=== PATIENT | female | born 1925 | race Hispanic/Latino ===

== ENCOUNTER 2016-12-03 09:16 | Day surgery (SDC) | payer MEDICARE, OTHER ==
[2016-07-08 06:47] VITALS: PULSE 136
[2016-09-24 07:41] VITALS: BMI 24.7
--- NOTE | 2016-12-03 10:17 | CP.PCM.HP ---
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 Chr A Fib ESRD (On CHr HD) TRUDY HTN Here for abd paracentasis Present on Admission - Present on Admission Any Indicators Present on Admission: No Past Patient History - Infectious Disease Hx of Infectious Diseases: None - Tetanus Immunizations Tetanus Immunization: Unknown - Past Medical History & Family History Past Medical History?: Yes - Past Social History Smoking Status: Unknown If Ever Smoked - CARDIAC Hx Atrial Fibrillation: Yes (on coumadin) Hx Cardia Arrhythmia: Yes Hx Congestive Heart Failure: Yes Hx Hypertension: Yes - PULMONARY Hx Pneumonia: Yes Hx Sleep Apnea: Yes - NEUROLOGICAL Hx Neurological Disorder: No - HEENT Hx HEENT Problems: No - RENAL Hx Chronic Kidney Disease: Yes (Dialysis M, W, F) Hx Kidney Stones: No - ENDOCRINE/METABOLIC Hx Hypothyroidism: Yes - HEMATOLOGICAL/ONCOLOGICAL Hx Anemia: Yes Hx Human Immunodeficiency Virus (HIV): No - INTEGUMENTARY Other/Comment: generalized pruritic eruption for the last one month - MUSCULOSKELETAL/RHEUMATOLOGICAL Hx Falls: Yes - GASTROINTESTINAL Hx Gastrointestinal Disorders: No Other/Comment: ASCITES - GENITOURINARY/GYNECOLOGICAL Hx Genitourinary Disorders: No - PSYCHIATRIC Hx Psychophysiologic Disorder: No Hx Substance Use: No - SURGICAL HISTORY Hx Coronary Artery Bypass Graft: No - ANESTHESIA Hx Anesthesia: Yes Hx Anesthesia Reactions: No Hx Malignant Hyperthermia: No Meds Allergies/Adverse Reactions: Allergies Allergy/AdvReac Type Severity Reaction Status Date / Time iodine Allergy RASH Verified 09/24/16 07:43 iron Allergy ITCHING Verified 09/24/16 07:50 Results - Vital Signs Recent Vital Signs: Last Vital Signs Temp 98.3 F 12/03/16 10:04 Pulse 77 12/03/16 10:04 Resp 20 12/03/16 10:04 BP 110/60 12/03/16 10:04 Pulse Ox 94 L 12/03/16 10:04 - Labs Labs: Laboratory Results - last 24 hr 12/03/16 09:57 POC Glucose (mg/dL) 148 H
--- NOTE | 2016-12-03 10:40 | HP ---
She is hospitalized in the same day surgery unit of the hospital for an abdominal paracentesis. HISTORY OF PRESENT ILLNESS: She is an 89-year-old female, a hypertensive, with chronic renal failure requiring hemodialysis for more than 4 years. She has chronic atrial fibrillation and has been on w arfarin. 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 The patient has had this procedure repeated over last year and a norman lf approximately 4-5 times. She has never been a smoker, has never suffered a myocardial infarction and has been on oral anticoagulation chronically for prevention of systemic embolism in presence of a trial fibrillation. PHYSICAL EXAMINATION: GENERAL: Shows an elderly, exhausted female, alert, awake, coherent, afebrile, complains of severe c hronic pruritus that has resisted any attempts to treat it medically. VITAL SIGNS: Afebrile, breathes at 20 breaths per minute, has a heart rate of 78 beats per minute, i rregularly irregular and a blood pressure of 114/70 mmHg. Her jugular venous pressure was elevated. EXTREMITIES: There was pitting edema over both lower extremities. Extremities were cool to touch. She had a mild peripheral cyanosis indicative of profound reduced cardiac output. A dialysis shunt w as in place in the left upper extremity. Her blood pressure was recorded in the right upper extremit y. There was a long apical systolic murmur of mitral and tricuspid regurgitation. NECK: CV complexes were evident in her jugular veins. IMPRESSION: At this time is recurrent ascites due to right ventricular failure as a consequence of m arkedly elevated pulmonary hypertension as a result of chronic hypoxia and hypoventilation syndrome w ith chronic atrial fibrillation, end-stage renal disease due to hypertension. The patient has had he r Coumadin withheld for more than 4 days and an INR was drawn this morning. She appears medically st able to proceed with the planned paracentesis procedure. Ariel Aldridge MD cc: 23 TT: 12/03/2016 10:39:34 tn
--- NOTE | 2016-12-03 11:29 | PCM.SURG1 ---
Surgeon's Initial Post Op Note - Surgeon's Notes Surgeon: Sohail Cruz MD Marketing Information Manager: NONE Type of Anesthesia: Local Pre-Operative Diagnosis: Ascites Operative Findings: US showed a large amount of ascites Post-Operative Diagnosis: Ascites Operation Performed: US guided paracentesis. Specimen/Specimens Removed: 5.7 liters of yellow fluid Estimated Blood Loss: EBL {In ML}: 0 Blood Products Given: N/A Drains Used: No Drains Post-Op Condition: Fair Date of Surgery/Procedure: 12/03/16 Time of Surgery/Procedure: 11:20
--- NOTE | 2016-12-03 11:30 | CP.SDSHP ---
Same Day Surgery H & P - History Proposed Procedure: US guided paracentesis. Pre-Op Diagnosis: Ascites - Allergies Allergies: Allergies iodine Allergy (Verified 09/24/16 07:43) RASH swelling iron Allergy (Verified 09/24/16 07:50) ITCHING SWELLING HIVES - Physical Exam Vital Signs: Vital Signs 12/03/16 12/03/16 12/03/16 10:04 10:09 10:45 Temperature 98.3 F 97.2 F L Pulse Rate 77 77 76 Respiratory 20 18 Rate Blood Pressure 110/60 91/47 L O2 Sat by Pulse 94 L 97 Oximetry Mental Status: Alert & Oriented x3 Neuro: WNL Heart: WNL - {Optional Preform as Required} Abdomen: Other (distended. Non tender) - Impression Impression: Pt with refractory ascites referred for paracentesis. Informed consent obtained. Pt. Evaluated Today:Candidate for Anesthesia & Procedure: No - Date & Time Date: 12/03/16 Time: 11:00 Short Stay Discharge - Short Stay Discharge Admitting Diagnosis/Reason for Visit: ASCITES Disposition: HOME/ ROUTINE Referrals: Tripp Aldridge MD [Primary Care Provider] -
--- NOTE | 2016-12-03 11:31 | CP.SDSHP ---
Same Day Surgery H & P - Allergies Allergies: Allergies iodine Allergy (Verified 09/24/16 07:43) RASH swelling iron Allergy (Verified 09/24/16 07:50) ITCHING SWELLING HIVES - Physical Exam Vital Signs: Vital Signs 12/03/16 12/03/16 12/03/16 10:04 10:09 10:45 Temperature 98.3 F 97.2 F L Pulse Rate 77 77 76 Respiratory 20 18 Rate Blood Pressure 110/60 91/47 L O2 Sat by Pulse 94 L 97 Oximetry Short Stay Discharge - Short Stay Discharge Admitting Diagnosis/Reason for Visit: ASCITES Referrals: Tripp Aldridge MD [Primary Care Provider] - Progress Note/Discharge Note with Instructions: s/p paracentesis. There were no complications.
[2016-12-03 11:41] VITALS: TEMP 97.4
[2016-12-03 11:58] VITALS: RESP 20
[2016-12-03 12:35] VITALS: O2SAT 95
[2016-12-03 13:02] VITALS: BP 97/41; PULSE 70
--- NOTE | 2016-12-04 13:31 | US ---
Date of Procedure: 12/03/2016 PROCEDURE: Ultrasound-guided paracentesis, CPT 79248 Medications: 8cc 1% Lidocaine HISTORY: Ascites, abdominal pain, TECHNIQUE: Following informed consent , the patient was placed supine on the stretcher and the site was marked. A limited abdominal ultrasound was performed that showed a large amount of intra-abdominal fluid. Procedural time out was called and the Pt's abdomen was marked and prepped and draped in the usual sterile fashion. Ultrasound-guided large volume paracentesis performed. A total of 5 liters of straw colored fluid was removed without complication. IMPRESSION: Ultrasound-guided large volume paracentesis.
== END 2016-12-03 13:15 | disposition home or self-care (01) ==
LOC: H.OPSURG 09:16
PROVIDERS: ATTEND Internal Medicine Cardiovascular Disease
DX: R18.8 Other ascites (principal)
CPT/HCPCS: 36415; 49083; 82948; 85610; C1729

== ENCOUNTER 2017-01-23 11:15 | Day surgery (SDC) | payer MEDICARE, OTHER ==
[2016-07-08 06:47] VITALS: PULSE 136
[2017-01-23 11:31] VITALS: BMI 25.7
[2017-01-23 12:13] LABS: HEMOGLOBIN 11.4 g/dL (12.0-16.0); MEAN CELL VOLUME 105.9 fl (81.0-99.0); MEAN CORPUSCULAR HEMOGLOBIN 34.9 pg (27.0-31.0); MEAN CORPUSCULAR HGB CONC 32.9 g/dL (33.0-37.0); RBC 3.27 Mil/uL (3.80-5.20); RED CELL DISTRIBUTION WIDTH 16.5 % (11.5-14.5); WHITE BLOOD COUNT 4.5 K/uL (4.8-10.8)
[2017-01-23 12:26] LABS: INR 1.4 (0.9-1.2)
[2017-01-23] MEDS ORDERED: Lidocaine 1% Inj (20ml) ONE (13:02)
--- NOTE | 2017-01-23 13:52 | PCM.SURG1 ---
Surgeon's Initial Post Op Note - Surgeon's Notes Surgeon: Sohail Cruz MD Improvement Analyst: NONE Type of Anesthesia: Local Pre-Operative Diagnosis: Ascites Operative Findings: US showed large amount of ascites Post-Operative Diagnosis: Ascites Operation Performed: US guided paracentesis. Specimen/Specimens Removed: 6.5 liters of straw colored fluid Estimated Blood Loss: EBL {In ML}: 0 Blood Products Given: N/A Drains Used: No Drains Post-Op Condition: Fair Date of Surgery/Procedure: 01/23/17 Time of Surgery/Procedure: 13:45
--- NOTE | 2017-01-23 13:58 | US ---
Date of Procedure: 01/23/2017 PROCEDURE: Ultrasound-guided paracentesis, CPT 56896 Medications: 8cc 1% Lidocaine HISTORY: Ascites TECHNIQUE: Following informed consent , the patient was placed supine on the stretcher and the site was marked. A limited abdominal ultrasound was performed that showed a large amount of intra-abdominal fluid. Procedural time out was called and the Pt's abdomen was marked and prepped and draped in the usual sterile fashion. Ultrasound-guided large volume paracentesis performed. A total of 6.2 liters of straw colored fluid was removed without complication. IMPRESSION: Ultrasound-guided large volume paracentesis.
[2017-01-23 14:09] VITALS: RESP 18
[2017-01-23 14:15] VITALS: TEMP 97.4
[2017-01-23 15:05] VITALS: BP 97/62; PULSE 104; O2SAT 95
== END 2017-01-23 15:19 | disposition home or self-care (01) ==
LOC: H.OPSURG 11:15
PROVIDERS: ATTEND Internal Medicine Cardiovascular Disease
DX: R18.8 Other ascites (principal)

== ENCOUNTER 2017-01-29 13:22 | Inpatient (IN) | payer MEDICARE, OTHER ==
[2017-01-29 13:22] VITALS: PULSE 136; BMI 25.7
--- NOTE | 2017-01-29 14:42 | ED PDOC ---
Lower Extremity Pain/Injury Chief Complaint (Provider): Ulcerations History Per: Patient Additional Complaint(s): 89 yo female with history of ESRD on HD, HTN, DM2 and Chronic AFib, who presents to ED in order to undergo evaluation of worsening cellulitis to right lower extremity. Pt was seen and evaluated by business assistant, Dr. Gates, today and was sent to ED for further evaluation and management. Pt's daughter at the bedside and reports that the LE cellulitis has been present for 6+ months. Additionally, Pt's daughter reports that her mother seems very ill to her. More lethargic than normal, not eating well an her BP has been very low. Of note, patient is due for dialysis today. <Karoline Medina - Last Filed: 01/29/17 16:22> <Karoline Camargo - Last Filed: 02/05/17 14:07> Time Seen by Provider: 01/29/17 13:41 Chief Complaint (Nursing): Lower Extremity Problem/Injury Past Medical History Reviewed: Historical Data, Nursing Documentation, Vital Signs Vital Signs: Last Vital Signs Temp 97 F L 01/29/17 13:29 Pulse 86 01/29/17 14:26 Resp 15 01/29/17 14:26 BP 77/34 L 01/29/17 14:26 Pulse Ox 96 01/29/17 13:54 - Medical History PMH: Anemia, Atrial Fibrillation (on coumadin), Cardia Arrhythmia, CHF, Depression, Diabetes (Type II), HTN, Hypothyroidism, Pneumonia, End Stage Renal Disease, Chronic Kidney Disease (Dialysis MWF), Sleep Apnea (on CPAP) Denies: HIV, Kidney Stones - Surgical History Surgical History: Cholecystectomy, Hernia Repair (2005, ventral) Denies: CABG - Family History Family History: States: Unknown Family Hx - Living Arrangements Living Arrangements: [facility]/Assist Lvng - Social History Current smoker - smoking cessation education provided: No Alcohol: None Drugs: Denies <Karoline Medina - Last Filed: 01/29/17 16:22> Vital Signs: Last Vital Signs Temp 97.7 F 02/03/17 13:00 Pulse 80 02/03/17 13:00 Resp 18 02/03/17 13:00 BP 98/32 L 02/03/17 13:00 Pulse Ox 96 02/03/17 13:00 <CamargoKaroline angel J - Last Filed: 02/05/17 14:07> - Home Medications Home Medications: Ambulatory Orders Medication Instructions Recorded Folic Acid/Vit B Complex and C 1 tab PO DAILY 04/15/15 [Folbee Plus Tablet] Pantoprazole [Protonix EC Tab] 40 mg PO DAILY 04/15/15 Sevelamer Carbonate [Renvela] 800 mg PO BID 04/15/15 Sitagliptin Phosphate [Januvia] 25 mg PO DAILY 04/15/15 Alprazolam [Xanax] 0.25 mg PO BID PRN 06/19/15 Warfarin [Coumadin] 2 mg PO HS 06/19/15 Levothyroxine [Synthroid] 50 mcg PO DAILY 09/21/15 Telmisartan [Micardis] 40 mg PO SUTUTHSA 09/21/15 Cinacalcet [Sensipar] 30 mg PO QOTHERDAY 12/03/16 Metoprolol Tartrate [Lopressor] 25 mg PO DAILY 12/03/16 Benzonatate 200 mg PO TID PRN 01/29/17 Cyproheptadine [Periactin] 4 mg PO BID PRN 01/29/17 ALPRAZolam [Xanax] 0.25 mg PO Q12 PRN tab 02/03/17 Acetaminophen [Tylenol 325mg tab] 650 mg PO Q6 PRN tab 02/03/17 Levothyroxine [Synthroid] 50 mcg PO DAILY@0630 tab 02/03/17 Metoprolol Tartrate [Lopressor] 25 mg PO Q12 tab 02/03/17 Pantoprazole [Protonix EC Tab] 40 mg PO DAILY ect 02/03/17 SITagliptin [Januvia] 25 mg PO DAILY tab 02/03/17 Sevelamer [Renagel] 800 mg PO TIDWM tab 02/03/17 Vitamin B Complex/Vit C/Folic 1 tab PO DAILY tab 02/03/17 [Nephro-Goran] - Allergies Allergies/Adverse Reactions: Allergies Allergy/AdvReac Type Severity Reaction Status Date / Time iodine Allergy RASH Verified 01/29/17 13:29 iron Allergy ITCHING Verified 01/29/17 13:29 Wells Criteria for PE - Wells Criteria for Pulmonary Embolism Clinical Signs and Symptoms of DVT: No P.E is #1 Diagnosis, or Equally Likely: No Heart Rate >100: No Immobilization at least 3 days;Surgery previous 4 weeks: Yes Previous, objectively diagnosed PE or DVT: No Hemoptysis: No Malignancy w/treatment within 6 months, or palliative: No Total Score: 1.5 <Karoline Medina Filed: 01/29/17 16:22> Review of Systems ROS Statement: Except As Marked, All Systems Reviewed And Found Negative Constitutional: Positive for: Weakness, Malaise Musculoskeletal: Positive for: Leg Pain Skin: Positive for: Other (cellulitis) <Karoline Medina Last Filed: 01/29/17 16:22> Physical Exam - Reviewed Nursing Documentation Reviewed: Yes Vital Signs Reviewed: Yes - Physical Exam Appears: Positive for: Well, Non-toxic, No Acute Distress Head Exam: Positive for: ATRAUMATIC, NORMAL INSPECTION, NORMOCEPHALIC Skin: Positive for: Normal Color, Warm, DRY Eye Exam: Positive for: EOMI, Normal appearance, PERRL ENT: Positive for: Normal ENT Inspection Neck: Positive for: Normal, Painless ROM Cardiovascular/Chest: Positive for: Regular Rate, Rhythm Respiratory: Positive for: CNT, Normal Breath Sounds Gastrointestinal/Abdominal: Positive for: Normal Exam, Bowel Sounds, Soft Back: Positive for: Normal Inspection Extremity: Positive for: Other (right LE erythematous and warm). Negative for: Tenderness, Deformity, Swelling Neurologic/Psych: Positive for: Alert <Karoline Medina Last Filed: 01/29/17 16:22> - Laboratory Results Result Diagrams: 01/29/17 15:00 01/29/17 15:00 - ECG O2 Sat by Pulse Oximetry: 96 <Karoline Medina Last Filed: 01/29/17 16:22> - Laboratory Results Result Diagrams: 01/31/17 04:20 01/31/17 04:20 <Ketty Camargoissa Jose Last Filed: 02/05/17 14:07> Medical Decision Making Medical Decision Making: Pt with BP 75/30 upon arrival. Pt asleep in bed, responsive to verbal stimuli. IV access established and diagnostics ordered. ED MD, Dr. Camargo, made aware and presented to see and evaluate Pt at bedside. Case endorsed to Dr. Camargo for further care and management at this time <Karoline Medina - Last Filed: 01/29/17 16:22> Disposition - Patient ED Disposition Is Patient to be Admitted: Yes - Disposition Disposition: Transfer of Care (Dr. Camargo) Disposition Time: 16:30 - POA Present On Arrival: None <Karoline Medina - Last Filed: 01/29/17 16:22> <Karoline Camargo - Last Filed: 02/05/17 14:07> - Clinical Impression Clinical Impression: Hypotension, ESRD (end stage renal disease), Cellulitis - Disposition Condition: CRITICAL
[2017-01-29] MEDS ORDERED: Sodium Chloride 0.9% 250 ML IV STA (14:45)
[2017-01-29] MEDS ORDERED: Albumin Human 25% (12.5 gm/50 ml) IV ONE (14:54)
[2017-01-29] MEDS ORDERED: Cefepime 1 GM in Sodium Chloride 0.9% 100 ML IVPB STA (15:10)
[2017-01-29 15:24] LABS: BASO % 0.5 % (0.0-2.0); EOS # 0.1 K/uL (0.0-0.7); EOS % 1.4 % (0.0-4.0); HEMOGLOBIN 12.3 g/dL (12.0-16.0); LYMPH # 0.5 K/uL (1.0-4.3); LYMPH % 14.1 % (20.0-40.0); MEAN CELL VOLUME 104.9 fl (81.0-99.0); MEAN CORPUSCULAR HEMOGLOBIN 33.9 pg (27.0-31.0); MEAN CORPUSCULAR HGB CONC 32.3 g/dL (33.0-37.0); MEAN PLATELET VOLUME 8.2 fl (7.2-11.7); MONO # 0.6 K/uL (0.0-0.8); MONO % 15.9 % (0.0-10.0); NEUT # 2.5 K/uL (1.8-7.0); NEUT % 68.1 % (50.0-75.0); NRBC % 0.1 % (0.0-0.0); RBC 3.62 Mil/uL (3.80-5.20); RED CELL DISTRIBUTION WIDTH 16.5 % (11.5-14.5); WHITE BLOOD COUNT 3.7 K/uL (4.8-10.8)
[2017-01-29 15:25] LABS: VENOUS BLOOD GAS BASE EXCESS 5.5 mmol/L (0.0-2.0); VENOUS BLOOD GAS PCO2 56 mmHg (40-60); VENOUS BLOOD GAS PO2 24 mm/Hg (30-55); VENOUS BLOOD PH 7.37 (7.32-7.43)
[2017-01-29 15:32] LABS: ALB/GLOB RATIO 1.1 (1.0-2.1); ALBUMIN 3.3 g/dL (3.5-5.0); ALT/SGPT 30 U/L (9-52); AST/SGOT 29 U/L (14-36); BLOOD UREA NITROGEN 37 mg/dl (7-17); GFR AFRICAN-AMERICAN 10; GFR NON-AFRICAN AMERICAN 8; MAGNESIUM 1.9 MG/DL (1.6-2.3)
[2017-01-29 15:38] LABS: PROTHROMBIN TIME 18.9 Seconds (9.8-13.1)
[2017-01-29 15:39] LABS: INR 1.7 (0.9-1.2); PARTIAL THROMBOPLASTIN TIME 34.8 Seconds (25.6-37.1)
--- NOTE | 2017-01-29 15:52 | RAD ---
PROCEDURE: CHEST RADIOGRAPH, 1 VIEW HISTORY: med screening COMPARISON: 05/18/2016 FINDINGS: LUNGS: Clear. PLEURA: Hazy opacity at right costophrenic angle may reflect small pleural effusion. No left pleural effusion. No pneumothorax. CARDIOVASCULAR: Mild cardiomegaly. Mild enlargement of main pulmonary artery which may correlate with pulmonary arterial hypertension. OSSEOUS STRUCTURES: No significant abnormalities. VISUALIZED UPPER ABDOMEN: Normal. OTHER FINDINGS: None. IMPRESSION: No infiltrate. Mild cardiomegaly. Possible small right pleural effusion. Mild enlargement of main pulmonary artery.
--- NOTE | 2017-01-29 16:14 | US ---
PROCEDURE: Right lower extremity venous duplex Doppler. HISTORY: RIGHT leg swelling redness COMPARISON: None available. TECHNIQUE: Common femoral, superficial femoral, popliteal and posterior tibial veins were evaluated. Flow was assessed with color Doppler, compressibility, assessment of phasic flow and augmentation response. FINDINGS: COMMON FEMORAL VEIN: Unremarkable. SUPERFICIAL FEMORAL VEIN: Unremarkable. POPLITEAL VEIN: Unremarkable. POSTERIOR TIBIAL VEIN: Unremarkable. OTHER FINDINGS: None. IMPRESSION: No evidence of deep venous thrombosis in the right lower extremity.
[2017-01-29 16:49] LABS: B-TYPE NATRIURETIC PEPTIDE 218000 pg/ml (0-900)
--- NOTE | 2017-01-29 16:51 | CP.CCUPN ---
CCU Subjective - Physician Review Subjective (Free Text): Consultation requested by ER / PMD for ICU admission 89 F with PMH: HTN, DM II, ESRD on HD (MWF), CHF -Pulm HTN , chronic A Fib, TRUDY on home NIPPV, recurrent ascites requiring intermittent paracentesis ( last one 1 week ago, 6.5 liters removed), multiple episodes of PNA, chronic R pleural effusion: admitted today with Right LLE cellulitis and hypotension with SBP 80s. Responded to colloid challenge with Albumin, resulting in BP 90s, HR 88. Appears lethargic and only awakens to loud verbal stimuli, daughter at bedside stating she notes successive sleepiness over the past several days, but she does not appear distressed nor with any labored breathing, daughter denies any recent CP or dyspnea at rest. Denies any recent cough, fevers or chills, no diaphoresis, dizziness, palpitations, abdominal discomfort. She admits to recent R sided headaches, but not assoc with any nausea, focal weakness, dizziness, visual or hearing changes. Started on Cefepime and Vanco in the ER. Had her usual HD on Friday with removal of 3 kg. ALLERGIES: Iron and Iodine Home Meds: Xanax, Benzonatate, Sensipar, Periactin, Folate/Bcomplex/vit C complex, Synthroid, Lopressor, Protonix, Sevelemer, Januvia, Micardis, warfarin. ROS: as above, other 10+ system review did not reveal any new pertinent negs or positives. Other PMSFH: All recent nursing and physician documentation reviewed as far back as 2014 and no new information noted relevant to current problems. CCU Objective - Vital Signs / Intake & Output Vital Signs (Last 4 hours): Vital Signs Pulse Ox 01/29/17 16:30 96 in ICU: 101/51, HR 88 in A Fib, RR 19, SPO2 92% on RA, Afebrile. - Physical Exam Head: Positive for: Normocephalic Pupils: Positive for: PERRL Extroacular Muscles: Positive for: EOMI Conjunctiva: Positive for: Normal Ears: Positive for: Normal Mouth: Positive for: Dry Pharnyx: Positive for: Normal. Negative for: ERYTHEMA, EXUDATE Neck: Negative for: JVD (prominent neck vein distention on Left, no JVD on the Right.) Respiratory/Chest: Positive for: Decreased Breath Sounds, Rales. Negative for: Wheezes, Rhonchi Cardiovascular: Positive for: Normal S1, S2, Irregular Rhythm Abdomen: Positive for: Distention, Other (protuberant, + fluid wave, ). Negative for: Tenderness, Rebound, Guarding Upper Extremity: Positive for: Other (LUE AVF shunt with good bruit and thrill) Lower Extremity: Positive for: Edema (RLE only with redness and increased warmth over distal leg, dressing intact over 2 areas of broken skin over mid- lateral distal R leg.), NORMAL PULSES, Erythema. Negative for: CALF TENDERNESS , Cyanosis Neurological: Positive for: GCS=15, CN II-XII Intact, Speech Normal, Motor Func Grossly Intact Skin: Positive for: Warm. Negative for: Rashes - Medications Active Medications: Active Medications Generic Name Dose Route Start Last Admin Trade Name Freq PRN Reason Stop Dose Admin Cefepime HCl 1 gm/ Sodium 100 mls @ 100 mls/hr 01/30/17 09:00 Chloride IVPB DAILY MEGHAN - Patient Studies Radiology Interpretations (Free Text): CXR: ( my interp)- blunting bilat production team member, no gross consolidation, probable bibasilar atelectasis as well. EKG/Cardiology Interpretations (Free Text): EKG: (my interp) A fib 76/min, no new ischemic changes. Review of Systems - Review of Systems Review of Systems: as above, other 10+ system review did not reveal any new pertinent negs or positives. Critical Care Progress Note - Extremities/Vascular Does the Patient have a Central Venous Catheter?: No Does the Patient need a Central Venous Catheter?: No Does the Patient have a Hassan Catheter?: No Does the Patient need a Hassan Catheter?: No - Prophylaxis GI Prophylaxis GI: Not Indicated - Prophylaxis DVT Prophylaxis DVT: Heparin SQ Assessment/Plan - Assessment and Plan (Free Text) Assessment: MAJOR PROBLEMS: 1. Hypotension 2 Hypovolemia/ Dehydration 2. AMS with intermittent Lethargy and drowsiness 3. Right LLE Cellulitis, r/o DVT 4. ESRD on HD with missed session today. 5. R- CHF and Pulm HTN 6. DM II 7. Chronic A fib on AC Plan: PLAN: 1. Colloid infusion with 5% Albumin as tolerated for BP support, may need vasopressors if still hypotensive after 1 liter volume infused. She does not appear to be fluid overloaded. 2. CT Brain 3. Check ABG 4. Hold on HD today, anticipate HD in AM for urea clearance. 5. Empiric abx coverage for cellulitis 6. LLE US/Doppler eval. Do not suspect any evident acute PTE. 7. Clarify any Advance Directives.
--- NOTE | 2017-01-29 17:01 | ED PDOC ---
- Laboratory Results Result Diagrams: 01/29/17 15:00 01/29/17 15:00 - ECG ECG: Positive for: Interpreted By Me ECG Rhythm: Positive for: Atrial Fibrillation. Negative for: ST/T Changes O2 Sat by Pulse Oximetry: 96 Pulse Ox Interpretation: Normal - Radiology X-Ray: Read By Radiologist - Critical Care Total Time (In Min): 30 Documented Critical Care: Time excludes all time spent performint seperately billable procedures Medical Decision Making Medical Decision Making: Rec'd endorsement from URSULA Medina On eval, pt is fluid overload/signs of heart failure but hypotensive, with active RIGHT leg lower leg cellulitis. Unable to aggressively give IVF for sepsis due to heart failure and renal failure. DW Dr Jose Aldridge PMD and CArdiology, who recommends albumin at this time [facility]. Due to hypotension unable to have hemodialysis at this time. (Mididrine considered, but per Dr Aldridge, may exacerbate her atrial fibrillation.) RC GILMAN who recommends Vanco and Cefepime. [facility] Che[facility] for ICU. Recommends CT Head. RC family plan of care. Pt's bp slowly stabilizing and SBP has increased to 80s. She has normal mental status. Accession No. : [id number] Patient Name / ID : KATERINA MISHRA / [id number] Exam Date : 01/29/2017 15:38:35 ( Approved ) Study Comment : Sex / Age : F / 89Y Creator : Vincent Glover MD Dictator : Vincent Glover MD Solar Panel Installation Supervisor : Tank Hoop Bender : Vincent Glover MD Approver2 : Report Date : 01/29/2017 16:12:52 My Comment : PROCEDURE: Right lower extremity venous duplex Doppler. HISTORY: RIGHT leg swelling redness COMPARISON: None available. TECHNIQUE: Common femoral, superficial femoral, popliteal and posterior tibial veins were evaluated. Flow was assessed with color Doppler, compressibility, assessment of phasic flow and augmentation response. FINDINGS: COMMON FEMORAL VEIN: Unremarkable. SUPERFICIAL FEMORAL VEIN: Unremarkable. POPLITEAL VEIN: Unremarkable. POSTERIOR TIBIAL VEIN: Unremarkable. OTHER FINDINGS: None. IMPRESSION: No evidence of deep venous thrombosis in the right lower extremity. Accession No. : [id number] Patient Name / ID : KATERINA MSIHRA / [id number] Exam Date : 01/29/2017 15:25:07 ( Approved ) Study Comment : Sex / Age : F / 89Y Creator : Vincent Glover MD Dictator : Vincent Glover MD Solar Panel Installation Supervisor : Tank Hoop Bender : Vincent Glover MD Approver2 : Report Date : 01/29/2017 15:50:16 My Comment : PROCEDURE: CHEST RADIOGRAPH, 1 VIEW HISTORY: med screening COMPARISON: 05/18/2016 FINDINGS: LUNGS: Clear. PLEURA: Hazy opacity at right costophrenic angle may reflect small pleural effusion. No left pleural effusion. No pneumothorax. CARDIOVASCULAR: Mild cardiomegaly. Mild enlargement of main pulmonary artery which may correlate with pulmonary arterial hypertension. OSSEOUS STRUCTURES: No significant abnormalities. VISUALIZED UPPER ABDOMEN: Normal. OTHER FINDINGS: None. IMPRESSION: No infiltrate. Mild cardiomegaly. Possible small right pleural effusion. Mild enlargement of main pulmonary artery. Disposition - Clinical Impression Clinical Impression: Hypotension, ESRD (end stage renal disease), Cellulitis - POA Present On Arrival: None - Disposition Disposition: Admitted as In-Patient Disposition Time: 15:30 Condition: CRITICAL
[2017-01-29] MEDS ORDERED: Albumin Human 5% (12.5 gm/250 ml) IV PRN (17:23)
--- NOTE | 2017-01-29 17:27 | CP.PCM.CON ---
History of Present Illness - History of Present Illness History of Present Illness: I D NOTE PATIENT SEEN IN ER BEING ADMITTED FOR HYPOTENSION,HAS FLUID OVERLOAD,ON HD' BEING SEEN BY ID FOR BILATERAL CELLULITIS OF LOWER EXTREMITIES ALONG C ULCERATINS OF SKIN ,AND CHRONIC ULCERATIONS OF HEELS UNABLE TO DO HD SO FAR BECAUSE OF SEVERE HYPOTENSION HEENT: SKIN IS ERYTHEMATOUS AROUND EYES AND CHEEKS AND GREYISH (ALMOST CYANOTIC AROUND REST OF FACIAL AREA NECK:SUPPLE LUNGS:DECREASED BREATH SOUNDS C RALES AT BASES HEART:AF ABDOMEN:POS BOWELSOUNDS EXT:ERYTHEMATOUS C SMALL ULCERATIONS HEELS:CHRONIC ULCERS IMPRESSION CELLULITIS OF BOTH LOWER EXTEMITIES /R ELBOW AF CRF CHF PLAN:MAXIPEME 1 GM IV Q24H ZYVOX 600 MG IVPB Q12 AWAIT CULTURES Past Patient History - Infectious Disease Hx of Infectious Diseases: None - Tetanus Immunizations Tetanus Immunization: Unknown - Past Medical History & Family History Past Medical History?: Yes - Past Social History Alcohol: None Drugs: Denies - CARDIAC Hx Atrial Fibrillation: Yes (on coumadin) Hx Cardia Arrhythmia: Yes Hx Congestive Heart Failure: Yes Hx Hypertension: Yes - PULMONARY Hx Pneumonia: Yes Hx Sleep Apnea: Yes (on CPAP) - NEUROLOGICAL Hx Neurological Disorder: No - HEENT Hx HEENT Problems: No - RENAL Hx Chronic Kidney Disease: Yes (Dialysis MWF) Hx Kidney Stones: No - ENDOCRINE/METABOLIC Hx Hypothyroidism: Yes - HEMATOLOGICAL/ONCOLOGICAL Hx Anemia: Yes Hx Human Immunodeficiency Virus (HIV): No - INTEGUMENTARY Hx Dermatological Problems: Yes (Pruritic eruptions) - MUSCULOSKELETAL/RHEUMATOLOGICAL Hx Musculoskeletal Disorders: No - GASTROINTESTINAL Hx Gastrointestinal Disorders: No Other/Comment: ASCITES - GENITOURINARY/GYNECOLOGICAL Hx Genitourinary Disorders: No - PSYCHIATRIC Hx Depression: Yes - SURGICAL HISTORY Hx Cholecystectomy: Yes Hx Coronary Artery Bypass Graft: No - ANESTHESIA Hx Anesthesia: Yes Hx Anesthesia Reactions: No Hx Malignant Hyperthermia: No Meds Allergies/Adverse Reactions: Allergies Allergy/AdvReac Type Severity Reaction Status Date / Time iodine Allergy RASH Verified 01/29/17 13:29 iron Allergy ITCHING Verified 01/29/17 13:29 - Medications Medications: Current Medications Cefepime HCl 1 gm/ Sodium (Chloride) 100 mls @ 100 mls/hr IVPB DAILY [facility] Results - Vital Signs Recent Vital Signs: Last Vital Signs Temp 97 F L 01/29/17 13:29 Pulse 86 01/29/17 14:26 Resp 15 01/29/17 14:26 BP 77/34 L 01/29/17 14:26 Pulse Ox 96 01/29/17 17:06 - Labs Result Diagrams: 01/29/17 15:00 01/29/17 15:00
--- NOTE | 2017-01-29 17:40 | CT ---
PROCEDURE: CT scan of the brain dated 01/29/2017 HISTORY: Dizziness. Weakness. COMPARISON: Comparison made with prior CT scan brain 07/08/2016 TECHNIQUE: Axial computed tomography images were obtained through the head/brain without intravenous contrast. Radiation dose: Total exam DLP = mGy-cm. This CT exam was performed using one or more of the following dose reduction techniques: Automated exposure control, adjustment of the mA and/or kV according to patient size, and/or use of iterative reconstruction technique. FINDINGS: HEMORRHAGE: No acute parenchymal, subarachnoid or extra-axial hemorrhage. BRAIN: Moderate to significant diffuse/ confluent chronic periventricular white matter ischemic changes extend peripherally into the deep and subcortical white matter both cerebral hemispheres. In addition, discrete bifrontal subcortical infarcts also present. Few scattered chronic bilateral basal nuclei lacunar type infarcts also noted. Dense vascular calcifications of both cavernous carotid arteries Moderate generalized volume loss. VENTRICLES: No evidence of obstructive hydrocephalus CALVARIUM: Calvarium appears grossly intact. PARANASAL SINUSES: Unremarkable as visualized. No significant inflammatory changes. MASTOID AIR CELLS: Unremarkable as visualized. No inflammatory changes. OTHER FINDINGS: Changes of bilateral cataract surgery IMPRESSION: No acute intracranial hemorrhage. Moderate to significant chronic white matter ischemic changes and bilateral frontal subcortical and deep white matter the infarcts again noted. There also appear to be a few scattered chronic bilateral basal nuclei lacunar type infarcts. Moderate generalized volume loss.
[2017-01-29] MEDS: Linezolid 600 mg in D5W 300 ml 600 MG/300 ML BAG IVPB SCH (21:47)
[2017-01-30 04:51] LABS: BASO % 0.8 % (0.0-2.0); EOS # 0.1 K/uL (0.0-0.7); EOS % 1.4 % (0.0-4.0); HEMOGLOBIN 11.3 g/dL (12.0-16.0); LYMPH # 0.5 K/uL (1.0-4.3); LYMPH % 14.4 % (20.0-40.0); MEAN CELL VOLUME 104.2 fl (81.0-99.0); MEAN CORPUSCULAR HEMOGLOBIN 33.8 pg (27.0-31.0); MEAN CORPUSCULAR HGB CONC 32.4 g/dL (33.0-37.0); MEAN PLATELET VOLUME 7.8 fl (7.2-11.7); MONO # 0.7 K/uL (0.0-0.8); MONO % 17.9 % (0.0-10.0); NEUT # 2.5 K/uL (1.8-7.0); NEUT % 65.5 % (50.0-75.0); RBC 3.35 Mil/uL (3.80-5.20); RED CELL DISTRIBUTION WIDTH 16.1 % (11.5-14.5); WHITE BLOOD COUNT 3.8 K/uL (4.8-10.8)
[2017-01-30 05:15] LABS: ALB/GLOB RATIO 1.2 (1.0-2.1); ALBUMIN 3.2 g/dL (3.5-5.0); CALCIUM 8.9 mg/dL (8.4-10.2)
--- NOTE | 2017-01-30 08:11 | CARD ---
APPROVED REPORT EKG Measurement Heart [id number] <Conclusion> Atrial fibrillation Right axis deviation Right ventricular hypertrophy with repolarization abnormality Nonspecific T wave abnormality Abnormal ECG
[2017-01-30] MEDS: Cefepime 1 GM in Sodium Chloride 0.9% 100 ML IVPB SCH (09:25)
--- NOTE | 2017-01-30 09:32 | CP.PCM.HP ---
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 There were also superficial ulcers over her heel. The patient has had severe right ventricular failure and repeatedly develops ascites and pleural effusions which over last year and a half have been tapped repeatedly. Approximately a week back she had 6.5 L of ascites fluid tapped. The patient has been using her BiPAP machine faithfully. At this point she is mostly bed and chair bound. She often develops hypotension during hemodialysis which is then prematurely terminated. Physical examination shows an elderly lady who is alert awake and coherent. She is afebrile and displays atrial fibrillation with a heart rate off 104 bpm irregularly irregular. Her blood pressure was 108/70 mmHg in the right upper extremity. Her left upper arm has a dialysis AV fistula. Her left-sided jugular veins were quite distended while her right jugular veins were flat. There was no pedal edema. A mild degree of sacral edema was evident. Her extremities were cold and there was a tinge of cyanotic hue over her toes and fingers. The precordium was heaving with at first heart sound quite muffled second heart sound was normal. There is an apical systolic murmur of mitral regurgitation as well as tricuspid regurgitation. The air entry was slightly reduced at both bases. Her inspiratory effort was poor. There were no rales. Her abdomen was slightly distended and physical findings of free fluid were evident. Her liver and spleen are not enlarged there were no abdominal masses. There was no guarding or rigidity or tenderness. There was redness over both ankles and superficial ulcers were evident over the left ankle. There was no discharge. Her electrocardiogram showed atrial fibrillation with evidence of rightward axis. There were no Q waves suggestive of myocardial infarction. There were nonspecific ST-T changes. Ultrasound of lower extremities ruled out any evidence of DVT. IMPRESSION: Cellulitis over both lower extremities. Severe right ventricular failure due to pulmonary hypertension secondary to chronic obstructive sleep apnea. Diabetes mellitus, hypertension and chronic kidney disease stage V requiring chronic hemodialysis. Chronic atrial fibrillation. The patient has been seen by an infectious disease specialist and she has been started on appropriate anti-biotics. Cultures have been drawn and the results are still elevated. The patient has received IV albumen and a small amount of IV fluid improving her systolic blood pressure and the patient will undergo hemodialysis today warfarin has been ordered. The patient will most likely require a protracted course of IV anti-biotics. Present on Admission - Present on Admission Any Indicators Present on Admission: No Past Patient History - Infectious Disease Hx of Infectious Diseases: None - Tetanus Immunizations Tetanus Immunization: Unknown - Past Medical History & Family History Past Medical History?: Yes - Past Social History Smoking Status: Former Smoker - CARDIAC Hx Atrial Fibrillation: Yes (on coumadin) Hx Cardia Arrhythmia: Yes Hx Congestive Heart Failure: Yes Hx Hypertension: Yes - PULMONARY Hx Pneumonia: Yes Hx Sleep Apnea: Yes (on CPAP) - NEUROLOGICAL Hx Neurological Disorder: No - HEENT Hx HEENT Problems: No - RENAL Hx Chronic Kidney Disease: Yes (Dialysis MWF) Hx Kidney Stones: No - ENDOCRINE/METABOLIC Hx Hypothyroidism: Yes - HEMATOLOGICAL/ONCOLOGICAL Hx AIDS: No Hx Anemia: Yes Hx Human Immunodeficiency Virus (HIV): No - INTEGUMENTARY Hx Dermatological Problems: Yes (Pruritic eruptions) - MUSCULOSKELETAL/RHEUMATOLOGICAL Hx Musculoskeletal Disorders: No Hx Falls: No - GASTROINTESTINAL Hx Gastrointestinal Disorders: No Other/Comment: ASCITES - GENITOURINARY/GYNECOLOGICAL Hx Genitourinary Disorders: No - PSYCHIATRIC Hx Depression: Yes Hx Substance Use: No - SURGICAL HISTORY Hx Cholecystectomy: Yes Hx Coronary Artery Bypass Graft: No - ANESTHESIA Hx Anesthesia: Yes Hx Anesthesia Reactions: No Hx Malignant Hyperthermia: No Meds Allergies/Adverse Reactions: Allergies Allergy/AdvReac Type Severity Reaction Status Date / Time iodine Allergy RASH Verified 01/29/17 13:29 iron Allergy ITCHING Verified 01/29/17 13:29 Results - Vital Signs Recent Vital Signs: Last Vital Signs Temp 97.5 F L 01/30/17 08:00 Pulse 90 01/30/17 08:00 Resp 20 01/30/17 08:00 BP 106/60 01/30/17 08:00 Pulse Ox 95 01/30/17 08:00 - Labs Result Diagrams: 01/30/17 04:46 01/30/17 04:46 Labs: Laboratory Results - last 24 hr 01/30/17 01/30/17 04:46 04:46 WBC 3.8 L RBC 3.35 L Hgb 11.3 L Hct 34.9 MCV 104.2 H MCH 33.8 H MCHC 32.4 L RDW 16.1 H Plt Count 79 L MPV 7.8 Neut % (Auto) 65.5 Lymph % (Auto) 14.4 L [place] % (Auto) 17.9 H Eos % (Auto) 1.4 Baso % (Auto) 0.8 Neut # 2.5 Lymph # 0.5 L [place] # 0.7 Eos # 0.1 Baso # 0.0 ESR 13 Sodium 135 Potassium 4.8 Chloride 97 L Carbon Dioxide 25 Anion Gap 18 BUN 39 H Creatinine 5.5 H Est GFR ( Amer) 9 Est GFR (Non-Af Amer) 7 Random Glucose 106 H Calcium 8.9 Total Bilirubin 1.2 AST 16 ALT 27 Alkaline Phosphatase 71 Total Protein 5.9 L Albumin 3.2 L Globulin 2.7 Albumin/Globulin Ratio 1.2
--- NOTE | 2017-01-30 11:46 | CP.CCUPN ---
CCU Subjective - Physician Review Subjective (Free Text): Discussed with Cardio this AM: Awake and alert, no SOB or CP at bedrest, required one incidence of Albumin infusion overnight for hypotension, otherwise SBP levels have been near or at/ above 100. HR 80s with essentially controlled rate in chronic A fib. State she still feels thirsty, although has been drinking water and other fluids. Scheduled for HD today AM due to missed regular session yesterday. ROS: as above, other 10+ system review did not reveal any new pertinent negs or positives. Other PMSFH: All recent nursing and physician documentation reviewed as far back as 2014 and no new information noted relevant to current problems. CCU Objective - Vital Signs / Intake & Output Vital Signs (Last 4 hours): Vital Signs Temp Pulse Resp BP Pulse Ox 01/30/17 08:00 97.5 F L 90 20 106/60 95 Intake and Output (Last 8hrs): Intake & Output 01/29/17 01/30/17 01/30/17 22:59 06:59 14:59 Intake Total 150 610 100 Balance 150 610 100 Intake: Intake, Piggyback 100 300 100 Oral 60 Albumin 50 250 Other: # Bowel Movements 1 - Physical Exam Head: Positive for: Normocephalic Pupils: Positive for: PERRL Extroacular Muscles: Positive for: EOMI Conjunctiva: Positive for: Normal Ears: Positive for: Normal Mouth: Positive for: Dry Pharnyx: Positive for: Normal. Negative for: ERYTHEMA, EXUDATE Neck: Negative for: JVD (prominent neck vein distention on Left, no JVD on the Right.) Respiratory/Chest: Positive for: Decreased Breath Sounds, Rales. Negative for: Wheezes, Rhonchi Cardiovascular: Positive for: Normal S1, S2, Irregular Rhythm Abdomen: Positive for: Distention, Other (protuberant, + fluid wave, ). Negative for: Tenderness, Rebound, Guarding Upper Extremity: Positive for: Other (LUE AVF shunt with good bruit and thrill) Lower Extremity: Positive for: Edema (RLE only with redness and increased warmth over distal leg, dressing intact over 2 areas of broken skin over mid- lateral distal R leg.), NORMAL PULSES, Erythema. Negative for: CALF TENDERNESS , Cyanosis Neurological: Positive for: GCS=15, CN II-XII Intact, Speech Normal, Motor Func Grossly Intact Skin: Positive for: Warm. Negative for: Rashes - Medications Active Medications: Active Medications Generic Name Dose Route Start Last Admin Trade Name Freq PRN Reason Stop Dose Admin Albumin Human 12.5 gm 01/29/17 17:23 01/30/17 03:05 Albumin Human 5% (12.5 Gm/250 Ml) IV 01/30/17 13:31 12.5 gm Q4H PRN Administration Systolic Blood Pressure Cefepime HCl 1 gm/ Sodium 100 mls @ 100 mls/hr 01/30/17 09:00 01/30/17 09:25 Chloride IVPB 100 mls/hr DAILY [facility] Administration Linezolid 600 mg in 300 mls @ 300 mls/hr 01/29/17 21:00 01/29/17 21:47 Zyvox 600mg/300ml D5w IVPB 300 mls/hr Q12 [facility] Administration Metoprolol Tartrate 25 mg 01/30/17 09:30 Lopressor PO Q12 [facility] Warfarin Sodium 5 mg 01/30/17 17:00 Coumadin PO 01/30/17 17:01 QD5 [facility] Protocol - Patient Studies Lab Studies: Lab Studies 01/30/17 01/30/17 Range/Units 04:46 04:46 WBC 3.8 L (4.8-10.8) K/uL RBC 3.35 L (3.80-5.20) Mil/uL Hgb 11.3 L (12.0-16.0) g/dL Hct 34.9 (34.0-47.0) % MCV 104.2 H (81.0-99.0) fl MCH 33.8 H (27.0-31.0) pg MCHC 32.4 L (33.0-37.0) g/dL RDW 16.1 H (11.5-14.5) % Plt Count 79 L (130-400) K/uL MPV 7.8 (7.2-11.7) fl Neut % (Auto) 65.5 (50.0-75.0) % Lymph % (Auto) 14.4 L (20.0-40.0) % [place] % (Auto) 17.9 H (0.0-10.0) % Eos % (Auto) 1.4 (0.0-4.0) % Baso % (Auto) 0.8 (0.0-2.0) % Neut # 2.5 (1.8-7.0) K/uL Lymph # 0.5 L (1.0-4.3) K/uL [place] # 0.7 (0.0-0.8) K/uL Eos # 0.1 (0.0-0.7) K/uL Baso # 0.0 (0.0-0.2) K/uL ESR 13 (0-30) mm/hr Sodium 135 (132-148) mmol/l Potassium 4.8 (3.6-5.0) MMOL/L Chloride 97 L (98-107) mmol/L Carbon Dioxide 25 (22-30) mmol/L Anion Gap 18 (10-20) BUN 39 H (7-17) mg/dl Creatinine 5.5 H (0.7-1.2) mg/dL Est GFR ( Amer) 9 Est GFR (Non-Af Amer) 7 Random Glucose 106 H (65-105) mg/dL Calcium 8.9 (8.4-10.2) mg/dL Total Bilirubin 1.2 (0.2-1.3) mg/dl AST 16 (14-36) U/L ALT 27 (9-52) U/L Alkaline Phosphatase 71 (38-126) U/L Total Protein 5.9 L (6.3-8.2) G/DL Albumin 3.2 L (3.5-5.0) g/dL Globulin 2.7 (2.2-3.9) gm/dL Albumin/Globulin Ratio 1.2 (1.0-2.1) Laboratory Results - last 24 hr 01/30/17 01/30/17 04:46 04:46 WBC 3.8 L RBC 3.35 L Hgb 11.3 L Hct 34.9 MCV 104.2 H MCH 33.8 H MCHC 32.4 L RDW 16.1 H Plt Count 79 L MPV 7.8 Neut % (Auto) 65.5 Lymph % (Auto) 14.4 L [place] % (Auto) 17.9 H Eos % (Auto) 1.4 Baso % (Auto) 0.8 Neut # 2.5 Lymph # 0.5 L [place] # 0.7 Eos # 0.1 Baso # 0.0 ESR 13 Sodium 135 Potassium 4.8 Chloride 97 L Carbon Dioxide 25 Anion Gap 18 BUN 39 H Creatinine 5.5 H Est GFR ( Amer) 9 Est GFR (Non-Af Amer) 7 Random Glucose 106 H Calcium 8.9 Total Bilirubin 1.2 AST 16 ALT 27 Alkaline Phosphatase 71 Total Protein 5.9 L Albumin 3.2 L Globulin 2.7 Albumin/Globulin Ratio 1.2 Critical Care Progress Note - Extremities/Vascular Does the Patient have a Central Venous Catheter?: No Does the Patient need a Central Venous Catheter?: No Does the Patient have a Hassan Catheter?: No Does the Patient need a Hassan Catheter?: No - Prophylaxis GI Prophylaxis GI: Not Indicated - Prophylaxis DVT Prophylaxis DVT: Warfarin - Nutrition Nutrition: Nutrition Category Date Time Status Renal Diet [DIET] Diets 01/29/17 Dinner Active Assessment/Plan - Assessment and Plan (Free Text) Assessment: MAJOR PROBLEMS: 1. Hypotension 2 Hypovolemia/ Dehydration 2. AMS with intermittent Lethargy and drowsiness 3. Right LLE Cellulitis, r/o DVT 4. ESRD on HD with missed session today. 5. R- CHF and Pulm HTN 6. DM II 7. Chronic A fib on AC Plan: PLAN: 1. Colloid infusion with 5% Albumin as tolerated for BP support, may need vasopressors if still hypotensive after 1 liter volume infused. She still does not appear to be fluid overloaded. 2. CT Brain negative for acute pathology. 3. HD today, in AM for urea clearance. 4. Empiric abx coverage for cellulitis as per ID on Cefepime and Zyvox. 5. LLE US/Doppler eval negative for DVT. 6. Stable for trf to regular dialysis bed later this afternoon if todays HD in uneventful.
[2017-01-30] MEDS: Linezolid 600 mg in D5W 300 ml 600 MG/300 ML BAG IVPB SCH ×2 (12:30→21:31)
[2017-01-30] MEDS ORDERED: DiphenhydrAMINE 50 mg/ml Inj IVP STA (12:52)
[2017-01-30] MEDS: Pantoprazole 40 mg EC Tab PO SCH (16:50)
--- NOTE | 2017-01-30 20:07 | CP.PCM.CON ---
History of Present Illness - History of Present Illness History of Present Illness: REASON FOR CONSULT : ESRDON HD M W F .. MISSED HD HYPOVOLEMIA .. DEHYDRATION .. HYPOTENSION PT IS WELL KNOWN TO OUR RENAL SERVICE Past Patient History - Infectious Disease Hx of Infectious Diseases: None - Tetanus Immunizations Tetanus Immunization: Unknown - Past Medical History & Family History Past Medical History?: Yes - Past Social History Smoking Status: Former Smoker - CARDIAC Hx Atrial Fibrillation: Yes (on coumadin) Hx Cardia Arrhythmia: Yes Hx Congestive Heart Failure: Yes Hx Hypertension: Yes - PULMONARY Hx Pneumonia: Yes Hx Sleep Apnea: Yes (on CPAP) - NEUROLOGICAL Hx Neurological Disorder: No - HEENT Hx HEENT Problems: No - RENAL Hx Chronic Kidney Disease: Yes (Dialysis MWF) Hx Kidney Stones: No - ENDOCRINE/METABOLIC Hx Hypothyroidism: Yes - HEMATOLOGICAL/ONCOLOGICAL Hx AIDS: No Hx Anemia: Yes Hx Human Immunodeficiency Virus (HIV): No - INTEGUMENTARY Hx Dermatological Problems: Yes (Pruritic eruptions) - MUSCULOSKELETAL/RHEUMATOLOGICAL Hx Musculoskeletal Disorders: No Hx Falls: No - GASTROINTESTINAL Hx Gastrointestinal Disorders: No Other/Comment: ASCITES - GENITOURINARY/GYNECOLOGICAL Hx Genitourinary Disorders: No - PSYCHIATRIC Hx Depression: Yes Hx Substance Use: No - SURGICAL HISTORY Hx Cholecystectomy: Yes Hx Coronary Artery Bypass Graft: No - ANESTHESIA Hx Anesthesia: Yes Hx Anesthesia Reactions: No Hx Malignant Hyperthermia: No Meds Allergies/Adverse Reactions: Allergies Allergy/AdvReac Type Severity Reaction Status Date / Time iodine Allergy RASH Verified 01/29/17 13:29 iron Allergy ITCHING Verified 01/29/17 13:29 - Medications Medications: Current Medications Cefepime HCl 1 gm/ Sodium (Chloride) 100 mls @ 100 mls/hr IVPB DAILY [facility] Last Admin: 01/30/17 09:25 Dose: 100 mls/hr Linezolid (Zyvox 600mg/300ml D5w) 600 mg in 300 mls @ 300 mls/hr IVPB Q12 [facility] Last Admin: 01/30/17 12:30 Dose: 300 mls/hr Metoprolol Tartrate (Lopressor) 25 mg PO Q12 [facility] Last Admin: 01/30/17 14:18 Dose: Not Given Pantoprazole Sodium (Protonix Ec Tab) 40 mg PO DAILY [facility] Last Admin: 01/30/17 16:50 Dose: 40 mg Results - Vital Signs Recent Vital Signs: Last Vital Signs Temp 98.1 F 01/30/17 16:00 Pulse 114 H 01/30/17 18:00 Resp 24 01/30/17 18:00 BP 101/53 L 01/30/17 18:00 Pulse Ox 93 L 01/30/17 18:00 - Labs Result Diagrams: 01/30/17 04:46 01/30/17 04:46 Labs: Laboratory Results - last 24 hr 01/30/17 01/30/17 04:46 04:46 WBC 3.8 L RBC 3.35 L Hgb 11.3 L Hct 34.9 MCV 104.2 H MCH 33.8 H MCHC 32.4 L RDW 16.1 H Plt Count 79 L MPV 7.8 Neut % (Auto) 65.5 Lymph % (Auto) 14.4 L [place] % (Auto) 17.9 H Eos % (Auto) 1.4 Baso % (Auto) 0.8 Neut # 2.5 Lymph # 0.5 L [place] # 0.7 Eos # 0.1 Baso # 0.0 ESR 13 Sodium 135 Potassium 4.8 Chloride 97 L Carbon Dioxide 25 Anion Gap 18 BUN 39 H Creatinine 5.5 H Est GFR ( Amer) 9 Est GFR (Non-Af Amer) 7 Random Glucose 106 H Calcium 8.9 Total Bilirubin 1.2 AST 16 ALT 27 Alkaline Phosphatase 71 Total Protein 5.9 L Albumin 3.2 L Globulin 2.7 Albumin/Globulin Ratio 1.2
--- NOTE | 2017-01-30 20:11 | CP.PCM.CON ---
History of Present Illness - History of Present Illness History of Present Illness: REASONS FOR CONSULT : ESRD ON HD [facility] .. MISSED HER HD DEHYDRATION .. HYPOVOLEMIA .. HYPOTENSION PT IS WELL KNOWN TO OUR [facility] 89 F with PMH: HTN, DM II, ESRD on HD (MWF), CHF -Pulm HTN , chronic A Fib, TRUDY on home NIPPV, recurrent ascites requiring intermittent paracentesis ( last one 1 week ago, 6.5 liters removed), multiple episodes of PNA, chronic R pleural effusion: admitted today with Right LLE cellulitis and hypotension with SBP 80s. Responded to colloid challenge with Albumin, resulting in BP 90s, HR 88. Appears lethargic and only awakens to loud verbal stimuli, daughter at bedside stating she notes successive sleepiness over the past several days, but she does not appear distressed nor with any labored breathing, daughter denies any recent CP or dyspnea at rest. Denies any recent cough, fevers or chills, no diaphoresis, dizziness, palpitations, abdominal discomfort. She admits to recent R sided headaches, but not assoc with any nausea, focal weakness, dizziness, visual or hearing changes. Started on Cefepime and Vanco in the ER. Had her usual HD on Friday with removal of 3 kg. ALLERGIES: Iron and Iodine Home Meds: Xanax, Benzonatate, Sensipar, Periactin, Folate/Bcomplex/vit C complex, Synthroid, Lopressor, Protonix, Sevelemer, Januvia, Micardis, warfarin. ROS: as above, other 10+ system review did not reveal any new pertinent negs or positives. Other PMSFH: All recent nursing and physician documentation reviewed as far back as 2014 and no new information noted relevant to current problems. CCU Objective - Vital Signs / Intake & Output Vital Signs (Last 4 hours): Vital Signs Pulse Ox 01/29/17 16:30 96 in ICU: 101/51, HR 88 in A Fib, RR 19, SPO2 92% on RA, Afebrile. - Physical Exam Head: Positive for: Normocephalic Pupils: Positive for: PERRL Extroacular Muscles: Positive for: EOMI Conjunctiva: Positive for: Normal Ears: Positive for: Normal Mouth: Positive for: Dry Pharnyx: Positive for: Normal. Negative for: ERYTHEMA, EXUDATE Neck: Negative for: JVD (prominent neck vein distention on Left, no JVD on the Right.) Respiratory/Chest: Positive for: Decreased Breath Sounds, Rales. Negative for: Wheezes, Rhonchi Cardiovascular: Positive for: Normal S1, S2, Irregular Rhythm Abdomen: Positive for: Distention, Other (protuberant, + fluid wave, ). Negative for: Tenderness, Rebound, Guarding Upper Extremity: Positive for: Other (LUE AVF shunt with good bruit and thrill) Lower Extremity: Positive for: Edema (RLE only with redness and increased warmth over distal leg, dressing intact over 2 areas of broken skin over mid- lateral distal R leg.), NORMAL PULSES, Erythema. Negative for: CALF TENDERNESS , Cyanosis Neurological: Positive for: GCS=15, CN II-XII Intact, Speech Normal, Motor Func Grossly Intact Skin: Positive for: Warm. Negative for: Rashes - Medications Active Medications: Active Medications Past Patient History - Infectious Disease Hx of Infectious Diseases: None - Tetanus Immunizations Tetanus Immunization: Unknown - Past Medical History & Family History Past Medical History?: Yes - Past Social History Smoking Status: Former Smoker - CARDIAC Hx Atrial Fibrillation: Yes (on coumadin) Hx Cardia Arrhythmia: Yes Hx Congestive Heart Failure: Yes Hx Hypertension: Yes - PULMONARY Hx Pneumonia: Yes Hx Sleep Apnea: Yes (on CPAP) - NEUROLOGICAL Hx Neurological Disorder: No - HEENT Hx HEENT Problems: No - RENAL Hx Chronic Kidney Disease: Yes (Dialysis MWF) Hx Kidney Stones: No - ENDOCRINE/METABOLIC Hx Hypothyroidism: Yes - HEMATOLOGICAL/ONCOLOGICAL Hx AIDS: No Hx Anemia: Yes Hx Human Immunodeficiency Virus (HIV): No - INTEGUMENTARY Hx Dermatological Problems: Yes (Pruritic eruptions) - MUSCULOSKELETAL/RHEUMATOLOGICAL Hx Musculoskeletal Disorders: No Hx Falls: No - GASTROINTESTINAL Hx Gastrointestinal Disorders: No Other/Comment: ASCITES - GENITOURINARY/GYNECOLOGICAL Hx Genitourinary Disorders: No - PSYCHIATRIC Hx Depression: Yes Hx Substance Use: No - SURGICAL HISTORY Hx Cholecystectomy: Yes Hx Coronary Artery Bypass Graft: No - ANESTHESIA Hx Anesthesia: Yes Hx Anesthesia Reactions: No Hx Malignant Hyperthermia: No Meds Allergies/Adverse Reactions: Allergies Allergy/AdvReac Type Severity Reaction Status Date / Time iodine Allergy RASH Verified 01/29/17 13:29 iron Allergy ITCHING Verified 01/29/17 13:29 - Medications Medications: Current Medications Cefepime HCl 1 gm/ Sodium (Chloride) 100 mls @ 100 mls/hr IVPB DAILY [facility] Last Admin: 01/30/17 09:25 Dose: 100 mls/hr Linezolid (Zyvox 600mg/300ml D5w) 600 mg in 300 mls @ 300 mls/hr IVPB Q12 [facility] Last Admin: 01/30/17 12:30 Dose: 300 mls/hr Metoprolol Tartrate (Lopressor) 25 mg PO Q12 [facility] Last Admin: 01/30/17 14:18 Dose: Not Given Pantoprazole Sodium (Protonix Ec Tab) 40 mg PO DAILY [facility] Last Admin: 01/30/17 16:50 Dose: 40 mg Results - Vital Signs Recent Vital Signs: Last Vital Signs Temp 98.1 F 01/30/17 16:00 Pulse 114 H 01/30/17 18:00 Resp 24 01/30/17 18:00 BP 101/53 L 01/30/17 18:00 Pulse Ox 93 L 01/30/17 18:00 - Labs Result Diagrams: 01/30/17 04:46 01/30/17 04:46 Labs: Laboratory Results - last 24 hr 01/30/17 01/30/17 04:46 04:46 WBC 3.8 L RBC 3.35 L Hgb 11.3 L Hct 34.9 MCV 104.2 H MCH 33.8 H MCHC 32.4 L RDW 16.1 H Plt Count 79 L MPV 7.8 Neut % (Auto) 65.5 Lymph % (Auto) 14.4 L [place] % (Auto) 17.9 H Eos % (Auto) 1.4 Baso % (Auto) 0.8 Neut # 2.5 Lymph # 0.5 L [place] # 0.7 Eos # 0.1 Baso # 0.0 ESR 13 Sodium 135 Potassium 4.8 Chloride 97 L Carbon Dioxide 25 Anion Gap 18 BUN 39 H Creatinine 5.5 H Est GFR ( Amer) 9 Est GFR (Non-Af Amer) 7 Random Glucose 106 H Calcium 8.9 Total Bilirubin 1.2 AST 16 ALT 27 Alkaline Phosphatase 71 Total Protein 5.9 L Albumin 3.2 L Globulin 2.7 Albumin/Globulin Ratio 1.2 Assessment & Plan - Assessment and Plan (Free Text) Assessment: ESRD ON HD M W F .. HD TO START SHORTLY CONSENT FOR HD OBTAINED HD ORDERS GIVEN TO HD _ RN ANEMIA OF CKD ... H/H STABLE C/O CURRENT CARE C/O CURRENT MEDS - Date & Time Date: 01/30/17 Time: 14:00
[2017-01-30 21:19] LABS: HEPATITIS B SURFACE AG NEGATIVE (NEGATIVE)
[2017-01-30 21:36] LABS: HEPATITIS C ANTIBODY NEGATIVE (NEGATIVE)
[2017-01-31 05:25] LABS: ALB/GLOB RATIO 1.2 (1.0-2.1); ALBUMIN 3.4 g/dL (3.5-5.0); CALCIUM 9.2 mg/dL (8.4-10.2)
[2017-01-31 05:28] LABS: BASO % 0.7 % (0.0-2.0); HEMOGLOBIN 12.3 g/dL (12.0-16.0); LYMPH # 0.7 K/uL (1.0-4.3); LYMPH % 16.6 % (20.0-40.0); MEAN CELL VOLUME 104.4 fl (81.0-99.0); MEAN CORPUSCULAR HEMOGLOBIN 33.6 pg (27.0-31.0); MEAN CORPUSCULAR HGB CONC 32.2 g/dL (33.0-37.0); MEAN PLATELET VOLUME 8.8 fl (7.2-11.7); MONO # 0.7 K/uL (0.0-0.8); NEUT # 2.8 K/uL (1.8-7.0); NEUT % 64.7 % (50.0-75.0); NRBC % 0.2 % (0.0-0.0); RBC 3.67 Mil/uL (3.80-5.20); WHITE BLOOD COUNT 4.3 K/uL (4.8-10.8)
[2017-01-31 05:45] LABS: INR 1.5 (0.9-1.2); PROTHROMBIN TIME 16.7 Seconds (9.8-13.1)
[2017-01-31] MEDS: Sevelamer Carb 0.8 gm/Packet PO SCH ×3 (09:10→17:42)
[2017-01-31] MEDS: Cefepime 1 GM in Sodium Chloride 0.9% 100 ML IVPB SCH (09:10)
[2017-01-31] MEDS: Pantoprazole 40 mg EC Tab PO SCH (09:10)
[2017-01-31] MEDS: Multivitamin Vitamin B Complex (Nephro-Vite) Tab PO SCH (09:10)
[2017-01-31] MEDS: Linezolid 600 mg in D5W 300 ml 600 MG/300 ML BAG IVPB SCH ×2 (09:11→21:05)
--- NOTE | 2017-01-31 09:57 | PQF GENQUE ---
Dr. Jose Aldridge, 2 (two) queries as follows: (1) Sepsis ruled in or Sepsis ruled out? (2) If Sepsis ruled in etiology if known? OR:Unable to determine OR: Other explanation of clinical findings ER MD note:Unable to aggressively give IVF for Sepsis due to heart failure and renal failure; due to hypotension unable to have hemodialysis at this time. ( Mididrine considered, but per Dr Aldridge, may exacerbate her atrial fibrillation. ) Clinical Impression: Hypotension, ESRD (end stage renal disease), Cellulitis H and P: Cellulitis over both lower extremities. Severe right ventricular failure due to pulmonary hypertension secondary to chronic obstructive sleep apnea. Diabetes mellitus, hypertension and chronic kidney disease stage V requiring chronic hemodialysis. Critical Care note:1. Hypotension 2 Hypovolemia/ Dehydration 2. AMS with intermittent Lethargy and drowsiness 3. Right LLE Cellulitis, r/o DVT 4. ESRD on HD with missed session today. 5. R- CHF and Pulm HTN 6. DM II 7. Chronic A fib on AC 01/29:b/p: 75/30->77/34->77/34 01/30: pulse:94->114->95 01/30 respiratory rate:27->25->24-.22->18 WBC: 3.7->3.8->4.3 IVF's initially 250 ccs/hr Albumin 25% IV once then Albumin 5% IV q 4 hrs prn., midodrine, IVAB's This form is a permanent part of the medical record Clarification of your documentation is requested to better reflect the severity of illness and intensity of treatment of your patient. Indicators present [] Specify: [] [] Specify: [] [] Specify: [] [] Specify: [] Location in the medical record that reflects the above clinical findings: [] Treatment Provided: [] PHYSICIAN'S RESPONSE Sepsis ruled out. Based on your medical judgment of the clinical indicators outlined above please clarify the following: [] Practitioner response [] If unable to determine, please check the box, sign and date. Present On Admission (POA) Indicator: [] Present at the time of admission [] Not present at the time of admission [] Clinically Undetermined In responding to this query, please exercise your independent professional judgment. The fact that a question is asked does not imply that any particular answer is desired or expected. Thank you for your clarification on this documentation. If you have any questions please call. * Thank you, Tatum Hayes RN BSN ext. #[phone] MTDD
--- NOTE | 2017-01-31 10:42 | PQF GENQUE ---
Dr. Cheek, Please clarify the underlying cause of patient's altered mental status and relate that cause to the alteration in mental status: if known: i.e. Cardiac condition Electrolyte/metabolic imbalance Infectious process Neurologic condition Psychiatric condition Respiratory condition Other condition (please specify) OR Clinically unable to determine OR Unknown Critical Care note: MAJOR PROBLEMS: 1. Hypotension 2 Hypovolemia/ Dehydration 2. AMS with intermittent Lethargy and drowsiness 3. Right LLE Cellulitis, r/o DVT 4. ESRD on HD with missed session today. 5. R- CHF and Pulm HTN 6. DM II 7. Chronic A fib on AC PLAN: 1. Colloid infusion with 5% Albumin as tolerated for BP support, may need vasopressors if still hypotensive after 1 liter volume infused. She still does not appear to be fluid overloaded. 2. CT Brain negative for acute pathology. 3. HD today, in AM for urea clearance. 4. Empiric abx coverage for cellulitis as per ID on Cefepime and Zyvox. 5. LLE US/Doppler eval negative for DVT. 6. Stable for trf to regular dialysis bed later this afternoon if todays HD in uneventful. This form is a permanent part of the medical record Clarification of your documentation is requested to better reflect the severity of illness and intensity of treatment of your patient. Indicators present [] Specify: [] [] Specify: [] [] Specify: [] [] Specify: [] Location in the medical record that reflects the above clinical findings: [] Treatment Provided: [] PHYSICIAN'S RESPONSE Based on your medical judgment of the clinical indicators outlined above please clarify the following: [] Practitioner response [] If unable to determine, please check the box, sign and date. Present On Admission (POA) Indicator: [] Present at the time of admission [] Not present at the time of admission [] Clinically Undetermined In responding to this query, please exercise your independent professional judgment. The fact that a question is asked does not imply that any particular answer is desired or expected. Thank you for your clarification on this documentation. If you have any questions please call. * Thank you, Tatum Hayes RN BSN ext. #[phone] MTDD
--- NOTE | 2017-01-31 11:23 | CP.PCM.PN ---
Subjective - Date & Time of Evaluation Date of Evaluation: 01/31/17 Time of Evaluation: 10:50 - Subjective Subjective: Slightly disoriented to place Was dialysed yesterday Recognises me readily Afebrile with redness on the legs dramatically resolved A Fib at 80 BPM BP 104/70 mm Hg Pulse Ox 96% on O2 supplement by N/C Chest clear TR murmur + Labs Noted Warfarin ordered. Awaits transfer out of ICU Objective - Vital Signs/Intake and Output Vital Signs (last 24 hours): Temp Pulse Resp BP Pulse Ox 98.1 F 83 17 110/54 L 99 01/31/17 04:00 01/31/17 06:00 01/31/17 06:00 01/31/17 06:00 01/31/17 06:00 Intake and Output: 01/31/17 01/31/17 06:59 18:59 Intake Total 420 Balance 420 - Medications Medications: Current Medications Cholecalciferol (Vitamin D) 2,000 iu PO DAILY [facility] Last Admin: 01/31/17 09:10 Dose: 2,000 iu Cefepime HCl 1 gm/ Sodium (Chloride) 100 mls @ 100 mls/hr IVPB DAILY [facility] Last Admin: 01/31/17 09:10 Dose: 100 mls/hr Linezolid (Zyvox 600mg/300ml D5w) 600 mg in 300 mls @ 300 mls/hr IVPB Q12 [facility] Last Admin: 01/31/17 09:11 Dose: 300 mls/hr Metoprolol Tartrate (Lopressor) 25 mg PO Q12 [facility] Last Admin: 01/31/17 09:10 Dose: 25 mg Pantoprazole Sodium (Protonix Ec Tab) 40 mg PO DAILY [facility] Last Admin: 01/31/17 09:10 Dose: 40 mg Sevelamer Carbonate (Renvela) 0.8 gm PO TIDWM [facility] Last Admin: 01/31/17 09:10 Dose: 0.8 gm Vitamin B Complex/Vit C/Folic Acid (Nephro-Goran) 1 tab PO DAILY [facility] Last Admin: 01/31/17 09:10 Dose: 1 tab Warfarin Sodium (Coumadin) 7.5 mg PO QD5 [facility] PRN Reason: Protocol Stop: 01/31/17 17:01 - Labs Labs: 01/31/17 04:20 01/31/17 04:20 PT 16.7 Seconds (9.8-13.1) H 01/31/17 04:20 INR 1.5 (0.9-1.2) H 01/31/17 04:20 APTT 34.8 Seconds (25.6-37.1) 01/29/17 15:00
--- NOTE | 2017-01-31 16:06 | CP.PCM.CON ---
History of Present Illness - History of Present Illness History of Present Illness: 89 y/o female with PMHx of diabetes mellitus, hypertension and chronic atrial fibrillation, pulmonary hypertension, obstructive sleep apnea and chronic kidney failure seen at bedside for superficial ulceration on right leg and posterior heel. Pt states that she came to the ED because of the redness and swelling on her bilateral extremity. Pt states that she sees Dr. Gates and she sent her to the ED for the treatment. Pt states that she came to the ED Friday. Pt states that she has been placed on abx since then. Pt states that she has little pain in her left leg but she is managing it well. Pt denies of any recent F/N/V/C/SOB today. Pt denies of any other pedal complains. PMHx: diabetes mellitus, hypertension and chronic atrial fibrillation, pulmonary hypertension, obstructive sleep apnea and chronic kidney failure PSHx: Cholecystectomy, Hernia Repair (2005, ventral) Allergies: Iodine, iron Review of Systems - Constitutional Constitutional: As Per HPI Past Patient History - Infectious Disease Hx of Infectious Diseases: None - Tetanus Immunizations Tetanus Immunization: Unknown - Past Medical History & Family History Past Medical History?: Yes - Past Social History Smoking Status: Former Smoker - CARDIAC Hx Atrial Fibrillation: Yes (on coumadin) Hx Cardia Arrhythmia: Yes Hx Congestive Heart Failure: Yes Hx Hypertension: Yes - PULMONARY Hx Pneumonia: Yes Hx Sleep Apnea: Yes (on CPAP) - NEUROLOGICAL Hx Neurological Disorder: No - HEENT Hx HEENT Problems: No - RENAL Hx Chronic Kidney Disease: Yes (Dialysis MWF) Hx Kidney Stones: No - ENDOCRINE/METABOLIC Hx Hypothyroidism: Yes - HEMATOLOGICAL/ONCOLOGICAL Hx AIDS: No Hx Anemia: Yes Hx Human Immunodeficiency Virus (HIV): No - INTEGUMENTARY Hx Dermatological Problems: Yes (Pruritic eruptions) - MUSCULOSKELETAL/RHEUMATOLOGICAL Hx Musculoskeletal Disorders: No Hx Falls: No - GASTROINTESTINAL Hx Gastrointestinal Disorders: No Other/Comment: ASCITES - GENITOURINARY/GYNECOLOGICAL Hx Genitourinary Disorders: No - PSYCHIATRIC Hx Depression: Yes Hx Substance Use: No - SURGICAL HISTORY Hx Cholecystectomy: Yes Hx Coronary Artery Bypass Graft: No - ANESTHESIA Hx Anesthesia: Yes Hx Anesthesia Reactions: No Hx Malignant Hyperthermia: No Meds Allergies/Adverse Reactions: Allergies Allergy/AdvReac Type Severity Reaction Status Date / Time iodine Allergy RASH Verified 01/29/17 13:29 iron Allergy ITCHING Verified 01/29/17 13:29 - Medications Medications: Current Medications Cholecalciferol (Vitamin D) 2,000 iu PO DAILY [facility] Last Admin: 01/31/17 09:10 Dose: 2,000 iu Cefepime HCl 1 gm/ Sodium (Chloride) 100 mls @ 100 mls/hr IVPB DAILY [facility] Last Admin: 01/31/17 09:10 Dose: 100 mls/hr Linezolid (Zyvox 600mg/300ml D5w) 600 mg in 300 mls @ 300 mls/hr IVPB Q12 [facility] Last Admin: 01/31/17 09:11 Dose: 300 mls/hr Metoprolol Tartrate (Lopressor) 25 mg PO Q12 [facility] Last Admin: 01/31/17 09:10 Dose: 25 mg Pantoprazole Sodium (Protonix Ec Tab) 40 mg PO DAILY [facility] Last Admin: 01/31/17 09:10 Dose: 40 mg Sevelamer Carbonate (Renvela) 0.8 gm PO TIDWM [facility] Last Admin: 01/31/17 09:10 Dose: 0.8 gm Vitamin B Complex/Vit C/Folic Acid (Nephro-Goran) 1 tab PO DAILY [facility] Last Admin: 01/31/17 09:10 Dose: 1 tab Warfarin Sodium (Coumadin) 7.5 mg PO QD5 [facility] PRN Reason: Protocol Stop: 01/31/17 17:01 Physical Exam - Constitutional Appears: Well, Non-toxic, No Acute Distress - Extremities Exam Additional comments: VASC: DP/PT pulses are palpable 1/4 b/l, [employer]: < 3 sec to all digits, TG: warm to cool from proximal to distal, erythema noted on the distal extremity with shiney appearance DERM: small superfecial ulcerations measuring 0.7 x 0.4 cm on the anterior lateral aspect of the proximal leg distal to knee joint and 0.5 x 0.4 cm on the lateral aspect of the proximal leg, small wound measuring 0.5 x 0.4 x 0.2 cm on the posterior medial right heel, mild serous drainage noted from the leg ulcers , ulcer bases are granular with no probe to bone, no undermining, no tracking, no malodor, no clinical suspicion of infection NEURO: Protective sensation slightly diminished ORTHO: mild pain on palpation of the leg ulceration - Neurological Exam Neurological exam: Alert, Oriented x3 - Psychiatric Exam Psychiatric exam: Normal Affect, Normal Mood Results - Vital Signs Recent Vital Signs: Last Vital Signs Temp 98.4 F 01/31/17 12:00 Pulse 88 01/31/17 14:52 Resp 19 01/31/17 14:52 BP 94/42 L 01/31/17 14:52 Pulse Ox 100 01/31/17 14:00 - Labs Result Diagrams: 01/31/17 04:20 01/31/17 04:20 Labs: Laboratory Results - last 24 hr 01/30/17 01/30/17 01/31/17 18:20 18:20 04:20 WBC RBC Hgb Hct MCV MCH MCHC RDW Plt Count MPV Neut % (Auto) Lymph % (Auto) [place] % (Auto) Eos % (Auto) Baso % (Auto) Neut # Lymph # [place] # Eos # Baso # PT 16.7 H INR 1.5 H Sodium Potassium Chloride Carbon Dioxide Anion Gap BUN Creatinine Est GFR ( Amer) Est GFR (Non-Af Amer) Random Glucose Calcium Total Bilirubin AST ALT Alkaline Phosphatase Total Protein Albumin Globulin Albumin/Globulin Ratio Hep Bs Antigen Negative Hep Bs Antibody Positive Hepatitis C Antibody Negative 01/31/17 01/31/17 04:20 04:20 WBC 4.3 L RBC 3.67 L Hgb 12.3 Hct 38.3 MCV 104.4 H MCH 33.6 H MCHC 32.2 L RDW 16.0 H Plt Count 77 L MPV 8.8 Neut % (Auto) 64.7 Lymph % (Auto) 16.6 L [place] % (Auto) 17.0 H Eos % (Auto) 1.0 Baso % (Auto) 0.7 Neut # 2.8 Lymph # 0.7 L [place] # 0.7 Eos # 0.0 Baso # 0.0 PT INR Sodium 135 Potassium 4.4 Chloride 96 L Carbon Dioxide 26 Anion Gap 17 BUN 23 H Creatinine 3.8 H Est GFR ( Amer) 14 Est GFR (Non-Af Amer) 11 Random Glucose 94 Calcium 9.2 Total Bilirubin 1.3 AST 20 ALT 21 Alkaline Phosphatase 77 Total Protein 6.1 L Albumin 3.4 L Globulin 2.8 Albumin/Globulin Ratio 1.2 Hep Bs Antigen Hep Bs Antibody Hepatitis C Antibody Assessment & Plan - Assessment and Plan (Free Text) Assessment: 89 y/o female seen at bedside for cellulitis secondary to superficial leg ulcerations and heel wound Plan: Pt seen and evaluated at bedside Pt discussed in details with attending Dr. Gates Labs and vitals reviewed (afebrile; WBC @ 4.3) ulcerations dressed using DSD, Diane Tadeo ordered Pt to remain on IV abx as per ID Podiatry to follow while patient is in house Thank you for the podiatry consult - Date & Time Date: 01/31/17 Time: 02:30
--- NOTE | 2017-01-31 16:48 | CP.CCUPN ---
CCU Subjective - Physician Review Subjective (Free Text): Discussed with Cardio this AM: Alert and awake, non-distressed, mentation is WNL if not a bit more hyperactive than usual and disoriented to place and time intermittently. Does not appear delirious. BP levels have improved to usual baseline values. Underwent HD overnight with just ultimately urea clearance. Denies any SOB or chest discomfort at bed rest. ROS: as above, no other pertinent negs or positives on 10+ system review. Other PMSFH: All recent nursing and physician documentation reviewed and no new information noted relevant to current problems. CCU Objective - Vital Signs / Intake & Output Vital Signs (Last 4 hours): Vital Signs Pulse Resp BP Pulse Ox 01/31/17 14:52 88 19 94/42 L 01/31/17 14:00 93 H 22 96/52 L 100 Intake and Output (Last 8hrs): Intake & Output 01/31/17 01/31/17 01/31/17 06:59 14:59 22:59 Intake Total 420 760 Balance 420 760 Intake: Intake, Piggyback 300 400 Oral 120 360 Other: # Bowel Movements 1 1 - Physical Exam Head: Positive for: Normocephalic Pupils: Positive for: PERRL Extroacular Muscles: Positive for: EOMI Conjunctiva: Positive for: Normal Ears: Positive for: Normal Mouth: Positive for: Dry Pharnyx: Positive for: Normal. Negative for: ERYTHEMA, EXUDATE Neck: Negative for: JVD (prominent neck vein distention on Left, no JVD on the Right.) Respiratory/Chest: Positive for: Decreased Breath Sounds, Rales. Negative for: Wheezes, Rhonchi Cardiovascular: Positive for: Normal S1, S2, Irregular Rhythm Abdomen: Positive for: Distention, Other (protuberant, + fluid wave, ). Negative for: Tenderness, Rebound, Guarding Upper Extremity: Positive for: Other (LUE AVF shunt with good bruit and thrill) Lower Extremity: Positive for: NORMAL PULSES. Negative for: Edema, CALF TENDERNESS, Cyanosis Neurological: Positive for: GCS=15, CN II-XII Intact, Speech Normal, Motor Func Grossly Intact Skin: Positive for: Warm. Negative for: Rashes, Erythematous, Induration Review of Systems - Review of Systems Review of Systems: As above. Critical Care Progress Note - Nutrition Nutrition: Nutrition Category Date Time Status Renal Diet [DIET] Diets 01/31/17 Breakfast Active Assessment/Plan - Assessment and Plan (Free Text) Assessment: 1. Hypotension 2 Hypovolemia/ Dehydration 2. AMS with intermittent Lethargy and drowsiness due to Hypotension 3. Right LLE Cellulitis, r/oed DVT 4. ESRD on HD with missed session on day of admission 5. R- CHF and Pulm HTN 6. DM II 7. Chronic A fib on AC Plan: PLAN: 1. Colloid infusion with 5% Albumin as tolerated for BP support. She still does not appear to be fluid overloaded. 2. Get OOB to chair; to minimize confusion and disorientation. 3. HD schedule change due to hypotension. 4. Empiric abx coverage for cellulitis as per ID on Cefepime and Zyvox. 5. Leg appearance and edema have appreciably improved. 6. Awaiting trf to regular dialysis bed.
--- NOTE | 2017-01-31 18:25 | CP.PCM.PN ---
Subjective - Date & Time of Evaluation Date of Evaluation: 01/31/17 Time of Evaluation: 18:27 - Subjective Subjective: I D NOTE AFEBRILE SIGNIFICANT IMPROVEMENT IN BOTH LOWER EXTREMITIES DISCUSSED C WOULD CONTINUE IV ANTIBIOTICS OVER THE WEEKEND Objective - Vital Signs/Intake and Output Vital Signs (last 24 hours): Temp Pulse Resp BP Pulse Ox 98.4 F 88 19 94/42 L 100 01/31/17 12:00 01/31/17 14:52 01/31/17 14:52 01/31/17 14:52 01/31/17 14:00 Intake and Output: 01/31/17 01/31/17 06:59 18:59 Intake Total 420 760 Balance 420 760 - Medications Medications: Current Medications Cholecalciferol (Vitamin D) 2,000 iu PO DAILY [facility] Last Admin: 01/31/17 09:10 Dose: 2,000 iu Collagenase (Santyl) 1 applic TOP DAILY [facility] Cefepime HCl 1 gm/ Sodium (Chloride) 100 mls @ 100 mls/hr IVPB DAILY [facility] Last Admin: 01/31/17 09:10 Dose: 100 mls/hr Linezolid (Zyvox 600mg/300ml D5w) 600 mg in 300 mls @ 300 mls/hr IVPB Q12 [facility] Last Admin: 01/31/17 09:11 Dose: 300 mls/hr Metoprolol Tartrate (Lopressor) 25 mg PO Q12 [facility] Last Admin: 01/31/17 09:10 Dose: 25 mg Pantoprazole Sodium (Protonix Ec Tab) 40 mg PO DAILY [facility] Last Admin: 01/31/17 09:10 Dose: 40 mg Sevelamer Carbonate (Renvela) 0.8 gm PO TIDWM [facility] Last Admin: 01/31/17 17:42 Dose: 0.8 gm Vitamin B Complex/Vit C/Folic Acid (Nephro-Goran) 1 tab PO DAILY [facility] Last Admin: 01/31/17 09:10 Dose: 1 tab - Labs Labs: 01/31/17 04:20 01/31/17 04:20 PT 16.7 Seconds (9.8-13.1) H 01/31/17 04:20 INR 1.5 (0.9-1.2) H 01/31/17 04:20 APTT 34.8 Seconds (25.6-37.1) 01/29/17 15:00
--- NOTE | 2017-01-31 19:12 | CP.PCM.PN ---
Subjective - Date & Time of Evaluation Date of Evaluation: 01/31/17 Time of Evaluation: 14:00 - Subjective Subjective: SEEN ON RENAL F/U IN ICU LOOKS AND FEELS MUCH BETTER RECIEVED HD YESTERDAY ONLY CLEARANCE WITH 1 L OF NS GIVEN NEXT HD IS TOMORROW SAT .. THEN NEXT WEEK WILL CHANGE TO M W F ALL PREVIOUS EMR REVIEWED Objective - Vital Signs/Intake and Output Vital Signs (last 24 hours): Temp Pulse Resp BP Pulse Ox 98.4 F 88 19 94/42 L 100 01/31/17 12:00 01/31/17 14:52 01/31/17 14:52 01/31/17 14:52 01/31/17 14:00 Intake and Output: 01/31/17 02/01/17 18:59 06:59 Intake Total 760 Balance 760 - Medications Medications: Current Medications Cholecalciferol (Vitamin D) 2,000 iu PO DAILY [facility] Last Admin: 01/31/17 09:10 Dose: 2,000 iu Collagenase (Santyl) 1 applic TOP DAILY [facility] Cefepime HCl 1 gm/ Sodium (Chloride) 100 mls @ 100 mls/hr IVPB DAILY [facility] Last Admin: 01/31/17 09:10 Dose: 100 mls/hr Linezolid (Zyvox 600mg/300ml D5w) 600 mg in 300 mls @ 300 mls/hr IVPB Q12 [facility] Last Admin: 01/31/17 09:11 Dose: 300 mls/hr Metoprolol Tartrate (Lopressor) 25 mg PO Q12 [facility] Last Admin: 01/31/17 09:10 Dose: 25 mg Pantoprazole Sodium (Protonix Ec Tab) 40 mg PO DAILY [facility] Last Admin: 01/31/17 09:10 Dose: 40 mg Sevelamer Carbonate (Renvela) 0.8 gm PO TIDWM [facility] Last Admin: 01/31/17 17:42 Dose: 0.8 gm Vitamin B Complex/Vit C/Folic Acid (Nephro-Goran) 1 tab PO DAILY [facility] Last Admin: 01/31/17 09:10 Dose: 1 tab - Labs Labs: 01/31/17 04:20 01/31/17 04:20 PT 16.7 Seconds (9.8-13.1) H 01/31/17 04:20 INR 1.5 (0.9-1.2) H 01/31/17 04:20 APTT 34.8 Seconds (25.6-37.1) 01/29/17 15:00 Assessment and Plan - Assessment and Plan (Free Text) Assessment: ESRD ON HD .. HD IN AM .. NEXT WEEK HD M W F ANEMIA OF CKD .. H/H GOOD S/P HYPOTENSION .. HYPOVOLEMIA .. DEHYDRATION P : C/O CURRENT PLAN C/O PRESENT MANAGEMENT
[2017-02-01] MEDS: Santyl Collagenase OINTMENT TOP SCH (09:16)
[2017-02-01] MEDS: Cefepime 1 GM in Sodium Chloride 0.9% 100 ML IVPB SCH ×2 (09:16→15:29)
[2017-02-01] MEDS: Sevelamer Carb 0.8 gm/Packet PO SCH (09:17)
[2017-02-01] MEDS: Pantoprazole 40 mg EC Tab PO SCH (09:17)
[2017-02-01] MEDS: Multivitamin Vitamin B Complex (Nephro-Vite) Tab PO SCH (09:17)
[2017-02-01] MEDS: Linezolid 600 mg in D5W 300 ml 600 MG/300 ML BAG IVPB SCH ×3 (09:17→20:23)
--- NOTE | 2017-02-01 10:34 | CP.PCM.PN ---
Subjective - Date & Time of Evaluation Date of Evaluation: 02/01/17 Time of Evaluation: 10:55 - Subjective Subjective: 89 y/o diabetic female patient seen at bedside this morning regarding cellulitis and ulcerations of right leg/foot. Pt seen resting comfortably in bed at time of visit receiving hemodialysis. Pt appears pleasant and conversational and AAOx3, NAD at time of visit. Does complain of some mild discomfort in the right leg especially at night time. Denies f/n/v/c/sob/cp at this time. Denies any other pedal complaints. Objective - Vital Signs/Intake and Output Vital Signs (last 24 hours): Temp Pulse Resp BP Pulse Ox 97.5 F L 79 20 93/63 L 95 02/01/17 08:00 02/01/17 09:15 02/01/17 08:00 02/01/17 09:15 02/01/17 08:00 - Medications Medications: Current Medications Cholecalciferol (Vitamin D) 2,000 iu PO DAILY [facility] Last Admin: 02/01/17 09:17 Dose: 2,000 iu Collagenase (Santyl) 1 applic TOP DAILY [facility] Last Admin: 02/01/17 09:16 Dose: 1 applic Cefepime HCl 1 gm/ Sodium (Chloride) 100 mls @ 100 mls/hr IVPB DAILY [facility] Last Admin: 02/01/17 09:16 Dose: Not Given Linezolid (Zyvox 600mg/300ml D5w) 600 mg in 300 mls @ 300 mls/hr IVPB Q12 [facility] Last Admin: 02/01/17 09:17 Dose: Not Given Metoprolol Tartrate (Lopressor) 25 mg PO Q12 [facility] Last Admin: 02/01/17 09:15 Dose: Not Given Pantoprazole Sodium (Protonix Ec Tab) 40 mg PO DAILY [facility] Last Admin: 02/01/17 09:17 Dose: 40 mg Sevelamer Carbonate (Renvela) 0.8 gm PO TIDWM [facility] Last Admin: 02/01/17 09:17 Dose: 0.8 gm Vitamin B Complex/Vit C/Folic Acid (Nephro-Goran) 1 tab PO DAILY [facility] Last Admin: 02/01/17 09:17 Dose: 1 tab - Labs Labs: 01/31/17 04:20 01/31/17 04:20 PT 16.7 Seconds (9.8-13.1) H 01/31/17 04:20 INR 1.5 (0.9-1.2) H 01/31/17 04:20 APTT 34.8 Seconds (25.6-37.1) 01/29/17 15:00 - Constitutional Appears: Non-toxic, No Acute Distress - Extremities Exam Extremities Exam: absent: Calf Tenderness Additional comments: Bilateral low extremity exam: VASC: DP/PT pulses are palpable 1/4 b/l, 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 Small superficial ulceration noted to PIPJ right foot 2nd digit appears dry no drainage. NEURO: Protective sensation slightly diminished ORTHO: mild pain on palpation of the right leg ulcerations - Neurological Exam Neurological Exam: Alert, Awake, Oriented x3 - Psychiatric Exam Psychiatric exam: Normal Affect, Normal Mood Assessment and Plan - Assessment and Plan (Free Text) Assessment: 89 y/o diabetic female w/cellulitis 2/2 superficial right leg and heel ulcerations Plan: Pt S&E at bedside Plan discussed in detail with attending Dr. Gates Labs and vitals reviewed (afebrile; WBC 4.3) Right leg and heel ulcerations dressed with santyl, DSD Prevalon boot ordered, to be worn at all times while in bed to right foot C/w IV abx as per ID Stable per podiatry Podiatry will continue to follow while she remains in house.
[2017-02-01 10:45] LABS: INR 2.5 (0.9-1.2)
--- NOTE | 2017-02-01 13:07 | CP.PCM.PN ---
Subjective - Date & Time of Evaluation Date of Evaluation: 02/01/17 Time of Evaluation: 12:30 - Subjective Subjective: Getting dialysed A Fib at 80 PM BP in Rt arm 100/70 / in Lt calf 124/70 mm Hg Chest clear Apical syst murmur of MR+ Leg cellulitis has virtually resolved Warfarin ordered Podiatry sabiha appreciated Discussed with Dr. Stover Tentatively plan D/C following HD on Friday Objective - Vital Signs/Intake and Output Vital Signs (last 24 hours): Temp Pulse Resp BP Pulse Ox 98.2 F 52 L 18 142/60 95 02/01/17 12:00 02/01/17 12:00 02/01/17 12:00 02/01/17 12:00 02/01/17 12:00 - Medications Medications: Current Medications Cholecalciferol (Vitamin D) 2,000 iu PO DAILY [facility] Last Admin: 02/01/17 09:17 Dose: 2,000 iu Collagenase (Santyl) 1 applic TOP DAILY [facility] Last Admin: 02/01/17 09:16 Dose: 1 applic Cefepime HCl 1 gm/ Sodium (Chloride) 100 mls @ 100 mls/hr IVPB DAILY [facility] Last Admin: 02/01/17 09:16 Dose: Not Given Linezolid (Zyvox 600mg/300ml D5w) 600 mg in 300 mls @ 300 mls/hr IVPB Q12 [facility] Last Admin: 02/01/17 09:17 Dose: Not Given Metoprolol Tartrate (Lopressor) 25 mg PO Q12 [facility] Last Admin: 02/01/17 09:15 Dose: Not Given Pantoprazole Sodium (Protonix Ec Tab) 40 mg PO DAILY [facility] Last Admin: 02/01/17 09:17 Dose: 40 mg Sevelamer HCl (Renagel) 800 mg PO TIDWM [facility] Vitamin B Complex/Vit C/Folic Acid (Nephro-Goran) 1 tab PO DAILY [facility] Last Admin: 02/01/17 09:17 Dose: 1 tab Warfarin Sodium (Coumadin) 2.5 mg PO QD5 [facility] PRN Reason: Protocol Stop: 02/01/17 17:01 - Labs Labs: 01/31/17 04:20 01/31/17 04:20 PT 29.0 Seconds (9.8-13.1) H D 02/01/17 09:35 INR 2.5 (0.9-1.2) H D 02/01/17 09:35 APTT 34.8 Seconds (25.6-37.1) 01/29/17 15:00
--- NOTE | 2017-02-01 15:30 | CP.PCM.PN ---
Subjective - Date & Time of Evaluation Date of Evaluation: 02/01/17 Time of Evaluation: 14:00 - Subjective Subjective: SEEN ON RENAL F/U FEELS MUCH BETTER .. 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 NO UF .. TOLERATED WELL D/W DR VERMA .. FOR D/C ON MON POST HD NEEDS PT FOR AMBULATION Objective - Vital Signs/Intake and Output Vital Signs (last 24 hours): Temp Pulse Resp BP Pulse Ox 98.2 F 52 L 18 142/60 95 02/01/17 12:00 02/01/17 12:00 02/01/17 12:00 02/01/17 12:00 02/01/17 12:00 - Medications Medications: Current Medications Alprazolam (Xanax) 0.25 mg PO Q12 PRN PRN Reason: Anxiety Stop: 02/08/17 13:09 Cholecalciferol (Vitamin D) 2,000 iu PO DAILY [facility] Last Admin: 02/01/17 09:17 Dose: 2,000 iu Collagenase (Santyl) 1 applic TOP DAILY [facility] Last Admin: 02/01/17 09:16 Dose: 1 applic Diphenhydramine HCl (Benadryl) 25 mg PO Q6 PRN PRN Reason: Itching / Pruritus Cefepime HCl 1 gm/ Sodium (Chloride) 100 mls @ 100 mls/hr IVPB DAILY [facility] Last Admin: 01/31/17 09:10 Dose: 100 mls/hr Linezolid (Zyvox 600mg/300ml D5w) 600 mg in 300 mls @ 300 mls/hr IVPB Q12 [facility] Last Admin: 01/31/17 21:05 Dose: 300 mls/hr Levothyroxine Sodium (Synthroid) 50 mcg PO DAILY@0630 [facility] Metoprolol Tartrate (Lopressor) 25 mg PO Q12 [facility] Last Admin: 02/01/17 09:15 Dose: Not Given Pantoprazole Sodium (Protonix Ec Tab) 40 mg PO DAILY [facility] Last Admin: 02/01/17 09:17 Dose: 40 mg Sevelamer HCl (Renagel) 800 mg PO TIDWM [facility] Sitagliptin Phosphate (Januvia) 25 mg PO DAILY [facility] Vitamin B Complex/Vit C/Folic Acid (Nephro-Goran) 1 tab PO DAILY [facility] Last Admin: 02/01/17 09:17 Dose: 1 tab Warfarin Sodium (Coumadin) 2.5 mg PO QD5 [facility] PRN Reason: Protocol Stop: 02/01/17 17:01 - Labs Labs: 01/31/17 04:20 01/31/17 04:20 PT 29.0 Seconds (9.8-13.1) H D 02/01/17 09:35 INR 2.5 (0.9-1.2) H D 02/01/17 09:35 APTT 34.8 Seconds (25.6-37.1) 01/29/17 15:00 Assessment and Plan - Assessment and Plan (Free Text) Assessment: ESRD ON HD M W F .. NEXT HD ON MON BP IS GOOD , WITH DESCREPENCY OF MEASURMENT BETWEEN THE R ARM AMD THE LEGS LABS R OK P : C/O CURRENT CARE C/O PRESENT MANAGEMENT NEEDS PT FOR STRENGHT AND AMBULATION
[2017-02-02] MEDS: Levothyroxine 50 MCG TAB PO SCH (06:35)
[2017-02-02 08:46] LABS: INR 3.1 (0.9-1.2); PROTHROMBIN TIME 35.6 Seconds (9.8-13.1)
[2017-02-02] MEDS: Pantoprazole 40 mg EC Tab PO SCH (09:09)
[2017-02-02] MEDS: Santyl Collagenase OINTMENT TOP SCH (09:09)
[2017-02-02] MEDS: Multivitamin Vitamin B Complex (Nephro-Vite) Tab PO SCH (09:09)
[2017-02-02] MEDS: Linezolid 600 mg in D5W 300 ml 600 MG/300 ML BAG IVPB SCH ×2 (10:44→21:31)
[2017-02-02] MEDS: Cefepime 1 GM in Sodium Chloride 0.9% 100 ML IVPB SCH (10:45)
--- NOTE | 2017-02-02 10:55 | CP.PCM.PN ---
Subjective - Date & Time of Evaluation Date of Evaluation: 02/02/17 Time of Evaluation: 09:35 - Subjective Subjective: Has painful neck on moving her head Relieved by adjusting her pillow A Fib at moderate heart rate BP in Lt leg 126/70 mm Hg JVP still elevated Ascites ++ (Had 6.5 litres drained on 23 January Warfarin ordered for today Objective - Vital Signs/Intake and Output Vital Signs (last 24 hours): Temp Pulse Resp BP Pulse Ox 97.5 F L 97 H 20 91/60 L 98 02/02/17 08:00 02/02/17 09:08 02/02/17 08:00 02/02/17 09:08 02/02/17 08:00 - Medications Medications: Current Medications Acetaminophen (Tylenol 325mg Tab) 650 mg PO Q6 PRN PRN Reason: Pain, moderate (4-7) Last Admin: 02/02/17 10:43 Dose: 650 mg Alprazolam (Xanax) 0.25 mg PO Q12 PRN PRN Reason: Anxiety Stop: 02/08/17 13:09 Cholecalciferol (Vitamin D) 2,000 iu PO DAILY [facility] Last Admin: 02/02/17 09:10 Dose: 2,000 iu Collagenase (Santyl) 1 applic TOP DAILY [facility] Last Admin: 02/02/17 09:09 Dose: 1 applic Diphenhydramine HCl (Benadryl) 25 mg PO Q6 PRN PRN Reason: Itching / Pruritus Last Admin: 02/01/17 15:33 Dose: 25 mg Cefepime HCl 1 gm/ Sodium (Chloride) 100 mls @ 100 mls/hr IVPB DAILY [facility] Last Admin: 02/02/17 10:45 Dose: 100 mls/hr Linezolid (Zyvox 600mg/300ml D5w) 600 mg in 300 mls @ 300 mls/hr IVPB Q12 [facility] Last Admin: 02/02/17 10:44 Dose: 300 mls/hr Levothyroxine Sodium (Synthroid) 50 mcg PO DAILY@0630 [facility] Last Admin: 02/02/17 06:35 Dose: 50 mcg Metoprolol Tartrate (Lopressor) 25 mg PO Q12 [facility] Last Admin: 02/02/17 09:08 Dose: 25 mg Pantoprazole Sodium (Protonix Ec Tab) 40 mg PO DAILY [facility] Last Admin: 02/02/17 09:09 Dose: 40 mg Sevelamer HCl (Renagel) 800 mg PO TIDWM [facility] Last Admin: 02/02/17 09:09 Dose: 800 mg Sitagliptin Phosphate (Januvia) 25 mg PO DAILY [facility] Last Admin: 02/02/17 09:08 Dose: 25 mg Vitamin B Complex/Vit C/Folic Acid (Nephro-Goran) 1 tab PO DAILY [facility] Last Admin: 02/02/17 09:09 Dose: 1 tab Warfarin Sodium (Coumadin) 1 mg PO QD5 [facility] PRN Reason: Protocol Stop: 02/02/17 17:01 - Labs Labs: 01/31/17 04:20 01/31/17 04:20 PT 35.6 Seconds (9.8-13.1) H D 02/02/17 05:30 INR 3.1 (0.9-1.2) H 02/02/17 05:30 APTT 34.8 Seconds (25.6-37.1) 01/29/17 15:00
--- NOTE | 2017-02-02 11:03 | CP.PCM.PN ---
Subjective - Date & Time of Evaluation Date of Evaluation: 02/02/17 Time of Evaluation: 09:45 - Subjective Subjective: 89 y/o diabetic female patient seen at bedside this morning regarding cellulitis and ulcerations of right leg/foot. Pt seen resting comfortably in bed at time of visit. Denies any pain or discomfort to the legs at this time. Says that she did wear the offloading heel cushion to the right foot all of last night. Denies f/n/v/c/sob/cp today. Objective - Vital Signs/Intake and Output Vital Signs (last 24 hours): Temp Pulse Resp BP Pulse Ox 97.5 F L 97 H 20 91/60 L 98 02/02/17 08:00 02/02/17 09:08 02/02/17 08:00 02/02/17 09:08 02/02/17 08:00 - Medications Medications: Current Medications Acetaminophen (Tylenol 325mg Tab) 650 mg PO Q6 PRN PRN Reason: Pain, moderate (4-7) Last Admin: 02/02/17 10:43 Dose: 650 mg Alprazolam (Xanax) 0.25 mg PO Q12 PRN PRN Reason: Anxiety Stop: 02/08/17 13:09 Cholecalciferol (Vitamin D) 2,000 iu PO DAILY [facility] Last Admin: 02/02/17 09:10 Dose: 2,000 iu Collagenase (Santyl) 1 applic TOP DAILY [facility] Last Admin: 02/02/17 09:09 Dose: 1 applic Diphenhydramine HCl (Benadryl) 25 mg PO Q6 PRN PRN Reason: Itching / Pruritus Last Admin: 02/01/17 15:33 Dose: 25 mg Cefepime HCl 1 gm/ Sodium (Chloride) 100 mls @ 100 mls/hr IVPB DAILY [facility] Last Admin: 02/02/17 10:45 Dose: 100 mls/hr Linezolid (Zyvox 600mg/300ml D5w) 600 mg in 300 mls @ 300 mls/hr IVPB Q12 [facility] Last Admin: 02/02/17 10:44 Dose: 300 mls/hr Levothyroxine Sodium (Synthroid) 50 mcg PO DAILY@0630 [facility] Last Admin: 02/02/17 06:35 Dose: 50 mcg Metoprolol Tartrate (Lopressor) 25 mg PO Q12 [facility] Last Admin: 02/02/17 09:08 Dose: 25 mg Pantoprazole Sodium (Protonix Ec Tab) 40 mg PO DAILY [facility] Last Admin: 02/02/17 09:09 Dose: 40 mg Sevelamer HCl (Renagel) 800 mg PO TIDWM [facility] Last Admin: 02/02/17 09:09 Dose: 800 mg Sitagliptin Phosphate (Januvia) 25 mg PO DAILY [facility] Last Admin: 02/02/17 09:08 Dose: 25 mg Vitamin B Complex/Vit C/Folic Acid (Nephro-Goran) 1 tab PO DAILY [facility] Last Admin: 02/02/17 09:09 Dose: 1 tab Warfarin Sodium (Coumadin) 1 mg PO QD5 [facility] PRN Reason: Protocol Stop: 02/02/17 17:01 - Labs Labs: 01/31/17 04:20 01/31/17 04:20 PT 35.6 Seconds (9.8-13.1) H D 02/02/17 05:30 INR 3.1 (0.9-1.2) H 02/02/17 05:30 APTT 34.8 Seconds (25.6-37.1) 01/29/17 15:00 - Constitutional Appears: Non-toxic, No Acute Distress - Extremities Exam Extremities Exam: absent: Calf Tenderness Additional comments: Bilateral low extremity exam: VASC: DP/PT pulses are palpable 1/4 b/l, 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 NEURO: Protective sensation slightly diminished ORTHO: mild tenderness to palpation of right leg healed ulcers - Neurological Exam Neurological Exam: Alert, Awake, Oriented x3 - Psychiatric Exam Psychiatric exam: Normal Affect, Normal Mood Assessment and Plan - Assessment and Plan (Free Text) Assessment: 89 y/o diabetic female w/ 1) resolved right lower extremity cellulitis, 2) superficial right heel fissure Plan: Pt S&E at bedside Plan discussed in detail with attending Dr. Gates Labs and vitals reviewed (afebrile; WBC 4.3) Dressings discontinued to right leg, allevyn dressing applied to right heel c/w prevalon boot at all times while in bed to right foot C/w IV abx as per ID Stable per podiatry Podiatry will continue to follow while she remains in house.
[2017-02-02 12:54] VITALS: RESP 18
--- NOTE | 2017-02-02 18:10 | CP.PCM.PN ---
Subjective - Date & Time of Evaluation Date of Evaluation: 02/02/17 Time of Evaluation: 18:10 - Subjective Subjective: ID NOTE CONTINUES TO IMPROVE WHEN READY FOR DISCHARGE CAN SWITCH TO ORALS ZYVOX 600MG PO BID CEFTIN 250MG PO OD Objective - Vital Signs/Intake and Output Vital Signs (last 24 hours): Temp Pulse Resp BP Pulse Ox 97.5 F L 101 H 18 90/52 L 98 02/02/17 17:00 02/02/17 17:00 02/02/17 17:00 02/02/17 17:00 02/02/17 17:00 - Medications Medications: Current Medications Acetaminophen (Tylenol 325mg Tab) 650 mg PO Q6 PRN PRN Reason: Pain, moderate (4-7) Last Admin: 02/02/17 10:43 Dose: 650 mg Alprazolam (Xanax) 0.25 mg PO Q12 PRN PRN Reason: Anxiety Stop: 02/08/17 13:09 Cholecalciferol (Vitamin D) 2,000 iu PO DAILY [facility] Last Admin: 02/02/17 09:10 Dose: 2,000 iu Collagenase (Santyl) 1 applic TOP DAILY [facility] Last Admin: 02/02/17 09:09 Dose: 1 applic Diphenhydramine HCl (Benadryl) 25 mg PO Q6 PRN PRN Reason: Itching / Pruritus Last Admin: 02/01/17 15:33 Dose: 25 mg Cefepime HCl 1 gm/ Sodium (Chloride) 100 mls @ 100 mls/hr IVPB DAILY [facility] Last Admin: 02/02/17 10:45 Dose: 100 mls/hr Linezolid (Zyvox 600mg/300ml D5w) 600 mg in 300 mls @ 300 mls/hr IVPB Q12 [facility] Last Admin: 02/02/17 10:44 Dose: 300 mls/hr Lactulose (Enulose) 20 gm PO DAILY PRN PRN Reason: Constipation Levothyroxine Sodium (Synthroid) 50 mcg PO DAILY@0630 [facility] Last Admin: 02/02/17 06:35 Dose: 50 mcg Metoprolol Tartrate (Lopressor) 25 mg PO Q12 [facility] Last Admin: 02/02/17 09:08 Dose: 25 mg Pantoprazole Sodium (Protonix Ec Tab) 40 mg PO DAILY [facility] Last Admin: 02/02/17 09:09 Dose: 40 mg Sevelamer HCl (Renagel) 800 mg PO TIDWM [facility] Last Admin: 02/02/17 16:51 Dose: 800 mg Sitagliptin Phosphate (Januvia) 25 mg PO DAILY [facility] Last Admin: 02/02/17 09:08 Dose: 25 mg Vitamin B Complex/Vit C/Folic Acid (Nephro-Goran) 1 tab PO DAILY [facility] Last Admin: 02/02/17 09:09 Dose: 1 tab - Labs Labs: 01/31/17 04:20 01/31/17 04:20 PT 35.6 Seconds (9.8-13.1) H D 02/02/17 05:30 INR 3.1 (0.9-1.2) H 02/02/17 05:30 APTT 34.8 Seconds (25.6-37.1) 01/29/17 15:00
[2017-02-03] MEDS: Levothyroxine 50 MCG TAB PO SCH (05:36)
[2017-02-03 07:33] LABS: INR 3.4 (0.9-1.2); PROTHROMBIN TIME 39.2 Seconds (9.8-13.1)
[2017-02-03 08:42] VITALS: O2SAT 96
[2017-02-03] MEDS: Pantoprazole 40 mg EC Tab PO SCH (09:40)
[2017-02-03] MEDS: Santyl Collagenase OINTMENT TOP SCH (09:41)
[2017-02-03] MEDS: Multivitamin Vitamin B Complex (Nephro-Vite) Tab PO SCH (09:41)
[2017-02-03] MEDS: Linezolid 600 mg in D5W 300 ml 600 MG/300 ML BAG IVPB SCH (09:42)
[2017-02-03] MEDS: Cefepime 1 GM in Sodium Chloride 0.9% 100 ML IVPB SCH (09:42)
--- NOTE | 2017-02-03 10:36 | CP.PCM.PN ---
Subjective - Date & Time of Evaluation Date of Evaluation: 02/03/17 Time of Evaluation: 10:20 - Subjective Subjective: Had HD this AM without any mishap Tolerated the procedure well with BP recorded in Lt lower extremity (120-124/70 mm HG) BP in Rt upper arm is 90-100 mm Hg A Fib at 70-80 BPM No rales Cellulitis in both ankles has diappeared Pt will go home on Zyvox 600 Mg OD for 7 days and Ceftin 250 mg OD for 7 days Today's INR 3.4 (so, no warfarin) Objective - Vital Signs/Intake and Output Vital Signs (last 24 hours): Temp Pulse Resp BP Pulse Ox 97.8 F 105 H 18 94/58 L 96 02/03/17 08:00 02/03/17 08:00 02/03/17 08:00 02/03/17 08:00 02/03/17 08:00 - Medications Medications: Current Medications Acetaminophen (Tylenol 325mg Tab) 650 mg PO Q6 PRN PRN Reason: Pain, moderate (4-7) Last Admin: 02/02/17 23:39 Dose: 650 mg Alprazolam (Xanax) 0.25 mg PO Q12 PRN PRN Reason: Anxiety Stop: 02/08/17 13:09 Cholecalciferol (Vitamin D) 2,000 iu PO DAILY [facility] Last Admin: 02/03/17 09:41 Dose: 2,000 iu Collagenase (Santyl) 1 applic TOP DAILY [facility] Last Admin: 02/03/17 09:41 Dose: 1 applic Diphenhydramine HCl (Benadryl) 25 mg PO Q6 PRN PRN Reason: Itching / Pruritus Last Admin: 02/03/17 06:10 Dose: 25 mg Cefepime HCl 1 gm/ Sodium (Chloride) 100 mls @ 100 mls/hr IVPB DAILY [facility] Last Admin: 02/03/17 09:42 Dose: 100 mls/hr Linezolid (Zyvox 600mg/300ml D5w) 600 mg in 300 mls @ 300 mls/hr IVPB Q12 [facility] Last Admin: 02/03/17 09:42 Dose: Not Given Lactulose (Enulose) 20 gm PO DAILY PRN PRN Reason: Constipation Levothyroxine Sodium (Synthroid) 50 mcg PO DAILY@0630 [facility] Last Admin: 02/03/17 05:36 Dose: 50 mcg Metoprolol Tartrate (Lopressor) 25 mg PO Q12 [facility] Last Admin: 02/03/17 09:41 Dose: Not Given Pantoprazole Sodium (Protonix Ec Tab) 40 mg PO DAILY [facility] Last Admin: 02/03/17 09:40 Dose: 40 mg Sevelamer HCl (Renagel) 800 mg PO TIDWM [facility] Last Admin: 02/03/17 09:41 Dose: 800 mg Sitagliptin Phosphate (Januvia) 25 mg PO DAILY [facility] Last Admin: 02/03/17 09:41 Dose: 25 mg Vitamin B Complex/Vit C/Folic Acid (Nephro-Goran) 1 tab PO DAILY [facility] Last Admin: 02/03/17 09:41 Dose: 1 tab - Labs Labs: 01/31/17 04:20 01/31/17 04:20 PT 39.2 Seconds (9.8-13.1) H 02/03/17 05:20 INR 3.4 (0.9-1.2) H 02/03/17 05:20 APTT 34.8 Seconds (25.6-37.1) 01/29/17 15:00
--- NOTE | 2017-02-03 10:44 | CP.PCM.DIS ---
Provider - Provider Date of Admission: 01/29/17 15:42 Attending physician: Ariel Aldridge MD Time Spent in preparation of Discharge (in minutes): 40 (min) Hospital Course - Lab Results Lab Results: Micro Results 01/31/17 07:50 Naris MRSA Culture (Admit) - Final MRSA NOT DETECTED 01/29/17 15:55 Blood Blood Culture - Preliminary NO GROWTH AFTER 4 DAYS 01/29/17 21:30 Nose MRSA Culture (Admit) - Final MRSA NOT DETECTED Most Recent Lab Values WBC 4.3 K/uL (4.8-10.8) L 01/31/17 04:20 RBC 3.67 Mil/uL (3.80-5.20) L 01/31/17 04:20 Hgb 12.3 g/dL (12.0-16.0) 01/31/17 04:20 Hct 38.3 % (34.0-47.0) 01/31/17 04:20 MCV 104.4 fl (81.0-99.0) H 01/31/17 04:20 MCH 33.6 pg (27.0-31.0) H 01/31/17 04:20 MCHC 32.2 g/dL (33.0-37.0) L 01/31/17 04:20 RDW 16.0 % (11.5-14.5) H 01/31/17 04:20 Plt Count 77 K/uL (130-400) L 01/31/17 04:20 MPV 8.8 fl (7.2-11.7) 01/31/17 04:20 Neut % (Auto) 64.7 % (50.0-75.0) 01/31/17 04:20 Lymph % (Auto) 16.6 % (20.0-40.0) L 01/31/17 04:20 Runnels % (Auto) 17.0 % (0.0-10.0) H 01/31/17 04:20 Eos % (Auto) 1.0 % (0.0-4.0) 01/31/17 04:20 Baso % (Auto) 0.7 % (0.0-2.0) 01/31/17 04:20 Neut # 2.8 K/uL (1.8-7.0) 01/31/17 04:20 Lymph # 0.7 K/uL (1.0-4.3) L 01/31/17 04:20 Runnels # 0.7 K/uL (0.0-0.8) 01/31/17 04:20 Eos # 0.0 K/uL (0.0-0.7) 01/31/17 04:20 Baso # 0.0 K/uL (0.0-0.2) 01/31/17 04:20 ESR 13 mm/hr (0-30) 01/30/17 04:46 PT 39.2 Seconds (9.8-13.1) H 02/03/17 05:20 INR 3.4 (0.9-1.2) H 02/03/17 05:20 APTT 34.8 Seconds (25.6-37.1) 01/29/17 15:00 pO2 24 mm/Hg (30-55) L 01/29/17 15:10 VBG pH 7.37 (7.32-7.43) 01/29/17 15:10 VBG pCO2 56 mmHg (40-60) 01/29/17 15:10 VBG HCO3 27.7 mmol/L 01/29/17 15:10 VBG Total CO2 34.1 mmol/L (22-28) H 01/29/17 15:10 VBG O2 Sat (Calc) 52.5 % (40-65) 01/29/17 15:10 VBG Base Excess 5.5 mmol/L (0.0-2.0) H 01/29/17 15:10 VBG Potassium 4.3 mmol/L (3.6-5.2) 01/29/17 15:10 Sodium 132.0 mmol/L (132-148) 01/29/17 15:10 Chloride 96.0 mmol/L (98-107) L 01/29/17 15:10 Glucose 128 mg/dL (65-105) H 01/29/17 15:10 Lactate 1.8 mmol/L (0.7-2.1) 01/29/17 15:10 FiO2 21.0 % 01/29/17 15:10 Sodium 135 mmol/l (132-148) 01/31/17 04:20 Potassium 4.4 MMOL/L (3.6-5.0) 01/31/17 04:20 Chloride 96 mmol/L (98-107) L 01/31/17 04:20 Carbon Dioxide 26 mmol/L (22-30) 01/31/17 04:20 Anion Gap 17 (10-20) 01/31/17 04:20 BUN 23 mg/dl (7-17) H 01/31/17 04:20 Creatinine 3.8 mg/dL (0.7-1.2) H 01/31/17 04:20 Est GFR ( Amer) 14 01/31/17 04:20 Est GFR (Non-Af Amer) 11 01/31/17 04:20 POC Glucose (mg/dL) 126 mg/dL (65-110) H 02/03/17 05:11 Random Glucose 94 mg/dL (65-105) 01/31/17 04:20 Calcium 9.2 mg/dL (8.4-10.2) 01/31/17 04:20 Magnesium 1.9 MG/DL (1.6-2.3) 01/29/17 15:00 Total Bilirubin 1.3 mg/dl (0.2-1.3) 01/31/17 04:20 AST 20 U/L (14-36) 01/31/17 04:20 ALT 21 U/L (9-52) 01/31/17 04:20 Alkaline Phosphatase 77 U/L (38-126) 01/31/17 04:20 Troponin I < 0.0120 ng/mL (0.00-0.120) 01/29/17 15:00 NT-Pro-B Natriuret Pep 603070 pg/ml (0-900) H 01/29/17 15:00 Total Protein 6.1 G/DL (6.3-8.2) L 01/31/17 04:20 Albumin 3.4 g/dL (3.5-5.0) L 01/31/17 04:20 Globulin 2.8 gm/dL (2.2-3.9) 01/31/17 04:20 Albumin/Globulin Ratio 1.2 (1.0-2.1) 01/31/17 04:20 Venous Blood Potassium 4.3 mmol/L (3.6-5.2) 01/29/17 15:10 Hep Bs Antigen Negative (NEGATIVE) 01/30/17 18:20 Hep Bs Antibody Positive (NEGATIVE) 01/30/17 18:20 Hepatitis C Antibody Negative (NEGATIVE) 01/30/17 18:20 - Hospital Course Hospital Course: This 89-year-old female came into the hospital when her spool sorter sent her to the emergency room after noticing severe cellulitis over both ankles. 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 She is a hypertensive and diabetic with chronic renal failure with has been on hemodialysis. The patient was admitted to the hospital. She had a hemodialysis shunt in the left upper extremity and her blood pressure in the right upper extremity was found to be 70 mmHg. The patient was given intravenous albumen and her systolic blood pressure howard to 100 mmHg. Blood cultures were sent which did not show any growth. The patient was seen by an infectious disease specialist who empirically started her on intravenous Maxipime and linezolid. The patient responded promptly with marked resolution of her cellulitis. The patient successfully underwent hemodialysis. Her blood pressure recording in the left lower extremity showed a systolic blood pressure which ranged between 120 and 130 mmHg, while her systolic blood pressure in the right upper extremity was mostly between 90 and 100 mmHg. The patient remained hemodynamically stable. Her INR was monitored every day and she was given warfarin according to her INR. On the last day her INR was 3.4 and she was not given warfarin that date. After 5 days of intravenous antibiotic therapy the patient was sent home with complete resolution of her cellulitis. She was given prescriptions for Zyvox 600 mg daily to be taken at home for 7 days along with Ceftin 250 mg to be taken orally for 7 days. She will continue her hemodialysis and come back to see me in a month and a half. Discharge Exam - Head Exam Head Exam: ATRAUMATIC, NORMAL INSPECTION, NORMOCEPHALIC Discharge Plan - Follow Up Plan Condition: CRITICAL Disposition: HOME/ ROUTINE
--- NOTE | 2017-02-03 13:52 | CP.PCM.PN ---
Subjective - Date & Time of Evaluation Date of Evaluation: 02/03/17 Time of Evaluation: 06:00 - Subjective Subjective: 89 year old female patient seen at bedside for superficial ulceration to proximolateral right leg and wound to posterior right heel. Patient is seen resting comfortably, AAOx3 and NAD. Patient was not wearing offloading boots on arrival. Patient denies any pain to her RLE at this time. Patient denies N/V/F/C /D/SOB/CP. No other pedal complaints at this time. Objective - Vital Signs/Intake and Output Vital Signs (last 24 hours): Temp Pulse Resp BP Pulse Ox 97.8 F 105 H 18 94/58 L 96 02/03/17 08:00 02/03/17 09:00 02/03/17 08:00 02/03/17 08:00 02/03/17 08:00 - Medications Medications: Current Medications Acetaminophen (Tylenol 325mg Tab) 650 mg PO Q6 PRN PRN Reason: Pain, moderate (4-7) Last Admin: 02/02/17 23:39 Dose: 650 mg Alprazolam (Xanax) 0.25 mg PO Q12 PRN PRN Reason: Anxiety Stop: 02/08/17 13:09 Cholecalciferol (Vitamin D) 2,000 iu PO DAILY [facility] Last Admin: 02/03/17 09:41 Dose: 2,000 iu Collagenase (Santyl) 1 applic TOP DAILY [facility] Last Admin: 02/03/17 09:41 Dose: 1 applic Diphenhydramine HCl (Benadryl) 25 mg PO Q6 PRN PRN Reason: Itching / Pruritus Last Admin: 02/03/17 06:10 Dose: 25 mg Cefepime HCl 1 gm/ Sodium (Chloride) 100 mls @ 100 mls/hr IVPB DAILY [facility] Last Admin: 02/03/17 09:42 Dose: 100 mls/hr Linezolid (Zyvox 600mg/300ml D5w) 600 mg in 300 mls @ 300 mls/hr IVPB Q12 [facility] Last Admin: 02/03/17 09:42 Dose: Not Given Lactulose (Enulose) 20 gm PO DAILY PRN PRN Reason: Constipation Levothyroxine Sodium (Synthroid) 50 mcg PO DAILY@0630 [facility] Last Admin: 02/03/17 05:36 Dose: 50 mcg Metoprolol Tartrate (Lopressor) 25 mg PO Q12 [facility] Last Admin: 02/03/17 09:41 Dose: Not Given Pantoprazole Sodium (Protonix Ec Tab) 40 mg PO DAILY [facility] Last Admin: 02/03/17 09:40 Dose: 40 mg Sevelamer HCl (Renagel) 800 mg PO TIDWM [facility] Last Admin: 02/03/17 09:41 Dose: 800 mg Sitagliptin Phosphate (Januvia) 25 mg PO DAILY [facility] Last Admin: 02/03/17 09:41 Dose: 25 mg Vitamin B Complex/Vit C/Folic Acid (Nephro-Goran) 1 tab PO DAILY [facility] Last Admin: 02/03/17 09:41 Dose: 1 tab - Labs Labs: 01/31/17 04:20 01/31/17 04:20 PT 39.2 Seconds (9.8-13.1) H 02/03/17 05:20 INR 3.4 (0.9-1.2) H 02/03/17 05:20 APTT 34.8 Seconds (25.6-37.1) 01/29/17 15:00 - Constitutional Appears: Well, Non-toxic, No Acute Distress - Extremities Exam Additional comments: Bilateral low extremity exam: VASC: DP/PT pulses are palpable 1/4 b/l, [employer]: < 3 sec to all digits, TG: warm to cool from proximal to distal, no erythema noted DERM: ulcerations of right leg appear to be healed, there is a small fissure noted to plantar medial right heel with no active drainage, no probe to bone, no fluctuance, no signs infections, Small superficial healed abrasion noted to PIPJ right foot 2nd digit appears dry no drainage. NEURO: Protective sensation slightly diminished ORTHO: No pain on palpation of right leg healed ulcers - Neurological Exam Neurological Exam: Alert, Awake, Oriented x3 - Psychiatric Exam Psychiatric exam: Normal Affect, Normal Mood Assessment and Plan - Assessment and Plan (Free Text) Assessment: 89 year old female with 1) resolved RLE cellulitis and 2) superficial right heel fissure Plan: Patient seen and evaluated at bedside Discussed with attending, Dr. Gates Charts, labs, vitals reviewed: afebrile Superficial wound noted to RLE dressed with 4x4 and kerlix. Allevyn applied to right heel Patient is to keep offloading boots on while in bed. C/W abx as per ID Stable per podiatry Podiatry will continue to follow patient while in house
[2017-02-03 13:55] VITALS: BP 98/32; PULSE 80; TEMP 97.7
--- NOTE | 2017-02-03 23:38 | CP.PCM.PN ---
Subjective - Date & Time of Evaluation Date of Evaluation: 02/03/17 Time of Evaluation: 10:00 - Subjective Subjective: SEEN ON RENAL F/U SEEN ON HD .. TOLERATING HD WELL FOR D/C POST HD CAN BE F/U AN OUT PT Objective - Vital Signs/Intake and Output Vital Signs (last 24 hours): Temp Pulse Resp BP Pulse Ox 97.7 F 80 18 98/32 L 96 02/03/17 13:00 02/03/17 13:00 02/03/17 13:00 02/03/17 13:00 02/03/17 13:00 - Labs Labs: 01/31/17 04:20 01/31/17 04:20 PT 39.2 Seconds (9.8-13.1) H 02/03/17 05:20 INR 3.4 (0.9-1.2) H 02/03/17 05:20 APTT 34.8 Seconds (25.6-37.1) 01/29/17 15:00
--- NOTE | 2017-02-04 12:25 | PQF CHF ---
Dr. VERMA, CAN YOU PLEASE CLARIFY THE TYPE OF CHF FOR THIS PT. H&P DOCUMENTS - " SEVERE RIGHT VENTRICULAR FAILURE". PLEASE SPECIFY IF KNOWN IF CHF WAS ACUTE, CHRONIC , or ACUTE on CHRONIC. and if SYSTOLIC, DIASTOLIC, or COMBINATION of BOTH. THANK YOU Dr. VERMA This form is a permanent part of the medical record Clarification of your documentation is requested to better reflect the severity of illness and intensity of treatment of your patient. Indicators present [] Diagnosis of CHF and/or history of CHF [] BNP > 200 [] Imaging Finding of Pulmonary Edema /Pleural Effusions [] Fluid/Volume Overload [] Pitting edema [] Ejection Fraction < 40% (Indicative of Systolic Heart Failure) [] Ejection Fraction > 40% (Indicative of Diastolic Heart Failure) [] Dyspnea / Orthopenea / Paroxysmal Nocturnal Dyspnea [] Other: Location in the medical record that reflects the above clinical findings: [] Treatment Provided: [] PHYSICIAN'S RESPONSE Right ventricular failure is "Chronic" and "systolic" Based on your medical judgment of the clinical indicators outlined above, are you treating this patient for a known or suspected: [] Acute CHF [] Systolic [] Diastolic [] Combined [] Chronic CHF [] Systolic [] Diastolic [] Combined [] Acute on Chronic CHF []Systolic [] Diastolic [] Combined [] CHF due hypertension [] Acute systolic []Chronic systolic [] Acute/ chronic systolic [] Other, please indicate: [] [] If Unable to Determine, please check the box, sign and date. Present On Admission (POA) Indicator: [] Present at the time of admission [] Not present at the time of admission [] Clinically Undetermined In responding to this query, please exercise your independent professional judgment. The fact that a question is asked does not imply that any particular answer is desired or expected. Thank you for your clarification on this documentation. If you have any questions please call:[ ] * Thank you, [ ]VICKY FRENCH claim technician MADDY
== END 2017-02-03 14:09 | disposition home or self-care (01) | DRG 602 ==
LOC: H.ER 13:22 → H.ERHOLD 15:42 → H.ICU/CCU 17:32 → H.TEL 01-31 20:39
PROVIDERS: ADMIT Internal Medicine Cardiovascular Disease; ATTEND Internal Medicine Cardiovascular Disease
PROC: 5A1D60Z (ICD-10-PCS; principal; 2017-01-31)
DX: L03.115 Cellulitis of right lower limb (principal); N18.6 End stage renal disease; I13.2 Hypertensive heart and chronic kidney disease with heart failure and with stage 5 chronic kidney disease, or end stage renal disease; I50.22 Chronic systolic (congestive) heart failure; E11.22 Type 2 diabetes mellitus with diabetic chronic kidney disease; I95.3 Hypotension of hemodialysis; I27.2 Other secondary pulmonary hypertension; E11.621 Type 2 diabetes mellitus with foot ulcer; L97.419 Non-pressure chronic ulcer of right heel and midfoot with unspecified severity; L97.329 Non-pressure chronic ulcer of left ankle with unspecified severity; L97.919 Non-pressure chronic ulcer of unspecified part of right lower leg with unspecified severity; L03.116 Cellulitis of left lower limb; D63.1 Anemia in chronic kidney disease; I48.2 Chronic atrial fibrillation; E86.0 Dehydration; E86.1 Hypovolemia; G47.33 Obstructive sleep apnea (adult) (pediatric); E03.9 Hypothyroidism, unspecified; Z79.01 Long term (current) use of anticoagulants; Z99.2 Dependence on renal dialysis; Z87.891 Personal history of nicotine dependence; Z74.01 Bed confinement status; Z87.01 Personal history of pneumonia (recurrent); Z91.041 Radiographic dye allergy status; Z91.048 Other nonmedicinal substance allergy status

== ENCOUNTER 2017-02-05 15:32 | Inpatient (IN) | payer MEDICARE, OTHER ==
--- NOTE | 2017-02-05 16:49 | ED PDOC ---
HPI: Altered Mental Status Time Seen by Provider: 02/05/17 15:40 Chief Complaint (Nursing): Altered Mental Status Chief Complaint (Provider): Altered Mental Status History Per: Patient History/Exam Limitations: None Onset/Duration Of Symptoms: Hrs Additional Complaint(s): Shasha Martinez, 89 year old female patient with a past medical history inclusive of chronic renal failure presents to the ED after experiencing a syncopal episode during her dialysis treatment. The patient states she was partially dialyzed due to this, experienced a drop in her blood pressure, and does not remember her syncopal episode. She was recently admitted for cellulitis on both of her legs and discharged on 02/03/17. The patient also has a shunt in her left upper extremity. She denies fever, nausea, diarrhea, or body pain. PMD: Ariel Aldridge MD Past Medical History Reviewed: Historical Data, Nursing Documentation, Vital Signs Vital Signs: Last Vital Signs Temp 97.5 F L 02/05/17 15:38 Pulse 110 H 02/05/17 15:38 Resp 16 02/05/17 15:38 BP 74/42 L 02/05/17 15:38 Pulse Ox 98 02/05/17 15:38 - Medical History PMH: Anemia, Atrial Fibrillation (on coumadin), Cardia Arrhythmia, CHF, Depression, Diabetes (Type II), HTN, Hypothyroidism, Pneumonia, End Stage Renal Disease, Chronic Kidney Disease (Dialysis MWF), Sleep Apnea (on CPAP) Denies: HIV, Kidney Stones - Surgical History Surgical History: Cholecystectomy, Hernia Repair (2005, ventral) Denies: CABG - Family History Family History: States: Unknown Family Hx - Social History Current smoker - smoking cessation education provided: No Alcohol: None Drugs: Denies - Home Medications Home Medications: Ambulatory Orders Medication Instructions Recorded Sevelamer Carbonate [Renvela] 800 mg PO BID 04/15/15 Warfarin [Coumadin] 2 mg PO HS 06/19/15 Telmisartan [Micardis] 40 mg PO SUTUTHSA 09/21/15 Cinacalcet [Sensipar] 30 mg PO QOTHERDAY 12/03/16 Metoprolol Tartrate [Lopressor] 25 mg PO DAILY 12/03/16 Benzonatate 200 mg PO TID PRN 01/29/17 Cyproheptadine [Periactin] 4 mg PO BID PRN 01/29/17 ALPRAZolam [Xanax] 0.25 mg PO Q12 PRN tab 02/03/17 Acetaminophen [Tylenol 325mg tab] 650 mg PO Q6 PRN tab 02/03/17 Levothyroxine [Synthroid] 50 mcg PO DAILY@0630 tab 02/03/17 Pantoprazole [Protonix EC Tab] 40 mg PO DAILY ect 02/03/17 SITagliptin [Januvia] 25 mg PO DAILY tab 02/03/17 Vitamin B Complex/Vit C/Folic 1 tab PO DAILY tab 02/03/17 [Nephro-Goran] Cefuroxime Axetil [Cefuroxime] 250 mg PO DAILY 02/05/17 Linezolid [Zyvox] 600 mg PO DAILY 02/05/17 - Allergies Allergies/Adverse Reactions: Allergies Allergy/AdvReac Type Severity Reaction Status Date / Time iodine Allergy RASH Verified 01/29/17 13:29 iron Allergy ITCHING Verified 01/29/17 13:29 Review of Systems ROS Statement: Except As Marked, All Systems Reviewed And Found Negative Constitutional: Negative for: Fever, Other (no body pains) Gastrointestinal: Negative for: Nausea, Diarrhea Neurological: Positive for: Confusion (due to a syncopal episode ) Physical Exam - Reviewed Nursing Documentation Reviewed: Yes Vital Signs Reviewed: Yes - Physical Exam Appears: Positive for: Well, Non-toxic, No Acute Distress Head Exam: Positive for: ATRAUMATIC, NORMAL INSPECTION, NORMOCEPHALIC Skin: Positive for: Normal Color, Warm, DRY Eye Exam: Positive for: EOMI, Normal appearance, PERRL ENT: Positive for: Normal ENT Inspection Neck: Positive for: Normal, Painless ROM Cardiovascular/Chest: Positive for: Regular Rate, Rhythm Respiratory: Positive for: CNT, Normal Breath Sounds Gastrointestinal/Abdominal: Positive for: Normal Exam, Bowel Sounds, Soft Back: Positive for: Normal Inspection Extremity: Positive for: Other (chronic venous insufficiency on right upper extremity; shunt on left upper extremity ) Neurologic/Psych: Positive for: Alert (somnolent at times), Oriented - Laboratory Results Result Diagrams: 02/06/17 04:20 02/06/17 04:20 - ECG ECG Rhythm: Positive for: Atrial Fibrillation (at 102). Negative for: ST/T Changes O2 Sat by Pulse Oximetry: 98 (RA) Pulse Ox Interpretation: Normal Medical Decision Making Medical Decision Making: Impression: Syncopal episode during dialysis Plan: * BNP * COMP Metabolic Panel * Troponin * CBC (With Differential) * Partial Thromboplastin [COAG] * PT/INR * Chest Portable [RAD] Stat * Blood Culture * Urine C&S * Urinalysis * CT Head W/O Contrast * Reevaluation pt noted to have low bp. 78 systolic. upon review of prior records pt has chronically low bp. but also has history of CHF so fluid balance is delicate. pt currently mentating, so will hold off on aggresive forms of rehydration. paged Jose Aldridge pts primary Md upon arrival of pt in the ER Dr. Aldridge call back 5 pm advised to give small amounts of IV fluids 50 ml/hr. He Will call back with results and further management after labs resulted. Discussed with pt treatment plan. as per family at bedside (daughteR) pt has been having diarrhea for afew days. answered questions. explained that awaiting imaging and lab results and will be signing out to Dr Wheeler but that Dr Aldridge is aware that pt is here in the ER. Scribe Attestation: Documented by Cande Moore, acting as a scribe for Kaitlyn Bonner MD. Provider Scribe Attestation: All medical record entries made by the Scribe were at my direction and personally dictated by me. I have reviewed the chart and agree that the record accurately reflects my personal performance of the history, physical exam, medical decision making, and the department course for this patient. I have also personally directed, reviewed, and agree with the discharge instructions and disposition. Disposition - Clinical Impression Clinical Impression: Syncope, ESRD (end stage renal disease), Hypotension - Patient ED Disposition Is Patient to be Admitted: Transfer of Care - Disposition Disposition: Transfer of Care Disposition Time: 17:00 Condition: GUARDED Patient Signed Over To: Wheeler,Moe M Handoff Comments: pending labs, imaging, dispo
[2017-02-05] MEDS ORDERED: Sodium Chloride 0.9% 1,000 ML IV STA (17:09)
--- NOTE | 2017-02-05 17:11 | CT ---
PROCEDURE: CT HEAD WITHOUT CONTRAST. HISTORY: presyncope COMPARISON: 01/29/2017 TECHNIQUE: Axial computed tomography images were obtained through the head/brain without intravenous contrast. Radiation dose: Total exam DLP = 850.41 mGy-cm. This CT exam was performed using one or more of the following dose reduction techniques: Automated exposure control, adjustment of the mA and/or kV according to patient size, and/or use of iterative reconstruction technique. FINDINGS: HEMORRHAGE: No intracranial hemorrhage. BRAIN: No mass effect or edema. No evidence of acute infarct. 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 Mild to moderate diffuse age-appropriate atrophy. Mild periventricular chronic white matter ischemic change. Small old left lentiform nucleus lacunar infarct. VENTRICLES: Unremarkable. No hydrocephalus. CALVARIUM: Unremarkable. PARANASAL SINUSES: Unremarkable as visualized. No significant inflammatory changes. MASTOID AIR CELLS: Unremarkable as visualized. No inflammatory changes. OTHER FINDINGS: None. IMPRESSION: No intracranial mass, hemorrhage or evidence of acute infarct. 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 Age-appropriate atrophy and chronic white matter ischemic change.
[2017-02-05 17:40] LABS: BASO % 0.6 % (0.0-2.0); EOS # 0.1 K/uL (0.0-0.7); EOS % 1.3 % (0.0-4.0); HEMOGLOBIN 11.7 g/dL (12.0-16.0); LYMPH # 0.6 K/uL (1.0-4.3); LYMPH % 10.3 % (20.0-40.0); MEAN CELL VOLUME 107.3 fl (81.0-99.0); MEAN CORPUSCULAR HEMOGLOBIN 33.7 pg (27.0-31.0); MEAN CORPUSCULAR HGB CONC 31.4 g/dL (33.0-37.0); MEAN PLATELET VOLUME 8.9 fl (7.2-11.7); MONO # 0.8 K/uL (0.0-0.8); MONO % 15.1 % (0.0-10.0); NEUT % 72.7 % (50.0-75.0); NRBC % 0.2 % (0.0-0.0); RBC 3.46 Mil/uL (3.80-5.20); RED CELL DISTRIBUTION WIDTH 17.1 % (11.5-14.5); WHITE BLOOD COUNT 5.5 K/uL (4.8-10.8)
--- NOTE | 2017-02-05 17:44 | ED PDOC ---
- Laboratory Results Result Diagrams: 02/05/17 17:20 - ECG O2 Sat by Pulse Oximetry: 98 (RA) - Radiology X-Ray: Read By Radiologist X-Ray Interpretation: No Acute Disease - CT Scan/US head Other Rad Studies (CT/US): Read By Radiologist Other Rad Interpretation: no acute - Progress ED Course And Treament: 1743: Took over care from Dr. Bonner. FU on labs and imaging. She spoke with Dr. Aldridge who knows pt. well. Wants pt. to get 50ml/hr of saline Here with syncope episode while at dialysis. 185: Stable. Alert. Communicating. Dr. Anderson to take over care and fu on labs. Dr. Aldridge to be contacted with results. BP improved. Disposition - Clinical Impression Clinical Impression: Syncope - POA Present On Arrival: Falls Or Trauma - Disposition Disposition: Transfer of Care Disposition Time: 18:56 Condition: FAIR Patient Signed Over To: Carrie Anderson
--- NOTE | 2017-02-05 17:56 | RAD ---
HISTORY: syncope COMPARISON: 01/29/2017 FINDINGS: LUNGS: No active pulmonary disease. PLEURA: Minimal blunting of right costophrenic angle may reflect small pleural effusion. CARDIOVASCULAR: Mild cardiomegaly. OSSEOUS STRUCTURES: No acute fracture. Chronic right rotator cuff insufficiency with superior subluxation of humeral head. VISUALIZED UPPER ABDOMEN: Normal. OTHER FINDINGS: None. IMPRESSION: No acute infiltrate. Possible small right pleural effusion. Cardiomegaly. Chronic right rotator cuff insufficiency.
[2017-02-05 18:06] LABS: PROTHROMBIN TIME 22.6 Seconds (9.8-13.1)
[2017-02-05 18:07] LABS: PARTIAL THROMBOPLASTIN TIME 37.1 Seconds (25.6-37.1)
[2017-02-05 19:01] LABS: ALB/GLOB RATIO 1.2 (1.0-2.1); ALBUMIN 3.2 g/dL (3.5-5.0); CALCIUM 8.9 mg/dL (8.4-10.2)
[2017-02-05 19:18] LABS: TROPONIN I 0.203 ng/mL (0.00-0.120)
--- NOTE | 2017-02-05 19:30 | ED PDOC ---
- Laboratory Results Result Diagrams: 02/05/17 17:20 02/05/17 18:32 - ECG O2 Sat by Pulse Oximetry: 98 (RA) - Progress ED Course And Treament: Assumed care from Dr Wheeler. Pending labs and consult with Dr Aldridge. Re-evaluation Time: 20:00 Condition: Re-examined, Unchanged - Critical Care Total Time (In Min): 30 Medical Decision Making Medical Decision Making: Discussed with Dr Aldridge who recommends admission to ICU. He does not recommend ASA or ACS therapy. SBP is in 80s which is close to her baseline 90s. Dr Aldridge discussed case with and recommends observation and IVF. Discussed case with for ICU admission who will admit for monitoring. Disposition Discussed With : Joslyn Lee Doctor Will See Patient In The: ED Counseled Patient/Family Regarding: Studies Performed, Diagnosis - Clinical Impression Clinical Impression: Syncope, ESRD (end stage renal disease), Hypotension - POA Present On Arrival: Pressure Ulcer Location Of Wound: sacrum - Disposition Disposition: Admitted as In-Patient Disposition Time: 20:00 Condition: GUARDED
[2017-02-05] MEDS ORDERED: Sodium Chloride 0.9% 250 ML IV STA (19:37)
[2017-02-05] MEDS ORDERED: Albumin Human 5% (12.5 gm/250 ml) IV ONE (21:43)
--- NOTE | 2017-02-05 22:19 | CP.PCM.CON ---
History of Present Illness - History of Present Illness History of Present Illness: Chief Complaint: low blood pressure HPI: 89 year old female PMH ESRD on HD MWF, AVF LUE (anuric, Dr. Loaiza), chronic AFib (coumadin), severe RV failure, pulmonary hypertension, HTN, DM II, COPD, sleep apnea on BiPAP presents after an episode of hypotension with syncope appx 45 min into dialysis today. Dialysis was stopped and patient was brought to the emergency room. She was given about 400cc of NS, and BP was difficult to measure given PVD. Discussed with Dr. Aldridge who is pt's primary, as well as Railroad Car Inspector who cared for pt during recent prior admission for cellulitis RLE. Her baseline is appx 85-90 systolic. In ER, BP ranging from 70 - 140 systolic obtained; patient RUE will demonstrate pressures about 30 mmHg less than RLE, which we also used for pressure reads. Prior to admission patient was also experiencing moderate to severe waxing and waning delirium which could be secondary to dehydration vs infectious process. She also began to have severe watery diarrhea x1 day. CT recently done by Dr. Aldridge without event. At present patient with mild delirium, mentating near baseline according to patient's family, son who is a physician as well. In ICU pt pressure is 90- 110 systolic pressures. Will continue to monitor patient's pressure overnight. Will give Albumin for colloidal support. Will also evaluate for any possible infectious process. To note patient also had paracentesis recently with 4L removed, cardiac cirrhosis not yet diagnosed. ROS: Per HPI, all other systems reviewed negative by me PMD: Dr. Aldridge PMH: ESRD on HD MWF (anuric, Dr. Loaiza), chronic AFib, severe RV failure, pulmonary hypertension, HTN, DM II PSH: AVF LUE FH: unable to answer at this time SH: denies tobacco, etoh, ivdu ALLERGIES: iodine, iron MEDICATIONS: reviewed and as below Surrogate Decision Maker: in chart vitals reviewed GENERAL APPEARANCE: chronically ill, delirium HEENT: normocephalic, atraumatic PERRL, EOMI. NECK: Neck supple, non-tender without lymphadenopathy, masses or thyromegaly. CARDIAC: Normal S1 and S2. No S3, S4 or murmurs. Rhythm is regular. LUNGS: Clear to auscultation and percussion without rales, rhonchi, wheezing or diminished breath sounds. ABDOMEN: Positive bowel sounds. +ascites, distended. nontender. BACK: Examination of the spine reveals no spinal deformity, symmetry of spinal muscles, stage 1 sacral decub EXTREMITIES: No significant deformity or joint abnormality. mild edema +1 bilateral extremities NEUROLOGICAL: Strength and sensation symmetric and intact throughout. Reflexes 2 + throughout. SKIN: Skin normal color, texture and turgor with no lesions or eruptions. PSYCHIATRIC: The patient was oriented to person, place, normal affect. +delirium LABS: 02/05/17 17:20 02/05/17 18:32 EKG AFIB ASSESSMENT AND PLAN 89 year old female PMH ESRD on HD MWF, AVF LUE (anuric, Dr. Loaiza), chronic AFib (coumadin), severe RV failure, pulmonary hypertension, HTN, DM II, COPD, sleep apnea on BiPAP presents after an episode of hypotension with syncope appx 45 min into dialysis today. Dialysis was stopped and patient was brought to the emergency room. She was given about 400cc of NS, and BP was difficult to measure given PVD. Discussed with Dr. Aldridge who is pt's primary, as well as Railroad Car Inspector who cared for pt during recent prior admission for cellulitis RLE. Her baseline is appx 85-90 systolic. In ER, BP ranging from 70 - 140 systolic obtained; patient RUE will demonstrate pressures about 30 mmHg less than RLE, which we also used for pressure reads. Prior to admission patient was also experiencing moderate to severe waxing and waning delirium which could be secondary to dehydration vs infectious process. She also began to have severe watery diarrhea x1 day. CT recently done by Dr. Aldridge without event. At present patient with mild delirium, mentating near baseline according to patient's family, son who is a physician as well. In ICU pt pressure is 90-110 systolic pressures. Will continue to monitor patient's pressure overnight. Will give Albumin for colloidal support. Will also evaluate for any possible infectious process. To note patient also had paracentesis recently with 4L removed, cardiac cirrhosis not yet diagnosed. HYPOTENSION WITH SYNCOPE SEVERE RV FAILURE, PULMONARY HTN DIARRHEA X1 DAY DELIRIUM 2/2 DEHYDRATION VS. INFECTIOUS PROCESS ASCITES 2/2 CARDIAC CIRRHOSIS? CHRONIC AFIB, RATE CONTROLLED ESRD ON HD DM COPD SLEEP APNEA ON BIPAP Pt was given appx 400cc in ER, will give one dose Albumin for colloidal support, closely monitor in ICU Evaluate for CDiff, or other infectious process, stool cx, ova parasite, urine c/s, procalcitonin as well Further eval of electrolytes which may contribute to acute delirium, also check ammonia, TSH level Trend cardiac enzymes, likely cardiorenal Cont Coumadin for Afib, currently rate controlled. Cont HD per patient schedule, Dr. Loaiza Access Representative Cont home meds for DM, ESRD, hypothyroidism Past Patient History - Infectious Disease Hx of Infectious Diseases: None - Tetanus Immunizations Tetanus Immunization: Unknown - Past Medical History & Family History Past Medical History?: Yes - Past Social History Smoking Status: Former Smoker - CARDIAC Hx Atrial Fibrillation: Yes (on coumadin) Hx Cardia Arrhythmia: Yes Hx Congestive Heart Failure: Yes Hx Hypertension: Yes - PULMONARY Hx Pneumonia: Yes Hx Sleep Apnea: Yes (on CPAP) - NEUROLOGICAL Hx Neurological Disorder: No - HEENT Hx HEENT Problems: No - RENAL Hx Chronic Kidney Disease: Yes (Dialysis MWF) Hx Kidney Stones: No - ENDOCRINE/METABOLIC Hx Hypothyroidism: Yes - HEMATOLOGICAL/ONCOLOGICAL Hx Anemia: Yes Hx Human Immunodeficiency Virus (HIV): No - INTEGUMENTARY Hx Dermatological Problems: Yes (Pruritic eruptions) - MUSCULOSKELETAL/RHEUMATOLOGICAL Hx Musculoskeletal Disorders: No Hx Falls: No - GASTROINTESTINAL Hx Gastrointestinal Disorders: No Other/Comment: ASCITES - GENITOURINARY/GYNECOLOGICAL Hx Genitourinary Disorders: No - PSYCHIATRIC Hx Depression: Yes - SURGICAL HISTORY Hx Cholecystectomy: Yes Hx Coronary Artery Bypass Graft: No - ANESTHESIA Hx Anesthesia: Yes Hx Anesthesia Reactions: No Hx Malignant Hyperthermia: No Meds Allergies/Adverse Reactions: Allergies Allergy/AdvReac Type Severity Reaction Status Date / Time iodine Allergy RASH Verified 01/29/17 13:29 iron Allergy ITCHING Verified 01/29/17 13:29 - Medications Medications: Current Medications Acetaminophen (Tylenol 325mg Tab) 650 mg PO Q6H PRN PRN Reason: Fever >100.4 F Cinacalcet (Sensipar) 30 mg PO QOTHERDAY MEGHAN Home Med (Sevelamer Carbonate [Renvela]) 800 mg PO BID MEGHAN Sodium Chloride (Sodium Chloride 0.9%) 1,000 mls @ 50 mls/hr IV .Q20H STA Stop: 02/06/17 13:08 Last Admin: 02/05/17 19:11 Dose: 50 mls/hr Levothyroxine Sodium (Synthroid) 50 mcg PO DAILY@0630 [facility] Ondansetron HCl (Zofran Inj) 4 mg IVP Q6H PRN PRN Reason: Nausea/Vomiting Pantoprazole Sodium (Protonix Ec Tab) 40 mg PO DAILY [facility] Sitagliptin Phosphate (Januvia) 25 mg PO DAILY [facility] Vitamin B Complex/Vit C/Folic Acid (Nephro-Goran) 1 tab PO DAILY MEGHAN Warfarin Sodium (Coumadin) 2 mg PO HS MEGHAN PRN Reason: Protocol Results - Vital Signs Recent Vital Signs: Last Vital Signs Temp 97.5 F L 02/05/17 20:00 Pulse 97 H 02/05/17 20:00 Resp 18 02/05/17 20:00 BP 89/44 L 02/05/17 21:00 Pulse Ox 98 02/05/17 21:18 - Labs Result Diagrams: 02/05/17 17:20 02/05/17 18:32
[2017-02-05 23:13] VITALS: BMI 26.1
[2017-02-06 05:38] LABS: BASO % 0.6 % (0.0-2.0); EOS # 0.1 K/uL (0.0-0.7); EOS % 1.9 % (0.0-4.0); LYMPH # 0.4 K/uL (1.0-4.3); LYMPH % 8.3 % (20.0-40.0); MEAN CELL VOLUME 106.1 fl (81.0-99.0); MEAN PLATELET VOLUME 8.1 fl (7.2-11.7); MONO # 0.7 K/uL (0.0-0.8); MONO % 14.7 % (0.0-10.0); NEUT # 3.8 K/uL (1.8-7.0); NEUT % 74.5 % (50.0-75.0); NRBC % 0.1 % (0.0-0.0); PLATELET COUNT 47 K/uL (130-400); RBC 3.23 Mil/uL (3.80-5.20); RED CELL DISTRIBUTION WIDTH 16.4 % (11.5-14.5); WHITE BLOOD COUNT 5.1 K/uL (4.8-10.8)
[2017-02-06 05:53] LABS: ALB/GLOB RATIO 1.4 (1.0-2.1); ALBUMIN 3.3 g/dL (3.5-5.0); CALCIUM 8.8 mg/dL (8.4-10.2); MAGNESIUM 2.1 MG/DL (1.6-2.3)
[2017-02-06 05:58] LABS: PARTIAL THROMBOPLASTIN TIME 34.9 Seconds (25.6-37.1); PROTHROMBIN TIME 23.2 Seconds (9.8-13.1)
[2017-02-06] MEDS: Levothyroxine 50 MCG TAB PO SCH (06:21)
[2017-02-06] MEDS: Insulin Lispro (humaLOG) 100 Units/ml Inj SC SCH ×4 (06:41→22:52)
[2017-02-06 07:27] LABS: ANISOCYTOSIS SLIGHT; EOSINOPHIL 2 % (0-7); LYMPHOCYTE 12 % (20-50); MONOCYTE 4 % (0-10); NEUTROPHIL 79 % (42-75); PLATELET ESTIMATE DECREASED (NORMAL); REACTIVE LYMPHOCYTES 3 % (0-0); TOTAL CELLS COUNTED 100
[2017-02-06] MEDS ORDERED: CEFUROXIME AXETIL 250 MG PO SCH (09:00)
[2017-02-06] MEDS ORDERED: Patient's Own Med (Sevelamer Carbonate [Renvela] 800 MG) PO SCH (09:00)
[2017-02-06] MEDS: Cefepime 1 GM in Sodium Chloride 0.9% 100 ML IVPB SCH (10:26)
[2017-02-06] MEDS: Multivitamin Vitamin B Complex (Nephro-Vite) Tab PO SCH ×2 (10:28→17:12)
[2017-02-06] MEDS: Pantoprazole 40 mg EC Tab PO SCH ×2 (10:28→17:13)
[2017-02-06 10:32] LABS: ABG ALLEN TEST YES; ARTERIAL BLOOD GAS HCO3 27.4 mmol/L (21-28); ARTERIAL BLOOD GAS HEMOGLOBIN 10.9 g/dL (11.7-17.4); ARTERIAL BLOOD GAS O2 CAPACITY 15.5 mL/dL (16-24); ARTERIAL BLOOD GAS O2 CONTENT 14.6 ML/dL (15-23); ARTERIAL BLOOD GAS O2 SAT 94.4 % (95-98); ARTERIAL BLOOD GAS PCO2 49 mm/Hg (35-45); ARTERIAL BLOOD GAS PH 7.38 (7.35-7.45); ARTERIAL BLOOD GAS PO2 96 mm/Hg (80-100); ARTERIAL BLOOD GAS TCO2 30.5 mmol/L (22-28)
--- NOTE | 2017-02-06 10:59 | CP.PCM.HP ---
History of Present Illness - History of Present Illness History of Present Illness: this 89-year-old female was rushed to the emergency room from her dialysis center upon discovery of severe hypotension. The patient was recently put on oral antibiotic following her recent hospitalization for cellulitis of legs. The patient developed severe diarrhea and on the day of her hospitalization had had profuse watery diarrhea The patient has multiple medical problems which include hypertension and diabetes with chronic kidney disease requiring hemodialysis. The patient has had hypoventilation/hypoxia syndrome secondary to obstructive sleep apnea for which she wears a BiPAP machine at night. She has had severe pulmonary hypertension resulting in severe right ventricular failure which is responsible for recurring ascites and pleural effusions. Over the course of last year and a half she has had multiple pleural and peritoneal taps. The patient has been slightly disoriented for last week and a half. She was given half a milligram of Xanax approximately 36 hours back, instead of quarter milligram of Xanax which she has taken daily for number of years. the patient has been extremely drowsy and slightly disoriented since then. the patient has had chronic atrial fibrillation and has been on oral anticoagulation for the same. The patient arrived in the emergency room profoundly hypotensive and responded to intravenous fluid replenishment with improvement in her blood pressure. Physical examination shows an elderly lady who is extremely drowsy and can be woken up a loud calling or gentle shaking. she promptly falls asleep. While awake, she has a flapping tremor. She has atrial fibrillation at 100 bpm and a blood pressure in the right upper extremity of 91/50 mmHg and 90/56 mmHg in the left lower extremity. Her jugular venous pressure was elevated to the angle of the jaw. There was minimal pitting edema over both lower extremities. There was mild peripheral cyanosis, indicating significant reduced tissue perfusion.the apex was not palpable. The first and second heart sounds were normal. There was an apical systolic murmur of mitral regurgitation and a long systolic murmur in the left fourth intercostal space in the parasternal region due to tricuspid regurgitation. The inspiratory effort was poor. No rales were audible at bases. Her abdomen was soft there was evidence of free fluid in the abdomen. Her electro-cardiogram showed atrial fibrillation with evidence of right axis deviation. The EKG tracing was identical to her earlier EKG tracings. Her lab data was reviewed. She had as a ischemia as expected. There was no hyperkalemia. Arterial blood gases done now on room air show a pH of 7.38 with PCO2 of 49 mmHg and PO2 of 95 mmHg. her troponin was elevated. IMPRESSION: CO2 retention with CO2 toxicity. Chronic hypoxia hypoventilation syndrome. Severe hypotension due to diarrhea. Chronic kidney disease stage V with chronic hemodialysis. Chronic atrial fibrillation with congestive cardiac failure which is right ventricular chronic and systolic. Severe pulmonary hypertension secondary to hypoxia. Hypertension and diabetes mellitus. Recurrent ascites. The patient will be put on BiPAP machine so as to improve minute ventilation and PCO2 levels. She is scheduled for hemodialysis tomorrow. She has had fluid replenishment and has no further diarrhea. Present on Admission - Present on Admission Any Indicators Present on Admission: No Past Patient History - Infectious Disease Hx of Infectious Diseases: None - Tetanus Immunizations Tetanus Immunization: Unknown - Past Medical History & Family History Past Medical History?: Yes - Past Social History Smoking Status: Former Smoker - CARDIAC Hx Atrial Fibrillation: Yes (on coumadin) Hx Cardia Arrhythmia: Yes Hx Congestive Heart Failure: Yes Hx Hypertension: Yes - PULMONARY Hx Pneumonia: Yes Hx Sleep Apnea: Yes (on CPAP) - NEUROLOGICAL Hx Neurological Disorder: No - HEENT Hx HEENT Problems: No - RENAL Hx Chronic Kidney Disease: Yes (Dialysis MWF) Hx Kidney Stones: No - ENDOCRINE/METABOLIC Hx Hypothyroidism: Yes - HEMATOLOGICAL/ONCOLOGICAL Hx Anemia: Yes Hx Human Immunodeficiency Virus (HIV): No - INTEGUMENTARY Hx Dermatological Problems: Yes (Pruritic eruptions) - MUSCULOSKELETAL/RHEUMATOLOGICAL Hx Musculoskeletal Disorders: No Hx Falls: No - GASTROINTESTINAL Hx Gastrointestinal Disorders: No Other/Comment: ASCITES - GENITOURINARY/GYNECOLOGICAL Hx Genitourinary Disorders: No - PSYCHIATRIC Hx Depression: Yes - SURGICAL HISTORY Hx Cholecystectomy: Yes Hx Coronary Artery Bypass Graft: No - ANESTHESIA Hx Anesthesia: Yes Hx Anesthesia Reactions: No Hx Malignant Hyperthermia: No Meds Allergies/Adverse Reactions: Allergies Allergy/AdvReac Type Severity Reaction Status Date / Time iodine Allergy RASH Verified 01/29/17 13:29 iron Allergy ITCHING Verified 01/29/17 13:29 Results - Vital Signs Recent Vital Signs: Last Vital Signs Temp 97.9 F 02/06/17 09:00 Pulse 102 H 02/06/17 09:00 Resp 14 02/06/17 09:00 BP 91/44 L 02/06/17 09:00 Pulse Ox 89 L 02/06/17 05:50 - Labs Result Diagrams: 02/06/17 04:20 02/06/17 04:20 Labs: Laboratory Results - last 24 hr 02/05/17 02/06/17 02/06/17 22:56 01:30 04:20 WBC 5.1 RBC 3.23 L Hgb 11.0 L Hct 34.3 MCV 106.1 H MCH 34.0 H MCHC 32.0 L RDW 16.4 H Plt Count 47 L MPV 8.1 Neut % (Auto) 74.5 Lymph % (Auto) 8.3 L Martin % (Auto) 14.7 H Eos % (Auto) 1.9 Baso % (Auto) 0.6 Neut # 3.8 Lymph # 0.4 L Martin # 0.7 Eos # 0.1 Baso # 0.0 Neutrophils % (Manual) 79 H Lymphocytes % (Manual) 12 L Reactive Lymphs % 3 H Monocytes % (Manual) 4 Eosinophils % (Manual) 2 Platelet Estimate Decreased L Anisocytosis (manual) Slight PT INR APTT pCO2 pO2 HCO3 ABG pH ABG Total CO2 ABG O2 Saturation ABG O2 Content ABG Base Excess ABG Hemoglobin ABG Carboxyhemoglobin POC ABG HHb (Measured) ABG Methemoglobin ABG O2 Capacity Darren Test A-a O2 Difference Hgb O2 Saturation FiO2 Sodium Potassium Chloride Carbon Dioxide Anion Gap BUN Creatinine Est GFR ( Amer) Est GFR (Non-Af Amer) POC Glucose (mg/dL) 107 Random Glucose Calcium Phosphorus Magnesium Total Bilirubin AST ALT Alkaline Phosphatase Ammonia Troponin I 0.2020 H* Total Protein Albumin Globulin Albumin/Globulin Ratio TSH 3rd Generation 02/06/17 02/06/17 02/06/17 04:20 04:20 04:20 WBC RBC Hgb Hct MCV MCH MCHC RDW Plt Count MPV Neut % (Auto) Lymph % (Auto) Martin % (Auto) Eos % (Auto) Baso % (Auto) Neut # Lymph # Martin # Eos # Baso # Neutrophils % (Manual) Lymphocytes % (Manual) Reactive Lymphs % Monocytes % (Manual) Eosinophils % (Manual) Platelet Estimate Anisocytosis (manual) PT 23.2 H INR 2.0 H APTT 34.9 pCO2 pO2 HCO3 ABG pH ABG Total CO2 ABG O2 Saturation ABG O2 Content ABG Base Excess ABG Hemoglobin ABG Carboxyhemoglobin POC ABG HHb (Measured) ABG Methemoglobin ABG O2 Capacity Darren Test A-a O2 Difference Hgb O2 Saturation FiO2 Sodium 137 Potassium 4.7 Chloride 100 Carbon Dioxide 24 Anion Gap 18 BUN 31 H Creatinine 4.3 H Est GFR ( Amer) 12 Est GFR (Non-Af Amer) 10 POC Glucose (mg/dL) Random Glucose 91 Calcium 8.8 Phosphorus 4.7 H Magnesium 2.1 Total Bilirubin 1.3 AST 29 ALT 31 Alkaline Phosphatase 61 Ammonia < 9 L Troponin I Total Protein 5.6 L Albumin 3.3 L Globulin 2.4 Albumin/Globulin Ratio 1.4 TSH 3rd Generation 5.16 H 02/06/17 02/06/17 02/06/17 05:40 08:20 10:27 WBC RBC Hgb Hct MCV MCH MCHC RDW Plt Count MPV Neut % (Auto) Lymph % (Auto) Martin % (Auto) Eos % (Auto) Baso % (Auto) Neut # Lymph # Martin # Eos # Baso # Neutrophils % (Manual) Lymphocytes % (Manual) Reactive Lymphs % Monocytes % (Manual) Eosinophils % (Manual) Platelet Estimate Anisocytosis (manual) PT INR APTT pCO2 49 H pO2 96 HCO3 27.4 ABG pH 7.38 ABG Total CO2 30.5 H ABG O2 Saturation 94.4 L ABG O2 Content 14.6 L ABG Base Excess 3.2 H ABG Hemoglobin 10.9 L ABG Carboxyhemoglobin 0 L POC ABG HHb (Measured) 5.6 H ABG Methemoglobin 0.0 ABG O2 Capacity 15.5 L Darren Test Yes A-a O2 Difference 42.0 Hgb O2 Saturation 94.4 L FiO2 28.0 Sodium Potassium Chloride Carbon Dioxide Anion Gap BUN Creatinine Est GFR ( Amer) Est GFR (Non-Af Amer) POC Glucose (mg/dL) 91 Random Glucose Calcium Phosphorus Magnesium Total Bilirubin AST ALT Alkaline Phosphatase Ammonia Troponin I 0.2460 H* Total Protein Albumin Globulin Albumin/Globulin Ratio TSH 3rd Generation
--- NOTE | 2017-02-06 15:09 | PQF GENQUE ---
Dr. Jose Aldridge, Etiology of elevated troponins? if known after work up completed OR:Unable to determine OR: Other explanation of clinical findings H and P: Her electro-cardiogram showed atrial fibrillation with evidence of right axis deviation. The EKG tracing was identical to her earlier EKG tracings. Her lab data was reviewed. She had as a ischemia as expected. ------ her troponin was elevated. Impression: CO2 retention with CO2 toxicity. Chronic hypoxia hypoventilation syndrome. Severe hypotension due to diarrhea. Chronic kidney disease stage V with chronic hemodialysis. Chronic atrial fibrillation with congestive cardiac failure which is right ventricular chronic and systolic. Severe pulmonary hypertension secondary to hypoxia. Hypertension and diabetes mellitus. Recurrent ascites. Troponin: 0.2030->0.2020->0.2020 This form is a permanent part of the medical record Clarification of your documentation is requested to better reflect the severity of illness and intensity of treatment of your patient. Indicators present [] Specify: [] [] Specify: [] [] Specify: [] [] Specify: [] Location in the medical record that reflects the above clinical findings: [] Treatment Provided: [] PHYSICIAN'S RESPONSE Troponins are elevated due to Coronary hypoperfusion during Hypotension and Renal Failure. Based on your medical judgment of the clinical indicators outlined above please clarify the following: [] Practitioner response [] If unable to determine, please check the box, sign and date. Present On Admission (POA) Indicator: [] Present at the time of admission [] Not present at the time of admission [] Clinically Undetermined In responding to this query, please exercise your independent professional judgment. The fact that a question is asked does not imply that any particular answer is desired or expected. Thank you for your clarification on this documentation. If you have any questions please call. * Thank you, Tatum Hayes RN BSN ext. #[phone] MTDD
--- NOTE | 2017-02-06 16:35 | CP.CCUPN ---
CCU Subjective - Physician Review Subjective (Free Text): Easily awakens to verbal stimuli, and appropriately responsive, no distress. Does not appear disoriented or confusional, historical info from daughter reveals that patient was hyperactive at home post discharge on 02/03 and has not slept well, even took double dose of her prn Xanax at 0.5mg. Denies any focal weakness, abdominal pain, nausea, CP, SOB at bed rest and no further frequent runs of diarrhea since admission. Family at bedside, and interactive as usual Serial BPs have been in the mid 90s, and not tachycardic. No HD today, scheduled for AM tomorrow. ROS: as above, other 10+ system review reveals no pertinent negs or positives. Other PMSFH: all nursing and physician notes reviewed, no other pertinent history relevant to current problems. Assessment: 1. Hypotension 2 Hypovolemia/ Dehydration 2. AMS with intermittent Lethargy and drowsiness due to Hypotension 3. ESRD on HD with missed session on day of admission 4. R- CHF and Pulm HTN: non-decompensated 5. DM II 6. Chronic A fib on AC PLAN: 1. Recd crystalloid infusion yesterday, will use colloid (5% Albumin) if additional volume expansion required to maintain BP. She still does not appear to be fluid overloaded. 2. Consider discussion with Nephro to perhaps change dialysis regimen to BIW. Admission BUN/Cr was only 28/4.0. 3. C Diff toxin and Ag. 4. Resume nighttime CPAP / BiPAP as tolerated. CCU Objective - Vital Signs / Intake & Output Vital Signs (Last 4 hours): Vital Signs Temp Pulse Resp BP Pulse Ox 02/06/17 16:00 98.2 F 116 H 21 94/61 L 94 L 02/06/17 15:00 103 H 21 118/55 L 98 02/06/17 14:00 102 H 16 93/59 L 93 L 02/06/17 13:00 103 H 17 98/57 L 94 L Intake and Output (Last 8hrs): Intake & Output 02/06/17 02/06/17 02/06/17 06:59 14:59 22:59 Intake Total 400 Output Total 0 Balance 400 Weight 152 lb Intake: IV 0 Oral 150 Blood Product 250 Output: Urine 0 Urine, Voided 0 - Physical Exam Head: Positive for: Normocephalic Pupils: Positive for: PERRL Conjunctiva: Positive for: Normal Mouth: Positive for: Moist Mucous Membranes Pharnyx: Negative for: ERYTHEMA, EXUDATE Neck: Negative for: Meningeal Signs, JVD, Lymphadenopathy Respiratory/Chest: Positive for: Decreased Breath Sounds. Negative for: Accessory Muscle Use, Wheezes Cardiovascular: Positive for: Murmurs, Normal S1, S2, Irregular Rhythm. Negative for: Rub Abdomen: Positive for: Normal Bowel Sounds. Negative for: Tenderness, Distention, Rebound Rectal: Negative for: Normal Rectal Tone Upper Extremity: Positive for: Other (LUE AVF) Lower Extremity: Negative for: Edema, CALF TENDERNESS, Cyanosis, Temperature Abnormalties Neurological: Positive for: GCS=15, CN II-XII Intact, Speech Normal, Motor Func Grossly Intact, Normal Sensory Function Skin: Positive for: Warm. Negative for: Rashes Psychiatric: Positive for: Alert, Oriented x 3, Normal Insight, Normal Concentration - Medications Active Medications: Active Medications Generic Name Dose Route Start Last Admin Trade Name Freq PRN Reason Stop Dose Admin Acetaminophen 650 mg 02/05/17 21:44 Tylenol 325mg Tab PO Q6H PRN Fever >100.4 F Cinacalcet 30 mg 02/07/17 09:00 Sensipar PO QOTHERDAY MEGHAN Cefepime HCl 1 gm/ Sodium 100 mls @ 100 mls/hr 02/06/17 09:00 02/06/17 10:26 Chloride IVPB 100 mls/hr DAILY MEGHAN Administration Insulin Human Lispro 0 units 02/06/17 07:30 02/06/17 16:19 Humalog SC Not Given ACHS [facility] Protocol Levothyroxine Sodium 50 mcg 02/06/17 06:30 02/06/17 06:21 Synthroid PO 50 mcg DAILY@0630 MEGHAN Administration Linezolid 600 mg 02/06/17 09:00 Zyvox PO DAILY MEGHAN Ondansetron HCl 4 mg 02/05/17 21:44 02/06/17 13:52 Zofran Inj IVP 4 mg Q6H PRN Administration Nausea/Vomiting Pantoprazole Sodium 40 mg 02/06/17 09:00 02/06/17 10:28 Protonix Ec Tab PO Not Given DAILY MEGHAN Sevelamer HCl 800 mg 02/06/17 08:00 02/06/17 10:28 Renagel PO Not Given BIDWM [facility] Sitagliptin Phosphate 25 mg 02/06/17 09:00 02/06/17 10:28 Januvia PO Not Given DAILY [facility] Vitamin B Complex/Vit C/Folic Acid 1 tab 02/06/17 09:00 Nephro-Goran PO DAILY [facility] Warfarin Sodium 2 mg 02/05/17 22:00 02/05/17 23:34 Coumadin PO 2 mg HS [facility] Administration Protocol Warfarin Sodium 2 mg 02/06/17 17:00 Coumadin PO 02/06/17 17:01 QD5 [facility] Protocol - Patient Studies Lab Studies: Lab Studies 02/06/17 02/06/17 02/06/17 Range/Units 15:58 12:04 10:27 WBC (4.8-10.8) K/uL RBC (3.80-5.20) Mil/uL Hgb (12.0-16.0) g/dL Hct (34.0-47.0) % MCV (81.0-99.0) fl MCH (27.0-31.0) pg MCHC (33.0-37.0) g/dL RDW (11.5-14.5) % Plt Count (130-400) K/uL MPV (7.2-11.7) fl Neut % (Auto) (50.0-75.0) % Lymph % (Auto) (20.0-40.0) % [place] % (Auto) (0.0-10.0) % Eos % (Auto) (0.0-4.0) % Baso % (Auto) (0.0-2.0) % Neut # (1.8-7.0) K/uL Lymph # (1.0-4.3) K/uL [place] # (0.0-0.8) K/uL Eos # (0.0-0.7) K/uL Baso # (0.0-0.2) K/uL Neutrophils % (Manual) (42-75) % Lymphocytes % (Manual) (20-50) % Reactive Lymphs % (0-0) % Monocytes % (Manual) (0-10) % Eosinophils % (Manual) (0-7) % Platelet Estimate (NORMAL) Anisocytosis (manual) PT (9.8-13.1) Seconds INR (0.9-1.2) APTT (25.6-37.1) Seconds pCO2 49 H (35-45) mm/Hg pO2 96 (80-100) mm/Hg HCO3 27.4 (21-28) mmol/L ABG pH 7.38 (7.35-7.45) ABG Total CO2 30.5 H (22-28) mmol/L ABG O2 Saturation 94.4 L (95-98) % ABG O2 Content 14.6 L (15-23) ML/dL ABG Base Excess 3.2 H (-2.0-3.0) mmol/L ABG Hemoglobin 10.9 L (11.7-17.4) g/dL ABG Carboxyhemoglobin 0 L (0.5-1.5) % POC ABG HHb (Measured) 5.6 H (0.0-5.0) % ABG Methemoglobin 0.0 (0.0-3.0) % ABG O2 Capacity 15.5 L (16-24) mL/dL Darren Test Yes A-a O2 Difference 42.0 mm/Hg Hgb O2 Saturation 94.4 L (95.0-98.0) % FiO2 28.0 % Sodium (132-148) mmol/l Potassium (3.6-5.0) MMOL/L Chloride (98-107) mmol/L Carbon Dioxide (22-30) mmol/L Anion Gap (10-20) BUN (7-17) mg/dl Creatinine (0.7-1.2) mg/dL Est GFR ( Amer) Est GFR (Non-Af Amer) POC Glucose (mg/dL) 84 89 (65-110) mg/dL Random Glucose (65-105) mg/dL Calcium (8.4-10.2) mg/dL Phosphorus (2.5-4.5) mg/dl Magnesium (1.6-2.3) MG/DL Total Bilirubin (0.2-1.3) mg/dl AST (14-36) U/L ALT (9-52) U/L Alkaline Phosphatase (38-126) U/L Ammonia (11-51) umo/L Troponin I (0.00-0.120) ng/mL Total Protein (6.3-8.2) G/DL Albumin (3.5-5.0) g/dL Globulin (2.2-3.9) gm/dL Albumin/Globulin Ratio (1.0-2.1) TSH 3rd Generation (0.46-4.68) mIU/ML 02/06/17 02/06/17 02/06/17 Range/Units 08:20 05:40 04:20 WBC (4.8-10.8) K/uL RBC (3.80-5.20) Mil/uL Hgb (12.0-16.0) g/dL Hct (34.0-47.0) % MCV (81.0-99.0) fl MCH (27.0-31.0) pg MCHC (33.0-37.0) g/dL RDW (11.5-14.5) % Plt Count (130-400) K/uL MPV (7.2-11.7) fl Neut % (Auto) (50.0-75.0) % Lymph % (Auto) (20.0-40.0) % [place] % (Auto) (0.0-10.0) % Eos % (Auto) (0.0-4.0) % Baso % (Auto) (0.0-2.0) % Neut # (1.8-7.0) K/uL Lymph # (1.0-4.3) K/uL [place] # (0.0-0.8) K/uL Eos # (0.0-0.7) K/uL Baso # (0.0-0.2) K/uL Neutrophils % (Manual) (42-75) % Lymphocytes % (Manual) (20-50) % Reactive Lymphs % (0-0) % Monocytes % (Manual) (0-10) % Eosinophils % (Manual) (0-7) % Platelet Estimate (NORMAL) Anisocytosis (manual) PT (9.8-13.1) Seconds INR (0.9-1.2) APTT (25.6-37.1) Seconds pCO2 (35-45) mm/Hg pO2 (80-100) mm/Hg HCO3 (21-28) mmol/L ABG pH (7.35-7.45) ABG Total CO2 (22-28) mmol/L ABG O2 Saturation (95-98) % ABG O2 Content (15-23) ML/dL ABG Base Excess (-2.0-3.0) mmol/L ABG Hemoglobin (11.7-17.4) g/dL ABG Carboxyhemoglobin (0.5-1.5) % POC ABG HHb (Measured) (0.0-5.0) % ABG Methemoglobin (0.0-3.0) % ABG O2 Capacity (16-24) mL/dL Darren Test A-a O2 Difference mm/Hg Hgb O2 Saturation (95.0-98.0) % FiO2 % Sodium (132-148) mmol/l Potassium (3.6-5.0) MMOL/L Chloride (98-107) mmol/L Carbon Dioxide (22-30) mmol/L Anion Gap (10-20) BUN (7-17) mg/dl Creatinine (0.7-1.2) mg/dL Est GFR ( Amer) Est GFR (Non-Af Amer) POC Glucose (mg/dL) 91 (65-110) mg/dL Random Glucose (65-105) mg/dL Calcium (8.4-10.2) mg/dL Phosphorus (2.5-4.5) mg/dl Magnesium (1.6-2.3) MG/DL Total Bilirubin (0.2-1.3) mg/dl AST (14-36) U/L ALT (9-52) U/L Alkaline Phosphatase (38-126) U/L Ammonia < 9 L (11-51) umo/L Troponin I 0.2460 H* (0.00-0.120) ng/mL Total Protein (6.3-8.2) G/DL Albumin (3.5-5.0) g/dL Globulin (2.2-3.9) gm/dL Albumin/Globulin Ratio (1.0-2.1) TSH 3rd Generation (0.46-4.68) mIU/ML 02/06/17 02/06/17 02/06/17 Range/Units 04:20 04:20 04:20 WBC 5.1 (4.8-10.8) K/uL RBC 3.23 L (3.80-5.20) Mil/uL Hgb 11.0 L (12.0-16.0) g/dL Hct 34.3 (34.0-47.0) % MCV 106.1 H (81.0-99.0) fl MCH 34.0 H (27.0-31.0) pg MCHC 32.0 L (33.0-37.0) g/dL RDW 16.4 H (11.5-14.5) % Plt Count 47 L (130-400) K/uL MPV 8.1 (7.2-11.7) fl Neut % (Auto) 74.5 (50.0-75.0) % Lymph % (Auto) 8.3 L (20.0-40.0) % [place] % (Auto) 14.7 H (0.0-10.0) % Eos % (Auto) 1.9 (0.0-4.0) % Baso % (Auto) 0.6 (0.0-2.0) % Neut # 3.8 (1.8-7.0) K/uL Lymph # 0.4 L (1.0-4.3) K/uL [place] # 0.7 (0.0-0.8) K/uL Eos # 0.1 (0.0-0.7) K/uL Baso # 0.0 (0.0-0.2) K/uL Neutrophils % (Manual) 79 H (42-75) % Lymphocytes % (Manual) 12 L (20-50) % Reactive Lymphs % 3 H (0-0) % Monocytes % (Manual) 4 (0-10) % Eosinophils % (Manual) 2 (0-7) % Platelet Estimate Decreased L (NORMAL) Anisocytosis (manual) Slight PT 23.2 H (9.8-13.1) Seconds INR 2.0 H (0.9-1.2) APTT 34.9 (25.6-37.1) Seconds pCO2 (35-45) mm/Hg pO2 (80-100) mm/Hg HCO3 (21-28) mmol/L ABG pH (7.35-7.45) ABG Total CO2 (22-28) mmol/L ABG O2 Saturation (95-98) % ABG O2 Content (15-23) ML/dL ABG Base Excess (-2.0-3.0) mmol/L ABG Hemoglobin (11.7-17.4) g/dL ABG Carboxyhemoglobin (0.5-1.5) % POC ABG HHb (Measured) (0.0-5.0) % ABG Methemoglobin (0.0-3.0) % ABG O2 Capacity (16-24) mL/dL Darren Test A-a O2 Difference mm/Hg Hgb O2 Saturation (95.0-98.0) % FiO2 % Sodium 137 (132-148) mmol/l Potassium 4.7 (3.6-5.0) MMOL/L Chloride 100 (98-107) mmol/L Carbon Dioxide 24 (22-30) mmol/L Anion Gap 18 (10-20) BUN 31 H (7-17) mg/dl Creatinine 4.3 H (0.7-1.2) mg/dL Est GFR ( Amer) 12 Est GFR (Non-Af Amer) 10 POC Glucose (mg/dL) (65-110) mg/dL Random Glucose 91 (65-105) mg/dL Calcium 8.8 (8.4-10.2) mg/dL Phosphorus 4.7 H (2.5-4.5) mg/dl Magnesium 2.1 (1.6-2.3) MG/DL Total Bilirubin 1.3 (0.2-1.3) mg/dl AST 29 (14-36) U/L ALT 31 (9-52) U/L Alkaline Phosphatase 61 (38-126) U/L Ammonia (11-51) umo/L Troponin I (0.00-0.120) ng/mL Total Protein 5.6 L (6.3-8.2) G/DL Albumin 3.3 L (3.5-5.0) g/dL Globulin 2.4 (2.2-3.9) gm/dL Albumin/Globulin Ratio 1.4 (1.0-2.1) TSH 3rd Generation 5.16 H (0.46-4.68) mIU/ML 02/06/17 02/05/17 Range/Units 01:30 22:56 WBC (4.8-10.8) K/uL RBC (3.80-5.20) Mil/uL Hgb (12.0-16.0) g/dL Hct (34.0-47.0) % MCV (81.0-99.0) fl MCH (27.0-31.0) pg MCHC (33.0-37.0) g/dL RDW (11.5-14.5) % Plt Count (130-400) K/uL MPV (7.2-11.7) fl Neut % (Auto) (50.0-75.0) % Lymph % (Auto) (20.0-40.0) % [place] % (Auto) (0.0-10.0) % Eos % (Auto) (0.0-4.0) % Baso % (Auto) (0.0-2.0) % Neut # (1.8-7.0) K/uL Lymph # (1.0-4.3) K/uL [place] # (0.0-0.8) K/uL Eos # (0.0-0.7) K/uL Baso # (0.0-0.2) K/uL Neutrophils % (Manual) (42-75) % Lymphocytes % (Manual) (20-50) % Reactive Lymphs % (0-0) % Monocytes % (Manual) (0-10) % Eosinophils % (Manual) (0-7) % Platelet Estimate (NORMAL) Anisocytosis (manual) PT (9.8-13.1) Seconds INR (0.9-1.2) APTT (25.6-37.1) Seconds pCO2 (35-45) mm/Hg pO2 (80-100) mm/Hg HCO3 (21-28) mmol/L ABG pH (7.35-7.45) ABG Total CO2 (22-28) mmol/L ABG O2 Saturation (95-98) % ABG O2 Content (15-23) ML/dL ABG Base Excess (-2.0-3.0) mmol/L ABG Hemoglobin (11.7-17.4) g/dL ABG Carboxyhemoglobin (0.5-1.5) % POC ABG HHb (Measured) (0.0-5.0) % ABG Methemoglobin (0.0-3.0) % ABG O2 Capacity (16-24) mL/dL Darren Test A-a O2 Difference mm/Hg Hgb O2 Saturation (95.0-98.0) % FiO2 % Sodium (132-148) mmol/l Potassium (3.6-5.0) MMOL/L Chloride (98-107) mmol/L Carbon Dioxide (22-30) mmol/L Anion Gap (10-20) BUN (7-17) mg/dl Creatinine (0.7-1.2) mg/dL Est GFR ( Amer) Est GFR (Non-Af Amer) POC Glucose (mg/dL) 107 (65-110) mg/dL Random Glucose (65-105) mg/dL Calcium (8.4-10.2) mg/dL Phosphorus (2.5-4.5) mg/dl Magnesium (1.6-2.3) MG/DL Total Bilirubin (0.2-1.3) mg/dl AST (14-36) U/L ALT (9-52) U/L Alkaline Phosphatase (38-126) U/L Ammonia (11-51) umo/L Troponin I 0.2020 H* (0.00-0.120) ng/mL Total Protein (6.3-8.2) G/DL Albumin (3.5-5.0) g/dL Globulin (2.2-3.9) gm/dL Albumin/Globulin Ratio (1.0-2.1) TSH 3rd Generation (0.46-4.68) mIU/ML Laboratory Results - last 24 hr 02/05/17 02/06/17 02/06/17 22:56 01:30 04:20 WBC 5.1 RBC 3.23 L Hgb 11.0 L Hct 34.3 MCV 106.1 H MCH 34.0 H MCHC 32.0 L RDW 16.4 H Plt Count 47 L MPV 8.1 Neut % (Auto) 74.5 Lymph % (Auto) 8.3 L [place] % (Auto) 14.7 H Eos % (Auto) 1.9 Baso % (Auto) 0.6 Neut # 3.8 Lymph # 0.4 L [place] # 0.7 Eos # 0.1 Baso # 0.0 Neutrophils % (Manual) 79 H Lymphocytes % (Manual) 12 L Reactive Lymphs % 3 H Monocytes % (Manual) 4 Eosinophils % (Manual) 2 Platelet Estimate Decreased L Anisocytosis (manual) Slight PT INR APTT pCO2 pO2 HCO3 ABG pH ABG Total CO2 ABG O2 Saturation ABG O2 Content ABG Base Excess ABG Hemoglobin ABG Carboxyhemoglobin POC ABG HHb (Measured) ABG Methemoglobin ABG O2 Capacity Darren Test A-a O2 Difference Hgb O2 Saturation FiO2 Sodium Potassium Chloride Carbon Dioxide Anion Gap BUN Creatinine Est GFR ( Amer) Est GFR (Non-Af Amer) POC Glucose (mg/dL) 107 Random Glucose Calcium Phosphorus Magnesium Total Bilirubin AST ALT Alkaline Phosphatase Ammonia Troponin I 0.2020 H* Total Protein Albumin Globulin Albumin/Globulin Ratio TSH 3rd Generation 02/06/17 02/06/17 02/06/17 04:20 04:20 04:20 WBC RBC Hgb Hct MCV MCH MCHC RDW Plt Count MPV Neut % (Auto) Lymph % (Auto) [place] % (Auto) Eos % (Auto) Baso % (Auto) Neut # Lymph # [place] # Eos # Baso # Neutrophils % (Manual) Lymphocytes % (Manual) Reactive Lymphs % Monocytes % (Manual) Eosinophils % (Manual) Platelet Estimate Anisocytosis (manual) PT 23.2 H INR 2.0 H APTT 34.9 pCO2 pO2 HCO3 ABG pH ABG Total CO2 ABG O2 Saturation ABG O2 Content ABG Base Excess ABG Hemoglobin ABG Carboxyhemoglobin POC ABG HHb (Measured) ABG Methemoglobin ABG O2 Capacity Darren Test A-a O2 Difference Hgb O2 Saturation FiO2 Sodium 137 Potassium 4.7 Chloride 100 Carbon Dioxide 24 Anion Gap 18 BUN 31 H Creatinine 4.3 H Est GFR ( Amer) 12 Est GFR (Non-Af Amer) 10 POC Glucose (mg/dL) Random Glucose 91 Calcium 8.8 Phosphorus 4.7 H Magnesium 2.1 Total Bilirubin 1.3 AST 29 ALT 31 Alkaline Phosphatase 61 Ammonia < 9 L Troponin I Total Protein 5.6 L Albumin 3.3 L Globulin 2.4 Albumin/Globulin Ratio 1.4 TSH 3rd Generation 5.16 H 02/06/17 02/06/17 02/06/17 05:40 08:20 10:27 WBC RBC Hgb Hct MCV MCH MCHC RDW Plt Count MPV Neut % (Auto) Lymph % (Auto) [place] % (Auto) Eos % (Auto) Baso % (Auto) Neut # Lymph # [place] # Eos # Baso # Neutrophils % (Manual) Lymphocytes % (Manual) Reactive Lymphs % Monocytes % (Manual) Eosinophils % (Manual) Platelet Estimate Anisocytosis (manual) PT INR APTT pCO2 49 H pO2 96 HCO3 27.4 ABG pH 7.38 ABG Total CO2 30.5 H ABG O2 Saturation 94.4 L ABG O2 Content 14.6 L ABG Base Excess 3.2 H ABG Hemoglobin 10.9 L ABG Carboxyhemoglobin 0 L POC ABG HHb (Measured) 5.6 H ABG Methemoglobin 0.0 ABG O2 Capacity 15.5 L Darren Test Yes A-a O2 Difference 42.0 Hgb O2 Saturation 94.4 L FiO2 28.0 Sodium Potassium Chloride Carbon Dioxide Anion Gap BUN Creatinine Est GFR ( Amer) Est GFR (Non-Af Amer) POC Glucose (mg/dL) 91 Random Glucose Calcium Phosphorus Magnesium Total Bilirubin AST ALT Alkaline Phosphatase Ammonia Troponin I 0.2460 H* Total Protein Albumin Globulin Albumin/Globulin Ratio TSH 3rd Generation 02/06/17 02/06/17 12:04 15:58 WBC RBC Hgb Hct MCV MCH MCHC RDW Plt Count MPV Neut % (Auto) Lymph % (Auto) [place] % (Auto) Eos % (Auto) Baso % (Auto) Neut # Lymph # [place] # Eos # Baso # Neutrophils % (Manual) Lymphocytes % (Manual) Reactive Lymphs % Monocytes % (Manual) Eosinophils % (Manual) Platelet Estimate Anisocytosis (manual) PT INR APTT pCO2 pO2 HCO3 ABG pH ABG Total CO2 ABG O2 Saturation ABG O2 Content ABG Base Excess ABG Hemoglobin ABG Carboxyhemoglobin POC ABG HHb (Measured) ABG Methemoglobin ABG O2 Capacity Darren Test A-a O2 Difference Hgb O2 Saturation FiO2 Sodium Potassium Chloride Carbon Dioxide Anion Gap BUN Creatinine Est GFR ( Amer) Est GFR (Non-Af Amer) POC Glucose (mg/dL) 89 84 Random Glucose Calcium Phosphorus Magnesium Total Bilirubin AST ALT Alkaline Phosphatase Ammonia Troponin I Total Protein Albumin Globulin Albumin/Globulin Ratio TSH 3rd Generation Fingerstick Blood Sugar Results: 89 Critical Care Progress Note - Nutrition Nutrition: Nutrition Category Date Time Status Renal Diet [DIET] Diets 02/05/17 Breakfast Active
--- NOTE | 2017-02-06 19:01 | CP.PCM.CON ---
History of Present Illness - History of Present Illness History of Present Illness: REASONS FOR CONSULT : ESRD ON HD M W F ANEMIA OF CKD PT HAD SYNCOPE WHILE ON HD YESTERDAY .. HER BP WENT DOWN ON BOTH UPPER AND LOWER EXTREMITIES PT WAS JUST D/C ON ALL EMR REVIEED .. LABS REVIEWED .. PT WAS SEEN AND EX IN ICU .. PT IS NOW FULLY ALERT AND ORIONTED .. DAUGHTER AND FAMILY MEMBERS ON THE BED SIDE ..PT DOESNT REMEMBER WHAT HAPPENED HPI: 89 year old female PMH ESRD on HD MWF, AVF LUE (anuric, Dr. Loaiza), chronic AFib (coumadin), severe RV failure, pulmonary hypertension, HTN, DM II, COPD, sleep apnea on BiPAP presents after an episode of hypotension with syncope appx 45 min into dialysis today. Dialysis was stopped and patient was brought to the emergency room. She was given about 400cc of NS, and BP was difficult to measure given PVD. Discussed with Dr. Verma who is pt's primary, as well as Client Support Administrator who cared for pt during recent prior admission for cellulitis RLE. Her baseline is appx 85-90 systolic. In ER, BP ranging from 70 - 140 systolic obtained; patient RUE will demonstrate pressures about 30 mmHg less than RLE, which we also used for pressure reads. Prior to admission patient was also experiencing moderate to severe waxing and waning delirium which could be secondary to dehydration vs infectious process. She also began to have severe watery diarrhea x1 day. CT recently done by Dr. Verma without event. At present patient with mild delirium, mentating near baseline according to patient's family, son who is a physician as well. In ICU pt pressure is 90- 110 systolic pressures. Will continue to monitor patient's pressure overnight. Will give Albumin for colloidal support. Will also evaluate for any possible infectious process. To note patient also had paracentesis recently with 4L removed, cardiac cirrhosis not yet diagnosed. ROS: Per HPI, all other systems reviewed negative by me PMD: Dr. Verma PMH: ESRD on HD MWF (anuric, Dr. Loaiza), chronic AFib, severe RV failure, pulmonary hypertension, HTN, DM II PSH: AVF LUE FH: unable to answer at this time SH: denies tobacco, etoh, ivdu ALLERGIES: iodine, iron MEDICATIONS: reviewed and as below Surrogate Decision Maker: in chart Past Patient History - Infectious Disease Hx of Infectious Diseases: None - Tetanus Immunizations Tetanus Immunization: Unknown - Past Medical History & Family History Past Medical History?: Yes - Past Social History Alcohol: None Drugs: Denies - CARDIAC Hx Atrial Fibrillation: Yes (on coumadin) Hx Cardia Arrhythmia: Yes Hx Congestive Heart Failure: Yes Hx Hypertension: Yes - PULMONARY Hx Pneumonia: Yes Hx Sleep Apnea: Yes (on CPAP) - NEUROLOGICAL Hx Neurological Disorder: No - HEENT Hx HEENT Problems: No - RENAL Hx Chronic Kidney Disease: Yes (Dialysis MWF) Hx Kidney Stones: No - ENDOCRINE/METABOLIC Hx Hypothyroidism: Yes - HEMATOLOGICAL/ONCOLOGICAL Hx Anemia: Yes Hx Human Immunodeficiency Virus (HIV): No - INTEGUMENTARY Hx Dermatological Problems: Yes (Pruritic eruptions) - MUSCULOSKELETAL/RHEUMATOLOGICAL Hx Musculoskeletal Disorders: No Hx Falls: No - GASTROINTESTINAL Hx Gastrointestinal Disorders: No Other/Comment: ASCITES - GENITOURINARY/GYNECOLOGICAL Hx Genitourinary Disorders: No - PSYCHIATRIC Hx Depression: Yes - SURGICAL HISTORY Hx Cholecystectomy: Yes Hx Coronary Artery Bypass Graft: No - ANESTHESIA Hx Anesthesia: Yes Hx Anesthesia Reactions: No Hx Malignant Hyperthermia: No Meds Allergies/Adverse Reactions: Allergies Allergy/AdvReac Type Severity Reaction Status Date / Time iodine Allergy RASH Verified 01/29/17 13:29 iron Allergy ITCHING Verified 01/29/17 13:29 - Medications Medications: Current Medications Acetaminophen (Tylenol 325mg Tab) 650 mg PO Q6H PRN PRN Reason: Fever >100.4 F Cinacalcet (Sensipar) 30 mg PO QOTHERDAY [facility] Cefepime HCl 1 gm/ Sodium (Chloride) 100 mls @ 100 mls/hr IVPB DAILY [facility] Last Admin: 02/06/17 10:26 Dose: 100 mls/hr Insulin Human Lispro (Humalog) 0 units SC ACHS [facility] PRN Reason: Protocol Last Admin: 02/06/17 16:19 Dose: Not Given Levothyroxine Sodium (Synthroid) 50 mcg PO DAILY@0630 [facility] Last Admin: 02/06/17 06:21 Dose: 50 mcg Linezolid (Zyvox) 600 mg PO DAILY [facility] Last Admin: 02/06/17 17:12 Dose: 600 mg Ondansetron HCl (Zofran Inj) 4 mg IVP Q6H PRN PRN Reason: Nausea/Vomiting Last Admin: 02/06/17 13:52 Dose: 4 mg Pantoprazole Sodium (Protonix Ec Tab) 40 mg PO DAILY [facility] Last Admin: 02/06/17 17:13 Dose: 40 mg Sevelamer HCl (Renagel) 800 mg PO BIDWM [facility] Last Admin: 02/06/17 17:13 Dose: 800 mg Sitagliptin Phosphate (Januvia) 25 mg PO DAILY [facility] Last Admin: 02/06/17 10:28 Dose: Not Given Vitamin B Complex/Vit C/Folic Acid (Nephro-Goran) 1 tab PO DAILY [facility] Last Admin: 02/06/17 17:12 Dose: 1 tab Warfarin Sodium (Coumadin) 2 mg PO HS [facility] PRN Reason: Protocol Last Admin: 02/05/17 23:34 Dose: 2 mg Results - Vital Signs Recent Vital Signs: Last Vital Signs Temp 98.2 F 02/06/17 16:00 Pulse 101 H 02/06/17 18:00 Resp 17 02/06/17 18:00 BP 96/51 L 02/06/17 18:00 Pulse Ox 98 02/06/17 18:33 - Labs Result Diagrams: 02/06/17 04:20 02/06/17 04:20 Labs: Laboratory Results - last 24 hr 02/05/17 02/06/17 02/06/17 22:56 01:30 04:20 WBC 5.1 RBC 3.23 L Hgb 11.0 L Hct 34.3 MCV 106.1 H MCH 34.0 H MCHC 32.0 L RDW 16.4 H Plt Count 47 L MPV 8.1 Neut % (Auto) 74.5 Lymph % (Auto) 8.3 L [place] % (Auto) 14.7 H Eos % (Auto) 1.9 Baso % (Auto) 0.6 Neut # 3.8 Lymph # 0.4 L [place] # 0.7 Eos # 0.1 Baso # 0.0 Neutrophils % (Manual) 79 H Lymphocytes % (Manual) 12 L Reactive Lymphs % 3 H Monocytes % (Manual) 4 Eosinophils % (Manual) 2 Platelet Estimate Decreased L Anisocytosis (manual) Slight PT INR APTT pCO2 pO2 HCO3 ABG pH ABG Total CO2 ABG O2 Saturation ABG O2 Content ABG Base Excess ABG Hemoglobin ABG Carboxyhemoglobin POC ABG HHb (Measured) ABG Methemoglobin ABG O2 Capacity Darren Test A-a O2 Difference Hgb O2 Saturation FiO2 Sodium Potassium Chloride Carbon Dioxide Anion Gap BUN Creatinine Est GFR ( Amer) Est GFR (Non-Af Amer) POC Glucose (mg/dL) 107 Random Glucose Calcium Phosphorus Magnesium Total Bilirubin AST ALT Alkaline Phosphatase Ammonia Troponin I 0.2020 H* Total Protein Albumin Globulin Albumin/Globulin Ratio TSH 3rd Generation 02/06/17 02/06/17 02/06/17 04:20 04:20 04:20 WBC RBC Hgb Hct MCV MCH MCHC RDW Plt Count MPV Neut % (Auto) Lymph % (Auto) [place] % (Auto) Eos % (Auto) Baso % (Auto) Neut # Lymph # [place] # Eos # Baso # Neutrophils % (Manual) Lymphocytes % (Manual) Reactive Lymphs % Monocytes % (Manual) Eosinophils % (Manual) Platelet Estimate Anisocytosis (manual) PT 23.2 H INR 2.0 H APTT 34.9 pCO2 pO2 HCO3 ABG pH ABG Total CO2 ABG O2 Saturation ABG O2 Content ABG Base Excess ABG Hemoglobin ABG Carboxyhemoglobin POC ABG HHb (Measured) ABG Methemoglobin ABG O2 Capacity Darren Test A-a O2 Difference Hgb O2 Saturation FiO2 Sodium 137 Potassium 4.7 Chloride 100 Carbon Dioxide 24 Anion Gap 18 BUN 31 H Creatinine 4.3 H Est GFR ( Amer) 12 Est GFR (Non-Af Amer) 10 POC Glucose (mg/dL) Random Glucose 91 Calcium 8.8 Phosphorus 4.7 H Magnesium 2.1 Total Bilirubin 1.3 AST 29 ALT 31 Alkaline Phosphatase 61 Ammonia < 9 L Troponin I Total Protein 5.6 L Albumin 3.3 L Globulin 2.4 Albumin/Globulin Ratio 1.4 TSH 3rd Generation 5.16 H 02/06/17 02/06/17 02/06/17 05:40 08:20 10:27 WBC RBC Hgb Hct MCV MCH MCHC RDW Plt Count MPV Neut % (Auto) Lymph % (Auto) [place] % (Auto) Eos % (Auto) Baso % (Auto) Neut # Lymph # [place] # Eos # Baso # Neutrophils % (Manual) Lymphocytes % (Manual) Reactive Lymphs % Monocytes % (Manual) Eosinophils % (Manual) Platelet Estimate Anisocytosis (manual) PT INR APTT pCO2 49 H pO2 96 HCO3 27.4 ABG pH 7.38 ABG Total CO2 30.5 H ABG O2 Saturation 94.4 L ABG O2 Content 14.6 L ABG Base Excess 3.2 H ABG Hemoglobin 10.9 L ABG Carboxyhemoglobin 0 L POC ABG HHb (Measured) 5.6 H ABG Methemoglobin 0.0 ABG O2 Capacity 15.5 L Darren Test Yes A-a O2 Difference 42.0 Hgb O2 Saturation 94.4 L FiO2 28.0 Sodium Potassium Chloride Carbon Dioxide Anion Gap BUN Creatinine Est GFR ( Amer) Est GFR (Non-Af Amer) POC Glucose (mg/dL) 91 Random Glucose Calcium Phosphorus Magnesium Total Bilirubin AST ALT Alkaline Phosphatase Ammonia Troponin I 0.2460 H* Total Protein Albumin Globulin Albumin/Globulin Ratio TSH 3rd Generation 02/06/17 02/06/17 12:04 15:58 WBC RBC Hgb Hct MCV MCH MCHC RDW Plt Count MPV Neut % (Auto) Lymph % (Auto) [place] % (Auto) Eos % (Auto) Baso % (Auto) Neut # Lymph # [place] # Eos # Baso # Neutrophils % (Manual) Lymphocytes % (Manual) Reactive Lymphs % Monocytes % (Manual) Eosinophils % (Manual) Platelet Estimate Anisocytosis (manual) PT INR APTT pCO2 pO2 HCO3 ABG pH ABG Total CO2 ABG O2 Saturation ABG O2 Content ABG Base Excess ABG Hemoglobin ABG Carboxyhemoglobin POC ABG HHb (Measured) ABG Methemoglobin ABG O2 Capacity Darren Test A-a O2 Difference Hgb O2 Saturation FiO2 Sodium Potassium Chloride Carbon Dioxide Anion Gap BUN Creatinine Est GFR ( Amer) Est GFR (Non-Af Amer) POC Glucose (mg/dL) 89 84 Random Glucose Calcium Phosphorus Magnesium Total Bilirubin AST ALT Alkaline Phosphatase Ammonia Troponin I Total Protein Albumin Globulin Albumin/Globulin Ratio TSH 3rd Generation Assessment & Plan - Assessment and Plan (Free Text) Assessment: ESRD ON HD M W F .. WILL GIVE HD TOMORROW FRI ANEMIA OF CKD .. H/H STABLE .. NO NEED FOR EPO S/P RECURRENT SYNCOPE MULTIPLE CO MORBIDITIES P C/O CURRENT MEDS C/O PRESENT CARE WILL D/W DR VERMA - Date & Time Date: 02/06/17 Time: 14:00
[2017-02-07 05:35] LABS: HEMOGLOBIN 11.3 g/dL (12.0-16.0); MEAN CELL VOLUME 105.5 fl (81.0-99.0); MEAN CORPUSCULAR HGB CONC 32.2 g/dL (33.0-37.0); RBC 3.32 Mil/uL (3.80-5.20); WHITE BLOOD COUNT 2.8 K/uL (4.8-10.8)
[2017-02-07 05:54] LABS: INR 2.3 (0.9-1.2); PROTHROMBIN TIME 26.4 Seconds (9.8-13.1)
--- NOTE | 2017-02-07 06:11 | CARD ---
APPROVED REPORT EKG Measurement Heart [id number] <Conclusion> Atrial fibrillation with rapid ventricular response Right axis deviation Possible Right ventricular hypertrophy Nonspecific ST and T wave abnormality Abnormal ECG
[2017-02-07] MEDS: Insulin Lispro (humaLOG) 100 Units/ml Inj SC SCH ×4 (06:43→22:00)
[2017-02-07] MEDS: Levothyroxine 50 MCG TAB PO SCH (07:05)
--- NOTE | 2017-02-07 07:41 | PQF GENQUE ---
Dr. Jose Aldridge, Is there an associated diagnosis to go along with the following clinical labs: BUN:28->31->36 Creatinine:4.0->4.3->5.3 GFR:02/06->06/29->03/28 OR: Disagree H and P: PMH: includes CKD on dialysis: rushed to ER from her dialysis center upon discovery of severe hypotension. The patient was recently put on oral AB following her recent hospitalization for cellulitis of legs. The patient developed severe diarrhea and on the day of her hospitalization had had profuse watery diarrhea.-----The patient arrived in the emergency room profoundly hypotensive and responded to intravenous fluid replenishment with improvement in her blood pressure. Renal consult: Impression: ESRD on HD ;Anemia of CKD This form is a permanent part of the medical record Clarification of your documentation is requested to better reflect the severity of illness and intensity of treatment of your patient. Indicators present [] Specify: [] [] Specify: [] [] Specify: [] [] Specify: [] Location in the medical record that reflects the above clinical findings: [] Treatment Provided: [] PHYSICIAN'S RESPONSE End Stage Renal Disease on Chronic Hemodialysis Based on your medical judgment of the clinical indicators outlined above please clarify the following: [] Practitioner response [] If unable to determine, please check the box, sign and date. Present On Admission (POA) Indicator: [] Present at the time of admission [] Not present at the time of admission [] Clinically Undetermined In responding to this query, please exercise your independent professional judgment. The fact that a question is asked does not imply that any particular answer is desired or expected. Thank you for your clarification on this documentation. If you have any questions please call. * Thank you, Tatum Hayes RN BSN ext. #[phone] MTDD
[2017-02-07] MEDS: Cefepime 1 GM in Sodium Chloride 0.9% 100 ML IVPB SCH (08:12)
[2017-02-07] MEDS: Multivitamin Vitamin B Complex (Nephro-Vite) Tab PO SCH (09:36)
[2017-02-07] MEDS: Pantoprazole 40 mg EC Tab PO SCH (09:37)
--- NOTE | 2017-02-07 10:01 | CP.PCM.PN ---
Subjective - Date & Time of Evaluation Date of Evaluation: 02/07/17 Time of Evaluation: 09:40 - Subjective Subjective: Much more awake today Was on BiPAP machine since 11 AM yesterday. HR 90 BPM A Fib BP 104/70 mm Hg Has thrombocytopenia and Leucocyto penia ? Zyvox induced or B12 deficiency Have D/Guillermo Zyvox and sent B12 level Will start on B12 till labs get back Hyper K+ today (HD starting now) Have witheld Warfarin while PLT count is low Son and daughter have requested DNR Will write that order Rest of her care will continue Objective - Vital Signs/Intake and Output Vital Signs (last 24 hours): Temp Pulse Resp BP Pulse Ox 97.7 F 101 H 15 98/62 L 98 02/07/17 08:00 02/07/17 08:00 02/07/17 08:00 02/07/17 08:00 02/07/17 08:00 Intake and Output: 02/07/17 02/07/17 06:59 18:59 Intake Total 100 Output Total 0 Balance 100 - Medications Medications: Current Medications Acetaminophen (Tylenol 325mg Tab) 650 mg PO Q6H PRN PRN Reason: Fever >100.4 F Cinacalcet (Sensipar) 30 mg PO QOTHERDAY [facility] [place] Last Admin: 02/07/17 09:36 Dose: 30 mg Cyanocobalamin (Vitamin B12 1000 Mcg/Ml Inj) 1,000 mcg SC DAILY [facility] [place] Stop: 02/11/17 09:20 Cefepime HCl 1 gm/ Sodium (Chloride) 100 mls @ 100 mls/hr IVPB DAILY [facility] [place] Last Admin: 02/07/17 08:12 Dose: 100 mls/hr Insulin Human Lispro (Humalog) 0 units SC ACHS [facility] [place] PRN Reason: Protocol Last Admin: 02/07/17 06:43 Dose: Not Given Levothyroxine Sodium (Synthroid) 50 mcg PO DAILY@0630 [facility] [place] Last Admin: 02/07/17 07:05 Dose: 50 mcg Ondansetron HCl (Zofran Inj) 4 mg IVP Q6H PRN PRN Reason: Nausea/Vomiting Last Admin: 02/06/17 13:52 Dose: 4 mg Pantoprazole Sodium (Protonix Ec Tab) 40 mg PO DAILY [facility] [place] Last Admin: 02/07/17 09:37 Dose: 40 mg Sevelamer HCl (Renagel) 800 mg PO BIDWM [facility] [place] Last Admin: 02/07/17 09:36 Dose: 800 mg Sitagliptin Phosphate (Januvia) 25 mg PO DAILY [facility] [place] Last Admin: 02/07/17 09:36 Dose: 25 mg Vitamin B Complex/Vit C/Folic Acid (Nephro-Goran) 1 tab PO DAILY [facility] [place] Last Admin: 02/07/17 09:36 Dose: 1 tab - Labs Labs: 02/07/17 04:50 02/07/17 04:50 PT 26.4 Seconds (9.8-13.1) H 02/07/17 04:50 INR 2.3 (0.9-1.2) H 02/07/17 04:50 APTT 34.9 Seconds (25.6-37.1) 02/06/17 04:20
[2017-02-07] MEDS ORDERED: Digoxin 500 mcg/2ml (0.5 mg/2ml) Inj IVP ONE (17:57)
[2017-02-07] MEDS ORDERED: Digoxin 500 mcg/2ml (0.5 mg/2ml) Inj ONE (18:23)
--- NOTE | 2017-02-07 19:33 | CP.CCUPN ---
CCU Subjective - Physician Review Subjective (Free Text): Tolerated 2 liters of volume removal via HD today. Neuromental status is at baseline. Had food brought in from home and vomited several times, now tachycardic with HR 130 in A Fib, given one dose of Digoxin 0.25mg with no effect, BP 100 systolic and not associated with any other new symtpoms. ROS: as above, other 10+ system review reveals no pertinent negs or positives. Other PMSFH: all nursing and physician notes reviewed, no other pertinent history relevant to current problems. MAJOR PROBLEMS NOW: 1. Chronic A fib on AC, now with RVR 2. Progressive Thrombocytopenia, low WBC. 3. s/p Hypotension 2 Hypovolemia/ Dehydration 4. ESRD on HD with missed session on day of admission 5. R- CHF and Pulm HTN: non-decompensated PLAN: 1. Amiodarone IVP 2. If still tachycardic, will consider volume replacement. 3. Zyvox stopped due to known thrombocytopenic / pancytopenic effects. 4. Warfarin on hold until platelet counts improve. CCU Objective - Vital Signs / Intake & Output Vital Signs (Last 4 hours): Vital Signs Pulse Resp BP Pulse Ox 02/07/17 18:00 124 H 17 82/41 L 98 Intake and Output (Last 8hrs): Intake & Output 02/07/17 02/07/17 02/07/17 06:59 14:59 22:59 Intake Total 100 340 Output Total 0 200 Balance 100 140 Weight 145 lb 9.6 oz Intake: Intake, Piggyback 100 Oral 100 240 Output: Urine 0 Urine, Voided 0 Ultrafiltrate 200 - Physical Exam Head: Positive for: Normocephalic Pupils: Positive for: PERRL Conjunctiva: Positive for: Normal Mouth: Positive for: Moist Mucous Membranes Pharnyx: Negative for: ERYTHEMA, EXUDATE Neck: Negative for: Meningeal Signs, JVD, Lymphadenopathy Respiratory/Chest: Positive for: Decreased Breath Sounds. Negative for: Accessory Muscle Use, Wheezes Cardiovascular: Positive for: Murmurs, Normal S1, S2, Irregular Rhythm. Negative for: Rub Abdomen: Positive for: Normal Bowel Sounds. Negative for: Tenderness, Distention, Rebound Rectal: Negative for: Normal Rectal Tone Upper Extremity: Positive for: Other (LUE AVF) Lower Extremity: Negative for: Edema, CALF TENDERNESS, Cyanosis, Temperature Abnormalties Neurological: Positive for: GCS=15, CN II-XII Intact, Speech Normal, Motor Func Grossly Intact, Normal Sensory Function Skin: Positive for: Warm. Negative for: Rashes Psychiatric: Positive for: Alert, Oriented x 3, Normal Insight, Normal Concentration - Medications Active Medications: Active Medications Generic Name Dose Route Start Last Admin Trade Name Freq PRN Reason Stop Dose Admin Acetaminophen 650 mg 02/05/17 21:44 Tylenol 325mg Tab PO Q6H PRN Fever >100.4 F Cinacalcet 30 mg 02/07/17 09:00 02/07/17 09:36 Sensipar PO 30 mg QOTHERDAY [facility] Administration Digoxin 0.25 mg 02/07/17 17:57 Lanoxin IVP 02/07/17 17:58 ONCE ONE Diphenhydramine HCl 25 mg 02/07/17 19:00 Benadryl IVP Q6 PRN Itching / Pruritus Cefepime HCl 1 gm/ Sodium 100 mls @ 100 mls/hr 02/06/17 09:00 02/07/17 08:12 Chloride IVPB 100 mls/hr DAILY [facility] Administration Insulin Human Lispro 0 units 02/06/17 07:30 02/07/17 17:13 Humalog SC Not Given ACHS [facility] Protocol Levothyroxine Sodium 50 mcg 02/06/17 06:30 02/07/17 07:05 Synthroid PO 50 mcg DAILY@0630 [facility] Administration Ondansetron HCl 4 mg 02/05/17 21:44 02/07/17 17:44 Zofran Inj IVP 4 mg Q6H PRN Administration Nausea/Vomiting Pantoprazole Sodium 40 mg 02/06/17 09:00 02/07/17 09:37 Protonix Ec Tab PO 40 mg DAILY [facility] Administration Sevelamer HCl 800 mg 02/06/17 08:00 02/07/17 17:13 Renagel PO Not Given BIDWM [facility] Sitagliptin Phosphate 25 mg 02/06/17 09:00 02/07/17 09:36 Januvia PO 25 mg DAILY [facility] Administration - Patient Studies Lab Studies: Microbiology Studies 02/06/17 07:00 MRSA Culture (Admit) - Final Nose MRSA NOT DETECTED Lab Studies 02/07/17 02/07/17 02/07/17 Range/Units 16:55 11:39 09:16 WBC (4.8-10.8) K/uL RBC (3.80-5.20) Mil/uL Hgb (12.0-16.0) g/dL Hct (34.0-47.0) % MCV (81.0-99.0) fl MCH (27.0-31.0) pg MCHC (33.0-37.0) g/dL RDW (11.5-14.5) % Plt Count (130-400) K/uL PT (9.8-13.1) Seconds INR (0.9-1.2) Sodium (132-148) mmol/l Potassium (3.6-5.0) MMOL/L Chloride (98-107) mmol/L Carbon Dioxide (22-30) mmol/L Anion Gap (10-20) BUN (7-17) mg/dl Creatinine (0.7-1.2) mg/dL Est GFR ( Amer) Est GFR (Non-Af Amer) POC Glucose (mg/dL) 117 H 117 H (65-110) mg/dL Random Glucose (65-105) mg/dL Calcium (8.4-10.2) mg/dL Vitamin B12 967 H (239-931) pg/mL Procalcitonin (0.19-0.49) NG/ML 02/07/17 02/07/17 02/07/17 Range/Units 05:47 04:50 04:50 WBC 2.8 L (4.8-10.8) K/uL RBC 3.32 L (3.80-5.20) Mil/uL Hgb 11.3 L (12.0-16.0) g/dL Hct 35.0 (34.0-47.0) % MCV 105.5 H (81.0-99.0) fl MCH 34.0 H (27.0-31.0) pg MCHC 32.2 L (33.0-37.0) g/dL RDW 16.0 H (11.5-14.5) % Plt Count 39 L (130-400) K/uL PT (9.8-13.1) Seconds INR (0.9-1.2) Sodium 136 (132-148) mmol/l Potassium 5.6 H (3.6-5.0) MMOL/L Chloride 98 (98-107) mmol/L Carbon Dioxide 24 (22-30) mmol/L Anion Gap 20 (10-20) BUN 36 H (7-17) mg/dl Creatinine 5.3 H (0.7-1.2) mg/dL Est GFR ( Amer) 9 Est GFR (Non-Af Amer) 8 POC Glucose (mg/dL) 142 H (65-110) mg/dL Random Glucose 140 H (65-105) mg/dL Calcium 9.0 (8.4-10.2) mg/dL Vitamin B12 (239-931) pg/mL Procalcitonin (0.19-0.49) NG/ML 02/07/17 02/06/17 02/06/17 Range/Units 04:50 21:39 04:20 WBC (4.8-10.8) K/uL RBC (3.80-5.20) Mil/uL Hgb (12.0-16.0) g/dL Hct (34.0-47.0) % MCV (81.0-99.0) fl MCH (27.0-31.0) pg MCHC (33.0-37.0) g/dL RDW (11.5-14.5) % Plt Count (130-400) K/uL PT 26.4 H (9.8-13.1) Seconds INR 2.3 H (0.9-1.2) Sodium (132-148) mmol/l Potassium (3.6-5.0) MMOL/L Chloride (98-107) mmol/L Carbon Dioxide (22-30) mmol/L Anion Gap (10-20) BUN (7-17) mg/dl Creatinine (0.7-1.2) mg/dL Est GFR ( Amer) Est GFR (Non-Af Amer) POC Glucose (mg/dL) 102 (65-110) mg/dL Random Glucose (65-105) mg/dL Calcium (8.4-10.2) mg/dL Vitamin B12 (239-931) pg/mL Procalcitonin 0.23 (0.19-0.49) NG/ML Laboratory Results - last 24 hr 07/20/17 07/20/17 07/21/17 04:20 21:39 04:50 WBC RBC Hgb Hct MCV MCH MCHC RDW Plt Count PT 26.4 H INR 2.3 H Sodium Potassium Chloride Carbon Dioxide Anion Gap BUN Creatinine Est GFR ( Amer) Est GFR (Non-Af Amer) POC Glucose (mg/dL) 102 Random Glucose Calcium Vitamin B12 Procalcitonin 0.23 02/07/17 02/07/17 02/07/17 04:50 04:50 05:47 WBC 2.8 L RBC 3.32 L Hgb 11.3 L Hct 35.0 MCV 105.5 H MCH 34.0 H MCHC 32.2 L RDW 16.0 H Plt Count 39 L PT INR Sodium 136 Potassium 5.6 H Chloride 98 Carbon Dioxide 24 Anion Gap 20 BUN 36 H Creatinine 5.3 H Est GFR ( Amer) 9 Est GFR (Non-Af Amer) 8 POC Glucose (mg/dL) 142 H Random Glucose 140 H Calcium 9.0 Vitamin B12 Procalcitonin 02/07/17 02/07/17 02/07/17 09:16 11:39 16:55 WBC RBC Hgb Hct MCV MCH MCHC RDW Plt Count PT INR Sodium Potassium Chloride Carbon Dioxide Anion Gap BUN Creatinine Est GFR ( Amer) Est GFR (Non-Af Amer) POC Glucose (mg/dL) 117 H 117 H Random Glucose Calcium Vitamin B12 967 H Procalcitonin Fingerstick Blood Sugar Results: 117 Critical Care Progress Note - Nutrition Nutrition: Nutrition Category Date Time Status Renal Diet [DIET] Diets 02/07/17 Breakfast Active
[2017-02-07 19:37] VITALS: PULSE 125
--- NOTE | 2017-02-07 22:43 | CP.PCM.CON ---
History of Present Illness - History of Present Illness History of Present Illness: 89 year old female patient with extensive PMH seen at bedside for superficial ulceration to proximolateral right leg and ulcer to posterior right heel. Patient is seen resting comfortably, AAOx3 and NAD. Patient's daughter, niece, and sports attorney are at bedside. Per patient's daughter, patient was at dialysis and it was discovered that she had severe hypotension. Patient is an existing patient of Dr. Gates's and has seen her on an outpatient bases. Patient's daughter states that Silvadene was previously put on the patient's wounds, per Dr. Gates. No other pedal complaints at this time. PMH: End stage renal disease - on hemodialysis, chronic afib, severe RV failure , pulmonary HTN, DM II PSH: AVF LUE FH: noncontributory to chief complaint SH: denies ETOH, tobacco, drug use Meds: see med list All: iodine, iron Review of Systems - Review of Systems All systems: reviewed and no additional remarkable complaints except (as per HPI ) Past Patient History - Infectious Disease Hx of Infectious Diseases: None - Tetanus Immunizations Tetanus Immunization: Unknown - Past Medical History & Family History Past Medical History?: Yes - Past Social History Alcohol: None Drugs: Denies - CARDIAC Hx Atrial Fibrillation: Yes (on coumadin) Hx Cardia Arrhythmia: Yes Hx Congestive Heart Failure: Yes Hx Hypertension: Yes - PULMONARY Hx Pneumonia: Yes Hx Sleep Apnea: Yes (on CPAP) - NEUROLOGICAL Hx Neurological Disorder: No - HEENT Hx HEENT Problems: No - RENAL Hx Chronic Kidney Disease: Yes (Dialysis MWF) Hx Kidney Stones: No - ENDOCRINE/METABOLIC Hx Hypothyroidism: Yes - HEMATOLOGICAL/ONCOLOGICAL Hx Anemia: Yes Hx Human Immunodeficiency Virus (HIV): No - INTEGUMENTARY Hx Dermatological Problems: Yes (Pruritic eruptions) - MUSCULOSKELETAL/RHEUMATOLOGICAL Hx Musculoskeletal Disorders: No Hx Falls: No - GASTROINTESTINAL Hx Gastrointestinal Disorders: No Other/Comment: ASCITES - GENITOURINARY/GYNECOLOGICAL Hx Genitourinary Disorders: No - PSYCHIATRIC Hx Depression: Yes - SURGICAL HISTORY Hx Cholecystectomy: Yes Hx Coronary Artery Bypass Graft: No - ANESTHESIA Hx Anesthesia: Yes Hx Anesthesia Reactions: No Hx Malignant Hyperthermia: No Meds Allergies/Adverse Reactions: Allergies Allergy/AdvReac Type Severity Reaction Status Date / Time iodine Allergy RASH Verified 01/29/17 13:29 iron Allergy ITCHING Verified 01/29/17 13:29 - Medications Medications: Current Medications Acetaminophen (Tylenol 325mg Tab) 650 mg PO Q6H PRN PRN Reason: Fever >100.4 F Cinacalcet (Sensipar) 30 mg PO QOTHERDAY [facility] [place] Last Admin: 02/07/17 09:36 Dose: 30 mg Diphenhydramine HCl (Benadryl) 25 mg IVP Q6 PRN PRN Reason: Itching / Pruritus Cefepime HCl 1 gm/ Sodium (Chloride) 100 mls @ 100 mls/hr IVPB DAILY [facility] Last Admin: 02/07/17 08:12 Dose: 100 mls/hr Insulin Human Lispro (Humalog) 0 units SC ACHS [facility] [place] PRN Reason: Protocol Last Admin: 02/07/17 17:13 Dose: Not Given Levothyroxine Sodium (Synthroid) 50 mcg PO DAILY@0630 [facility] [place] Last Admin: 02/07/17 07:05 Dose: 50 mcg Ondansetron HCl (Zofran Inj) 4 mg IVP Q6H PRN PRN Reason: Nausea/Vomiting Last Admin: 02/07/17 17:44 Dose: 4 mg Pantoprazole Sodium (Protonix Ec Tab) 40 mg PO DAILY [facility] [place] Last Admin: 02/07/17 09:37 Dose: 40 mg Sevelamer HCl (Renagel) 800 mg PO BIDWM [facility] [place] Last Admin: 02/07/17 17:13 Dose: Not Given Sitagliptin Phosphate (Januvia) 25 mg PO DAILY [facility] Last Admin: 02/07/17 09:36 Dose: 25 mg Physical Exam - Constitutional Appears: Well, Non-toxic, No Acute Distress - Extremities Exam Additional comments: Bilateral low extremity exam: VASC: DP/PT pulses are palpable 1/4 b/l, [employer]: < 3 sec to all digits, TG: cool to cool NEURO: Protective sensation slightly diminished DERM: 1) Blood-filled blister at distal tuft of left 5th digit measuring approximately 1cm x 0.5cm. 2) Superficial ulcer with overlying hyperkeratosis measuring approximately 0.5cm x 0.7cm noted to left styloid process. 3) Superficial ulceration noted to proximolateral right leg with erythematous wound margins. Ulceration is noted to have a fibrotic base. 4) Superficial ulceration noted to posterior right heel with overlying eschar and hyperkeratosis. No clinical signs of infection noted to any woundx4. ORTHO: Generalized pain on palpation noted to lower extremity b/l. - Neurological Exam Neurological exam: Alert, Oriented x3 - Psychiatric Exam Psychiatric exam: Normal Affect, Normal Mood Results - Vital Signs Recent Vital Signs: Last Vital Signs Temp 98.3 F 02/07/17 20:00 Pulse 98 H 02/07/17 22:00 Resp 17 02/07/17 22:00 BP 98/48 L 02/07/17 22:00 Pulse Ox 100 02/07/17 22:00 - Labs Result Diagrams: 02/07/17 04:50 02/07/17 04:50 Labs: Laboratory Results - last 24 hr 02/07/17 02/07/17 02/07/17 04:50 04:50 04:50 WBC 2.8 L RBC 3.32 L Hgb 11.3 L Hct 35.0 MCV 105.5 H MCH 34.0 H MCHC 32.2 L RDW 16.0 H Plt Count 39 L PT 26.4 H INR 2.3 H Sodium 136 Potassium 5.6 H Chloride 98 Carbon Dioxide 24 Anion Gap 20 BUN 36 H Creatinine 5.3 H Est GFR ( Amer) 9 Est GFR (Non-Af Amer) 8 POC Glucose (mg/dL) Random Glucose 140 H Calcium 9.0 Vitamin B12 02/07/17 02/07/17 02/07/17 05:47 09:16 11:39 WBC RBC Hgb Hct MCV MCH MCHC RDW Plt Count PT INR Sodium Potassium Chloride Carbon Dioxide Anion Gap BUN Creatinine Est GFR ( Amer) Est GFR (Non-Af Amer) POC Glucose (mg/dL) 142 H 117 H Random Glucose Calcium Vitamin B12 967 H 02/07/17 02/07/17 16:55 21:19 WBC RBC Hgb Hct MCV MCH MCHC RDW Plt Count PT INR Sodium Potassium Chloride Carbon Dioxide Anion Gap BUN Creatinine Est GFR ( Amer) Est GFR (Non-Af Amer) POC Glucose (mg/dL) 117 H 93 Random Glucose Calcium Vitamin B12 Assessment & Plan - Assessment and Plan (Free Text) Assessment: 89 year old female with superficial ulcerations secondary to DM Plan: Patient seen and evaluated at bedside. Discussed with attending, Dr. Gates. Charts, labs, vitals reviewed = afebrile, WBC leukopenia @ 2.8 Silvadene ordered for wounds x4 Informed patient importance of wearing offloading boots all times patient is in bed. C/W pain management per medicine Wounds are stable from podiatry standpoint. Podiatry will continue to follow patient while in house - Date & Time Date: 02/07/17 Time: 10:00
--- NOTE | 2017-02-07 23:59 | CP.PCM.PN ---
Subjective - Date & Time of Evaluation Date of Evaluation: 02/07/17 Time of Evaluation: 13:00 - Subjective Subjective: SEEN IN ICU ON RENAL F/U RECIEVED HER HD EARLIAR .. TOLERATED WELL FULLY ALERT AND ORIONTED ALL PREVIOUS EMR REVIEWED ATE LUNCH WHILE IN BED .. C/O NAUSEA Objective - Vital Signs/Intake and Output Vital Signs (last 24 hours): Temp Pulse Resp BP Pulse Ox 98.3 F 101 H 20 123/67 100 02/07/17 20:00 02/07/17 23:00 02/07/17 23:00 02/07/17 23:00 02/07/17 23:00 Intake and Output: 02/07/17 02/08/17 18:59 06:59 Intake Total 340 10 Output Total 200 Balance 140 10 - Medications Medications: Current Medications Acetaminophen (Tylenol 325mg Tab) 650 mg PO Q6H PRN PRN Reason: Fever >100.4 F Cinacalcet (Sensipar) 30 mg PO QOTHERDAY [facility] Last Admin: 02/07/17 09:36 Dose: 30 mg Diphenhydramine HCl (Benadryl) 25 mg IVP Q6 PRN PRN Reason: Itching / Pruritus Cefepime HCl 1 gm/ Sodium (Chloride) 100 mls @ 100 mls/hr IVPB DAILY [facility] Last Admin: 02/07/17 08:12 Dose: 100 mls/hr Insulin Human Lispro (Humalog) 0 units SC ACHS [facility] PRN Reason: Protocol Last Admin: 02/07/17 17:13 Dose: Not Given Levothyroxine Sodium (Synthroid) 50 mcg PO DAILY@0630 [facility] Last Admin: 02/07/17 07:05 Dose: 50 mcg Ondansetron HCl (Zofran Inj) 4 mg IVP Q6H PRN PRN Reason: Nausea/Vomiting Last Admin: 02/07/17 17:44 Dose: 4 mg Pantoprazole Sodium (Protonix Ec Tab) 40 mg PO DAILY [facility] Last Admin: 02/07/17 09:37 Dose: 40 mg Sevelamer HCl (Renagel) 800 mg PO BIDWM [facility] Last Admin: 02/07/17 17:13 Dose: Not Given Silver Sulfadiazine (Silvadene 1% 20 Gm) 20 ea TOP QOTHERDAY [facility] Sitagliptin Phosphate (Januvia) 25 mg PO DAILY [facility] Last Admin: 02/07/17 09:36 Dose: 25 mg - Labs Labs: 02/07/17 04:50 02/07/17 04:50 PT 26.4 Seconds (9.8-13.1) H 02/07/17 04:50 INR 2.3 (0.9-1.2) H 02/07/17 04:50 APTT 34.9 Seconds (25.6-37.1) 02/06/17 04:20 Assessment and Plan - Assessment and Plan (Free Text) Assessment: ESRD ON HD M W F .. TO BE C/O ANEMIA OF CKD .. H/H STABLE S/P SYNCOPE AND HYPOTENSION .. IMPROVED C/O CURRENT CARE
[2017-02-08] MEDS: Levothyroxine 50 MCG TAB PO SCH (05:51)
[2017-02-08] MEDS: Insulin Lispro (humaLOG) 100 Units/ml Inj SC SCH ×4 (06:33→22:10)
[2017-02-08 07:18] LABS: BASO % 0.3 % (0.0-2.0); EOS % 0.2 % (0.0-4.0); HEMOGLOBIN 10.9 g/dL (12.0-16.0); LYMPH # 0.4 K/uL (1.0-4.3); MEAN CELL VOLUME 104.3 fl (81.0-99.0); MEAN CORPUSCULAR HEMOGLOBIN 33.9 pg (27.0-31.0); MEAN CORPUSCULAR HGB CONC 32.5 g/dL (33.0-37.0); MEAN PLATELET VOLUME 8.2 fl (7.2-11.7); MONO # 0.7 K/uL (0.0-0.8); MONO % 15.7 % (0.0-10.0); NEUT # 3.2 K/uL (1.8-7.0); NEUT % 74.8 % (50.0-75.0); NRBC % 0.4 % (0.0-0.0); RBC 3.22 Mil/uL (3.80-5.20); RED CELL DISTRIBUTION WIDTH 16.2 % (11.5-14.5); WHITE BLOOD COUNT 4.2 K/uL (4.8-10.8)
[2017-02-08 07:32] LABS: ALB/GLOB RATIO 1.2 (1.0-2.1); ALBUMIN 3.2 g/dL (3.5-5.0); CALCIUM 8.9 mg/dL (8.4-10.2)
[2017-02-08] MEDS: Cefepime 1 GM in Sodium Chloride 0.9% 100 ML IVPB SCH (08:29)
[2017-02-08] MEDS: Pantoprazole 40 mg EC Tab PO SCH (08:30)
--- NOTE | 2017-02-08 12:26 | CP.CCUPN ---
CCU Subjective - Physician Review Events Since Last Encounter (Free Text): 02/08/17 12:23 alert and awake, oriented, BP has been stable systolic around 105, off amiodorone , diarrhea has resolved, no pain, no sob, has a fib with vent response around 100-105. CCU Objective - Vital Signs / Intake & Output Vital Signs (Last 4 hours): Vital Signs Temp Pulse Resp BP Pulse Ox 02/08/17 12:00 101 H 02/08/17 11:00 110 H 18 105/51 L 95 02/08/17 09:57 87 17 107/51 L 96 02/08/17 09:00 92 H 106/59 L 02/08/17 08:28 97.8 F 82 21 108/49 L 97 Intake and Output (Last 8hrs): Intake & Output 02/07/17 02/08/17 02/08/17 22:59 06:59 14:59 Intake Total 145 91 470 Balance 145 91 470 Weight 147 lb Intake: IV 20 16 50 Intake, Piggyback 100 100 Oral 25 75 320 - Physical Exam Narrative Physical Exam (Free Text): 02/08/17 12:25 P/E Neck: No JVD Lungs: no ronchi, crackles abdomen: soft, non-tender Ext; no edema heart: No gallop Head: Positive for: Normocephalic Pupils: Positive for: PERRL Conjunctiva: Positive for: Normal Mouth: Positive for: Moist Mucous Membranes Pharnyx: Negative for: ERYTHEMA, EXUDATE Neck: Negative for: Meningeal Signs, JVD, Lymphadenopathy Respiratory/Chest: Positive for: Decreased Breath Sounds. Negative for: Accessory Muscle Use, Wheezes Cardiovascular: Positive for: Murmurs, Normal S1, S2, Irregular Rhythm. Negative for: Rub Abdomen: Positive for: Normal Bowel Sounds. Negative for: Tenderness, Distention, Rebound Rectal: Negative for: Normal Rectal Tone Upper Extremity: Positive for: Other (LUE AVF) Lower Extremity: Negative for: Edema, CALF TENDERNESS, Cyanosis, Temperature Abnormalties Neurological: Positive for: GCS=15, CN II-XII Intact, Speech Normal, Motor Func Grossly Intact, Normal Sensory Function Skin: Positive for: Warm. Negative for: Rashes Psychiatric: Positive for: Alert, Oriented x 3, Normal Insight, Normal Concentration - Medications Active Medications: Active Medications Generic Name Dose Route Start Last Admin Trade Name Freq PRN Reason Stop Dose Admin Acetaminophen 650 mg 02/05/17 21:44 Tylenol 325mg Tab PO Q6H PRN Fever >100.4 F Cinacalcet 30 mg 02/07/17 09:00 02/07/17 09:36 Sensipar PO 30 mg QOTHERDAY [facility] Administration Diphenhydramine HCl 25 mg 02/07/17 19:00 Benadryl IVP Q6 PRN Itching / Pruritus Cefepime HCl 1 gm/ Sodium 100 mls @ 100 mls/hr 02/06/17 09:00 02/08/17 08:29 Chloride IVPB 100 mls/hr DAILY [facility] Administration Insulin Human Lispro 0 units 02/06/17 07:30 02/08/17 12:11 Humalog SC Not Given ACHS [facility] Protocol Levothyroxine Sodium 50 mcg 02/06/17 06:30 02/08/17 05:51 Synthroid PO 50 mcg DAILY@0630 [facility] Administration Ondansetron HCl 4 mg 02/05/17 21:44 02/07/17 17:44 Zofran Inj IVP 4 mg Q6H PRN Administration Nausea/Vomiting Pantoprazole Sodium 40 mg 02/06/17 09:00 02/08/17 08:30 Protonix Ec Tab PO 40 mg DAILY [facility] Administration Sevelamer HCl 800 mg 02/06/17 08:00 02/08/17 08:30 Renagel PO 800 mg BIDWM [facility] Administration Silver Sulfadiazine 20 ea 02/09/17 09:00 Silvadene 1% 20 Gm TOP QOTHERDAY [facility] Sitagliptin Phosphate 25 mg 02/06/17 09:00 02/08/17 08:28 Januvia PO 25 mg DAILY [facility] Administration - Patient Studies Lab Studies: Microbiology Studies 02/06/17 07:00 MRSA Culture (Admit) - Final Nose MRSA NOT DETECTED Lab Studies 02/08/17 02/08/17 02/08/17 Range/Units 11:00 06:56 06:56 WBC 4.2 L (4.8-10.8) K/uL RBC 3.22 L (3.80-5.20) Mil/uL Hgb 10.9 L (12.0-16.0) g/dL Hct 33.5 L (34.0-47.0) % MCV 104.3 H (81.0-99.0) fl MCH 33.9 H (27.0-31.0) pg MCHC 32.5 L (33.0-37.0) g/dL RDW 16.2 H (11.5-14.5) % Plt Count 33 L (130-400) K/uL MPV 8.2 (7.2-11.7) fl Neut % (Auto) 74.8 (50.0-75.0) % Lymph % (Auto) 9.0 L (20.0-40.0) % Edgar % (Auto) 15.7 H (0.0-10.0) % Eos % (Auto) 0.2 (0.0-4.0) % Baso % (Auto) 0.3 (0.0-2.0) % Neut # 3.2 (1.8-7.0) K/uL Lymph # 0.4 L (1.0-4.3) K/uL Edgar # 0.7 (0.0-0.8) K/uL Eos # 0.0 (0.0-0.7) K/uL Baso # 0.0 (0.0-0.2) K/uL Sodium 138 (132-148) mmol/l Potassium 4.4 (3.6-5.0) MMOL/L Chloride 99 (98-107) mmol/L Carbon Dioxide 24 (22-30) mmol/L Anion Gap 19 (10-20) BUN 26 H (7-17) mg/dl Creatinine 3.9 H (0.7-1.2) mg/dL Est GFR ( Amer) 13 Est GFR (Non-Af Amer) 11 POC Glucose (mg/dL) 106 (65-110) mg/dL Random Glucose 95 (65-105) mg/dL Calcium 8.9 (8.4-10.2) mg/dL Total Bilirubin 1.4 H (0.2-1.3) mg/dl AST 17 (14-36) U/L ALT 33 (9-52) U/L Alkaline Phosphatase 74 (38-126) U/L Total Protein 5.8 L (6.3-8.2) G/DL Albumin 3.2 L (3.5-5.0) g/dL Globulin 2.6 (2.2-3.9) gm/dL Albumin/Globulin Ratio 1.2 (1.0-2.1) 02/08/17 02/07/17 02/07/17 Range/Units 05:50 21:19 16:55 WBC (4.8-10.8) K/uL RBC (3.80-5.20) Mil/uL Hgb (12.0-16.0) g/dL Hct (34.0-47.0) % MCV (81.0-99.0) fl MCH (27.0-31.0) pg MCHC (33.0-37.0) g/dL RDW (11.5-14.5) % Plt Count (130-400) K/uL MPV (7.2-11.7) fl Neut % (Auto) (50.0-75.0) % Lymph % (Auto) (20.0-40.0) % Edgar % (Auto) (0.0-10.0) % Eos % (Auto) (0.0-4.0) % Baso % (Auto) (0.0-2.0) % Neut # (1.8-7.0) K/uL Lymph # (1.0-4.3) K/uL Edgar # (0.0-0.8) K/uL Eos # (0.0-0.7) K/uL Baso # (0.0-0.2) K/uL Sodium (132-148) mmol/l Potassium (3.6-5.0) MMOL/L Chloride (98-107) mmol/L Carbon Dioxide (22-30) mmol/L Anion Gap (10-20) BUN (7-17) mg/dl Creatinine (0.7-1.2) mg/dL Est GFR ( Amer) Est GFR (Non-Af Amer) POC Glucose (mg/dL) 90 93 117 H (65-110) mg/dL Random Glucose (65-105) mg/dL Calcium (8.4-10.2) mg/dL Total Bilirubin (0.2-1.3) mg/dl AST (14-36) U/L ALT (9-52) U/L Alkaline Phosphatase (38-126) U/L Total Protein (6.3-8.2) G/DL Albumin (3.5-5.0) g/dL Globulin (2.2-3.9) gm/dL Albumin/Globulin Ratio (1.0-2.1) Laboratory Results - last 24 hr 02/07/17 02/07/17 02/08/17 16:55 21:19 05:50 WBC RBC Hgb Hct MCV MCH MCHC RDW Plt Count MPV Neut % (Auto) Lymph % (Auto) Edgar % (Auto) Eos % (Auto) Baso % (Auto) Neut # Lymph # Edgar # Eos # Baso # Sodium Potassium Chloride Carbon Dioxide Anion Gap BUN Creatinine Est GFR ( Amer) Est GFR (Non-Af Amer) POC Glucose (mg/dL) 117 H 93 90 Random Glucose Calcium Total Bilirubin AST ALT Alkaline Phosphatase Total Protein Albumin Globulin Albumin/Globulin Ratio 02/08/17 02/08/17 02/08/17 06:56 06:56 11:00 WBC 4.2 L RBC 3.22 L Hgb 10.9 L Hct 33.5 L MCV 104.3 H MCH 33.9 H MCHC 32.5 L RDW 16.2 H Plt Count 33 L MPV 8.2 Neut % (Auto) 74.8 Lymph % (Auto) 9.0 L Edgar % (Auto) 15.7 H Eos % (Auto) 0.2 Baso % (Auto) 0.3 Neut # 3.2 Lymph # 0.4 L Edgar # 0.7 Eos # 0.0 Baso # 0.0 Sodium 138 Potassium 4.4 Chloride 99 Carbon Dioxide 24 Anion Gap 19 BUN 26 H Creatinine 3.9 H Est GFR ( Amer) 13 Est GFR (Non-Af Amer) 11 POC Glucose (mg/dL) 106 Random Glucose 95 Calcium 8.9 Total Bilirubin 1.4 H AST 17 ALT 33 Alkaline Phosphatase 74 Total Protein 5.8 L Albumin 3.2 L Globulin 2.6 Albumin/Globulin Ratio 1.2 Fingerstick Blood Sugar Results: 106 Review of Systems - Constitutional Constitutional: Other - EENT Eyes: As Per HPI Ears: As Per HPI - Cardiovascular Cardiovascular: Rapid Heart Rate - Respiratory Respiratory: UNREMARKABLE - Gastrointestinal Gastrointestinal: UNREMARKABLE - Genitourinary Genitourinary: UNREMARKABLE - Musculoskeletal Musculoskeletal: UNREMARKABLE - Integumentary Integumentary: Dry Skin, Pruritus - Neurological Neurological: UNREMARKABLE Critical Care Progress Note - Nutrition Nutrition: Nutrition Category Date Time Status Renal Diet [DIET] Diets 02/07/17 Breakfast Active Assessment/Plan - Assessment and Plan (Free Text) Assessment: Hypoptension: improved A fib: controlled vent response ESRD On HD Anemia: stable Thrombocytopenia Plan: Off amiodorone Monitor Platlets, not on any AC now, due to low platlets continue current meds BP stable transfer to [facility].
[2017-02-08] MEDS: DiphenhydrAMINE 50 mg/ml Inj IVP PRN ×2 (15:44→21:20)
[2017-02-08] MEDS ORDERED: Digoxin 500 mcg/2ml (0.5 mg/2ml) Inj IVP ONE (17:57)
--- NOTE | 2017-02-08 19:39 | CP.PCM.PN ---
Subjective - Date & Time of Evaluation Date of Evaluation: 02/08/17 Time of Evaluation: 19:36 - Subjective Subjective: making slow progress for hd mwf ht rate stable cont rx and support. Objective - Vital Signs/Intake and Output Vital Signs (last 24 hours): Temp Pulse Resp BP Pulse Ox 98.0 F 102 H 110 H 121/50 L 92 L 02/08/17 12:46 02/08/17 15:07 02/08/17 17:00 02/08/17 17:00 02/08/17 17:00 Intake and Output: 02/08/17 02/09/17 18:59 06:59 Intake Total 990 Balance 990 - Medications Medications: Current Medications Acetaminophen (Tylenol 325mg Tab) 650 mg PO Q6H PRN PRN Reason: Fever >100.4 F Cinacalcet (Sensipar) 30 mg PO QOTHERDAY [facility] Last Admin: 02/07/17 09:36 Dose: 30 mg Diphenhydramine HCl (Benadryl) 25 mg IVP Q6 PRN PRN Reason: Itching / Pruritus Last Admin: 02/08/17 15:44 Dose: 25 mg Cefepime HCl 1 gm/ Sodium (Chloride) 100 mls @ 100 mls/hr IVPB DAILY [facility] Last Admin: 02/08/17 08:29 Dose: 100 mls/hr Insulin Human Lispro (Humalog) 0 units SC ACHS [facility] PRN Reason: Protocol Last Admin: 02/08/17 16:04 Dose: 1 units Levothyroxine Sodium (Synthroid) 50 mcg PO DAILY@0630 [facility] Last Admin: 02/08/17 05:51 Dose: 50 mcg Ondansetron HCl (Zofran Inj) 4 mg IVP Q6H PRN PRN Reason: Nausea/Vomiting Last Admin: 02/08/17 18:21 Dose: 4 mg Pantoprazole Sodium (Protonix Ec Tab) 40 mg PO DAILY [facility] Last Admin: 02/08/17 08:30 Dose: 40 mg Sevelamer HCl (Renagel) 800 mg PO BIDWM [facility] Last Admin: 02/08/17 17:22 Dose: 800 mg Silver Sulfadiazine (Silvadene 1% 20 Gm) 20 ea TOP QOTHERDAY [facility] Sitagliptin Phosphate (Januvia) 25 mg PO DAILY [facility] Last Admin: 02/08/17 08:28 Dose: 25 mg - Labs Labs: 02/08/17 06:56 02/08/17 06:56 PT 26.4 Seconds (9.8-13.1) H 02/07/17 04:50 INR 2.3 (0.9-1.2) H 02/07/17 04:50 APTT 34.9 Seconds (25.6-37.1) 02/06/17 04:20 - Constitutional Appears: Non-toxic - Head Exam Head Exam: NORMAL INSPECTION - Eye Exam Eye Exam: Normal appearance - ENT Exam ENT Exam: Mucous Membranes Moist - Respiratory Exam Respiratory Exam: NORMAL BREATHING PATTERN - Cardiovascular Exam Cardiovascular Exam: Irregular Rhythm - GI/Abdominal Exam GI & Abdominal Exam: Soft - Extremities Exam Extremities Exam: Normal Inspection - Neurological Exam Neurological Exam: Alert, Awake - Psychiatric Exam Psychiatric exam: Normal Affect - Skin Skin Exam: Normal Color, Warm
[2017-02-09 02:40] LABS: HEMOGLOBIN 11.4 g/dL (12.0-16.0); MEAN CELL VOLUME 105.7 fl (81.0-99.0); MEAN CORPUSCULAR HEMOGLOBIN 33.4 pg (27.0-31.0); MEAN CORPUSCULAR HGB CONC 31.6 g/dL (33.0-37.0); RBC 3.4 Mil/uL (3.80-5.20); RED CELL DISTRIBUTION WIDTH 15.9 % (11.5-14.5); WHITE BLOOD COUNT 5.4 K/uL (4.8-10.8)
[2017-02-09 02:51] LABS: ALB/GLOB RATIO 1.3 (1.0-2.1); ALBUMIN 3.6 g/dL (3.5-5.0); CALCIUM 9.3 mg/dL (8.4-10.2)
[2017-02-09] MEDS: Levothyroxine 50 MCG TAB PO SCH (07:15)
[2017-02-09] MEDS: Insulin Lispro (humaLOG) 100 Units/ml Inj SC SCH ×4 (08:21→23:08)
[2017-02-09 08:40] LABS: BASO % 0.3 % (0.0-2.0); EOS % 0.2 % (0.0-4.0); HEMOGLOBIN 11.6 g/dL (12.0-16.0); LYMPH # 0.3 K/uL (1.0-4.3); LYMPH % 6.7 % (20.0-40.0); MEAN CELL VOLUME 104.3 fl (81.0-99.0); MEAN CORPUSCULAR HGB CONC 32.6 g/dL (33.0-37.0); MONO # 0.8 K/uL (0.0-0.8); MONO % 15.2 % (0.0-10.0); NEUT % 77.6 % (50.0-75.0); NRBC % 0.3 % (0.0-0.0); RBC 3.42 Mil/uL (3.80-5.20); WHITE BLOOD COUNT 5.1 K/uL (4.8-10.8)
[2017-02-09 08:49] LABS: PLATELET COUNT 30 K/uL (130-400)
[2017-02-09] MEDS: Pantoprazole 40 mg EC Tab PO SCH (08:59)
[2017-02-09] MEDS: Silver Sulfadiazine 1% Cream (20 gm) TOP SCH (09:01)
[2017-02-09] MEDS: Cefepime 1 GM in Sodium Chloride 0.9% 100 ML IVPB SCH (09:30)
--- NOTE | 2017-02-09 10:41 | CP.PCM.PN ---
Subjective - Date & Time of Evaluation Date of Evaluation: 02/09/17 Time of Evaluation: 10:00 - Subjective Subjective: Pt claims she feels well but continues to have mild abdominal pain with nausea and/or spitting up abdomen is mildly distended w/ +BS Will change diet to clear liquid Objective - Vital Signs/Intake and Output Vital Signs (last 24 hours): Temp Pulse Resp BP Pulse Ox 97.6 F 90 20 107/58 L 98 02/09/17 08:00 02/09/17 08:00 02/09/17 08:00 02/09/17 08:00 02/09/17 08:00 - Medications Medications: Current Medications Acetaminophen (Tylenol 325mg Tab) 650 mg PO Q6H PRN PRN Reason: Fever >100.4 F Cinacalcet (Sensipar) 30 mg PO QOTHERDAY [facility] Last Admin: 02/09/17 08:59 Dose: 30 mg Diphenhydramine HCl (Benadryl) 25 mg IVP Q6 PRN PRN Reason: Itching / Pruritus Last Admin: 02/08/17 21:20 Dose: 25 mg Docusate Sodium (Colace) 200 mg PO DAILY [facility] Last Admin: 02/09/17 09:00 Dose: 200 mg Cefepime HCl 1 gm/ Sodium (Chloride) 100 mls @ 100 mls/hr IVPB DAILY [facility] Last Admin: 02/08/17 08:29 Dose: 100 mls/hr Insulin Human Lispro (Humalog) 0 units SC ACHS [facility] PRN Reason: Protocol Last Admin: 02/09/17 08:21 Dose: Not Given Levothyroxine Sodium (Synthroid) 50 mcg PO DAILY@0630 [facility] Last Admin: 02/09/17 07:15 Dose: 50 mcg Ondansetron HCl (Zofran Inj) 4 mg IVP Q6 PRN PRN Reason: Nausea/Vomiting Last Admin: 02/09/17 09:00 Dose: 4 mg Pantoprazole Sodium (Protonix Ec Tab) 40 mg PO DAILY [facility] Last Admin: 02/09/17 08:59 Dose: 40 mg Sevelamer HCl (Renagel) 800 mg PO BIDWM [facility] Last Admin: 02/09/17 08:59 Dose: 800 mg Silver Sulfadiazine (Silvadene 1% 20 Gm) 20 ea TOP QOTHERDAY [facility] Last Admin: 02/09/17 09:01 Dose: 1 % Sitagliptin Phosphate (Januvia) 25 mg PO DAILY [facility] Last Admin: 02/09/17 08:59 Dose: 25 mg - Labs Labs: 02/09/17 06:00 02/09/17 02:25 PT 26.4 Seconds (9.8-13.1) H 02/07/17 04:50 INR 2.3 (0.9-1.2) H 02/07/17 04:50 APTT 34.9 Seconds (25.6-37.1) 02/06/17 04:20
[2017-02-09 11:44] LABS: EOSINOPHIL 1 % (0-7); LYMPHOCYTE 7 % (20-50); MONOCYTE 13 % (0-10); NEUTROPHIL 79 % (42-75); TOTAL CELLS COUNTED 100
[2017-02-09 11:49] LABS: ANISOCYTOSIS SLIGHT; HYPOCHROMIC SLIGHT; PLATELET ESTIMATE DECREASED (NORMAL)
[2017-02-09 11:50] LABS: LARGE PLATELETS PRESENT
[2017-02-09] MEDS: DiphenhydrAMINE 50 mg/ml Inj IVP PRN (23:08)
--- NOTE | 2017-02-10 03:52 | CP.PCM.PN ---
Subjective - Date & Time of Evaluation Date of Evaluation: 02/09/17 Time of Evaluation: 12:00 - Subjective Subjective: 89 year old female patient PMH End stage renal disease - on hemodialysis, chronic afib, severe RV failure, pulmonary HTN, DM II, seen at bedside resting comfortably, AAOx3 and NAD. Patient is accompanied by her grandchildren at bedside. Patient is more reponsive today. Patient denies any acute overnight events to her feet. Patient denies N/V/F/D/C/SOB. No other pedal complaints at this time. Objective - Vital Signs/Intake and Output Vital Signs (last 24 hours): Temp Pulse Resp BP Pulse Ox 97.9 F 128 H 20 127/73 100 02/10/17 01:00 02/10/17 01:00 02/10/17 01:00 02/10/17 01:00 02/10/17 01:00 Intake and Output: 02/09/17 02/10/17 18:59 06:59 Intake Total 710 Output Total 800 Balance -90 - Medications Medications: Current Medications Acetaminophen (Tylenol 325mg Tab) 650 mg PO Q6H PRN PRN Reason: Fever >100.4 F Cinacalcet (Sensipar) 30 mg PO QOTHERDAY [facility] Last Admin: 02/09/17 08:59 Dose: 30 mg Diphenhydramine HCl (Benadryl) 25 mg IVP Q6 PRN PRN Reason: Itching / Pruritus Last Admin: 02/09/17 23:08 Dose: 25 mg Docusate Sodium (Colace) 200 mg PO DAILY [facility] Last Admin: 02/09/17 09:00 Dose: 200 mg Cefepime HCl 1 gm/ Sodium (Chloride) 100 mls @ 100 mls/hr IVPB DAILY [facility] Last Admin: 02/09/17 09:30 Dose: 100 mls/hr Insulin Human Lispro (Humalog) 0 units SC ACHS [facility] PRN Reason: Protocol Last Admin: 02/09/17 23:08 Dose: Not Given Levothyroxine Sodium (Synthroid) 50 mcg PO DAILY@0630 [facility] Last Admin: 02/09/17 07:15 Dose: 50 mcg Ondansetron HCl (Zofran Inj) 4 mg IVP Q6 PRN PRN Reason: Nausea/Vomiting Last Admin: 02/10/17 00:06 Dose: 4 mg Pantoprazole Sodium (Protonix Ec Tab) 40 mg PO DAILY [facility] Last Admin: 02/09/17 08:59 Dose: 40 mg Sevelamer HCl (Renagel) 800 mg PO BIDWM [facility] Last Admin: 02/09/17 23:08 Dose: 800 mg Silver Sulfadiazine (Silvadene 1% 20 Gm) 20 ea TOP QOTHERDAY [facility] Last Admin: 02/09/17 09:01 Dose: 1 % Sitagliptin Phosphate (Januvia) 25 mg PO DAILY [facility] Last Admin: 02/09/17 08:59 Dose: 25 mg - Labs Labs: 02/09/17 06:00 02/09/17 02:25 PT 26.4 Seconds (9.8-13.1) H 02/07/17 04:50 INR 2.3 (0.9-1.2) H 02/07/17 04:50 APTT 34.9 Seconds (25.6-37.1) 02/06/17 04:20 - Constitutional Appears: Well, Non-toxic, No Acute Distress - Extremities Exam Additional comments: Bilateral low extremity exam: VASC: DP/PT pulses are palpable 1/4 b/l, RADIOGRAPHY TECHNICIAN: < 3 sec to all digits, TG: cool to cool NEURO: Protective sensation slightly diminished DERM: 1) Blood-filled blister at distal tuft of left 5th digit measuring approximately 1cm x 0.5cm. 2) Superficial ulcer with overlying hyperkeratosis measuring approximately 0.5cm x 0.7cm noted to left styloid process. 3) Superficial ulceration noted to proximolateral right leg with erythematous wound margins. Ulceration is noted to have a fibrotic base. 4) Superficial ulceration noted to posterior right heel with overlying eschar and hyperkeratosis. No clinical signs of infection noted to any woundx4. ORTHO: Generalized pain on palpation noted to lower extremity b/l. - Neurological Exam Neurological Exam: Alert, Awake, Oriented x3 - Psychiatric Exam Psychiatric exam: Normal Affect, Normal Mood Assessment and Plan - Assessment and Plan (Free Text) Assessment: 89 year old female with superficial ulcerations secondary to DM Plan: Patient seen and evaluated at bedside. Discussed with attending, Dr. Gates. Charts, labs, vitals reviewed = afebrile, WBC WNL @ 5.1 Silvadene applied to wounds wounds x4 and dressed with DSD Informed patient importance of wearing offloading boots all times patient is in bed. C/W pain management per medicine Wounds are stable from podiatry standpoint. Podiatry will continue to follow patient while in house
[2017-02-10] MEDS: Levothyroxine 50 MCG TAB PO SCH (06:16)
[2017-02-10 06:18] LABS: BASO % 0.4 % (0.0-2.0); EOS % 0.2 % (0.0-4.0); HEMOGLOBIN 12.1 g/dL (12.0-16.0); LYMPH # 0.4 K/uL (1.0-4.3); MEAN CELL VOLUME 105.4 fl (81.0-99.0); MEAN CORPUSCULAR HEMOGLOBIN 34.3 pg (27.0-31.0); MEAN CORPUSCULAR HGB CONC 32.6 g/dL (33.0-37.0); MEAN PLATELET VOLUME 8.4 fl (7.2-11.7); MONO % 19.1 % (0.0-10.0); NEUT # 3.9 K/uL (1.8-7.0); NEUT % 72.3 % (50.0-75.0); NRBC % 0.3 % (0.0-0.0); RBC 3.51 Mil/uL (3.80-5.20); RED CELL DISTRIBUTION WIDTH 15.7 % (11.5-14.5); WHITE BLOOD COUNT 5.4 K/uL (4.8-10.8)
[2017-02-10] MEDS: Insulin Lispro (humaLOG) 100 Units/ml Inj SC SCH ×4 (07:37→21:35)
[2017-02-10] MEDS: Pantoprazole 40 mg EC Tab PO SCH (09:37)
[2017-02-10] MEDS: Cefepime 1 GM in Sodium Chloride 0.9% 100 ML IVPB SCH (09:39)
--- NOTE | 2017-02-10 09:50 | CP.PCM.PN ---
Subjective - Date & Time of Evaluation Date of Evaluation: 02/10/17 Time of Evaluation: 09:10 - Subjective Subjective: Continues to have abd discomfort due to Ascites+++ Had 6.5 litres of peritonial fluid drained only 3 Wks back A Fib at 84 BPM BP 100/70 mm Hg JVP elevated to the angle of jaw Abd distension due to ascires ++ PLTLT count continues to plummet (Zyvox was D/Guillermo on Friday) WBC count improving Pt is off of Warfarin Heme eval done Issue of Bone marrow aspiration was discussed with her son Given her physical and mental faility, he felt a bone marrow aspiration should be avoided at this point Particularly since no active bleeding exists HD scheduled for today ( needs extra precaution due to thrmbocytopenia) May soon need abd paracentasis Objective - Vital Signs/Intake and Output Vital Signs (last 24 hours): Temp Pulse Resp BP Pulse Ox 98.9 F 102 H 18 114/67 99 02/10/17 08:16 02/10/17 08:16 02/10/17 08:16 02/10/17 08:16 02/10/17 08:16 Intake and Output: 02/10/17 02/10/17 06:59 18:59 Intake Total 710 Output Total 800 Balance -90 - Medications Medications: Current Medications Acetaminophen (Tylenol 325mg Tab) 650 mg PO Q6H PRN PRN Reason: Fever >100.4 F Cinacalcet (Sensipar) 30 mg PO QOTHERDAY [facility] Last Admin: 02/09/17 08:59 Dose: 30 mg Diphenhydramine HCl (Benadryl) 25 mg IVP Q6 PRN PRN Reason: Itching / Pruritus Last Admin: 02/09/17 23:08 Dose: 25 mg Docusate Sodium (Colace) 200 mg PO DAILY [facility] Last Admin: 02/09/17 09:00 Dose: 200 mg Cefepime HCl 1 gm/ Sodium (Chloride) 100 mls @ 100 mls/hr IVPB DAILY [facility] Last Admin: 02/09/17 09:30 Dose: 100 mls/hr Insulin Human Lispro (Humalog) 0 units SC ACHS [facility] PRN Reason: Protocol Last Admin: 02/10/17 07:37 Dose: Not Given Levothyroxine Sodium (Synthroid) 50 mcg PO DAILY@0630 [facility] Last Admin: 02/10/17 06:16 Dose: 50 mcg Ondansetron HCl (Zofran Inj) 4 mg IVP Q6 PRN PRN Reason: Nausea/Vomiting Last Admin: 02/10/17 00:06 Dose: 4 mg Pantoprazole Sodium (Protonix Ec Tab) 40 mg PO DAILY [facility] Last Admin: 02/09/17 08:59 Dose: 40 mg Sevelamer HCl (Renagel) 800 mg PO BIDWM [facility] Last Admin: 02/09/17 23:08 Dose: 800 mg Silver Sulfadiazine (Silvadene 1% 20 Gm) 20 ea TOP QOTHERDAY [facility] Last Admin: 02/09/17 09:01 Dose: 1 % Sitagliptin Phosphate (Januvia) 25 mg PO DAILY [facility] Last Admin: 02/09/17 08:59 Dose: 25 mg - Labs Labs: 02/10/17 05:00 02/09/17 02:25 PT 26.4 Seconds (9.8-13.1) H 02/07/17 04:50 INR 2.3 (0.9-1.2) H 02/07/17 04:50 APTT 34.9 Seconds (25.6-37.1) 02/06/17 04:20
[2017-02-10] MEDS: DiphenhydrAMINE 50 mg/ml Inj IVP PRN (10:16)
--- NOTE | 2017-02-10 10:47 | CP.PCM.CON ---
History of Present Illness - History of Present Illness History of Present Illness: This is a 89 yrs pld female with a past h/o HTN,DM,CRD on dialysis, pulmonary hypotension, Right ventricular failure, h/o hypoxia with sleep apnoea and pt needs a CPAP machine to sleep at night.. This time she was transferred from the dialysis center because of hypotension. She is doing better now. She also had cellulitis on both legs and is on antibiotics for the same. On admission her WBC was 2.8 , hgb 11.3, and platelets 47K. With the treatment and Antibiotics the wbc has started going up (today 5.4), but platelets have trended down to 18K. The zyvox was discontinued 3 days ago but platelets continued to fall. Of all the other medicines only protonix can lower the count (2% incidence). She is on no other medication that can lower the medication. No ecchymosis, or bleeding from any point. Past Patient History - Infectious Disease Hx of Infectious Diseases: None - Tetanus Immunizations Tetanus Immunization: Unknown - Past Medical History & Family History Past Medical History?: Yes - Past Social History Alcohol: None Drugs: Denies - CARDIAC Hx Atrial Fibrillation: Yes (on coumadin) Hx Cardia Arrhythmia: Yes Hx Congestive Heart Failure: Yes Hx Hypertension: Yes - PULMONARY Hx Pneumonia: Yes Hx Sleep Apnea: Yes (on CPAP) - NEUROLOGICAL Hx Neurological Disorder: No - HEENT Hx HEENT Problems: No - RENAL Hx Chronic Kidney Disease: Yes (Dialysis MWF) Hx Kidney Stones: No - ENDOCRINE/METABOLIC Hx Hypothyroidism: Yes - HEMATOLOGICAL/ONCOLOGICAL Hx Anemia: Yes Hx Human Immunodeficiency Virus (HIV): No - INTEGUMENTARY Hx Dermatological Problems: Yes (Pruritic eruptions) - MUSCULOSKELETAL/RHEUMATOLOGICAL Hx Musculoskeletal Disorders: No Hx Falls: No - GASTROINTESTINAL Hx Gastrointestinal Disorders: No Other/Comment: ASCITES - GENITOURINARY/GYNECOLOGICAL Hx Genitourinary Disorders: No - PSYCHIATRIC Hx Depression: Yes - SURGICAL HISTORY Hx Cholecystectomy: Yes Hx Coronary Artery Bypass Graft: No - ANESTHESIA Hx Anesthesia: Yes Hx Anesthesia Reactions: No Hx Malignant Hyperthermia: No Meds Allergies/Adverse Reactions: Allergies Allergy/AdvReac Type Severity Reaction Status Date / Time iodine Allergy RASH Verified 01/29/17 13:29 iron Allergy ITCHING Verified 01/29/17 13:29 - Medications Medications: Current Medications Acetaminophen (Tylenol 325mg Tab) 650 mg PO Q6H PRN PRN Reason: Fever >100.4 F Cinacalcet (Sensipar) 30 mg PO QOTHERDAY [facility] Last Admin: 02/09/17 08:59 Dose: 30 mg Diphenhydramine HCl (Benadryl) 25 mg IVP Q6 PRN PRN Reason: Itching / Pruritus Last Admin: 02/10/17 10:16 Dose: 25 mg Docusate Sodium (Colace) 200 mg PO DAILY [facility] Last Admin: 02/10/17 09:37 Dose: 200 mg Insulin Human Lispro (Humalog) 0 units SC ACHS [facility] PRN Reason: Protocol Last Admin: 02/10/17 07:37 Dose: Not Given Levothyroxine Sodium (Synthroid) 50 mcg PO DAILY@0630 [facility] Last Admin: 02/10/17 06:16 Dose: 50 mcg Ondansetron HCl (Zofran Inj) 4 mg IVP Q6 PRN PRN Reason: Nausea/Vomiting Last Admin: 02/10/17 00:06 Dose: 4 mg Sevelamer HCl (Renagel) 800 mg PO BIDWM [facility] Last Admin: 02/10/17 09:38 Dose: 800 mg Silver Sulfadiazine (Silvadene 1% 20 Gm) 20 ea TOP QOTHERDAY [facility] Last Admin: 02/09/17 09:01 Dose: 1 % Sitagliptin Phosphate (Januvia) 25 mg PO DAILY [facility] Last Admin: 02/10/17 09:37 Dose: 25 mg Physical Exam - Additional Findings Additional findings: Physical examination. Alert, well oriented in no acute distress at trhis time neck; Supple, no adenopathy Chest; Air entry diminished bilaterally, no rales or rhonchi Heart; RSR, no murmur Abd; Soft, no mass, no h/s megaly Results - Vital Signs Recent Vital Signs: Last Vital Signs Temp 98.9 F 02/10/17 08:16 Pulse 102 H 02/10/17 08:16 Resp 18 02/10/17 08:16 BP 114/67 02/10/17 08:16 Pulse Ox 99 02/10/17 08:16 - Labs Result Diagrams: 02/10/17 05:00 02/09/17 02:25 Labs: Laboratory Results - last 24 hr 02/07/17 02/09/17 02/09/17 10:12 06:00 10:45 WBC RBC Hgb Hct MCV MCH MCHC RDW Plt Count MPV Neut % (Auto) Lymph % (Auto) [place] % (Auto) Eos % (Auto) Baso % (Auto) Neut # Lymph # [place] # Eos # Baso # Neutrophils % (Manual) 79 H Lymphocytes % (Manual) 7 L Monocytes % (Manual) 13 H Eosinophils % (Manual) 1 Platelet Estimate Decreased L Large Platelets Present Hypochromasia (manual) Slight Anisocytosis (manual) Slight Macrocytosis (manual) Slight POC Glucose (mg/dL) 143 H Heparin-induced Plt Ab Negative 02/09/17 02/09/17 02/10/17 16:08 21:31 05:00 WBC 5.4 RBC 3.51 L Hgb 12.1 Hct 37.0 MCV 105.4 H MCH 34.3 H MCHC 32.6 L RDW 15.7 H Plt Count 18 L* D MPV 8.4 Neut % (Auto) 72.3 Lymph % (Auto) 8.0 L [place] % (Auto) 19.1 H Eos % (Auto) 0.2 Baso % (Auto) 0.4 Neut # 3.9 Lymph # 0.4 L [place] # 1.0 H Eos # 0.0 Baso # 0.0 Neutrophils % (Manual) Lymphocytes % (Manual) Monocytes % (Manual) Eosinophils % (Manual) Platelet Estimate Large Platelets Hypochromasia (manual) Anisocytosis (manual) Macrocytosis (manual) POC Glucose (mg/dL) 101 87 Heparin-induced Plt Ab 02/10/17 05:34 WBC RBC Hgb Hct MCV MCH MCHC RDW Plt Count MPV Neut % (Auto) Lymph % (Auto) [place] % (Auto) Eos % (Auto) Baso % (Auto) Neut # Lymph # [place] # Eos # Baso # Neutrophils % (Manual) Lymphocytes % (Manual) Monocytes % (Manual) Eosinophils % (Manual) Platelet Estimate Large Platelets Hypochromasia (manual) Anisocytosis (manual) Macrocytosis (manual) POC Glucose (mg/dL) 125 H Heparin-induced Plt Ab Assessment & Plan - Assessment and Plan (Free Text) Assessment: Impression ;Leukopeia and thrombocytopenia could be secondary to antibiotics especially Zyvox. The WBC are slowly going up and hopefully the platelets will follow. Since she has no signs of ecchymosis or bleeding from any site, will continue to monitor the platelets. - Date & Time Date: 02/10/17 Time: 11:05
--- NOTE | 2017-02-10 18:19 | CP.PCM.PN ---
Subjective - Date & Time of Evaluation Date of Evaluation: 02/10/17 Time of Evaluation: 15:00 - Subjective Subjective: SEEN ON RENAL F/U SEEN ON HD FEELS MUCH BETTER THROMBOCYTOPENIA IS PROGRESSING Objective - Vital Signs/Intake and Output Vital Signs (last 24 hours): Temp Pulse Resp BP Pulse Ox 97.9 F 117 H 18 98/65 L 96 02/10/17 16:41 02/10/17 16:43 02/10/17 16:41 02/10/17 16:43 02/10/17 16:41 Intake and Output: 02/10/17 02/10/17 06:59 18:59 Intake Total 710 Output Total 800 Balance -90 - Medications Medications: Current Medications Acetaminophen (Tylenol 325mg Tab) 650 mg PO Q6H PRN PRN Reason: Fever >100.4 F Alprazolam (Xanax) 0.25 mg PO BID PRN PRN Reason: Anxiety Stop: 02/17/17 15:31 Cinacalcet (Sensipar) 30 mg PO QOTHERDAY [facility] Last Admin: 02/09/17 08:59 Dose: 30 mg Diphenhydramine HCl (Benadryl) 25 mg IVP Q6 PRN PRN Reason: Itching / Pruritus Last Admin: 02/10/17 10:16 Dose: 25 mg Docusate Sodium (Colace) 200 mg PO DAILY [facility] Last Admin: 02/10/17 09:37 Dose: 200 mg Insulin Human Lispro (Humalog) 0 units SC ACHS [facility] PRN Reason: Protocol Last Admin: 02/10/17 16:43 Dose: Not Given Levothyroxine Sodium (Synthroid) 50 mcg PO DAILY@0630 [facility] Last Admin: 02/10/17 06:16 Dose: 50 mcg Metoprolol Tartrate (Lopressor) 25 mg PO BID [facility] Last Admin: 02/10/17 16:43 Dose: Not Given Ondansetron HCl (Zofran Inj) 4 mg IVP Q6 PRN PRN Reason: Nausea/Vomiting Last Admin: 02/10/17 00:06 Dose: 4 mg Sevelamer HCl (Renagel) 800 mg PO BIDWM [facility] Last Admin: 02/10/17 16:43 Dose: Not Given Silver Sulfadiazine (Silvadene 1% 20 Gm) 20 ea TOP QOTHERDAY [facility] Last Admin: 02/09/17 09:01 Dose: 1 % Sitagliptin Phosphate (Januvia) 25 mg PO DAILY [facility] Last Admin: 02/10/17 09:37 Dose: 25 mg - Labs Labs: 02/10/17 05:00 02/09/17 02:25 PT 26.4 Seconds (9.8-13.1) H 02/07/17 04:50 INR 2.3 (0.9-1.2) H 02/07/17 04:50 APTT 34.9 Seconds (25.6-37.1) 02/06/17 04:20 Assessment and Plan - Assessment and Plan (Free Text) Assessment: 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 H/H STABLE LEUKOCYTOPENIA .. IMPROVED THROMBOCYTOPENIA ... HEME / ONC CONSULT APPRECIATED MULTIPLE CO MORBIDITIES P : C/O CURRENT CARE
[2017-02-11] MEDS: Levothyroxine 50 MCG TAB PO SCH (06:10)
[2017-02-11 06:32] LABS: BASO % 0.4 % (0.0-2.0); EOS % 0.4 % (0.0-4.0); HEMOGLOBIN 11.8 g/dL (12.0-16.0); LYMPH # 0.6 K/uL (1.0-4.3); LYMPH % 9.4 % (20.0-40.0); MEAN CELL VOLUME 105.4 fl (81.0-99.0); MEAN CORPUSCULAR HEMOGLOBIN 34.2 pg (27.0-31.0); MEAN CORPUSCULAR HGB CONC 32.5 g/dL (33.0-37.0); MEAN PLATELET VOLUME 8.9 fl (7.2-11.7); MONO # 1.6 K/uL (0.0-0.8); MONO % 26.6 % (0.0-10.0); NEUT # 3.7 K/uL (1.8-7.0); NEUT % 63.2 % (50.0-75.0); NRBC % 0.5 % (0.0-0.0); RBC 3.45 Mil/uL (3.80-5.20); RED CELL DISTRIBUTION WIDTH 15.4 % (11.5-14.5); WHITE BLOOD COUNT 5.9 K/uL (4.8-10.8)
[2017-02-11 06:38] LABS: ALB/GLOB RATIO 1.3 (1.0-2.1); ALBUMIN 3.3 g/dL (3.5-5.0); CALCIUM 9.4 mg/dL (8.4-10.2)
[2017-02-11 06:49] LABS: INR 2.5 (0.9-1.2); PROTHROMBIN TIME 28.6 Seconds (9.8-13.1)
[2017-02-11] MEDS ORDERED: Phytonadione 10 mg/ml Inj (Adult) IM ONE (08:11)
--- NOTE | 2017-02-11 08:20 | CP.PCM.PN ---
Subjective - Date & Time of Evaluation Date of Evaluation: 02/11/17 Time of Evaluation: 08:15 - Subjective Subjective: Resting comfortably, resp rate 18 BPM Had HD yesterday without difficulty A Fib at 110-120 BPM (On 25 mg Metoprolol BID) BP 100/60 mm Hg JVP still full No pedal oedema PTLT count 21 K from 18K yesterday INR today 2.5 after being off of Warfarin for 4days Pt has large amount of ascites and will need peritoneal tap soon Have given Vit K to reverse INR Have increased Metoprolol dose to better control HR Objective - Vital Signs/Intake and Output Vital Signs (last 24 hours): Temp Pulse Resp BP Pulse Ox 97.9 F 127 H 18 98/62 L 95 02/11/17 05:15 02/11/17 05:15 02/11/17 05:15 02/11/17 05:15 02/11/17 05:15 - Medications Medications: Current Medications Acetaminophen (Tylenol 325mg Tab) 650 mg PO Q6H PRN PRN Reason: Fever >100.4 F Alprazolam (Xanax) 0.25 mg PO BID PRN PRN Reason: Anxiety Stop: 02/17/17 15:31 Last Admin: 02/11/17 06:09 Dose: 0.25 mg Cinacalcet (Sensipar) 30 mg PO QOTHERDAY [facility] Last Admin: 02/09/17 08:59 Dose: 30 mg Diphenhydramine HCl (Benadryl) 25 mg IVP Q6 PRN PRN Reason: Itching / Pruritus Last Admin: 02/10/17 10:16 Dose: 25 mg Docusate Sodium (Colace) 200 mg PO DAILY [facility] Last Admin: 02/10/17 09:37 Dose: 200 mg Insulin Human Lispro (Humalog) 0 units SC ACHS [facility] PRN Reason: Protocol Last Admin: 02/10/17 21:35 Dose: Not Given Levothyroxine Sodium (Synthroid) 50 mcg PO DAILY@0630 [facility] Last Admin: 02/11/17 06:10 Dose: 50 mcg Metoprolol Tartrate (Lopressor) 50 mg PO Q12 [facility] Ondansetron HCl (Zofran Inj) 4 mg IVP Q6 PRN PRN Reason: Nausea/Vomiting Last Admin: 02/11/17 06:12 Dose: 4 mg Sevelamer HCl (Renagel) 800 mg PO BIDWM [facility] Last Admin: 02/10/17 16:43 Dose: Not Given Silver Sulfadiazine (Silvadene 1% 20 Gm) 20 ea TOP QOTHERDAY [facility] Last Admin: 02/09/17 09:01 Dose: 1 % Sitagliptin Phosphate (Januvia) 25 mg PO DAILY [facility] Last Admin: 02/10/17 09:37 Dose: 25 mg - Labs Labs: 02/11/17 05:00 02/11/17 05:00 PT 28.6 Seconds (9.8-13.1) H 02/11/17 05:00 INR 2.5 (0.9-1.2) H 02/11/17 05:00 APTT 34.9 Seconds (25.6-37.1) 02/06/17 04:20
--- NOTE | 2017-02-11 08:35 | CP.PCM.PN ---
Subjective - Date & Time of Evaluation Date of Evaluation: 02/11/17 Time of Evaluation: 08:26 - Subjective Subjective: Pt is fast asleep now. Had a restless night, but there is no evidence of bleeding from any site. The platelet count is 21 today. Will continue to observe. Objective - Vital Signs/Intake and Output Vital Signs (last 24 hours): Temp Pulse Resp BP Pulse Ox 97.6 F 81 20 137/99 H 95 02/11/17 08:00 02/11/17 08:00 02/11/17 08:00 02/11/17 08:00 02/11/17 08:00 - Medications Medications: Current Medications Acetaminophen (Tylenol 325mg Tab) 650 mg PO Q6H PRN PRN Reason: Fever >100.4 F Alprazolam (Xanax) 0.25 mg PO BID PRN PRN Reason: Anxiety Stop: 02/17/17 15:31 Last Admin: 02/11/17 06:09 Dose: 0.25 mg Cinacalcet (Sensipar) 30 mg PO QOTHERDAY [facility] Last Admin: 02/09/17 08:59 Dose: 30 mg Diphenhydramine HCl (Benadryl) 25 mg IVP Q6 PRN PRN Reason: Itching / Pruritus Last Admin: 02/10/17 10:16 Dose: 25 mg Docusate Sodium (Colace) 200 mg PO DAILY [facility] Last Admin: 02/10/17 09:37 Dose: 200 mg Insulin Human Lispro (Humalog) 0 units SC ACHS [facility] PRN Reason: Protocol Last Admin: 02/10/17 21:35 Dose: Not Given Levothyroxine Sodium (Synthroid) 50 mcg PO DAILY@0630 [facility] Last Admin: 02/11/17 06:10 Dose: 50 mcg Metoprolol Tartrate (Lopressor) 50 mg PO Q12 [facility] Ondansetron HCl (Zofran Inj) 4 mg IVP Q6 PRN PRN Reason: Nausea/Vomiting Last Admin: 02/11/17 06:12 Dose: 4 mg Sevelamer HCl (Renagel) 800 mg PO BIDWM [facility] Last Admin: 02/10/17 16:43 Dose: Not Given Silver Sulfadiazine (Silvadene 1% 20 Gm) 20 ea TOP QOTHERDAY [facility] Last Admin: 02/09/17 09:01 Dose: 1 % Sitagliptin Phosphate (Januvia) 25 mg PO DAILY [facility] Last Admin: 02/10/17 09:37 Dose: 25 mg - Labs Labs: 02/11/17 05:00 02/11/17 05:00 PT 28.6 Seconds (9.8-13.1) H 02/11/17 05:00 INR 2.5 (0.9-1.2) H 02/11/17 05:00 APTT 34.9 Seconds (25.6-37.1) 02/06/17 04:20
--- NOTE | 2017-02-11 08:51 | CP.PCM.PN ---
Subjective - Date & Time of Evaluation Date of Evaluation: 02/11/17 Time of Evaluation: 06:40 - Subjective Subjective: 89 year old female patient PMH End stage renal disease - on hemodialysis, chronic afib, severe RV failure, pulmonary HTN, DM II, seen at bedside sleeping comfortably, AAOx3 and NAD. Patient was unable to be awakened/aroused at today' s visit. No other pedal complaints at this time. Objective - Vital Signs/Intake and Output Vital Signs (last 24 hours): Temp Pulse Resp BP Pulse Ox 97.6 F 81 20 137/99 H 95 02/11/17 08:00 02/11/17 08:00 02/11/17 08:00 02/11/17 08:00 02/11/17 08:00 - Medications Medications: Current Medications Acetaminophen (Tylenol 325mg Tab) 650 mg PO Q6H PRN PRN Reason: Fever >100.4 F Alprazolam (Xanax) 0.25 mg PO BID PRN PRN Reason: Anxiety Stop: 02/17/17 15:31 Last Admin: 02/11/17 06:09 Dose: 0.25 mg Cinacalcet (Sensipar) 30 mg PO QOTHERDAY [facility] Last Admin: 02/09/17 08:59 Dose: 30 mg Diphenhydramine HCl (Benadryl) 25 mg IVP Q6 PRN PRN Reason: Itching / Pruritus Last Admin: 02/10/17 10:16 Dose: 25 mg Docusate Sodium (Colace) 200 mg PO DAILY [facility] Last Admin: 02/10/17 09:37 Dose: 200 mg Insulin Human Lispro (Humalog) 0 units SC ACHS [facility] PRN Reason: Protocol Last Admin: 02/10/17 21:35 Dose: Not Given Levothyroxine Sodium (Synthroid) 50 mcg PO DAILY@0630 [facility] Last Admin: 02/11/17 06:10 Dose: 50 mcg Metoprolol Tartrate (Lopressor) 50 mg PO Q12 [facility] Ondansetron HCl (Zofran Inj) 4 mg IVP Q6 PRN PRN Reason: Nausea/Vomiting Last Admin: 02/11/17 06:12 Dose: 4 mg Sevelamer HCl (Renagel) 800 mg PO BIDWM [facility] Last Admin: 02/10/17 16:43 Dose: Not Given Silver Sulfadiazine (Silvadene 1% 20 Gm) 20 ea TOP QOTHERDAY [facility] Last Admin: 02/09/17 09:01 Dose: 1 % Sitagliptin Phosphate (Januvia) 25 mg PO DAILY [facility] Last Admin: 02/10/17 09:37 Dose: 25 mg - Labs Labs: 02/11/17 05:00 02/11/17 05:00 PT 28.6 Seconds (9.8-13.1) H 02/11/17 05:00 INR 2.5 (0.9-1.2) H 02/11/17 05:00 APTT 34.9 Seconds (25.6-37.1) 02/06/17 04:20 - Constitutional Appears: Well, Non-toxic, No Acute Distress - Extremities Exam Additional comments: VASC: DP/PT pulses are palpable 1/4 b/l, RESIDENTIAL ASSISTANT: < 3 sec to all digits, TG: cool to cool NEURO: Deferred as pt was sleeping DERM: 1) Blood-filled blister at distal tuft of left 5th digit measuring approximately 1cm x 0.5cm. 2) Superficial ulcer with overlying hyperkeratosis measuring approximately 0.5cm x 0.7cm noted to left styloid process. 3) Superficial ulceration noted to proximolateral right leg with erythematous wound margins. Ulceration is noted to have a fibrotic base. 4) Superficial ulceration noted to posterior right heel with overlying eschar and hyperkeratosis. No clinical signs of infection noted to any woundx4. ORTHO: Generalized pain on palpation noted to lower extremity b/l. - Neurological Exam Additional comments: Pt was sleeping during today's visit - Psychiatric Exam Additional comments: Pt was sleeping at today's visit Assessment and Plan - Assessment and Plan (Free Text) Assessment: 89 year old female with superficial ulcerations secondary to DM Plan: Patient seen and evaluated at bedside. Discussed with attending, Dr. Gates. Charts, labs, vitals reviewed = afebrile, WBC WNL @ 5.9 Silvadene applied to wounds wounds x4 and dressed with DSD C/W offloading boots C/W pain management per medicine Wounds are stable from podiatry standpoint. Podiatry will continue to follow patient while in house
[2017-02-11] MEDS: Insulin Lispro (humaLOG) 100 Units/ml Inj SC SCH ×4 (08:59→22:00)
[2017-02-11] MEDS: Silver Sulfadiazine 1% Cream (20 gm) TOP SCH (09:02)
[2017-02-11] MEDS: DiphenhydrAMINE 50 mg/ml Inj IVP PRN (23:23)
[2017-02-12] MEDS: Levothyroxine 50 MCG TAB PO SCH (06:08)
[2017-02-12] MEDS ORDERED: Levothyroxine 50 MCG TAB ONE (06:30)
[2017-02-12] MEDS: Insulin Lispro (humaLOG) 100 Units/ml Inj SC SCH ×4 (06:37→22:06)
[2017-02-12 06:44] LABS: BASO % 0.4 % (0.0-2.0); EOS # 0.1 K/uL (0.0-0.7); EOS % 1.2 % (0.0-4.0); HEMOGLOBIN 11.4 g/dL (12.0-16.0); LYMPH # 0.6 K/uL (1.0-4.3); MEAN CELL VOLUME 105.4 fl (81.0-99.0); MEAN CORPUSCULAR HEMOGLOBIN 34.3 pg (27.0-31.0); MEAN CORPUSCULAR HGB CONC 32.5 g/dL (33.0-37.0); MEAN PLATELET VOLUME 9.6 fl (7.2-11.7); MONO # 1.8 K/uL (0.0-0.8); MONO % 30.8 % (0.0-10.0); NEUT # 3.4 K/uL (1.8-7.0); NEUT % 57.6 % (50.0-75.0); NRBC % 0.4 % (0.0-0.0); RBC 3.31 Mil/uL (3.80-5.20); RED CELL DISTRIBUTION WIDTH 15.5 % (11.5-14.5); WHITE BLOOD COUNT 5.9 K/uL (4.8-10.8)
[2017-02-12 06:59] LABS: INR 1.7 (0.9-1.2); PROTHROMBIN TIME 18.9 Seconds (9.8-13.1)
--- NOTE | 2017-02-12 09:11 | CP.PCM.PN ---
Subjective - Date & Time of Evaluation Date of Evaluation: 02/12/17 Time of Evaluation: 08:45 - Subjective Subjective: C/O Abd discomfort and anorexia/nausea A Fib well controlled with Metoprolol 50 Mg BID BP 100/74 mm Hg JVP full No pedal/sacral oedema PLTLT count 29K from 21K yesterday Manual PLTLT count was 48K yesterday INR down to 1.7 today Scheduled for HD Plan to have peritoneal tap by Friday () befor planning to D/C Will watch PLTLT count and INR before proceeding with peritoneal tap Objective - Vital Signs/Intake and Output Vital Signs (last 24 hours): Temp Pulse Resp BP Pulse Ox 97.7 F 77 18 99/53 L 96 02/12/17 08:21 02/12/17 08:21 02/12/17 08:21 02/12/17 08:21 02/12/17 08:21 - Medications Medications: Current Medications Acetaminophen (Tylenol 325mg Tab) 650 mg PO Q6H PRN PRN Reason: Fever >100.4 F Alprazolam (Xanax) 0.25 mg PO BID PRN PRN Reason: Anxiety Stop: 02/17/17 15:31 Last Admin: 02/11/17 06:09 Dose: 0.25 mg Cinacalcet (Sensipar) 30 mg PO QOTHERDAY [facility] Last Admin: 02/11/17 09:02 Dose: 30 mg Diphenhydramine HCl (Benadryl) 25 mg IVP Q6 PRN PRN Reason: Itching / Pruritus Last Admin: 02/11/17 23:23 Dose: 25 mg Docusate Sodium (Colace) 200 mg PO DAILY [facility] Last Admin: 02/11/17 09:00 Dose: 200 mg Insulin Human Lispro (Humalog) 0 units SC ACHS [facility] PRN Reason: Protocol Last Admin: 02/12/17 06:37 Dose: Not Given Levothyroxine Sodium (Synthroid) 50 mcg PO DAILY@0630 [facility] Last Admin: 02/12/17 06:08 Dose: 50 mcg Metoprolol Tartrate (Lopressor) 50 mg PO Q12 [facility] Last Admin: 02/11/17 23:54 Dose: 50 mg Ondansetron HCl (Zofran Inj) 4 mg IVP Q6 PRN PRN Reason: Nausea/Vomiting Last Admin: 02/11/17 22:01 Dose: 4 mg Sevelamer HCl (Renagel) 800 mg PO BIDWM [facility] Last Admin: 02/11/17 17:22 Dose: Not Given Silver Sulfadiazine (Silvadene 1% 20 Gm) 20 ea TOP QOTHERDAY [facility] Last Admin: 02/11/17 09:02 Dose: 1 % Sitagliptin Phosphate (Januvia) 25 mg PO DAILY [facility] Last Admin: 02/11/17 09:02 Dose: 25 mg - Labs Labs: 02/12/17 05:00 02/11/17 05:00 PT 18.9 Seconds (9.8-13.1) H D 02/12/17 05:00 INR 1.7 (0.9-1.2) H D 02/12/17 05:00 APTT 34.9 Seconds (25.6-37.1) 02/06/17 04:20
--- NOTE | 2017-02-12 09:33 | CP.PCM.PN ---
Subjective - Date & Time of Evaluation Date of Evaluation: 02/12/17 Time of Evaluation: 09:28 - Subjective Subjective: Pt is feeling better. Yesterday her machine platelet were 21K, but manual was 48K. Today his machine count is 28K she is improving. Will monitor platelet count. Objective - Vital Signs/Intake and Output Vital Signs (last 24 hours): Temp Pulse Resp BP Pulse Ox 97.7 F 77 18 99/53 L 96 02/12/17 08:21 02/12/17 09:05 02/12/17 08:21 02/12/17 08:21 02/12/17 08:21 - Medications Medications: Current Medications Acetaminophen (Tylenol 325mg Tab) 650 mg PO Q6H PRN PRN Reason: Fever >100.4 F Alprazolam (Xanax) 0.25 mg PO BID PRN PRN Reason: Anxiety Stop: 02/17/17 15:31 Last Admin: 02/11/17 06:09 Dose: 0.25 mg Cinacalcet (Sensipar) 30 mg PO QOTHERDAY [facility] Last Admin: 02/11/17 09:02 Dose: 30 mg Diphenhydramine HCl (Benadryl) 25 mg IVP Q6 PRN PRN Reason: Itching / Pruritus Last Admin: 02/11/17 23:23 Dose: 25 mg Docusate Sodium (Colace) 200 mg PO DAILY [facility] Last Admin: 02/11/17 09:00 Dose: 200 mg Insulin Human Lispro (Humalog) 0 units SC ACHS [facility] PRN Reason: Protocol Last Admin: 02/12/17 06:37 Dose: Not Given Levothyroxine Sodium (Synthroid) 50 mcg PO DAILY@0630 [facility] Last Admin: 02/12/17 06:08 Dose: 50 mcg Metoprolol Tartrate (Lopressor) 50 mg PO Q12 [facility] Last Admin: 02/11/17 23:54 Dose: 50 mg Ondansetron HCl (Zofran Inj) 4 mg IVP Q6 PRN PRN Reason: Nausea/Vomiting Last Admin: 02/11/17 22:01 Dose: 4 mg Sevelamer HCl (Renagel) 800 mg PO BIDWM [facility] Last Admin: 02/11/17 17:22 Dose: Not Given Silver Sulfadiazine (Silvadene 1% 20 Gm) 20 ea TOP QOTHERDAY [facility] Last Admin: 02/11/17 09:02 Dose: 1 % Sitagliptin Phosphate (Januvia) 25 mg PO DAILY [facility] Last Admin: 02/11/17 09:02 Dose: 25 mg - Labs Labs: 02/12/17 05:00 02/11/17 05:00 PT 18.9 Seconds (9.8-13.1) H D 02/12/17 05:00 INR 1.7 (0.9-1.2) H D 02/12/17 05:00 APTT 34.9 Seconds (25.6-37.1) 02/06/17 04:20
[2017-02-12] MEDS: DiphenhydrAMINE 50 mg/ml Inj IVP PRN (12:57)
--- NOTE | 2017-02-12 23:18 | CP.PCM.PN ---
Subjective - Date & Time of Evaluation Date of Evaluation: 02/12/17 Time of Evaluation: 19:00 - Subjective Subjective: SEEN ON RENAL F/U FEELS BETTER .. IN GOOD SPIRIT USUAL RECIEVED HER HD TODAY .. TOLERATED WELL Objective - Vital Signs/Intake and Output Vital Signs (last 24 hours): Temp Pulse Resp BP Pulse Ox 97.6 F 62 20 92/53 L 98 02/12/17 19:19 02/12/17 22:07 02/12/17 19:19 02/12/17 22:07 02/12/17 19:19 Intake and Output: 02/12/17 02/13/17 18:59 06:59 Intake Total 1000 Output Total 1500 Balance -500 - Medications Medications: Current Medications Acetaminophen (Tylenol 325mg Tab) 650 mg PO Q6H PRN PRN Reason: Fever >100.4 F Acetaminophen (Tylenol 325mg Tab) 650 mg PO Q6 PRN PRN Reason: Pain, moderate (4-7) Last Admin: 02/12/17 14:39 Dose: 650 mg Alprazolam (Xanax) 0.25 mg PO BID PRN PRN Reason: Anxiety Stop: 02/17/17 15:31 Last Admin: 02/11/17 06:09 Dose: 0.25 mg Cinacalcet (Sensipar) 30 mg PO QOTHERDAY [facility] Last Admin: 02/11/17 09:02 Dose: 30 mg Diphenhydramine HCl (Benadryl) 25 mg IVP Q6 PRN PRN Reason: Itching / Pruritus Last Admin: 02/12/17 12:57 Dose: 25 mg Docusate Sodium (Colace) 200 mg PO DAILY [facility] Last Admin: 02/12/17 10:00 Dose: 200 mg Insulin Human Lispro (Humalog) 0 units SC ACHS [facility] PRN Reason: Protocol Last Admin: 02/12/17 22:06 Dose: Not Given Levothyroxine Sodium (Synthroid) 50 mcg PO DAILY@0630 [facility] Last Admin: 02/12/17 06:08 Dose: 50 mcg Metoprolol Tartrate (Lopressor) 50 mg PO Q12 [facility] Last Admin: 02/12/17 22:07 Dose: Not Given Ondansetron HCl (Zofran Inj) 4 mg IVP Q6 PRN PRN Reason: Nausea/Vomiting Last Admin: 02/11/17 22:01 Dose: 4 mg Sevelamer HCl (Renagel) 800 mg PO BIDWM [facility] Last Admin: 02/12/17 16:16 Dose: 800 mg Silver Sulfadiazine (Silvadene 1% 20 Gm) 20 ea TOP QOTHERDAY [facility] Last Admin: 02/11/17 09:02 Dose: 1 % Sitagliptin Phosphate (Januvia) 25 mg PO DAILY [facility] Last Admin: 02/12/17 10:00 Dose: 25 mg - Labs Labs: 02/12/17 05:00 02/11/17 05:00 PT 18.9 Seconds (9.8-13.1) H D 02/12/17 05:00 INR 1.7 (0.9-1.2) H D 02/12/17 05:00 APTT 34.9 Seconds (25.6-37.1) 02/06/17 04:20 Assessment and Plan - Assessment and Plan (Free Text) Assessment: ESRD ON HD TTS .. TO BE CONTINUED ANEMIA OF CKD .. H/H STABLE MULTIPLE CO MORBIDITIES P : C/O CURRENT CARE C/O PRESENT MANAGEMENT
[2017-02-13] MEDS: DiphenhydrAMINE 50 mg/ml Inj IVP PRN ×2 (00:05→12:24)
[2017-02-13] MEDS: Insulin Lispro (humaLOG) 100 Units/ml Inj SC SCH ×4 (06:46→21:52)
[2017-02-13 07:33] LABS: BASO % 0.3 % (0.0-2.0); EOS # 0.1 K/uL (0.0-0.7); EOS % 1.3 % (0.0-4.0); HEMOGLOBIN 11.2 g/dL (12.0-16.0); LYMPH # 0.5 K/uL (1.0-4.3); LYMPH % 11.1 % (20.0-40.0); MEAN CELL VOLUME 105.2 fl (81.0-99.0); MEAN CORPUSCULAR HEMOGLOBIN 33.9 pg (27.0-31.0); MEAN CORPUSCULAR HGB CONC 32.3 g/dL (33.0-37.0); MEAN PLATELET VOLUME 10.9 fl (7.2-11.7); MONO # 1.4 K/uL (0.0-0.8); NEUT # 2.9 K/uL (1.8-7.0); NEUT % 58.3 % (50.0-75.0); NRBC % 0.3 % (0.0-0.0); PLATELET COUNT 45 K/uL (130-400); RBC 3.31 Mil/uL (3.80-5.20); RED CELL DISTRIBUTION WIDTH 15.4 % (11.5-14.5); WHITE BLOOD COUNT 4.9 K/uL (4.8-10.8)
[2017-02-13 07:36] LABS: INR 1.4 (0.9-1.2); PROTHROMBIN TIME 15.5 Seconds (9.8-13.1)
--- NOTE | 2017-02-13 09:05 | CP.PCM.PN ---
Subjective - Date & Time of Evaluation Date of Evaluation: 02/13/17 Time of Evaluation: 08:00 - Subjective Subjective: 89 year old female patient PMH End stage renal disease - on hemodialysis, chronic afib, severe RV failure, pulmonary HTN, DM II, seen at bedside resting comfortably, AAOx3 and NAD. Patient reports generalized pain to LE today. Patient denies any acute events overnight. Patient denies N/V/F/D/C/SOB/calf pain. No other pedal complaints at this time. Objective - Vital Signs/Intake and Output Vital Signs (last 24 hours): Temp Pulse Resp BP Pulse Ox 97.5 F L 83 20 90/51 L 95 02/13/17 08:00 02/13/17 08:00 02/13/17 08:00 02/13/17 08:00 02/13/17 08:00 Intake and Output: 02/13/17 02/13/17 06:59 18:59 Intake Total 0 Balance 0 - Medications Medications: Current Medications Acetaminophen (Tylenol 325mg Tab) 650 mg PO Q6H PRN PRN Reason: Fever >100.4 F Acetaminophen (Tylenol 325mg Tab) 650 mg PO Q6 PRN PRN Reason: Pain, moderate (4-7) Last Admin: 02/12/17 14:39 Dose: 650 mg Alprazolam (Xanax) 0.25 mg PO BID PRN PRN Reason: Anxiety Stop: 02/17/17 15:31 Last Admin: 02/11/17 06:09 Dose: 0.25 mg Cinacalcet (Sensipar) 30 mg PO QOTHERDAY [facility] Last Admin: 02/11/17 09:02 Dose: 30 mg Diphenhydramine HCl (Benadryl) 25 mg IVP Q6 PRN PRN Reason: Itching / Pruritus Last Admin: 02/13/17 00:05 Dose: 25 mg Docusate Sodium (Colace) 200 mg PO DAILY [facility] Last Admin: 02/12/17 10:00 Dose: 200 mg Insulin Human Lispro (Humalog) 0 units SC [facility] PRN Reason: Protocol Last Admin: 02/13/17 06:46 Dose: Not Given Levothyroxine Sodium (Synthroid) 50 mcg PO DAILY@0630 [facility] Last Admin: 02/12/17 06:08 Dose: 50 mcg Metoprolol Tartrate (Lopressor) 50 mg PO Q12 [facility] Last Admin: 02/12/17 22:07 Dose: Not Given Ondansetron HCl (Zofran Inj) 4 mg IVP Q6 PRN PRN Reason: Nausea/Vomiting Last Admin: 02/11/17 22:01 Dose: 4 mg Sevelamer HCl (Renagel) 800 mg PO BIDWM [facility] Last Admin: 02/12/17 16:16 Dose: 800 mg Silver Sulfadiazine (Silvadene 1% 20 Gm) 20 ea TOP QOTHERDAY [facility] Last Admin: 02/11/17 09:02 Dose: 1 % Sitagliptin Phosphate (Januvia) 25 mg PO DAILY [facility] Last Admin: 02/12/17 10:00 Dose: 25 mg - Labs Labs: 02/13/17 06:00 02/11/17 05:00 PT 15.5 Seconds (9.8-13.1) H 02/13/17 06:00 INR 1.4 (0.9-1.2) H 02/13/17 06:00 APTT 34.9 Seconds (25.6-37.1) 02/06/17 04:20 - Constitutional Appears: Well, Non-toxic, No Acute Distress - Extremities Exam Additional comments: VASC: DP/PT pulses are palpable 1/4 b/l, PALLIATIVE MEDICINE PHYSICIAN: < 3 sec to all digits, TG: cool to cool NEURO: Protective sensation slightly diminished DERM: 1) Blood-filled blister at distal tuft of left 5th digit measuring approximately 1cm x 0.5cm. 2) Superficial ulcer with overlying hyperkeratosis measuring approximately 0.5cm x 0.7cm noted to left styloid process. 3) Superficial ulceration noted to proximolateral right leg. Ulceration is noted to have a fibrotic base and a hyperkeratotic rim. 4) Superficial ulceration noted to posterior right heel with overlying eschar and hyperkeratosis. No clinical signs of infection noted to any woundx4. ORTHO: Generalized pain on palpation noted to lower extremity b/l. - Neurological Exam Neurological Exam: Alert, Awake, Oriented x3 - Psychiatric Exam Psychiatric exam: Normal Affect, Normal Mood Assessment and Plan - Assessment and Plan (Free Text) Assessment: 89 year old female with superficial ulcerations secondary to DM Plan: Patient seen and evaluated at bedside. Discussed with attending, Dr. Gates. Charts, labs, vitals reviewed = afebrile, WBC WNL @ 4.9 Silvadene applied to wounds wounds x2. BLE dressed with DSD C/W offloading boots C/W pain management per medicine Wounds are stable from podiatry standpoint. Podiatry will continue to follow patient while in house
--- NOTE | 2017-02-13 09:58 | CP.PCM.PN ---
Subjective - Date & Time of Evaluation Date of Evaluation: 02/13/17 Time of Evaluation: 09:57 - Subjective Subjective: Pt's machine platelet count has gone up to 45K She appears to be improving. Will sign off case. Please recall in needed Objective - Vital Signs/Intake and Output Vital Signs (last 24 hours): Temp Pulse Resp BP Pulse Ox 97.5 F L 83 20 90/51 L 95 02/13/17 08:00 02/13/17 08:00 02/13/17 08:00 02/13/17 08:00 02/13/17 08:00 Intake and Output: 02/13/17 02/13/17 06:59 18:59 Intake Total 0 Balance 0 - Medications Medications: Current Medications Acetaminophen (Tylenol 325mg Tab) 650 mg PO Q6H PRN PRN Reason: Fever >100.4 F Acetaminophen (Tylenol 325mg Tab) 650 mg PO Q6 PRN PRN Reason: Pain, moderate (4-7) Last Admin: 02/12/17 14:39 Dose: 650 mg Alprazolam (Xanax) 0.25 mg PO BID PRN PRN Reason: Anxiety Stop: 02/17/17 15:31 Last Admin: 02/11/17 06:09 Dose: 0.25 mg Cinacalcet (Sensipar) 30 mg PO QOTHERDAY [facility] Last Admin: 02/11/17 09:02 Dose: 30 mg Diphenhydramine HCl (Benadryl) 25 mg IVP Q6 PRN PRN Reason: Itching / Pruritus Last Admin: 02/13/17 00:05 Dose: 25 mg Docusate Sodium (Colace) 200 mg PO DAILY [facility] Last Admin: 02/12/17 10:00 Dose: 200 mg Insulin Human Lispro (Humalog) 0 units SC ACHS [facility] PRN Reason: Protocol Last Admin: 02/13/17 06:46 Dose: Not Given Levothyroxine Sodium (Synthroid) 50 mcg PO DAILY@0630 [facility] Last Admin: 02/12/17 06:08 Dose: 50 mcg Metoprolol Tartrate (Lopressor) 50 mg PO Q12 [facility] Last Admin: 02/12/17 22:07 Dose: Not Given Ondansetron HCl (Zofran Inj) 4 mg IVP Q6 PRN PRN Reason: Nausea/Vomiting Last Admin: 02/11/17 22:01 Dose: 4 mg Sevelamer HCl (Renagel) 800 mg PO BIDWM [facility] Last Admin: 02/12/17 16:16 Dose: 800 mg Silver Sulfadiazine (Silvadene 1% 20 Gm) 20 ea TOP QOTHERDAY [facility] Last Admin: 02/11/17 09:02 Dose: 1 % Sitagliptin Phosphate (Januvia) 25 mg PO DAILY [facility] Last Admin: 02/12/17 10:00 Dose: 25 mg - Labs Labs: 02/13/17 06:00 02/11/17 05:00 PT 15.5 Seconds (9.8-13.1) H 02/13/17 06:00 INR 1.4 (0.9-1.2) H 02/13/17 06:00 APTT 34.9 Seconds (25.6-37.1) 02/06/17 04:20
[2017-02-13] MEDS: Levothyroxine 50 MCG TAB PO SCH (10:14)
[2017-02-13] MEDS: Silver Sulfadiazine 1% Cream (20 gm) TOP SCH (10:14)
--- NOTE | 2017-02-13 10:16 | CP.PCM.PN ---
Subjective - Date & Time of Evaluation Date of Evaluation: 02/13/17 Time of Evaluation: 10:00 - Subjective Subjective: Clinically doing well A Fib at 70-80 BPM BP 100/64 mm Hg Ascites pronounced and uncomfortable PLTLT count 45K INR 1.4 Tentatively plan abd paracentasis tomorrow Objective - Vital Signs/Intake and Output Vital Signs (last 24 hours): Temp Pulse Resp BP Pulse Ox 97.5 F L 83 20 90/51 L 95 02/13/17 08:00 02/13/17 08:00 02/13/17 08:00 02/13/17 08:00 02/13/17 08:00 Intake and Output: 02/13/17 02/13/17 06:59 18:59 Intake Total 0 Balance 0 - Medications Medications: Current Medications Acetaminophen (Tylenol 325mg Tab) 650 mg PO Q6H PRN PRN Reason: Fever >100.4 F Acetaminophen (Tylenol 325mg Tab) 650 mg PO Q6 PRN PRN Reason: Pain, moderate (4-7) Last Admin: 02/12/17 14:39 Dose: 650 mg Alprazolam (Xanax) 0.25 mg PO BID PRN PRN Reason: Anxiety Stop: 02/17/17 15:31 Last Admin: 02/11/17 06:09 Dose: 0.25 mg Cinacalcet (Sensipar) 30 mg PO QOTHERDAY [facility] Last Admin: 02/11/17 09:02 Dose: 30 mg Diphenhydramine HCl (Benadryl) 25 mg IVP Q6 PRN PRN Reason: Itching / Pruritus Last Admin: 02/13/17 00:05 Dose: 25 mg Docusate Sodium (Colace) 200 mg PO DAILY [facility] Last Admin: 02/12/17 10:00 Dose: 200 mg Insulin Human Lispro (Humalog) 0 units SC ACHS [facility] PRN Reason: Protocol Last Admin: 02/13/17 06:46 Dose: Not Given Levothyroxine Sodium (Synthroid) 50 mcg PO DAILY@0630 [facility] Last Admin: 02/12/17 06:08 Dose: 50 mcg Metoprolol Tartrate (Lopressor) 50 mg PO Q12 [facility] Last Admin: 02/12/17 22:07 Dose: Not Given Ondansetron HCl (Zofran Inj) 4 mg IVP Q6 PRN PRN Reason: Nausea/Vomiting Last Admin: 02/11/17 22:01 Dose: 4 mg Sevelamer HCl (Renagel) 800 mg PO BIDWM [facility] Last Admin: 02/12/17 16:16 Dose: 800 mg Silver Sulfadiazine (Silvadene 1% 20 Gm) 20 ea TOP QOTHERDAY [facility] Last Admin: 02/11/17 09:02 Dose: 1 % Sitagliptin Phosphate (Januvia) 25 mg PO DAILY [facility] Last Admin: 02/12/17 10:00 Dose: 25 mg - Labs Labs: 02/13/17 06:00 02/11/17 05:00 PT 15.5 Seconds (9.8-13.1) H 02/13/17 06:00 INR 1.4 (0.9-1.2) H 02/13/17 06:00 APTT 34.9 Seconds (25.6-37.1) 02/06/17 04:20
[2017-02-13 10:50] LABS: BASOPHIL 1 % (0-2); EOSINOPHIL 1 % (0-7); LYMPHOCYTE 14 % (20-50); MONOCYTE 22 % (0-10); NEUTROPHIL 62 % (42-75); PLATELET ESTIMATE DECREASED (NORMAL); TOTAL CELLS COUNTED 100
[2017-02-13 10:51] LABS: ANISOCYTOSIS SLIGHT; HYPOCHROMIC SLIGHT; OVALOCYTES SLIGHT
[2017-02-13 10:52] LABS: LARGE PLATELETS PRESENT
--- NOTE | 2017-02-13 20:05 | CP.PCM.PN ---
Subjective - Date & Time of Evaluation Date of Evaluation: 02/13/17 Time of Evaluation: 17:00 - Subjective Subjective: SEEN ON RENAL F/U D/W DAUGHTER D/W DR VERMA : PT IS GETTING PARACENTHESIS IN AM .. WILL BUMP HD TO [place] Objective - Vital Signs/Intake and Output Vital Signs (last 24 hours): Temp Pulse Resp BP Pulse Ox 97.6 F 76 20 90/47 L 97 02/13/17 19:41 02/13/17 19:41 02/13/17 19:41 02/13/17 19:41 02/13/17 19:41 Intake and Output: 02/13/17 02/14/17 18:59 06:59 Intake Total 300 Balance 300 - Medications Medications: Current Medications Acetaminophen (Tylenol 325mg Tab) 650 mg PO Q6H PRN PRN Reason: Fever >100.4 F Acetaminophen (Tylenol 325mg Tab) 650 mg PO Q6 PRN PRN Reason: Pain, moderate (4-7) Last Admin: 02/13/17 12:27 Dose: 650 mg Cinacalcet (Sensipar) 30 mg PO QOTHERDAY [facility] Last Admin: 02/13/17 10:16 Dose: 30 mg Diphenhydramine HCl (Benadryl) 25 mg IVP Q6 PRN PRN Reason: Itching / Pruritus Last Admin: 02/13/17 12:24 Dose: 25 mg Docusate Sodium (Colace) 200 mg PO DAILY [facility] Last Admin: 02/13/17 10:13 Dose: 200 mg Insulin Human Lispro (Humalog) 0 units SC ACHS [facility] PRN Reason: Protocol Last Admin: 02/13/17 16:28 Dose: Not Given Levothyroxine Sodium (Synthroid) 50 mcg PO DAILY@0630 [facility] Last Admin: 02/13/17 10:14 Dose: 50 mcg Metoprolol Tartrate (Lopressor) 50 mg PO Q12 [facility] Last Admin: 02/13/17 10:16 Dose: Not Given Ondansetron HCl (Zofran Inj) 4 mg IVP Q6 PRN PRN Reason: Nausea/Vomiting Last Admin: 02/11/17 22:01 Dose: 4 mg Sevelamer HCl (Renagel) 800 mg PO BIDWM [facility] Last Admin: 02/13/17 16:29 Dose: 800 mg Silver Sulfadiazine (Silvadene 1% 20 Gm) 20 ea [facility] Last Admin: 02/13/17 10:14 Dose: 1 % Sitagliptin Phosphate (Januvia) 25 mg PO DAILY [facility] Last Admin: 02/13/17 10:13 Dose: 25 mg - Labs Labs: 02/13/17 06:00 02/11/17 05:00 PT 15.5 Seconds (9.8-13.1) H 02/13/17 06:00 INR 1.4 (0.9-1.2) H 02/13/17 06:00 APTT 34.9 Seconds (25.6-37.1) 02/06/17 04:20 Assessment and Plan - Assessment and Plan (Free Text) Assessment: ESRD ON HD M W F .. WILL BUMP HD FROM TOMORROW TO [place] ANEMIA OF CKD .. H/H STABLE GAINING FLUID MINH IN ABDO .. NEEDS FLUID RESTRICTION P ; c/o current care
[2017-02-14] MEDS: DiphenhydrAMINE 50 mg/ml Inj IVP PRN ×2 (02:15→21:25)
[2017-02-14] MEDS: Levothyroxine 50 MCG TAB PO SCH (05:54)
[2017-02-14] MEDS: Insulin Lispro (humaLOG) 100 Units/ml Inj SC SCH ×4 (06:29→21:40)
[2017-02-14 07:12] LABS: BASO % 0.5 % (0.0-2.0); EOS # 0.1 K/uL (0.0-0.7); EOS % 1.1 % (0.0-4.0); HEMOGLOBIN 11.3 g/dL (12.0-16.0); LYMPH # 0.7 K/uL (1.0-4.3); MEAN CELL VOLUME 104.7 fl (81.0-99.0); MEAN CORPUSCULAR HEMOGLOBIN 34.3 pg (27.0-31.0); MEAN CORPUSCULAR HGB CONC 32.7 g/dL (33.0-37.0); MEAN PLATELET VOLUME 9.1 fl (7.2-11.7); MONO # 1.4 K/uL (0.0-0.8); MONO % 27.7 % (0.0-10.0); NEUT # 2.9 K/uL (1.8-7.0); NEUT % 57.7 % (50.0-75.0); NRBC % 0.3 % (0.0-0.0); RBC 3.3 Mil/uL (3.80-5.20); RED CELL DISTRIBUTION WIDTH 15.5 % (11.5-14.5)
[2017-02-14 07:22] LABS: INR 1.3 (0.9-1.2); PROTHROMBIN TIME 14.9 Seconds (9.8-13.1)
--- NOTE | 2017-02-14 09:01 | CP.PCM.PN ---
Subjective - Date & Time of Evaluation Date of Evaluation: 02/14/17 Time of Evaluation: 09:30 - Subjective Subjective: Resting comfortably Resp rate 16-18BPM A Fib at 70-50 BPM BP 106/70 mm Hg JVP full Abd distension with ascites +++ Scheduled for paracentasis today PLTLT count 70K ( Manual) INR 1.3 HD tomorrow Will resume Warfarin ( Ordered) Objective - Vital Signs/Intake and Output Vital Signs (last 24 hours): Temp Pulse Resp BP Pulse Ox 97.3 F L 97 H 20 112/65 95 02/14/17 08:00 02/14/17 08:00 02/14/17 08:00 02/14/17 08:00 02/14/17 08:00 - Medications Medications: Current Medications Acetaminophen (Tylenol 325mg Tab) 650 mg PO Q6H PRN PRN Reason: Fever >100.4 F Acetaminophen (Tylenol 325mg Tab) 650 mg PO Q6 PRN PRN Reason: Pain, moderate (4-7) Last Admin: 02/13/17 12:27 Dose: 650 mg Alprazolam (Xanax) 0.5 mg PO BID ONE Stop: 02/14/17 08:56 Cinacalcet (Sensipar) 30 mg PO QOTHERDAY [facility] Last Admin: 02/13/17 10:16 Dose: 30 mg Diphenhydramine HCl (Benadryl) 25 mg IVP Q6 PRN PRN Reason: Itching / Pruritus Last Admin: 02/14/17 02:15 Dose: 25 mg Docusate Sodium (Colace) 200 mg PO DAILY [facility] Last Admin: 02/13/17 10:13 Dose: 200 mg Insulin Human Lispro (Humalog) 0 units SC [facility] PRN Reason: Protocol Last Admin: 02/14/17 06:29 Dose: Not Given Levothyroxine Sodium (Synthroid) 50 mcg PO DAILY@0630 [facility] Last Admin: 02/14/17 05:54 Dose: Not Given Metoprolol Tartrate (Lopressor) 50 mg PO Q12 [facility] Last Admin: 02/13/17 21:52 Dose: Not Given Ondansetron HCl (Zofran Inj) 4 mg IVP Q6 PRN PRN Reason: Nausea/Vomiting Last Admin: 02/11/17 22:01 Dose: 4 mg Sevelamer HCl (Renagel) 800 mg PO BIDWM [facility] Last Admin: 02/13/17 16:29 Dose: 800 mg Silver Sulfadiazine (Silvadene 1% 20 Gm) 20 ea TOP QOTHERDAY [facility] Last Admin: 02/13/17 10:14 Dose: 1 % Sitagliptin Phosphate (Januvia) 25 mg PO DAILY [facility] Last Admin: 02/13/17 10:13 Dose: 25 mg Warfarin Sodium (Coumadin) 10 mg PO QD5 [facility] PRN Reason: Protocol Stop: 02/14/17 17:01 - Labs Labs: 02/14/17 06:10 02/11/17 05:00 PT 14.9 Seconds (9.8-13.1) H 02/14/17 06:10 INR 1.3 (0.9-1.2) H 02/14/17 06:10 APTT 34.9 Seconds (25.6-37.1) 02/06/17 04:20
[2017-02-14] MEDS ORDERED: Lidocaine 1% Inj (20ml) ONE (12:45)
--- NOTE | 2017-02-14 13:30 | PCM.SURG1 ---
Surgeon's Initial Post Op Note - Surgeon's Notes Surgeon: Sohail Cruz MD [employer] Plaster: None Type of Anesthesia: Local Pre-Operative Diagnosis: Ascites Operative Findings: US showed a large amount of ascites Post-Operative Diagnosis: Ascites Operation Performed: US guided paracentesis. Specimen/Specimens Removed: 6100 cc of apple colored fluid Estimated Blood Loss: EBL {In ML}: 0 Blood Products Given: N/A Drains Used: No Drains Post-Op Condition: Fair Date of Surgery/Procedure: 02/14/17 Time of Surgery/Procedure: 13:25
--- NOTE | 2017-02-14 22:14 | CP.PCM.PN ---
Subjective - Date & Time of Evaluation Date of Evaluation: 02/14/17 Time of Evaluation: 16:00 - Subjective Subjective: SEEN ON RENAL F/U SON , TUBING TESTER ON BED SIDE FEELS MUCH BETTER .. S/P PARACENTHESIS .. 6 L ABDO SOFT NON TENDER IN VERY GOOD SPIRIT I EMPHASIZE THE NEED FOR FLUID RESTRICTION ALL PREVIOUS EMR REVIEWED Objective - Vital Signs/Intake and Output Vital Signs (last 24 hours): Temp Pulse Resp BP Pulse Ox 98 F 94 H 20 96/53 L 100 02/14/17 19:20 02/14/17 19:20 02/14/17 19:20 02/14/17 19:20 02/14/17 19:20 Intake and Output: 02/14/17 02/15/17 18:59 06:59 Intake Total 200 Output Total 6100 Balance -5900 - Medications Medications: Current Medications Acetaminophen (Tylenol 325mg Tab) 650 mg PO Q6H PRN PRN Reason: Fever >100.4 F Acetaminophen (Tylenol 325mg Tab) 650 mg PO Q6 PRN PRN Reason: Pain, moderate (4-7) Last Admin: 02/13/17 12:27 Dose: 650 mg Cinacalcet (Sensipar) 30 mg PO QOTHERDAY [facility] Last Admin: 02/13/17 10:16 Dose: 30 mg Diphenhydramine HCl (Benadryl) 25 mg IVP Q6 PRN PRN Reason: Itching / Pruritus Last Admin: 02/14/17 21:25 Dose: 25 mg Docusate Sodium (Colace) 200 mg PO DAILY [facility] Last Admin: 02/14/17 13:56 Dose: Not Given Ergocalciferol (Drisdol 50,000 Intl Units Cap) 1 cap PO Q7D [facility] Insulin Human Lispro (Humalog) 0 units SC ACHS [facility] PRN Reason: Protocol Last Admin: 02/14/17 17:16 Dose: Not Given Levothyroxine Sodium (Synthroid) 50 mcg PO DAILY@0630 [facility] Last Admin: 02/14/17 05:54 Dose: Not Given Metoprolol Tartrate (Lopressor) 50 mg PO Q12 [facility] Last Admin: 02/14/17 21:30 Dose: Not Given Ondansetron HCl (Zofran Inj) 4 mg IVP Q6 PRN PRN Reason: Nausea/Vomiting Last Admin: 02/11/17 22:01 Dose: 4 mg Sevelamer HCl (Renagel) 800 mg PO BIDWM [facility] Last Admin: 02/14/17 17:20 Dose: 800 mg Silver Sulfadiazine (Silvadene 1% 20 Gm) 20 ea TOP QOTHERDAY [facility] Last Admin: 02/13/17 10:14 Dose: 1 % Sitagliptin Phosphate (Januvia) 25 mg PO DAILY [facility] Last Admin: 02/14/17 13:54 Dose: Not Given Vitamin B Complex/Vit C/Folic Acid (Nephro-Goran) 1 tab PO DAILY [facility] - Labs Labs: 02/14/17 06:10 02/11/17 05:00 PT 14.9 Seconds (9.8-13.1) H 02/14/17 06:10 INR 1.3 (0.9-1.2) H 02/14/17 06:10 APTT 34.9 Seconds (25.6-37.1) 02/06/17 04:20 Assessment and Plan - Assessment and Plan (Free Text) Assessment: ESRD ON HD M W F .. WE BUMPED HER HD FROM TODAY TO TOMORROW HAD HER PARACENTHESIS TODAY .. FEELS MUCH BETTER MULTIPLE CO MORBIDITIES P : FOR HD IN AM FOR POSSIBLE D/C POST HD D/W DR VERMA
[2017-02-14] MEDS ORDERED: Ergocalciferol 50,000 Intl Units Cap PO SCH (22:15)
[2017-02-15] MEDS: Insulin Lispro (humaLOG) 100 Units/ml Inj SC SCH ×3 (00:42→16:35)
[2017-02-15] MEDS: Levothyroxine 50 MCG TAB PO SCH (07:49)
[2017-02-15] MEDS: DiphenhydrAMINE 50 mg/ml Inj IVP PRN (07:51)
[2017-02-15 08:32] LABS: INR 1.2 (0.9-1.2)
[2017-02-15] MEDS: Silver Sulfadiazine 1% Cream (20 gm) TOP SCH (08:56)
[2017-02-15] MEDS ORDERED: Ergocalciferol 50,000 Intl Units Cap PO SCH (09:00)
[2017-02-15] MEDS ORDERED: Multivitamin Vitamin B Complex (Nephro-Vite) Tab PO SCH (09:00)
--- NOTE | 2017-02-15 11:15 | CP.PCM.PN ---
Subjective - Date & Time of Evaluation Date of Evaluation: 02/15/17 Time of Evaluation: 11:05 - Subjective Subjective: C/O pruritus (a chronic complaint due to ESRD) Breathes a lot more comfortably Telemetry shows A Fib at 82 BPM BP 100/70 mm Hg Abd much flatter ( Had 6 Litres of ascitic fluid drained yesterday) Scheduled for HD today Will go home post HD INR 1.2 (Had received 10 Mg of Vit K 4 days back) Warfarin ordered Objective - Vital Signs/Intake and Output Vital Signs (last 24 hours): Temp Pulse Resp BP Pulse Ox 97.6 F 86 20 99/58 L 97 02/15/17 08:00 02/15/17 08:54 02/15/17 08:00 02/15/17 08:54 02/15/17 08:00 - Medications Medications: Current Medications Acetaminophen (Tylenol 325mg Tab) 650 mg PO Q6H PRN PRN Reason: Fever >100.4 F Acetaminophen (Tylenol 325mg Tab) 650 mg PO Q6 PRN PRN Reason: Pain, moderate (4-7) Last Admin: 02/15/17 07:48 Dose: 650 mg Cinacalcet (Sensipar) 30 mg PO QOTHERDAY [facility] Last Admin: 02/15/17 08:56 Dose: 30 mg Diphenhydramine HCl (Benadryl) 25 mg IVP Q6 PRN PRN Reason: Itching / Pruritus Last Admin: 02/15/17 07:51 Dose: 25 mg Docusate Sodium (Colace) 200 mg PO DAILY [facility] Last Admin: 02/15/17 08:55 Dose: 200 mg Ergocalciferol (Drisdol 50,000 Intl Units Cap) 1 cap PO SAT [facility] Last Admin: 02/15/17 08:54 Dose: 1 cap Insulin Human Lispro (Humalog) 0 units SC ACHS [facility] PRN Reason: Protocol Last Admin: 02/15/17 08:55 Dose: Not Given Levothyroxine Sodium (Synthroid) 50 mcg PO DAILY@0630 [facility] Last Admin: 02/15/17 07:49 Dose: 50 mcg Metoprolol Tartrate (Lopressor) 50 mg PO Q12 [facility] Last Admin: 02/15/17 08:54 Dose: Not Given Ondansetron HCl (Zofran Inj) 4 mg IVP Q6 PRN PRN Reason: Nausea/Vomiting Last Admin: 02/11/17 22:01 Dose: 4 mg Sevelamer HCl (Renagel) 800 mg PO BIDWM [facility] Last Admin: 02/15/17 08:54 Dose: 800 mg Silver Sulfadiazine (Silvadene 1% 20 Gm) 20 ea TOP QOTHERDAY [facility] Last Admin: 02/15/17 08:56 Dose: 20 % Sitagliptin Phosphate (Januvia) 25 mg PO DAILY [facility] Last Admin: 02/15/17 08:54 Dose: 25 mg Vitamin B Complex/Vit C/Folic Acid (Nephro-Goran) 1 tab PO DAILY [facility] Last Admin: 02/15/17 08:53 Dose: 1 tab Warfarin Sodium (Coumadin) 10 mg PO QD5 [facility] PRN Reason: Protocol Stop: 02/15/17 17:01 - Labs Labs: 02/14/17 06:10 02/11/17 05:00 PT 14.0 Seconds (9.8-13.1) H 02/15/17 06:00 INR 1.2 (0.9-1.2) 02/15/17 06:00 APTT 34.9 Seconds (25.6-37.1) 02/06/17 04:20
--- NOTE | 2017-02-15 12:23 | CP.PCM.PN ---
Subjective - Date & Time of Evaluation Date of Evaluation: 02/15/17 Time of Evaluation: 12:23 - Subjective Subjective: 89 year old female patient with PMHx of ESRD onn hemodialysis, chronic afib, severe RV failure, pulmonary HTN, DM II, seen at bedside resting comfortably, AAOx3 and NAD. Patient states she is still experiencing pain in both lower extremities that is unchanged. Patient denies any acute events overnight. Patient denies N/V/F/D/C/SOB/calf pain. No other pedal complaints at this time. Objective - Vital Signs/Intake and Output Vital Signs (last 24 hours): Temp Pulse Resp BP Pulse Ox 97.6 F 86 20 99/58 L 97 02/15/17 08:00 02/15/17 08:54 02/15/17 08:00 02/15/17 08:54 02/15/17 08:00 - Medications Medications: Current Medications Acetaminophen (Tylenol 325mg Tab) 650 mg PO Q6H PRN PRN Reason: Fever >100.4 F Acetaminophen (Tylenol 325mg Tab) 650 mg PO Q6 PRN PRN Reason: Pain, moderate (4-7) Last Admin: 02/15/17 07:48 Dose: 650 mg Cinacalcet (Sensipar) 30 mg PO QOTHERDAY [facility] Last Admin: 02/15/17 08:56 Dose: 30 mg Diphenhydramine HCl (Benadryl) 25 mg IVP Q6 PRN PRN Reason: Itching / Pruritus Last Admin: 02/15/17 07:51 Dose: 25 mg Docusate Sodium (Colace) 200 mg PO DAILY [facility] Last Admin: 02/15/17 08:55 Dose: 200 mg Ergocalciferol (Drisdol 50,000 Intl Units Cap) 1 cap PO SAT [facility] Last Admin: 02/15/17 08:54 Dose: 1 cap Insulin Human Lispro (Humalog) 0 units SC ACHS [facility] PRN Reason: Protocol Last Admin: 02/15/17 08:55 Dose: Not Given Levothyroxine Sodium (Synthroid) 50 mcg PO DAILY@0630 [facility] Last Admin: 02/15/17 07:49 Dose: 50 mcg Metoprolol Tartrate (Lopressor) 50 mg PO Q12 [facility] Last Admin: 02/15/17 08:54 Dose: Not Given Ondansetron HCl (Zofran Inj) 4 mg IVP Q6 PRN PRN Reason: Nausea/Vomiting Last Admin: 02/11/17 22:01 Dose: 4 mg Sevelamer HCl (Renagel) 800 mg PO BIDWM [facility] Last Admin: 02/15/17 08:54 Dose: 800 mg Silver Sulfadiazine (Silvadene 1% 20 Gm) 20 ea TOP QOTHERDAY [facility] Last Admin: 02/15/17 08:56 Dose: 20 % Sitagliptin Phosphate (Januvia) 25 mg PO DAILY [facility] Last Admin: 02/15/17 08:54 Dose: 25 mg Vitamin B Complex/Vit C/Folic Acid (Nephro-Goran) 1 tab PO DAILY [facility] Last Admin: 02/15/17 08:53 Dose: 1 tab Warfarin Sodium (Coumadin) 10 mg PO QD5 [facility] PRN Reason: Protocol Stop: 02/15/17 17:01 - Labs Labs: 02/14/17 06:10 02/11/17 05:00 PT 14.0 Seconds (9.8-13.1) H 02/15/17 06:00 INR 1.2 (0.9-1.2) 02/15/17 06:00 APTT 34.9 Seconds (25.6-37.1) 02/06/17 04:20 - Constitutional Appears: Well, Non-toxic, No Acute Distress - Extremities Exam Additional comments: Lower extremity focused examination: Vasc: DP/PT pulses are palpable 1/4 B/L. CFT< 3 sec to all digits. Temperature gradient is cool to cool Neuro: Protective sensation slightly diminished Derm: 1) Blood-filled blister at distal tuft of left 5th digit measuring approximately 1cm x 0.5cm. 2) Superficial ulcer with overlying hyperkeratosis measuring approximately 0.5cm x 0.7cm noted to left styloid process. 3) Superficial pre-ulcerative lesion noted to proximolateral right leg. Overlying hyperkeratosis with no open lesion noted 4) Superficial ulceration noted to posterior right heel with overlying eschar and hyperkeratosis. No clinical signs of infection noted to any woundx4. Ortho: Generalized pain on palpation noted to lower extremity B/L. - Neurological Exam Neurological Exam: Alert, Awake, Oriented x3 - Psychiatric Exam Psychiatric exam: Normal Affect, Normal Mood Assessment and Plan - Assessment and Plan (Free Text) Assessment: 89 year old female with superficial ulcerations secondary to DM Plan: Patient seen and evaluated at bedside Discussed in detail with attending, Dr. Gates Charts, labs, and vitals reviewed = afebrile, WBC 5.0 Silvadene applied to wounds on right leg and foot x2 and dressed right LE with DSD C/W offloading boots C/W pain management per medicine Wounds are stable from podiatry standpoint Podiatry will continue to follow patient while in house Patient to F/U with Dr. Gates as outpatient in [place] office upon discharge home
[2017-02-15 15:52] VITALS: RESP 18
[2017-02-15 19:08] VITALS: BP 97/41; PULSE 74; TEMP 97.9; O2SAT 97
--- NOTE | 2017-02-15 23:02 | CP.PCM.PN ---
Subjective - Date & Time of Evaluation Date of Evaluation: 02/15/17 Time of Evaluation: 15:00 - Subjective Subjective: SEEN ON RENAL F/U HD IS STARTING NOW .. HD ORDERS GIVEN AND D/W HD RN PT IS FEELING MUCH BETTER FOR D/C POST HD BP IS RUNNING LOW .. WILL GIVE MIDODRIN 10 MG PO PRE HD Objective - Vital Signs/Intake and Output Vital Signs (last 24 hours): Temp Pulse Resp BP Pulse Ox 97.9 F 74 18 97/41 L 97 02/15/17 19:22 02/15/17 19:22 02/15/17 19:22 02/15/17 19:22 02/15/17 19:07 Intake and Output: 02/15/17 02/16/17 18:59 06:59 Intake Total 1200 Balance 1200 - Medications Medications: Current Medications Acetaminophen (Tylenol 325mg Tab) 650 mg PO Q6H PRN PRN Reason: Fever >100.4 F Acetaminophen (Tylenol 325mg Tab) 650 mg PO Q6 PRN PRN Reason: Pain, moderate (4-7) Last Admin: 02/15/17 18:22 Dose: 650 mg Cinacalcet (Sensipar) 30 mg PO QOTHERDAY [facility] Last Admin: 02/15/17 08:56 Dose: 30 mg Diphenhydramine HCl (Benadryl) 25 mg IVP Q6 PRN PRN Reason: Itching / Pruritus Last Admin: 02/15/17 07:51 Dose: 25 mg Docusate Sodium (Colace) 200 mg PO DAILY [facility] Last Admin: 02/15/17 08:55 Dose: 200 mg Ergocalciferol (Drisdol 50,000 Intl Units Cap) 1 cap PO SAT [facility] Last Admin: 02/15/17 08:54 Dose: 1 cap Insulin Human Lispro (Humalog) 0 units SC ACHS [facility] PRN Reason: Protocol Last Admin: 02/15/17 16:35 Dose: Not Given Levothyroxine Sodium (Synthroid) 50 mcg PO DAILY@0630 [facility] Last Admin: 02/15/17 07:49 Dose: 50 mcg Metoprolol Tartrate (Lopressor) 50 mg PO Q12 [facility] Last Admin: 02/15/17 08:54 Dose: Not Given Ondansetron HCl (Zofran Inj) 4 mg IVP Q6 PRN PRN Reason: Nausea/Vomiting Last Admin: 02/11/17 22:01 Dose: 4 mg Sevelamer HCl (Renagel) 800 mg PO BIDWM [facility] Last Admin: 02/15/17 16:34 Dose: 800 mg Silver Sulfadiazine (Silvadene 1% 20 Gm) 20 ea TOP QOTHERDAY [facility] Last Admin: 02/15/17 08:56 Dose: 20 % Sitagliptin Phosphate (Januvia) 25 mg PO DAILY [facility] Last Admin: 02/15/17 08:54 Dose: 25 mg Vitamin B Complex/Vit C/Folic Acid (Nephro-Goran) 1 tab PO DAILY [facility] Last Admin: 02/15/17 08:53 Dose: 1 tab - Labs Labs: 02/14/17 06:10 02/11/17 05:00 PT 14.0 Seconds (9.8-13.1) H 02/15/17 06:00 INR 1.2 (0.9-1.2) 02/15/17 06:00 APTT 34.9 Seconds (25.6-37.1) 02/06/17 04:20 Assessment and Plan - Assessment and Plan (Free Text) Assessment: ESRD ON HD M W F .. HD WAS BUMPED FROM YESTERDAY ( FRI ) TO TODAY ( FRI ) 2/2 PARACENTHESIS YESTERDAY ANEMIA OF CKD .. H/H STABLE S/P PARACENTHESIS 6 L YESTERDAY .. PT WAS INSTRUCTED OF FLUID RESTRICTION P : PT IS STABLE FOR D/C WILL F/U AN OUT PT
--- NOTE | 2017-02-17 13:30 | CT ---
Date of Procedure: 02/14/2017 PROCEDURE: Ultrasound-guided paracentesis, CPT 34354 Medications: 7 cc 1% Lidocaine HISTORY: Ascites, abdominal pain, cirrhosis TECHNIQUE: Following informed consent , the patient was placed supine on the stretcher and the site was marked. A limited abdominal ultrasound was performed that showed a large amount of intra-abdominal fluid. Procedural time out was called and the Pt's abdomen was marked and prepped and draped in the usual sterile fashion. Ultrasound-guided large volume paracentesis performed. A total of 6100 liters of apple colored fluid was removed without complication. IMPRESSION: Ultrasound-guided large volume paracentesis.
== END 2017-02-15 22:15 | disposition home or self-care (01) | DRG 314 ==
LOC: H.ER 15:32 → H.ERHOLD 19:58 → H.ICU/CCU 22:01 → H.TEL 02-08 18:18
PROVIDERS: ADMIT Internal Medicine Cardiovascular Disease; ATTEND Internal Medicine Cardiovascular Disease
PROC: 5A09457 Assistance with Respiratory Ventilation, 24-96 Consecutive Hours, Continuous Positive Airway Pressure (ICD-10-PCS; 2017-02-06)
PROC: 5A1D60Z (ICD-10-PCS; 2017-02-07)
PROC: 0W9G3ZZ Drainage of Peritoneal Cavity, Percutaneous Approach (ICD-10-PCS; principal; 2017-02-14)
DX: I95.89 Other hypotension (principal); N18.6 End stage renal disease; I13.2 Hypertensive heart and chronic kidney disease with heart failure and with stage 5 chronic kidney disease, or end stage renal disease; E87.2 Acidosis; R18.8 Other ascites; E11.22 Type 2 diabetes mellitus with diabetic chronic kidney disease; I50.22 Chronic systolic (congestive) heart failure; L97.819 Non-pressure chronic ulcer of other part of right lower leg with unspecified severity; D69.59 Other secondary thrombocytopenia; L89.151 Pressure ulcer of sacral region, stage 1; I27.2 Other secondary pulmonary hypertension; E86.0 Dehydration; I48.2 Chronic atrial fibrillation; D63.1 Anemia in chronic kidney disease; E53.8 Deficiency of other specified B group vitamins; E86.1 Hypovolemia; E11.622 Type 2 diabetes mellitus with other skin ulcer; G47.33 Obstructive sleep apnea (adult) (pediatric); E03.9 Hypothyroidism, unspecified; R55 Syncope and collapse; T36.8X5A Adverse effect of other systemic antibiotics, initial encounter; D70.2 Other drug-induced agranulocytosis; S90.425A Blister (nonthermal), left lesser toe(s), initial encounter; L29.8 Other pruritus; R09.02 Hypoxemia; J44.9 Chronic obstructive pulmonary disease, unspecified; I08.1 Rheumatic disorders of both mitral and tricuspid valves; R19.7 Diarrhea, unspecified; I73.9 Peripheral vascular disease, unspecified; L85.9 Epidermal thickening, unspecified; Z99.2 Dependence on renal dialysis; Z66 Do not resuscitate; Z79.01 Long term (current) use of anticoagulants; Z87.891 Personal history of nicotine dependence; Z91.041 Radiographic dye allergy status; Z87.01 Personal history of pneumonia (recurrent)

== ENCOUNTER 2017-03-05 12:31 | Inpatient (IN) | payer MEDICARE, OTHER ==
[2017-03-05 12:31] VITALS: PULSE 125; BMI 26.1
[2017-03-05] MEDS ORDERED: Sodium Chloride 0.9% 500 ML IV STA (13:10)
--- NOTE | 2017-03-05 13:24 | ED PDOC ---
Hyperglycemia/Hypoglycemia Time Seen by Provider: 03/05/17 12:52 Chief Complaint (Nursing): Weakness/Neurological Deficit Chief Complaint (Provider): Weakness/Neurological Deficit History Per: Family (daughter) History/Exam Limitations: no limitations Onset/Duration Of Symptoms: Hrs (morning prior to arrival ) Current Symptoms Are (Timing): Still Present : The patient does not have any of the infectious symptoms listed except for those marked. Additional Complaint(s): Shasha Martinez is an 89 year old female brought to the ED by her daughter for an evaluation of generalized weakness and hypoglycemia. The patients daughter states the patient had a glucose level of less than 50 upon waking, which would not increase even after eating a full breakfast. The patient is also on dialysis treatments with her last treatment done on Friday and is due for treatment today. She reports associated chills, headache, bruised fingers on both hands, decreased appetite, and subjective weight loss. She denies any difficulty breathing. PMD: Tripp Aldridge MD Past Medical History Reviewed: Historical Data, Nursing Documentation, Vital Signs Vital Signs: Last Vital Signs Temp 99.5 F 03/05/17 12:32 Pulse 116 H 03/05/17 12:32 Resp 16 03/05/17 12:32 BP 117/55 L 03/05/17 12:32 Pulse Ox - Medical History PMH: Anemia, Atrial Fibrillation (on coumadin), CAD, Cardia Arrhythmia, CHF, Depression, Diabetes (Type II), HTN, Hypothyroidism, Pneumonia, End Stage Renal Disease, Chronic Kidney Disease (Dialysis MWF), Sleep Apnea (on CPAP) Denies: HIV, Kidney Stones - Surgical History Surgical History: Cholecystectomy, Hernia Repair (2005, ventral) Denies: CABG - Family History Family History: States: Unknown Family Hx - Home Medications Home Medications: Ambulatory Orders Medication Instructions Recorded Warfarin [Coumadin] 2 mg PO HS 06/19/15 Cinacalcet [Sensipar] 30 mg PO QOTHERDAY 12/03/16 Benzonatate 200 mg PO TID PRN 01/29/17 Cyproheptadine [Periactin] 4 mg PO BID PRN 01/29/17 ALPRAZolam [Xanax] 0.25 mg PO Q12 PRN tab 02/03/17 Levothyroxine [Synthroid] 50 mcg PO DAILY@0630 tab 02/03/17 Pantoprazole [Protonix EC Tab] 40 mg PO DAILY ect 02/03/17 SITagliptin [Januvia] 25 mg PO DAILY tab 02/03/17 Vitamin B Complex/Vit C/Folic 1 tab PO DAILY tab 02/03/17 [Nephro-Goran] Acetaminophen [Tylenol 325mg tab] 650 mg PO Q6 PRN tab 02/15/17 DiphenhydrAMINE [Benadryl] 25 mg IVP Q6 PRN vial 02/15/17 Docusate [Colace] 200 mg PO DAILY cap 02/15/17 Ergocalciferol [Drisdol 50,000 1 cap PO SAT cap 02/15/17 Intl Units Cap] Metoprolol Tartrate [Lopressor] 50 mg PO Q12 tab 02/15/17 Sevelamer [Renagel] 800 mg PO BIDWM tab 02/15/17 Silver Sulfadiazine 1% 20 gm 1 appl TOP QOTHERDAY 03/05/17 [Silvadene 1% 20 gm] - Allergies Allergies/Adverse Reactions: Allergies Allergy/AdvReac Type Severity Reaction Status Date / Time iodine Allergy RASH Verified 01/29/17 13:29 iron Allergy ITCHING Verified 01/29/17 13:29 Review of Systems ROS Statement: Except As Marked, All Systems Reviewed And Found Negative Constitutional: Positive for: Chills, Weakness, Weight loss (with decreased appetite ), Other (hypoglycemia ) Musculoskeletal: Positive for: Hand Pain (bruised fingers) Neurological: Positive for: Headache Physical Exam - Reviewed Nursing Documentation Reviewed: Yes Vital Signs Reviewed: Yes - Physical Exam Appears: Positive for: Well, Non-toxic, No Acute Distress Head Exam: Positive for: ATRAUMATIC, NORMAL INSPECTION, NORMOCEPHALIC Neck: Positive for: Normal, Painless ROM, Supple Cardiovascular/Chest: Positive for: Regular Rate, Rhythm, Chest Non Tender. Negative for: Murmur Respiratory: Positive for: Normal Breath Sounds. Negative for: Respiratory Distress Gastrointestinal/Abdominal: Positive for: Normal Exam, Bowel Sounds, Soft, Distended (mildly). Negative for: Tenderness Extremity: Positive for: Pedal Edema ( pitting edema to lower extremities bilaterally; Right - 2+, Left - 3+), Other (chronic venous stasis changes; ulcer noted to 3rd digit on left upper extremity; skin tear on lateral aspect of right lower extremity) Neurologic/Psych: Positive for: Alert, Oriented - Laboratory Results Result Diagrams: 03/05/17 13:30 03/05/17 15:00 - ECG Pulse Ox Interpretation: Other (undetectable due to poor circulation) Medical Decision Making Medical Decision Makin:52 Impression: Weakness and hypoglycemia Plan: * VBG * Comp metabolic panel * CBC (With Differential) * Partial Thromboplastin * Prothrombin * NS IV 500 mls/hr * Blood Culture * Urine Culture * Urinalysis * Chest portable [RAD] * Reevaluation Chest X-ray FINDINGS: LUNGS: There is worsening pulmonary venous congestion and pulmonary redistribution. PLEURA: There are probable small pleural effusions. No pneumothorax. CARDIOVASCULAR: There is severe cardiomegaly and prominent central vasculature. There is calcification of the thoracic aorta. OSSEOUS STRUCTURES: Within normal limits for the patient's age. VISUALIZED UPPER ABDOMEN: Normal. OTHER FINDINGS: None. IMPRESSION: Findings are most compatible with worsening pulmonary venous congestion and probable small pleural effusions. Scribe Attestation: Documented by Cande Moore, acting as a scribe for Sonya Taylor MD. Provider Scribe Attestation: All medical record entries made by the Scribe were at my direction and personally dictated by me. I have reviewed the chart and agree that the record accurately reflects my personal performance of the history, physical exam, medical decision making, and the department course for this patient. I have also personally directed, reviewed, and agree with the discharge instructions and disposition. 4.00p - Dr. Aldridge called back. Labs, VS reviewed. Will admit to telemetry for dialysis. Disposition - Clinical Impression Clinical Impression: ESRD (end stage renal disease), Transient hypotension, Hypoglycemia - Patient ED Disposition Is Patient to be Admitted: Yes Doctor Will See Patient In The: Hospital - Disposition Disposition: Transfer of Care Disposition Time: 15:30 Condition: GUARDED Forms: [employer] ([employer]) - Pt Status Changed To: Hospital Disposition Of: Inpatient - Admit Certification Admit to Inpatient:: After my assessment, the patient will require hospitalization for at least two midnights. This is because of the severity of symptoms shown, intensity of services needed, and/or the medical risk in this patient being treated as an outpatient. - POA Present On Arrival: None
[2017-03-05 13:30] LABS: VENOUS BLOOD GAS BASE EXCESS 6.3 mmol/L (0.0-2.0); VENOUS BLOOD GAS PCO2 56 mmHg (40-60); VENOUS BLOOD GAS PO2 14 mm/Hg (30-55); VENOUS BLOOD PH 7.38 (7.32-7.43)
[2017-03-05 14:13] LABS: BASO % 0.4 % (0.0-2.0); EOS % 0.3 % (0.0-4.0); HEMOGLOBIN 11.8 g/dL (12.0-16.0); LYMPH # 0.3 K/uL (1.0-4.3); LYMPH % 3.5 % (20.0-40.0); MEAN CELL VOLUME 103.4 fl (81.0-99.0); MEAN CORPUSCULAR HEMOGLOBIN 33.8 pg (27.0-31.0); MEAN CORPUSCULAR HGB CONC 32.7 g/dL (33.0-37.0); MEAN PLATELET VOLUME 8.3 fl (7.2-11.7); MONO # 0.8 K/uL (0.0-0.8); MONO % 8.9 % (0.0-10.0); NEUT # 7.6 K/uL (1.8-7.0); NEUT % 86.9 % (50.0-75.0); NRBC % 0.1 % (0.0-0.0); RBC 3.49 Mil/uL (3.80-5.20); RED CELL DISTRIBUTION WIDTH 16.7 % (11.5-14.5)
--- NOTE | 2017-03-05 14:13 | RAD ---
HISTORY: chills, low sugar and bp COMPARISON: 02/05/2017 FINDINGS: LUNGS: There is worsening pulmonary venous congestion and pulmonary redistribution. PLEURA: There are probable small pleural effusions. No pneumothorax. CARDIOVASCULAR: There is severe cardiomegaly and prominent central vasculature. There is calcification of the thoracic aorta. OSSEOUS STRUCTURES: Within normal limits for the patient's age. VISUALIZED UPPER ABDOMEN: Normal. OTHER FINDINGS: None. IMPRESSION: Findings are most compatible with worsening pulmonary venous congestion and probable small pleural effusions.
[2017-03-05 14:19] LABS: PLATELET COUNT 103 K/uL (130-400); WHITE BLOOD COUNT 8.8 K/uL (4.8-10.8)
[2017-03-05 14:36] LABS: ABG ALLEN TEST YES; ARTERIAL BLOOD GAS HCO3 27.5 mmol/L (21-28); ARTERIAL BLOOD GAS HEMOGLOBIN 10.7 g/dL (11.7-17.4); ARTERIAL BLOOD GAS O2 SAT 89.5 % (95-98); ARTERIAL BLOOD GAS PCO2 39 mm/Hg (35-45); ARTERIAL BLOOD GAS PH 7.46 (7.35-7.45); ARTERIAL BLOOD GAS PO2 52 mm/Hg (80-100); ARTERIAL BLOOD GAS TCO2 28.9 mmol/L (22-28)
[2017-03-05 15:11] LABS: BASOPHIL 1 % (0-2); LYMPHOCYTE 4 % (20-50); MONOCYTE 7 % (0-10); NEUTROPHIL 88 % (42-75); TOTAL CELLS COUNTED 100
[2017-03-05 15:13] LABS: PLATELET ESTIMATE DECREASED (NORMAL)
[2017-03-05 15:23] LABS: ALB/GLOB RATIO 1.1 (1.0-2.1); ALBUMIN 2.9 g/dL (3.5-5.0); CALCIUM 8.3 mg/dL (8.4-10.2)
[2017-03-05 15:32] LABS: INR 1.9 (0.9-1.2); PARTIAL THROMBOPLASTIN TIME 34.9 Seconds (25.6-37.1); PROTHROMBIN TIME 19.7 Seconds (9.8-13.1)
[2017-03-05] MEDS ORDERED: DiphenhydrAMINE 50 mg/ml Inj IVP PRN (20:10)
--- NOTE | 2017-03-05 23:33 | CP.PCM.CON ---
History of Present Illness - History of Present Illness History of Present Illness: REASONS FOR CONSULT : 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 H/H STABLE ALL EMR REVIEWED .. CURRENT RECORDS REVIEWED .. LABS REVIEWED PT IS WELL KNOWN TO OUR SERVICE Time Seen by Provider: 03/05/17 14.30 Chief Complaint (Nursing): Weakness/Neurological Deficit Chief Complaint (Provider): Weakness/Neurological Deficit History Per: Family (daughter) History/Exam Limitations: no limitations Onset/Duration Of Symptoms: Hrs (morning prior to arrival ) Current Symptoms Are (Timing): Still Present : The patient does not have any of the infectious symptoms listed except for those marked. Additional Complaint(s): Shasha Martinez is an 89 year old female brought to the ED by her daughter for an evaluation of generalized weakness and hypoglycemia. The patients daughter states the patient had a glucose level of less than 50 upon waking, which would not increase even after eating a full breakfast. The patient is also on dialysis treatments with her last treatment done on Friday and is due for treatment today. She reports associated chills, headache, bruised fingers on both hands, decreased appetite, and subjective weight loss. She denies any difficulty breathing. PMD: Tripp Aldridge MD Past Patient History - Infectious Disease Hx of Infectious Diseases: None - Tetanus Immunizations Tetanus Immunization: Unknown - Past Medical History & Family History Past Medical History?: Yes - Past Social History Smoking Status: Former Smoker - CARDIAC Hx Atrial Fibrillation: Yes (on coumadin) Hx Cardia Arrhythmia: Yes Hx Congestive Heart Failure: Yes Hx Hypertension: Yes - PULMONARY Hx Pneumonia: Yes Hx Sleep Apnea: Yes (on CPAP) - NEUROLOGICAL Hx Neurological Disorder: No - HEENT Hx HEENT Problems: No - RENAL Hx Chronic Kidney Disease: Yes (Dialysis MWF) - ENDOCRINE/METABOLIC Hx Hypothyroidism: Yes - HEMATOLOGICAL/ONCOLOGICAL Hx Anemia: Yes Hx Human Immunodeficiency Virus (HIV): No - INTEGUMENTARY Hx Dermatological Problems: Yes (Pruritic eruptions) - MUSCULOSKELETAL/RHEUMATOLOGICAL Hx Musculoskeletal Disorders: No Hx Falls: No - GASTROINTESTINAL Hx Gastrointestinal Disorders: No Other/Comment: ASCITES - GENITOURINARY/GYNECOLOGICAL Hx Genitourinary Disorders: No - PSYCHIATRIC Hx Depression: Yes - SURGICAL HISTORY Hx Cholecystectomy: Yes Hx Coronary Artery Bypass Graft: No - ANESTHESIA Hx Anesthesia: Yes Hx Anesthesia Reactions: No Hx Malignant Hyperthermia: No Meds Allergies/Adverse Reactions: Allergies Allergy/AdvReac Type Severity Reaction Status Date / Time iodine Allergy RASH Verified 01/29/17 13:29 iron Allergy ITCHING Verified 01/29/17 13:29 - Medications Medications: Current Medications Acetaminophen (Tylenol 325mg Tab) 650 mg PO Q6 PRN PRN Reason: Pain, moderate (4-7) Alprazolam (Xanax) 0.25 mg PO Q12 PRN PRN Reason: Anxiety Stop: 03/12/17 20:11 Benzonatate (Tessalon Perles) 200 mg PO TID PRN PRN Reason: Cough Cinacalcet (Sensipar) 30 mg PO QOTHERDAY [facility] Cyproheptadine HCl (Periactin) 4 mg PO BID PRN PRN Reason: Allergy symptoms Diphenhydramine HCl (Benadryl) 25 mg IVP Q6 PRN PRN Reason: Itching / Pruritus Docusate Sodium (Colace) 200 mg PO DAILY [facility] Ergocalciferol (Drisdol 50,000 Intl Units Cap) 1 cap PO SAT [facility] Levothyroxine Sodium (Synthroid) 50 mcg PO DAILY@0630 [facility] Metoprolol Tartrate (Lopressor) 50 mg PO Q12 [facility] Last Admin: 03/05/17 21:27 Dose: Not Given Pantoprazole Sodium (Protonix Ec Tab) 40 mg PO DAILY [facility] Sevelamer HCl (Renagel) 800 mg PO BIDWM [facility] Last Admin: 03/05/17 22:17 Dose: 800 mg Silver Sulfadiazine (Silvadene 1% 20 Gm) 1 ea TOP QOTHERDAY [facility] Sitagliptin Phosphate (Januvia) 25 mg PO DAILY [facility] Vitamin B Complex/Vit C/Folic Acid (Nephro-Goran) 1 tab PO DAILY [facility] Results - Vital Signs Recent Vital Signs: Last Vital Signs Temp 98.2 F 03/05/17 20:28 Pulse 85 03/05/17 22:17 Resp 18 03/05/17 20:28 BP 104/47 L 03/05/17 22:17 Pulse Ox 88 L 03/05/17 20:28 - Labs Result Diagrams: 03/05/17 13:30 03/05/17 15:00 Assessment & Plan - Assessment and Plan (Free Text) Assessment: ESRD ONN HD M W F ANEMIA OF CKD .. H/H STABLE HYPOGLYCEMIA AND WEAKNESS MULTIPLE CO MORBIDITIES P : HD IN AM .. BUN , K , CRET ARE ALL OK C/O CURRENT MEDS C/O PRESENT CARE - Date & Time Date: 03/05/17 Time: 14:30
[2017-03-06] MEDS: Levothyroxine 50 MCG TAB PO SCH (06:14)
[2017-03-06] MEDS: Multivitamin Vitamin B Complex (Nephro-Vite) Tab PO SCH (08:40)
[2017-03-06] MEDS: Pantoprazole 40 mg EC Tab PO SCH (08:40)
--- NOTE | 2017-03-06 10:21 | CP.PCM.HP ---
History of Present Illness - History of Present Illness History of Present Illness: This 89-year-old chronically ill female who has had multiple hospitalizations at this institution over the last 5-6 months was brought to the emergency room after she developed persistent shaking and perspiration and was found to have a blood sugar by emergency medical screener off 50 mg percent. This was after she was given orange juice to drink by her caregiver. the patient is a long- standing hypertensive and diabetic who has developed end-stage renal disease requiring hemodialysis 3 times a week for approximately 3 years. She has severe pulmonary hypertension as a consequence off chronic obstructive sleep apnea and chronic hypoxia. 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 She has atrial fibrillation for which she takes warfarin. She has never been a smoker and has known history of coronary artery disease or myocardial infarction. The patient has lost her dentures and consequently has been eating erratically and mostly a lot less than she is used to. She admits to having skipped her dinner and next morning developed hypoglycemia which required her arrival in the emergency room with the aforementioned symptoms and since she wasn't doing well she was hospitalized. On physical examination this was an elderly anxious female who was alert awake and coherent. She was afebrile with a pulse rate of 80 bpm and her telemetric demonstrated atrial fibrillation with a heart rate between 70 and 90 bpm. There was a hemodialysis shunt in the left upper extremity and the blood pressure in the right upper extremity was 104/74 mmHg. Her jugular venous pressure was eliminated and there was pitting edema over both lower extremities. A superficial ulcer was evident in the on the right leg which was due to a fall and injury to the right leg. Her extremities were slightly cool to touch and there was mild peripheral cyanosis which has been chronic. Her apex was in the fifth space area and there was parasternal heave suggestive of right ventricular enlargement her first and second heart sounds were normal with a systolic murmur in the left parasternal region off tricuspid insufficiency. Her lungs were clear there were no rales her abdomen was slightly distended with evidence of free fluid present. There was no organomegaly there were no carotid bruits. Pedal pulses were not palpable. Her electric cardiogram showed atrial fibrillation with evidence of right axis deviation and right ventricular enlargement. Her lab data showed a hemoglobin and hematocrit of 11.8 g and 36.1% respectively with a WBC count of 8800. Her INR was 1.9 and her blood gases showed a pH of 7.46 with a PO2 of 52 mmHg while on an FiO2 off 21%. Her BUN and creatinine where 32 and 3.8 mg percent respectively her potassium was 4.3 mg/L her liver profile was essentially normal with a serum albumen level of 2.9 g. Impression: Hypoglycemia due to inadequate food intake. Diabetes mellitus with hypertension and chronic kidney failure requiring chronic hemodialysis. Atrial fibrillation with severe pulmonary hypertension and right ventricular failure which is chronic and systolic. Chronic obstructive airway disease with chronic hypoxia, general debility. The patient will undergo hemodialysis which she was supposed to have yesterday she will be observed. She will be seen by a gas load dispatcher I will withdraw her Januvia which is the only and T diabetic medications she takes till her oral intake stabilizes. In the meantime she appears stable from cardiovascular point of view Present on Admission - Present on Admission Any Indicators Present on Admission: No Past Patient History - Infectious Disease Hx of Infectious Diseases: None - Tetanus Immunizations Tetanus Immunization: Unknown - Past Medical History & Family History Past Medical History?: Yes - Past Social History Smoking Status: Former Smoker - CARDIAC Hx Atrial Fibrillation: Yes (on coumadin) Hx Cardia Arrhythmia: Yes Hx Congestive Heart Failure: Yes Hx Hypertension: Yes - PULMONARY Hx Pneumonia: Yes Hx Sleep Apnea: Yes (on CPAP) - NEUROLOGICAL Hx Neurological Disorder: No - HEENT Hx HEENT Problems: No - RENAL Hx Chronic Kidney Disease: Yes (Dialysis MWF) - ENDOCRINE/METABOLIC Hx Hypothyroidism: Yes - HEMATOLOGICAL/ONCOLOGICAL Hx Anemia: Yes Hx Human Immunodeficiency Virus (HIV): No - INTEGUMENTARY Hx Dermatological Problems: Yes (Pruritic eruptions) - MUSCULOSKELETAL/RHEUMATOLOGICAL Hx Musculoskeletal Disorders: No Hx Falls: No - GASTROINTESTINAL Hx Gastrointestinal Disorders: No Other/Comment: ASCITES - GENITOURINARY/GYNECOLOGICAL Hx Genitourinary Disorders: No - PSYCHIATRIC Hx Depression: Yes - SURGICAL HISTORY Hx Cholecystectomy: Yes Hx Coronary Artery Bypass Graft: No - ANESTHESIA Hx Anesthesia: Yes Hx Anesthesia Reactions: No Hx Malignant Hyperthermia: No Meds Allergies/Adverse Reactions: Allergies Allergy/AdvReac Type Severity Reaction Status Date / Time iodine Allergy RASH Verified 01/29/17 13:29 iron Allergy ITCHING Verified 01/29/17 13:29 Results - Vital Signs Recent Vital Signs: Last Vital Signs Temp 98.2 F 03/06/17 08:58 Pulse 86 03/06/17 08:58 Resp 18 03/06/17 08:58 BP 91/56 L 03/06/17 08:58 Pulse Ox 96 03/06/17 08:58 - Labs Result Diagrams: 03/05/17 13:30 03/05/17 15:00 Labs: Laboratory Results - last 24 hr 03/05/17 03/05/17 03/06/17 18:11 23:49 06:09 POC Glucose (mg/dL) 165 H 96 105
--- NOTE | 2017-03-06 12:29 | CP.PCM.CON ---
History of Present Illness - History of Present Illness History of Present Illness: 89 year old female with extensive PMH including HTN, DM, ESRD w/ hemodialysis 3x /week, pulmonary HTN, right ventricular dysfunction with recurrent ascites, A Fib seen bedside for consultation of b/l lower extremity pain and ulcerations. Patient states that both of her legs and feet are very sore and very weak and that she has regular episodes of intense pain b/l. Patient states that these symptoms have been going on for many years and have been getting progressively worse. Patient has seen a assembly inspector helper in the past but cannot remember her name at this time. Patient denies any further pedal complaints at this time. Patient denies N/V/F/C/CP/SOB Review of Systems - Review of Systems Review of Systems: ROS unremarkable outside of HPI Past Patient History - Infectious Disease Hx of Infectious Diseases: None - Tetanus Immunizations Tetanus Immunization: Unknown - Past Medical History & Family History Past Medical History?: Yes - Past Social History Smoking Status: Former Smoker - CARDIAC Hx Atrial Fibrillation: Yes (on coumadin) Hx Cardia Arrhythmia: Yes Hx Congestive Heart Failure: Yes Hx Hypertension: Yes - PULMONARY Hx Pneumonia: Yes Hx Sleep Apnea: Yes (on CPAP) - NEUROLOGICAL Hx Neurological Disorder: No - HEENT Hx HEENT Problems: No - RENAL Hx Chronic Kidney Disease: Yes (Dialysis MWF) - ENDOCRINE/METABOLIC Hx Hypothyroidism: Yes - HEMATOLOGICAL/ONCOLOGICAL Hx Anemia: Yes Hx Human Immunodeficiency Virus (HIV): No - INTEGUMENTARY Hx Dermatological Problems: Yes (Pruritic eruptions) - MUSCULOSKELETAL/RHEUMATOLOGICAL Hx Musculoskeletal Disorders: No Hx Falls: No - GASTROINTESTINAL Hx Gastrointestinal Disorders: No Other/Comment: ASCITES - GENITOURINARY/GYNECOLOGICAL Hx Genitourinary Disorders: No - PSYCHIATRIC Hx Depression: Yes - SURGICAL HISTORY Hx Cholecystectomy: Yes Hx Coronary Artery Bypass Graft: No - ANESTHESIA Hx Anesthesia: Yes Hx Anesthesia Reactions: No Hx Malignant Hyperthermia: No Meds Allergies/Adverse Reactions: Allergies Allergy/AdvReac Type Severity Reaction Status Date / Time iodine Allergy RASH Verified 01/29/17 13:29 iron Allergy ITCHING Verified 01/29/17 13:29 - Medications Medications: Current Medications Acetaminophen (Tylenol 325mg Tab) 650 mg PO Q6 PRN PRN Reason: Pain, moderate (4-7) Last Admin: 03/06/17 08:34 Dose: 650 mg Alprazolam (Xanax) 0.25 mg PO Q12 PRN PRN Reason: Anxiety Stop: 03/12/17 20:11 Benzonatate (Tessalon Perles) 200 mg PO TID PRN PRN Reason: Cough Cinacalcet (Sensipar) 30 mg PO QOTHERDAY [facility] Cyproheptadine HCl (Periactin) 4 mg PO BID PRN PRN Reason: Allergy symptoms Diphenhydramine HCl (Benadryl) 25 mg IVP Q6 PRN PRN Reason: Itching / Pruritus Docusate Sodium (Colace) 200 mg PO DAILY [facility] Last Admin: 03/06/17 08:34 Dose: 200 mg Ergocalciferol (Drisdol 50,000 Intl Units Cap) 1 cap PO SAT [facility] Levothyroxine Sodium (Synthroid) 50 mcg PO DAILY@0630 [facility] Last Admin: 03/06/17 06:14 Dose: 50 mcg Metoprolol Tartrate (Lopressor) 50 mg PO Q12 [facility] Last Admin: 03/06/17 08:36 Dose: Not Given Pantoprazole Sodium (Protonix Ec Tab) 40 mg PO DAILY [facility] Last Admin: 03/06/17 08:40 Dose: 40 mg Sevelamer HCl (Renagel) 800 mg PO BIDWM [facility] Last Admin: 03/06/17 08:41 Dose: 800 mg Silver Sulfadiazine (Silvadene 1% 20 Gm) 1 ea TOP QOTHERDAY [facility] Vitamin B Complex/Vit C/Folic Acid (Nephro-Goran) 1 tab PO DAILY [facility] Last Admin: 03/06/17 08:40 Dose: 1 tab Warfarin Sodium (Coumadin) 2.5 mg PO QD5 [facility] PRN Reason: Protocol Stop: 03/06/17 17:01 Physical Exam - Constitutional Appears: Well, Non-toxic, No Acute Distress - Extremities Exam Additional comments: B/l LE focused exam Vasc: DP/PT pulses very weakly palpable 1/4 b/l. CFT to all digits > 3 seconds. Skin temperature warm to warm from proximal to distal. No edema noted b/l Neuro: Epicritic and protective sensation grossly intact b/l Derm: Multiple ulcerations noted to b/l LE. Left lateral fifth digit ulceration measuring roughly 1.0 cm x 1.0 cm noted with necrotic eschar covering the base. Lateral right leg ulceration with fibronecrotic base measuring roughly 1.0 cm x 3.0 cm x 0.4 cm. Right plantar, posterior heel ulceration with fibronecrotic base measuring roughly 1.0 cm x 1.0 cm x 0.1 cm. All ulcerations showed no periwound erythema, no drainage, no expression of purulence, no malodor and no other clinical signs of infection. No probe to bone, No tracking, undermining or tunneling. MSK: Diffuse POP to both legs especially at ulceration sites. Marked weakness in all major muscle groups b/l - Neurological Exam Neurological exam: Alert, Oriented x3 - Psychiatric Exam Psychiatric exam: Normal Affect, Normal Mood Results - Vital Signs Recent Vital Signs: Last Vital Signs Temp 98.2 F 03/06/17 08:58 Pulse 86 03/06/17 08:58 Resp 18 03/06/17 08:58 BP 91/56 L 03/06/17 08:58 Pulse Ox 96 03/06/17 08:58 - Labs Result Diagrams: 03/05/17 13:30 03/05/17 15:00 Labs: Laboratory Results - last 24 hr 03/05/17 03/05/17 03/06/17 18:11 23:49 06:09 POC Glucose (mg/dL) 165 H 96 105 03/06/17 11:18 POC Glucose (mg/dL) 151 H Assessment & Plan - Assessment and Plan (Free Text) Assessment: 89 year old female seen at bedside for multiple ulcerations of LE and leg/foot pain secondary to DM Plan: Patient seen and evaluated at bedside Charts, labs and vitals reviewed; for 03/05 WBC 8.8, glucose 126, afebrile today Plan discussed with Dr. Gates Ulcerations of right leg dressed with DSD Order for Multipodus boots Order for arterial duplex scan Patient's generator mechanic, Dr. Aldridge following Podiatry will continue to follow patient while in house - Date & Time Date: 03/06/17 Time: 11:50
--- NOTE | 2017-03-06 13:02 | VASCLAB ---
APPROVED REPORT EKG Measurement Heart [id number] <Conclusion> Atrial fibrillation with rapid ventricular response Right axis deviation Possible Right ventricular hypertrophy Nonspecific ST and T wave abnormality Abnormal ECG
[2017-03-06] MEDS ORDERED: GENTIAN VIOLET TOP ONE (17:24)
--- NOTE | 2017-03-06 17:53 | CP.PCM.PN ---
Subjective - Date & Time of Evaluation Date of Evaluation: 03/06/17 Time of Evaluation: 14:00 - Subjective Subjective: SEEN ON RENAL F/U FULLY A @ O .. IN NAD .. WSE SEEN BY PODIATRY CASE D/W DAUGHTER CASE D/W DR BAYRON BURTON TO START SHORTLY Objective - Vital Signs/Intake and Output Vital Signs (last 24 hours): Temp Pulse Resp BP Pulse Ox 98.2 F 73 18 85/40 L 90 L 03/06/17 16:27 03/06/17 16:27 03/06/17 16:27 03/06/17 16:27 03/06/17 16:27 - Medications Medications: Current Medications Acetaminophen (Tylenol 325mg Tab) 650 mg PO Q6 PRN PRN Reason: Pain, moderate (4-7) Last Admin: 03/06/17 16:22 Dose: 650 mg Alprazolam (Xanax) 0.25 mg PO Q12 PRN PRN Reason: Anxiety Stop: 03/12/17 20:11 Benzonatate (Tessalon Perles) 200 mg PO TID PRN PRN Reason: Cough Cinacalcet (Sensipar) 30 mg PO QOTHERDAY [facility] Cyproheptadine HCl (Periactin) 4 mg PO BID PRN PRN Reason: Allergy symptoms Diphenhydramine HCl (Benadryl) 25 mg IVP Q6 PRN PRN Reason: Itching / Pruritus Docusate Sodium (Colace) 200 mg PO DAILY [facility] Last Admin: 03/06/17 08:34 Dose: 200 mg Ergocalciferol (Drisdol 50,000 Intl Units Cap) 1 cap PO SAT [facility] Levothyroxine Sodium (Synthroid) 50 mcg PO DAILY@0630 [facility] Last Admin: 03/06/17 06:14 Dose: 50 mcg Metoprolol Tartrate (Lopressor) 50 mg PO Q12 [facility] Last Admin: 03/06/17 08:36 Dose: Not Given Pantoprazole Sodium (Protonix Ec Tab) 40 mg PO DAILY [facility] Last Admin: 03/06/17 08:40 Dose: 40 mg Sevelamer HCl (Renagel) 800 mg PO BIDWM [facility] Last Admin: 03/06/17 16:25 Dose: 800 mg Silver Sulfadiazine (Silvadene 1% 20 Gm) 1 ea TOP QOTHERDAY [facility] Vitamin B Complex/Vit C/Folic Acid (Nephro-Goran) 1 tab PO DAILY [facility] Last Admin: 03/06/17 08:40 Dose: 1 tab - Labs Labs: PT 19.7 Seconds (9.8-13.1) H 03/05/17 15:00 INR 1.9 (0.9-1.2) H 03/05/17 15:00 APTT 34.9 Seconds (25.6-37.1) 03/05/17 15:00 Assessment and Plan - Assessment and Plan (Free Text) Assessment: ESRD ON HD M W F .. WILL GIVE HD TODAY MARY ELLEN .. THE SAT MORNING THEN D/C ANEMIA OF CKD .. H/H STABLE MULTIPLE CO MORBIDITIES P : C/O CURRENT MANAGEMENT HD TODAY THEN HD ON SAT JENNIFER WILL F/U CLOSELY CASE D/W DR VERMA AND WITH THE DAUGHTER
[2017-03-07] MEDS: Levothyroxine 50 MCG TAB PO SCH (06:02)
[2017-03-07] MEDS ORDERED: Silver Sulfadiazine 1% Cream (20 gm) TOP SCH (09:00)
[2017-03-07 09:10] LABS: INR 1.9 (0.9-1.2); PROTHROMBIN TIME 20.2 Seconds (9.8-13.1)
--- NOTE | 2017-03-07 09:24 | CP.PCM.PN ---
Subjective - Date & Time of Evaluation Date of Evaluation: 03/07/17 Time of Evaluation: 09:00 - Subjective Subjective: C/O severe leg pain Had dialysis last evening HR 70 BPM, a fib BP 100/70 mm Hg Chest clear Abd girth gradually increasing Have D/Guillermo januvia in light of poor oral intake Plan HD tomorrow then D/C Arterial duplex of lower extremities today Objective - Vital Signs/Intake and Output Vital Signs (last 24 hours): Temp Pulse Resp BP Pulse Ox 99.2 F 97 H 20 90/47 L 95 03/07/17 08:00 03/07/17 08:00 03/07/17 08:00 03/07/17 08:00 03/07/17 08:00 - Medications Medications: Current Medications Acetaminophen (Tylenol 325mg Tab) 650 mg PO Q6 PRN PRN Reason: Pain, moderate (4-7) Last Admin: 03/06/17 16:22 Dose: 650 mg Alprazolam (Xanax) 0.25 mg PO Q12 PRN PRN Reason: Anxiety Stop: 03/12/17 20:11 Last Admin: 03/06/17 23:04 Dose: 0.25 mg Benzonatate (Tessalon Perles) 200 mg PO TID PRN PRN Reason: Cough Cinacalcet (Sensipar) 30 mg PO QOTHERDAY [facility] Cyproheptadine HCl (Periactin) 4 mg PO BID PRN PRN Reason: Allergy symptoms Diphenhydramine HCl (Benadryl) 25 mg IVP Q6 PRN PRN Reason: Itching / Pruritus Docusate Sodium (Colace) 200 mg PO DAILY [facility] Last Admin: 03/06/17 08:34 Dose: 200 mg Ergocalciferol (Drisdol 50,000 Intl Units Cap) 1 cap PO SAT [facility] Levothyroxine Sodium (Synthroid) 50 mcg PO DAILY@0630 [facility] Last Admin: 03/07/17 06:02 Dose: 50 mcg Metoprolol Tartrate (Lopressor) 50 mg PO Q12 [facility] Last Admin: 03/06/17 23:00 Dose: Not Given Pantoprazole Sodium (Protonix Ec Tab) 40 mg PO DAILY [facility] Last Admin: 03/06/17 08:40 Dose: 40 mg Sevelamer HCl (Renagel) 800 mg PO BIDWM [facility] Last Admin: 03/06/17 16:25 Dose: 800 mg Silver Sulfadiazine (Silvadene 1% 20 Gm) 1 ea TOP QOTHERDAY [facility] Vitamin B Complex/Vit C/Folic Acid (Nephro-Goran) 1 tab PO DAILY [facility] Last Admin: 03/06/17 08:40 Dose: 1 tab - Labs Labs: PT 20.2 Seconds (9.8-13.1) H 03/07/17 08:39 INR 1.9 (0.9-1.2) H 03/07/17 08:39 APTT 34.9 Seconds (25.6-37.1) 03/05/17 15:00
[2017-03-07] MEDS: Pantoprazole 40 mg EC Tab PO SCH (09:36)
[2017-03-07] MEDS: Multivitamin Vitamin B Complex (Nephro-Vite) Tab PO SCH (09:37)
--- NOTE | 2017-03-07 12:43 | CP.PCM.PN ---
Subjective - Date & Time of Evaluation Date of Evaluation: 03/07/17 Time of Evaluation: 12:41 - Subjective Subjective: Podiatry- Gates 89 year old female with extensive PMH including HTN, DM, ESRD w/ hemodialysis 3x /week, pulmonary HTN, right ventricular dysfunction with recurrent ascites, A Fib seen bedside for consultation of b/l lower extremity pain and ulcerations. Patient states that both of her legs and feet are very sore and very weak and that she has regular episodes of intense pain b/l. Patient states that her pain is about the same as yesterday. She denies any Patient denies any further pedal complaints at this time. Patient denies N/V/F/C/CP/SOB Objective - Vital Signs/Intake and Output Vital Signs (last 24 hours): Temp Pulse Resp BP Pulse Ox 99.2 F 97 H 20 90/47 L 95 03/07/17 09:00 03/07/17 09:38 03/07/17 09:00 03/07/17 09:38 03/07/17 09:00 - Medications Medications: Current Medications Acetaminophen (Tylenol 325mg Tab) 650 mg PO Q6 PRN PRN Reason: Pain, moderate (4-7) Last Admin: 03/07/17 10:34 Dose: 650 mg Alprazolam (Xanax) 0.25 mg PO Q12 PRN PRN Reason: Anxiety Stop: 03/12/17 20:11 Last Admin: 03/06/17 23:04 Dose: 0.25 mg Benzonatate (Tessalon Perles) 200 mg PO TID PRN PRN Reason: Cough Cinacalcet (Sensipar) 30 mg PO QOTHERDAY [facility] Last Admin: 03/07/17 09:37 Dose: 30 mg Cyproheptadine HCl (Periactin) 4 mg PO BID PRN PRN Reason: Allergy symptoms Last Admin: 03/07/17 09:36 Dose: 4 mg Diphenhydramine HCl (Benadryl) 25 mg IVP Q6 PRN PRN Reason: Itching / Pruritus Docusate Sodium (Colace) 200 mg PO DAILY [facility] Last Admin: 03/07/17 09:36 Dose: 200 mg Ergocalciferol (Drisdol 50,000 Intl Units Cap) 1 cap PO SAT [facility] Levothyroxine Sodium (Synthroid) 50 mcg PO DAILY@0630 [facility] Last Admin: 03/07/17 06:02 Dose: 50 mcg Metoprolol Tartrate (Lopressor) 50 mg PO Q12 [facility] Last Admin: 03/07/17 09:38 Dose: Not Given Pantoprazole Sodium (Protonix Ec Tab) 40 mg PO DAILY [facility] Last Admin: 03/07/17 09:36 Dose: 40 mg Sevelamer HCl (Renagel) 800 mg PO BIDWM [facility] Last Admin: 03/07/17 09:38 Dose: 800 mg Silver Sulfadiazine (Silvadene 1% 20 Gm) 1 ea TOP QOTHERDAY [facility] Last Admin: 03/07/17 09:38 Dose: 1 applic Vitamin B Complex/Vit C/Folic Acid (Nephro-Goran) 1 tab PO DAILY [facility] Last Admin: 03/07/17 09:37 Dose: 1 tab - Labs Labs: PT 20.2 Seconds (9.8-13.1) H 03/07/17 08:39 INR 1.9 (0.9-1.2) H 03/07/17 08:39 APTT 34.9 Seconds (25.6-37.1) 03/05/17 15:00 - Constitutional Appears: Well, Non-toxic - Extremities Exam Additional comments: B/l LE focused exam Multipodus boots in place, patient resting comfortably in bed Vasc: DP/PT pulses very weakly palpable 1/4 b/l. CFT to all digits > 3 seconds. Skin temperature warm to warm from proximal to distal. No edema noted b/l Neuro: Epicritic and protective sensation grossly intact b/l Derm: Multiple ulcerations noted to b/l LE. Left lateral fifth digit ulceration measuring roughly 1.0 cm x 1.0 cm noted with necrotic eschar covering the base. Lateral right leg ulceration with fibronecrotic base measuring roughly 1.0 cm x 3.0 cm x 0.4 cm. Right plantar, posterior heel ulceration with fibronecrotic base measuring roughly 1.0 cm x 1.0 cm x 0.1 cm. All ulcerations continue to show no periwound erythema, no drainage, no expression of purulence, no malodor and no other clinical signs of infection. No probe to bone, No tracking, undermining or tunneling. Maceration of interdigital spaces noted MSK: Diffuse POP to both legs especially at ulceration sites. Marked weakness in all major muscle groups b/l - Neurological Exam Neurological Exam: Alert, Awake, Oriented x3 - Psychiatric Exam Psychiatric exam: Normal Affect, Normal Mood Assessment and Plan - Assessment and Plan (Free Text) Assessment: 89 year old female seen at bedside for multiple ulcerations of LE and leg/foot pain secondary to DM Plan: Patient seen and evaluated at bedside Charts, labs and vitals reviewed; afebrile Plan discussed with Dr. Gates Ulcerations of right leg dressed with xeroform, DSD, gentian denise applied to macerated interdigital spaces Arterial duplex scan not performed on LE, will reconsult Dr. Gates Podiatry will continue to follow patient while in house
--- NOTE | 2017-03-07 21:03 | CP.PCM.PN ---
Subjective - Date & Time of Evaluation Date of Evaluation: 03/07/17 Time of Evaluation: 15:00 - Subjective Subjective: SEEN ON RENAL F/U IN BED .. FULLY A@O ..IN NAD FOR HD IN AM AND THEN D/C Objective - Vital Signs/Intake and Output Vital Signs (last 24 hours): Temp Pulse Resp BP Pulse Ox 98.9 F 104 H 18 100/55 L 100 03/07/17 19:05 03/07/17 19:05 03/07/17 19:05 03/07/17 19:05 03/07/17 19:05 - Medications Medications: Current Medications Acetaminophen (Tylenol 325mg Tab) 650 mg PO Q6 PRN PRN Reason: Pain, moderate (4-7) Last Admin: 03/07/17 16:38 Dose: 650 mg Alprazolam (Xanax) 0.25 mg PO Q12 PRN PRN Reason: Anxiety Stop: 03/12/17 20:11 Last Admin: 03/06/17 23:04 Dose: 0.25 mg Benzonatate (Tessalon Perles) 200 mg PO TID PRN PRN Reason: Cough Cinacalcet (Sensipar) 30 mg PO QOTHERDAY [facility] Last Admin: 03/07/17 09:37 Dose: 30 mg Cyproheptadine HCl (Periactin) 4 mg PO BID PRN PRN Reason: Allergy symptoms Last Admin: 03/07/17 09:36 Dose: 4 mg Diphenhydramine HCl (Benadryl) 25 mg IVP Q6 PRN PRN Reason: Itching / Pruritus Docusate Sodium (Colace) 200 mg PO DAILY [facility] Last Admin: 03/07/17 09:36 Dose: 200 mg Ergocalciferol (Drisdol 50,000 Intl Units Cap) 1 cap PO SAT [facility] Levothyroxine Sodium (Synthroid) 50 mcg PO DAILY@0630 [facility] Last Admin: 03/07/17 06:02 Dose: 50 mcg Metoprolol Tartrate (Lopressor) 50 mg PO Q12 [facility] Last Admin: 03/07/17 09:38 Dose: Not Given Pantoprazole Sodium (Protonix Ec Tab) 40 mg PO DAILY [facility] Last Admin: 03/07/17 09:36 Dose: 40 mg Sevelamer HCl (Renagel) 800 mg PO BIDWM [facility] Last Admin: 03/07/17 16:34 Dose: 800 mg Silver Sulfadiazine (Silvadene 1% 20 Gm) 1 ea TOP QOTHERDAY [facility] Last Admin: 03/07/17 09:38 Dose: 1 applic Vitamin B Complex/Vit C/Folic Acid (Nephro-Goran) 1 tab PO DAILY [facility] Last Admin: 03/07/17 09:37 Dose: 1 tab - Labs Labs: PT 20.2 Seconds (9.8-13.1) H 03/07/17 08:39 INR 1.9 (0.9-1.2) H 03/07/17 08:39 APTT 34.9 Seconds (25.6-37.1) 03/05/17 15:00 Assessment and Plan - Assessment and Plan (Free Text) Assessment: ESRD ON HD M W F . FOR HD IN AM THEN D/C ANEMIA OF CKD .. H/H STABLE MULTIPLE CO MORBIDITIES P : HD IN AM THEN D/C
[2017-03-08] MEDS: Levothyroxine 50 MCG TAB PO SCH (06:53)
[2017-03-08] MEDS ORDERED: Ergocalciferol 50,000 Intl Units Cap PO SCH (09:00)
[2017-03-08] MEDS: Pantoprazole 40 mg EC Tab PO SCH (09:17)
[2017-03-08] MEDS: Multivitamin Vitamin B Complex (Nephro-Vite) Tab PO SCH (09:17)
--- NOTE | 2017-03-08 09:23 | CP.PCM.DIS ---
Provider - Provider Date of Admission: 03/05/17 16:10 Attending physician: Ariel Aldridge MD Time Spent in preparation of Discharge (in minutes): 30 Hospital Course - Lab Results Lab Results: Most Recent Lab Values WBC 8.8 K/uL (4.8-10.8) D 03/05/17 13:30 RBC 3.49 Mil/uL (3.80-5.20) L 03/05/17 13:30 Hgb 11.8 g/dL (12.0-16.0) L 03/05/17 13:30 Hct 36.1 % (34.0-47.0) 03/05/17 13:30 MCV 103.4 fl (81.0-99.0) H 03/05/17 13:30 MCH 33.8 pg (27.0-31.0) H 03/05/17 13:30 MCHC 32.7 g/dL (33.0-37.0) L 03/05/17 13:30 RDW 16.7 % (11.5-14.5) H 03/05/17 13:30 Plt Count 103 K/uL (130-400) L D 03/05/17 13:30 MPV 8.3 fl (7.2-11.7) 03/05/17 13:30 Neut % (Auto) 86.9 % (50.0-75.0) H 03/05/17 13:30 Lymph % (Auto) 3.5 % (20.0-40.0) L 03/05/17 13:30 [place] % (Auto) 8.9 % (0.0-10.0) 03/05/17 13:30 Eos % (Auto) 0.3 % (0.0-4.0) 03/05/17 13:30 Baso % (Auto) 0.4 % (0.0-2.0) 03/05/17 13:30 Neut # 7.6 K/uL (1.8-7.0) H 03/05/17 13:30 Lymph # 0.3 K/uL (1.0-4.3) L 03/05/17 13:30 Mobile # 0.8 K/uL (0.0-0.8) 03/05/17 13:30 Eos # 0.0 K/uL (0.0-0.7) 03/05/17 13:30 Baso # 0.0 K/uL (0.0-0.2) 03/05/17 13:30 Neutrophils % (Manual) 88 % (42-75) H 03/05/17 13:30 Lymphocytes % (Manual) 4 % (20-50) L 03/05/17 13:30 Monocytes % (Manual) 7 % (0-10) 03/05/17 13:30 Basophils % (Manual) 1 % (0-2) 03/05/17 13:30 Platelet Estimate Decreased (NORMAL) L 03/05/17 13:30 PT 20.2 Seconds (9.8-13.1) H 03/07/17 08:39 INR 1.9 (0.9-1.2) H 03/07/17 08:39 APTT 34.9 Seconds (25.6-37.1) 03/05/17 15:00 pCO2 39 mm/Hg (35-45) 03/05/17 14:30 pO2 52 mm/Hg (80-100) L 03/05/17 14:30 HCO3 27.5 mmol/L (21-28) 03/05/17 14:30 ABG pH 7.46 (7.35-7.45) H 03/05/17 14:30 ABG Total CO2 28.9 mmol/L (22-28) H 03/05/17 14:30 ABG O2 Saturation 89.5 % (95-98) L 03/05/17 14:30 ABG Base Excess 3.6 mmol/L (-2.0-3.0) H 03/05/17 14:30 ABG Hemoglobin 10.7 g/dL (11.7-17.4) L 03/05/17 14:30 ABG Carboxyhemoglobin 1.7 % (0.5-1.5) H 03/05/17 14:30 POC ABG HHb (Measured) 10.2 % (0.0-5.0) H 03/05/17 14:30 ABG Methemoglobin 0.9 % (0.0-3.0) 03/05/17 14:30 Darren Test Yes 03/05/17 14:30 VBG pH 7.38 (7.32-7.43) 03/05/17 13:20 VBG pCO2 56 mmHg (40-60) 03/05/17 13:20 VBG HCO3 27.6 mmol/L 03/05/17 13:20 VBG Total CO2 34.8 mmol/L (22-28) H 03/05/17 13:20 VBG O2 Sat (Calc) 16.9 % (40-65) L 03/05/17 13:20 VBG Base Excess 6.3 mmol/L (0.0-2.0) H 03/05/17 13:20 VBG Potassium 5.2 mmol/L (3.6-5.2) 03/05/17 13:20 Hgb O2 Saturation 87.2 % (95.0-98.0) L 03/05/17 14:30 Sodium 134.0 mmol/L (132-148) 03/05/17 13:20 Chloride 99.0 mmol/L (98-107) 03/05/17 13:20 Glucose 119 mg/dL (65-105) H 03/05/17 13:20 Lactate 2.0 mmol/L (0.7-2.1) 03/05/17 13:20 FiO2 21.0 % 03/05/17 14:30 Sodium 135 mmol/l (132-148) 03/05/17 15:00 Potassium 4.3 MMOL/L (3.6-5.0) 03/05/17 15:00 Chloride 99 mmol/L (98-107) 03/05/17 15:00 Carbon Dioxide 25 mmol/L (22-30) 03/05/17 15:00 Anion Gap 16 (10-20) 03/05/17 15:00 BUN 32 mg/dl (7-17) H 03/05/17 15:00 Creatinine 3.8 mg/dL (0.7-1.2) H 03/05/17 15:00 Est GFR ( Amer) 14 03/05/17 15:00 Est GFR (Non-Af Amer) 11 03/05/17 15:00 POC Glucose (mg/dL) 101 mg/dL (65-110) 03/08/17 06:10 Random Glucose 126 mg/dL (65-105) H 03/05/17 15:00 Calcium 8.3 mg/dL (8.4-10.2) L 03/05/17 15:00 Total Bilirubin 1.7 mg/dl (0.2-1.3) H 03/05/17 15:00 AST 14 U/L (14-36) 03/05/17 15:00 ALT 21 U/L (9-52) 03/05/17 15:00 Alkaline Phosphatase 108 U/L (38-126) 03/05/17 15:00 Total Protein 5.5 G/DL (6.3-8.2) L 03/05/17 15:00 Albumin 2.9 g/dL (3.5-5.0) L 03/05/17 15:00 Globulin 2.7 gm/dL (2.2-3.9) 03/05/17 15:00 Albumin/Globulin Ratio 1.1 (1.0-2.1) 03/05/17 15:00 Venous Blood Potassium 5.2 mmol/L (3.6-5.2) 03/05/17 13:20 - Hospital Course Hospital Course: This 89-year-old female was hospitalized when she was found by her caregiver to be confused and the emergency certified medical coder found her blood sugar to be 50 mg percent. The patient had not eaten for approximately 12 hours. She is a diabetic and hypertensive who has been on Januvia 25 mg daily. The patient has had a long history of hypertension and diabetes with chronic renal failure requiring chronic hemodialysis for approximately 3 years. She has chronic atrial fibrillation and has been on metoprolol for rate control and warfarin for oral anticoagulation. She has had obstructive sleep apnea and chronic hypoxia which resulted in severe pulmonary hypertension and right ventricular failure. She has had recurrent ascites requiring abdominal paracentesis. The patient also has significant peripheral arterial disease and complaints of leg pains often. The patient's son and daughter have requested a DO NOT RESUSCITATE and DO NOT INTUBATE order. The patient was hospitalized and her blood sugar was monitored. On further questioning the patient reported that she had lost her dentures and had been reluctant to eat. She has had a fair amount of anorexia to begin with and this further added to her difficulties. Januvia was discontinued. During her hospital stay the patient's vital signs remained stable. She was monitored on telemetry and her heart rate was adequately controlled with metoprolol. She underwent hemodialysis on the day of her discharge and tolerated it well. An arterial duplex off lower extremities was carried out and significant atherosclerotic changes were noted in both legs particularly in the right leg circulation. No focal obstruction was detected. The patient was sent home with instructions to her daughter to withhold Januvia. During physical examination she was found to have acute related a moderate degree of ascites fluid again and this would be tapped at an appropriate time. Her final diagnosis was hypoglycemia secondary to poor oral intake. Diabetes with hypertension and chronic kidney failure with chronic hemodialysis. 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 Severe pulmonary hypertension secondary to obstructive sleep apnea and chronic hypoxia. Severe peripheral arterial disease. Discharge Exam - Head Exam Head Exam: ATRAUMATIC, NORMAL INSPECTION, NORMOCEPHALIC Discharge Plan - Follow Up Plan Condition: GUARDED Disposition: HOME/ ROUTINE
[2017-03-08 12:58] VITALS: BP 94/62; PULSE 91; RESP 18; TEMP 98.7; O2SAT 94
== END 2017-03-08 14:12 | disposition home or self-care (01) | DRG 638 ==
LOC: H.ER 12:31 → H.ERHOLD 16:10 → H.TEL 18:26
PROVIDERS: ADMIT Internal Medicine Cardiovascular Disease; ATTEND Internal Medicine Cardiovascular Disease
PROC: 5A1D60Z (ICD-10-PCS; principal; 2017-03-06)
DX: E11.649 Type 2 diabetes mellitus with hypoglycemia without coma (principal); I13.2 Hypertensive heart and chronic kidney disease with heart failure and with stage 5 chronic kidney disease, or end stage renal disease; L97.919 Non-pressure chronic ulcer of unspecified part of right lower leg with unspecified severity; R18.8 Other ascites; N18.6 End stage renal disease; I27.2 Other secondary pulmonary hypertension; E11.22 Type 2 diabetes mellitus with diabetic chronic kidney disease; E11.621 Type 2 diabetes mellitus with foot ulcer; L97.419 Non-pressure chronic ulcer of right heel and midfoot with unspecified severity; I50.22 Chronic systolic (congestive) heart failure; L97.529 Non-pressure chronic ulcer of other part of left foot with unspecified severity; I48.2 Chronic atrial fibrillation; D63.1 Anemia in chronic kidney disease; I25.10 Atherosclerotic heart disease of native coronary artery without angina pectoris; F32.9 Major depressive disorder, single episode, unspecified; Z99.2 Dependence on renal dialysis; R09.02 Hypoxemia; R53.81 Other malaise; E03.9 Hypothyroidism, unspecified; G47.33 Obstructive sleep apnea (adult) (pediatric); Z79.01 Long term (current) use of anticoagulants; Z91.041 Radiographic dye allergy status; I70.209 Unspecified atherosclerosis of native arteries of extremities, unspecified extremity; Z66 Do not resuscitate; R63.0 Anorexia; Z68.24 Body mass index [BMI] 24.0-24.9, adult; E11.622 Type 2 diabetes mellitus with other skin ulcer; L98.499 Non-pressure chronic ulcer of skin of other sites with unspecified severity

== ENCOUNTER 2017-03-11 15:05 | Inpatient (IN) | payer MEDICARE, OTHER ==
[2017-03-11 15:06] VITALS: PULSE 125; BMI 26.1
--- NOTE | 2017-03-11 16:28 | RAD ---
HISTORY: Sepsis Patient COMPARISON: 03/05/2017 FINDINGS: LUNGS: Examination limited due to oblique positioning. No focal infiltrate. Generalized interstitial prominence, nonspecific. Previously evident pulmonary vascular congestive changes not identified. PLEURA: Minimal blunting of both costophrenic angles which may reflect small pleural effusions. No pneumothorax. CARDIOVASCULAR: Grossly normal OSSEOUS STRUCTURES: No significant abnormalities. VISUALIZED UPPER ABDOMEN: Normal. OTHER FINDINGS: None. IMPRESSION: Limited due to oblique positioning. No focal infiltrate. Generalized interstitial infiltrate, nonspecific. This may reflect interstitial pulmonary edema. However, previously identified pulmonary vascular congestive change is not evident. Possible small bilateral pleural effusion.
--- NOTE | 2017-03-11 16:31 | ED PDOC ---
HPI: General Adult Time Seen by Provider: 03/11/17 15:38 Chief Complaint (Nursing): Altered Mental Status Chief Complaint (Provider): Generalized weakness History Per: Patient, Family (Daughter) History/Exam Limitations: no limitations Onset/Duration Of Symptoms: Days Current Symptoms Are (Timing): Still Present Additional Complaint(s): Shasha Martinez is an 89 y/o female who was brought to the ED by her daughter for complaints of generalized weakness associated with lethargy, onset today. Patient was discharged on Friday and had dialysis yesterday but did not receive the full treatment due to blood pressure being low. Patient's director operations told her daughter to give some medication to help her blood pressure, which she picked up today, but has not taken yet. Yesterday the patient had 6 episodes of diarrhea. Patient is alert and oriented x2. Also complaining of left hand pain - daughter says it's been there since discharge from hospital. Daughter states patient is not on any antibiotics. Also states patient has been minimally coughing. PMD: Unknown Past Medical History Reviewed: Historical Data, Nursing Documentation, Vital Signs Vital Signs: Last Vital Signs Temp 98.4 F 03/25/17 15:58 Pulse 122 H 03/25/17 15:58 Resp 18 03/25/17 15:58 BP 106/63 03/25/17 15:58 Pulse Ox 90 L 03/25/17 15:58 - Medical History PMH: Anemia, Atrial Fibrillation (on coumadin), CAD, Cardia Arrhythmia, CHF, Depression, Diabetes (Type II), HTN, Hypothyroidism, Pneumonia, End Stage Renal Disease, Chronic Kidney Disease (Dialysis MWF), Sleep Apnea (on CPAP) Denies: HIV, Kidney Stones - Surgical History Surgical History: Cholecystectomy, Hernia Repair (2005, ventral) Denies: CABG - Family History Family History: States: Unknown Family Hx - Home Medications Home Medications: Ambulatory Orders Medication Instructions Recorded Warfarin [Coumadin] 2 mg PO HS 06/19/15 Levothyroxine [Synthroid] 50 mcg PO DAILY@0630 tab 02/03/17 Pantoprazole [Protonix EC Tab] 40 mg PO DAILY ect 02/03/17 Vitamin B Complex/Vit C/Folic 1 tab PO DAILY tab 02/03/17 [Nephro-Goran] Acetaminophen [Tylenol 325mg tab] 650 mg PO Q6 PRN tab 02/15/17 Ergocalciferol [Drisdol 50,000 1 cap PO SAT cap 02/15/17 Intl Units Cap] Sevelamer [Renagel] 800 mg PO BIDWM tab 02/15/17 Ascorbic Acid [Vitamin C 500 mg 500 mg PO DAILY tab 03/25/17 Tab] Cholecalciferol [Vitamin D 1000 IU] 2,000 iu PO DAILY tab 03/25/17 Vitamin B Complex/Vit C/Folic 1 tab PO DAILY tab 03/25/17 [Nephro-Goran] - Allergies Allergies/Adverse Reactions: Allergies Allergy/AdvReac Type Severity Reaction Status Date / Time iodine Allergy RASH Verified 01/29/17 13:29 iron Allergy ITCHING Verified 01/29/17 13:29 Review of Systems ROS Statement: Except As Marked, All Systems Reviewed And Found Negative Constitutional: Positive for: Weakness (generalized), Malaise Gastrointestinal: Positive for: Diarrhea Musculoskeletal: Positive for: Hand Pain (Left) Physical Exam - Reviewed Nursing Documentation Reviewed: Yes Vital Signs Reviewed: Yes - Physical Exam Appears: Positive for: Non-toxic, No Acute Distress (Tired but arousable to verbal stimuli. Appears pale.) Head Exam: Positive for: ATRAUMATIC, NORMAL INSPECTION, NORMOCEPHALIC Skin: Positive for: Warm, Dry Eye Exam: Positive for: EOMI, Normal appearance, PERRL Neck: Positive for: Normal, Painless ROM, Supple Cardiovascular/Chest: Positive for: Tachycardia, Irregularly Irregular Respiratory: Positive for: Crackles (bibasilar) Gastrointestinal/Abdominal: Positive for: Distended. Negative for: Tenderness Back: Positive for: Normal Inspection Extremity: Positive for: Other (Right lower leg is erythematous from the knee down, but no edema. Serous fluid drainage from small lesion anteriorly. Abrasion on lateral side of right lower extremity.). Negative for: Pedal Edema Neurologic/Psych: Positive for: Alert, Oriented (x2) - Laboratory Results Result Diagrams: 03/22/17 12:00 03/22/17 12:00 Medical Decision Making Medical Decision Making: Time: 16:07 Initial Impression: Septic work up Initial Plan: --EKG --CMP --Magnesium --Phosphorous --TSH --Troponin I --Pro BNP --CBC --PTT --Prothrombin time --Blood, stool, urine cultures --Urinalysis --VBG --CXR --Pending X-Ray Left Hand --Pending US Duplex lower extremity vein, right Time: 16:26 Chest X-Ray: FINDINGS: LUNGS: Examination limited due to oblique positioning. No focal infiltrate. Generalized interstitial prominence, nonspecific. Previously evident pulmonary vascular congestive changes not identified. PLEURA: Minimal blunting of both costophrenic angles which may reflect small pleural effusions. No pneumothorax. CARDIOVASCULAR: Grossly normal OSSEOUS STRUCTURES: No significant abnormalities. VISUALIZED UPPER ABDOMEN: Normal. OTHER FINDINGS: None. IMPRESSION: Limited due to oblique positioning. No focal infiltrate. Generalized interstitial infiltrate, nonspecific. This may reflect interstitial pulmonary edema. However, previously identified pulmonary vascular congestive change is not evident. Possible small bilateral pleural effusion. Time: 17:00 --Patient is signed out by me to Dr. Carrie Anderson MD, pending ultrasound and reevaluation. Scribe Attestation: Documented by Ana Rdz, acting as a scribe for Julita Gant MD Provider Scribe Attestation: All medical record entries made by the Scribe were at my direction and personally dictated by me. I have reviewed the chart and agree that the record accurately reflects my personal performance of the history, physical exam, medical decision making, and the department course for this patient. I have also personally directed, reviewed, and agree with the discharge instructions and disposition. Disposition - Clinical Impression Clinical Impression: ESRD (end stage renal disease), Hypotension, Cellulitis - Patient ED Disposition Is Patient to be Admitted: Transfer of Care - Disposition Disposition Time: 19:00 Condition: GUARDED Patient Signed Over To: Carrie Anderson
[2017-03-11 16:49] LABS: BASO % 0.2 % (0.0-2.0); EOS % 0.1 % (0.0-4.0); HEMATOCRIT 31.6 % (34.0-47.0); LYMPH # 0.3 K/uL (1.0-4.3); LYMPH % 3.3 % (20.0-40.0); MEAN CELL VOLUME 103.7 fl (81.0-99.0); MEAN CORPUSCULAR HEMOGLOBIN 33.5 pg (27.0-31.0); MEAN CORPUSCULAR HGB CONC 32.3 g/dL (33.0-37.0); MEAN PLATELET VOLUME 8.2 fl (7.2-11.7); MONO # 1.5 K/uL (0.0-0.8); MONO % 15.6 % (0.0-10.0); NEUT # 7.8 K/uL (1.8-7.0); NEUT % 80.8 % (50.0-75.0); PLATELET COUNT 116 K/uL (130-400); RED CELL DISTRIBUTION WIDTH 15.2 % (11.5-14.5); WHITE BLOOD COUNT 9.6 K/uL (4.8-10.8)
[2017-03-11] MEDS ORDERED: Sodium Chloride 0.9% 1,000 ML IV STA (17:02)
[2017-03-11 17:03] LABS: BILIRUBIN,TOTAL 2.7 mg/dl (0.2-1.3); CALCIUM 9.4 mg/dL (8.4-10.2); MAGNESIUM 1.7 MG/DL (1.6-2.3); PHOSPHOROUS 2.6 mg/dl (2.5-4.5); POTASSIUM 4.2 MMOL/L (3.6-5.0); TOTAL PROTEIN 5.5 G/DL (6.3-8.2)
[2017-03-11 17:06] LABS: PARTIAL THROMBOPLASTIN TIME 40.2 Seconds (25.6-37.1)
--- NOTE | 2017-03-11 17:10 | RAD ---
PROCEDURE: Left Hand Radiographs. HISTORY: L hand redness COMPARISON: None. FINDINGS: BONES: No acute fracture. Orthopedic fixation hardware along the 4th and 5th proximal phalangeal diaphyses. No lytic or blastic lesion. No periosteal reaction or osseous erosion. 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 SOFT TISSUES: Normal. OTHER FINDINGS: None. IMPRESSION: No acute fracture. No evidence of osteomyelitis. Osteoarthritis at C[facility] 1 with subluxation.
[2017-03-11 17:14] LABS: TROPONIN I 0.02 ng/mL (0.00-0.120)
[2017-03-11 17:33] LABS: THYROID STIMULATING HORMONE 5.16 mIU/ML (0.46-4.68)
[2017-03-11] MEDS ORDERED: Piperacillin/Tazobact 3.375 GM in Sodium Chloride 0.9% 100 ML IVPB STA (17:45)
--- NOTE | 2017-03-11 18:03 | US ---
PROCEDURE: Right lower extremity venous duplex Doppler. HISTORY: RLE erythema COMPARISON: None available. TECHNIQUE: Common femoral, superficial femoral, popliteal and posterior tibial veins were evaluated. Flow was assessed with color Doppler, compressibility, assessment of phasic flow and augmentation response. FINDINGS: COMMON FEMORAL VEIN: Unremarkable. SUPERFICIAL FEMORAL VEIN: Unremarkable. POPLITEAL VEIN: Unremarkable. POSTERIOR TIBIAL VEIN: Unremarkable. OTHER FINDINGS: Mild soft tissue edema. IMPRESSION: No evidence of deep venous thrombosis in the right lower extremity. Mild soft tissue edema.
[2017-03-11 18:07] LABS: VENOUS BLOOD GAS BASE EXCESS 3.9 mmol/L (0.0-2.0); VENOUS BLOOD GAS PCO2 51 mmHg (40-60); VENOUS BLOOD PH 7.38 (7.32-7.43)
[2017-03-11] MEDS ORDERED: Vancomycin 1 g Inj ONE (18:20)
[2017-03-11] MEDS ORDERED: Piperacillin/Tazobact 3.375 gm Inj IVPB ONE (18:20)
[2017-03-11 18:32] LABS: NEUTROPHIL 75 % (42-75); TOTAL CELLS COUNTED 100
--- NOTE | 2017-03-11 18:34 | CP.PCM.CON ---
History of Present Illness - History of Present Illness History of Present Illness: 89 year old female familiar to our service brought to ED for generalized lethargy and multiple bouts of diarrhea. Pt seen by us for continued care of chronic LE ulcerations of right leg. Patient states that her right leg causes her more pain than her left leg. Patient denies any further pedal complaints at this time. Patient denies N/V/CP/SOB Review of Systems - Review of Systems Review of Systems: ROS unremarkable outside of HPI Past Patient History - Infectious Disease Hx of Infectious Diseases: None - Tetanus Immunizations Tetanus Immunization: Unknown - Past Medical History & Family History Past Medical History?: Yes - Past Social History Smoking Status: Former Smoker - CARDIAC Hx Atrial Fibrillation: Yes (on coumadin) Hx Cardia Arrhythmia: Yes Hx Congestive Heart Failure: Yes Hx Hypertension: Yes - PULMONARY Hx Pneumonia: Yes Hx Sleep Apnea: Yes (on CPAP) - NEUROLOGICAL Hx Neurological Disorder: No - HEENT Hx HEENT Problems: No - RENAL Hx Chronic Kidney Disease: Yes (Dialysis MWF) Hx Kidney Stones: No - ENDOCRINE/METABOLIC Hx Hypothyroidism: Yes - HEMATOLOGICAL/ONCOLOGICAL Hx Anemia: Yes Hx Human Immunodeficiency Virus (HIV): No - INTEGUMENTARY Hx Dermatological Problems: Yes (Pruritic eruptions) - MUSCULOSKELETAL/RHEUMATOLOGICAL Hx Musculoskeletal Disorders: No Hx Falls: No - GASTROINTESTINAL Hx Gastrointestinal Disorders: No Other/Comment: ASCITES - GENITOURINARY/GYNECOLOGICAL Hx Genitourinary Disorders: No - PSYCHIATRIC Hx Depression: Yes - SURGICAL HISTORY Hx Cholecystectomy: Yes Hx Coronary Artery Bypass Graft: No - ANESTHESIA Hx Anesthesia: Yes Hx Anesthesia Reactions: No Hx Malignant Hyperthermia: No Meds Allergies/Adverse Reactions: Allergies Allergy/AdvReac Type Severity Reaction Status Date / Time iodine Allergy RASH Verified 01/29/17 13:29 iron Allergy ITCHING Verified 01/29/17 13:29 - Medications Medications: Current Medications Sodium Chloride (Sodium Chloride 0.9%) 1,000 mls @ 90 mls/hr IV .[id number] STA Stop: 03/12/17 04:08 Last Admin: 03/11/17 17:27 Dose: 90 mls/hr Piperacillin Sod/Tazobactam (Sod 3.375 gm/ Sodium Chloride) 100 mls @ 100 mls/ hr IVPB STAT STA Stop: 03/11/17 18:44 Last Admin: 03/11/17 18:24 Dose: 100 mls/hr Vancomycin HCl 1 gm/ Sodium (Chloride) 250 mls @ 166.667 mls/hr IVPB STAT STA Stop: 03/11/17 19:14 Physical Exam - Constitutional Appears: Well, Non-toxic, No Acute Distress - Extremities Exam Additional comments: B/l LE focused exam Vasc: DP/PT pulses very weakly palpable 1/4 b/l. CFT to all digits > 3 seconds. Skin temperature noted to be significantly warmer to right leg than left. Diffuse pitting edema noted to patients right leg Neuro: Epicritic and protective sensation grossly intact b/l Derm: Diffusely erythematous right leg noted with weeping wounds of exclusively serous drainage. Multiple blisters noted to anterior right leg. Multiple ulcerations noted to b/l LE. Left lateral fifth digit ulceration measuring roughly 1.0 cm x 1.0 cm noted with necrotic eschar covering the base. Lateral right leg ulceration with mostly fibrotic base measuring roughly 1.0 cm x 3.0 cm x 0.4 cm. Right plantar, posterior heel ulceration with fibronecrotic base measuring roughly 1.0 cm x 1.0 cm x 0.1 cm. All ulcerations continue to show no periwound erythema, no drainage, no expression of purulence, no malodor and no other clinical signs of infection. No probe to bone, No tracking, undermining or tunneling. Maceration of interdigital spaces noted to have cleared up with evidence of Gentian denise still present at this time MSK: Diffuse POP to both legs R>L. Marked weakness in all major muscle groups b /l - Neurological Exam Neurological exam: Alert, Oriented x3 - Psychiatric Exam Psychiatric exam: Normal Affect, Normal Mood Results - Vital Signs Recent Vital Signs: Last Vital Signs Temp 100.9 F H 03/11/17 17:17 Pulse 105 H 03/11/17 18:26 Resp 20 03/11/17 18:26 BP 108/52 L 03/11/17 18:26 Pulse Ox 97 03/11/17 18:26 - Labs Result Diagrams: 03/11/17 16:45 03/11/17 16:45 Labs: Laboratory Results - last 24 hr 03/11/17 03/11/17 03/11/17 16:45 16:45 16:45 WBC 9.6 RBC 3.04 L Hgb 10.2 L Hct 31.6 L MCV 103.7 H MCH 33.5 H MCHC 32.3 L RDW 15.2 H Plt Count 116 L MPV 8.2 Neut % (Auto) 80.8 H Lymph % (Auto) 3.3 L [place] % (Auto) 15.6 H Eos % (Auto) 0.1 Baso % (Auto) 0.2 Neut # 7.8 H Lymph # 0.3 L [place] # 1.5 H Eos # 0.0 Baso # 0.0 PT 22.1 H INR 2.1 H APTT 40.2 H pO2 VBG pH VBG pCO2 VBG HCO3 VBG Total CO2 VBG O2 Sat (Calc) VBG Base Excess VBG Potassium Glucose Lactate FiO2 Sodium 135 Potassium 4.2 Chloride 100 Carbon Dioxide 25 Anion Gap 14 BUN 24 H Creatinine 3.1 H Est GFR ( Amer) 17 Est GFR (Non-Af Amer) 14 Random Glucose 123 H Calcium 9.4 Phosphorus 2.6 Magnesium 1.7 Total Bilirubin 2.7 H AST 18 ALT 31 Alkaline Phosphatase 97 Troponin I 0.0200 NT-Pro-B Natriuret Pep [id number] H Total Protein 5.5 L Albumin 2.8 L Globulin 2.8 Albumin/Globulin Ratio 1.0 TSH 3rd Generation 5.16 H Venous Blood Potassium 03/11/17 18:05 WBC RBC Hgb Hct MCV MCH MCHC RDW Plt Count MPV Neut % (Auto) Lymph % (Auto) [place] % (Auto) Eos % (Auto) Baso % (Auto) Neut # Lymph # [place] # Eos # Baso # PT INR APTT pO2 23 L VBG pH 7.38 VBG pCO2 51 VBG HCO3 26.4 VBG Total CO2 31.8 H VBG O2 Sat (Calc) 43.7 VBG Base Excess 3.9 H VBG Potassium 4.1 Glucose 124 H Lactate 1.3 FiO2 21.0 Sodium 136.0 Potassium Chloride 101.0 Carbon Dioxide Anion Gap BUN Creatinine Est GFR ( Amer) Est GFR (Non-Af Amer) Random Glucose Calcium Phosphorus Magnesium Total Bilirubin AST ALT Alkaline Phosphatase Troponin I NT-Pro-B Natriuret Pep Total Protein Albumin Globulin Albumin/Globulin Ratio TSH 3rd Generation Venous Blood Potassium 4.1 Assessment & Plan - Assessment and Plan (Free Text) Assessment: 89 year old female seen in ED for multiple right LE ulcerations and diffuse RLE cellulits/superficial weeping wounds Plan: Patient seen and evaluated in ED Charts, labs and vitals reviewed; Temp 100.9, WBC 9.[address] Kody Petty leg dressed with ABD to weeping anterior wound, DSD and xeroform to all ulceration sites Patient started on Vanc/Zosyn Patient to be admitted to floors Podiatry will continue to follow while patient is in house - Date & Time Date: 03/11/17 Time: 18:42
--- NOTE | 2017-03-11 19:00 | ED PDOC ---
- Laboratory Results Result Diagrams: 03/13/17 05:00 03/13/17 05:00 - ECG O2 Sat by Pulse Oximetry: 97 - CT Scan/US Duplex Other Rad Studies (CT/US): Read By Radiologist, Radiology Report Reviewed Other Rad Interpretation: no acute findings - Progress ED Course And Treament: Assumed care from Dr Gant. Pending labs,Duplex and final disposition Disposition Discussed With Dr.: Jose Cruz [place] Doctor Will See Patient In The: Hospital Counseled Patient/Family Regarding: Studies Performed, Diagnosis - Clinical Impression Clinical Impression: ESRD (end stage renal disease), Hypotension, Cellulitis - POA Present On Arrival: Poor Glycemic Control, Pressure Ulcer (right lower leg) - Disposition Disposition: Admitted as In-Patient Disposition Time: 18:39 Condition: FAIR
[2017-03-12 06:59] LABS: CALCIUM 9.3 mg/dL (8.4-10.2); POTASSIUM 4.1 MMOL/L (3.6-5.0)
[2017-03-12 07:04] LABS: HEMATOCRIT 31.4 % (34.0-47.0); MEAN CELL VOLUME 105.4 fl (81.0-99.0); MEAN CORPUSCULAR HEMOGLOBIN 33.3 pg (27.0-31.0); MEAN CORPUSCULAR HGB CONC 31.6 g/dL (33.0-37.0); RED CELL DISTRIBUTION WIDTH 16.1 % (11.5-14.5); WHITE BLOOD COUNT 10.1 K/uL (4.8-10.8)
--- NOTE | 2017-03-12 08:39 | CP.PCM.PN ---
Subjective - Date & Time of Evaluation Date of Evaluation: 03/12/17 Time of Evaluation: 08:37 - Subjective Subjective: Patient is an 89 year old female who came to ED last night for generalized lethargy and multiple bouts of diarrhea. Patient is familiar to our service. Patient states that she is still having some right leg pain but that it is improved from last night. She denies any acute overnight events. She denies any further pedal complaints at this time. Denies N/V/F/C/CP/SOB Objective - Vital Signs/Intake and Output Vital Signs (last 24 hours): Temp Pulse Resp BP Pulse Ox 97.7 F 76 20 98/66 L 95 03/12/17 08:00 03/12/17 08:00 03/12/17 08:00 03/12/17 08:00 03/12/17 08:00 - Medications Medications: Current Medications Acetaminophen (Tylenol 325mg Tab) 650 mg PO Q6 PRN PRN Reason: Pain, moderate (4-7) Alprazolam (Xanax) 0.25 mg PO Q12 PRN PRN Reason: Anxiety Stop: 03/18/17 22:45 Levothyroxine Sodium (Synthroid) 50 mcg PO DAILY@0630 [facility] Pantoprazole Sodium (Protonix Ec Tab) 40 mg PO DAILY [facility] Sevelamer HCl (Renagel) 800 mg PO BIDWM [facility] Warfarin Sodium (Coumadin) 2 mg PO HS [facility] PRN Reason: Protocol - Labs Labs: 03/12/17 05:50 03/12/17 06:30 PT 21.7 Seconds (9.8-13.1) H 03/12/17 05:50 INR 2.1 (0.9-1.2) H 03/12/17 05:50 APTT 40.2 Seconds (25.6-37.1) H 03/11/17 16:45 - Constitutional Appears: Well, Non-toxic, No Acute Distress - Extremities Exam Additional comments: B/l LE focused exam Vasc: DP/PT pulses very weakly palpable 1/4 b/l. CFT to all digits > 3 seconds. Skin temperature noted to be significantly warmer to right leg than left. Diffuse pitting edema that was noted to patients right leg last night is greatly decreased at this time. Neuro: Epicritic and protective sensation grossly intact b/l Derm: Blisters and weeping wounds that were present on ED admission last night are no longer present. Great improvement since yesterday. Multiple, stable ulcerations noted to b/l LE. Lateral right leg ulceration with mostly fibrotic base measuring roughly 1.0 cm x 3.0 cm x 0.4 cm. Right plantar, posterior heel ulceration with fibronecrotic base measuring roughly 1.0 cm x 1.0 cm x 0.1 cm. All ulcerations continue to show no periwound erythema, no drainage, no expression of purulence, no malodor and no other clinical signs of infection. No probe to bone, No tracking, undermining or tunneling. Maceration of interdigital spaces noted to have cleared up with evidence of Gentian denise still present at this time with exception of right third interspace MSK: Diffuse POP to both legs R>L. Marked weakness in all major muscle groups b /l - Neurological Exam Neurological Exam: Alert, Awake, Oriented x3 - Psychiatric Exam Psychiatric exam: Normal Affect, Normal Mood Assessment and Plan - Assessment and Plan (Free Text) Assessment: 89 year old female seen at bedside for multiple right LE ulcerations Plan: Patient seen and evaluated at bedside Charts, labs and vitals reviewed; afebrile Plan discussed with Dr. Gates Patient right leg dressed with xeroform to ulceration sites and DSD Gentian denise ordered for interdigital maceration Podiatry will continue to follow while patient in house
--- NOTE | 2017-03-12 09:12 | PQF GENQUE ---
This form is a permanent part of the medical record 03/12/17 Dr. Gates, Admitted with leg ulcerations and cellulitis. Please document the etiology of the ulcers if known. Clarification of your documentation is requested to better reflect the severity of illness and intensity of treatment of your patient. Indicators present [] Specify: [] [] Specify: [] [] Specify: [] [] Specify: [] Location in the medical record that reflects the above clinical findings: [] Treatment Provided: [] PHYSICIAN'S RESPONSE Please document etiology of skin ulcer: [] Non-pressure ulcer associated with: [] Atherosclerosis of lower extremities [] Chronic venous hypertension [] Diabetes [] Postphlebitic syndrome [] Postthrombotic syndrome [] Varicose veins [] Other (please specify) [] Unknown [] Other (please specify) [] Pressure related with stage [] Clinically unable to determine [] Unknown Based on your medical judgment of the clinical indicators outlined above please clarify the following: [] Practitioner response [] If unable to determine, please check the box, sign and date. Present On Admission (POA) Indicator: [] Present at the time of admission [] Not present at the time of admission [] Clinically Undetermined In responding to this query, please exercise your independent professional judgment. The fact that a question is asked does not imply that any particular answer is desired or expected. Thank you for your clarification on this documentation. If you have any questions please call:ext [phone] * Thank you, Maria Teresa Sigala RN CDMP MTDD
[2017-03-12] MEDS: Pantoprazole 40 mg EC Tab PO SCH (09:28)
[2017-03-12] MEDS: Levothyroxine 50 MCG TAB PO SCH (09:28)
--- NOTE | 2017-03-12 10:43 | CARD ---
APPROVED REPORT EKG Measurement Heart [id number] <Conclusion> Atrial fibrillation with rapid ventricular response Right axis deviation Incomplete right bundle branch block Possible Right ventricular hypertrophy Nonspecific ST and T wave abnormality Abnormal ECG
--- NOTE | 2017-03-12 11:09 | CP.PCM.HP ---
History of Present Illness - History of Present Illness History of Present Illness: This 89-year-old chronically ill female who has had multiple hospitalizations at this institution over the last 5-6 months was brought to the emergency room with low BP and lethargy. 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 She has severe pulmonary hypertension as a consequence off chronic obstructive sleep apnea and chronic hypoxia. 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 She has atrial fibrillation for which she takes warfarin. She has never been a smoker and has known history of coronary artery disease or myocardial infarction. She was recently discharged from [facility] Present on Admission - Present on Admission Any Indicators Present on Admission: No Review of Systems - Constitutional Constitutional: Fatigue, Lethargy - Cardiovascular Cardiovascular: As Per HPI - Respiratory Respiratory: As Per HPI Past Patient History - Infectious Disease Hx of Infectious Diseases: None - Tetanus Immunizations Tetanus Immunization: Unknown - Past Medical History & Family History Past Medical History?: Yes - Past Social History Smoking Status: Never Smoked - CARDIAC Hx Cardiac Disorders: Yes Hx Atrial Fibrillation: Yes (on coumadin) Hx Cardia Arrhythmia: Yes Hx Congestive Heart Failure: Yes Hx Hypertension: Yes - PULMONARY Hx Respiratory Disorders: Yes Hx Pneumonia: Yes Hx Sleep Apnea: Yes (on CPAP) - NEUROLOGICAL Hx Neurological Disorder: No - HEENT Hx HEENT Problems: No - RENAL Hx Chronic Kidney Disease: Yes (Dialysis MWF) Hx Kidney Stones: No - ENDOCRINE/METABOLIC Hx Endocrine Disorders: Yes Hx Hypothyroidism: Yes - HEMATOLOGICAL/ONCOLOGICAL Hx Blood Disorders: Yes Hx AIDS: No Hx Anemia: Yes Hx Human Immunodeficiency Virus (HIV): No - INTEGUMENTARY Hx Dermatological Problems: Yes (Pruritic eruptions) - MUSCULOSKELETAL/RHEUMATOLOGICAL Hx Musculoskeletal Disorders: No Hx Falls: No - GASTROINTESTINAL Hx Gastrointestinal Disorders: Yes Other/Comment: ASCITES - GENITOURINARY/GYNECOLOGICAL Hx Genitourinary Disorders: No - PSYCHIATRIC Hx Psychophysiologic Disorder: Yes Hx Depression: Yes Hx Substance Use: No - SURGICAL HISTORY Hx Surgeries: Yes Hx Cholecystectomy: Yes Hx Coronary Artery Bypass Graft: Yes Hx Herniorrhaphy: Yes - ANESTHESIA Hx Anesthesia: Yes Hx Anesthesia Reactions: No Hx Malignant Hyperthermia: No Meds Allergies/Adverse Reactions: Allergies Allergy/AdvReac Type Severity Reaction Status Date / Time iodine Allergy RASH Verified 01/29/17 13:29 iron Allergy ITCHING Verified 01/29/17 13:29 Physical Exam - Constitutional Appears: Chronically Ill - Head Exam Head Exam: ATRAUMATIC - Eye Exam Eye Exam: Normal appearance Pupil Exam: NORMAL ACCOMODATION - ENT Exam ENT Exam: Normal Exam - Neck Exam Neck exam: Positive for: Normal Inspection - Respiratory Exam Respiratory Exam: NORMAL BREATHING PATTERN - Cardiovascular Exam Cardiovascular Exam: Irregular Rhythm Results - Vital Signs Recent Vital Signs: Last Vital Signs Temp 97.7 F 03/12/17 08:00 Pulse 76 03/12/17 08:00 Resp 20 03/12/17 08:00 BP 98/66 L 03/12/17 08:00 Pulse Ox 95 03/12/17 08:00 - Labs Result Diagrams: 03/12/17 05:50 03/12/17 06:30 Labs: Laboratory Results - last 24 hr 03/12/17 03/12/17 03/12/17 05:50 05:50 06:30 WBC 10.1 RBC 2.98 L Hgb 9.9 L Hct 31.4 L MCV 105.4 H MCH 33.3 H MCHC 31.6 L RDW 16.1 H Plt Count 99 L PT 21.7 H INR 2.1 H Sodium 138 Potassium 4.1 Chloride 101 Carbon Dioxide 26 Anion Gap 15 BUN 28 H Creatinine 3.6 H Est GFR ( Amer) 14 Est GFR (Non-Af Amer) 12 Random Glucose 86 Calcium 9.3 Assessment & Plan (1) Hypotension Status: Acute (2) Heart failure Status: Acute (3) Noninfected skin tear of left lower extremity Status: Acute (4) Afib Status: Chronic (5) ESRD (end stage renal disease) Status: Chronic (6) HTN (hypertension) Status: Chronic
[2017-03-12] MEDS ORDERED: GENTIAN VIOLET TOP ONE (11:30)
--- NOTE | 2017-03-12 23:43 | CP.PCM.CON ---
History of Present Illness - History of Present Illness History of Present Illness: REASONS FOR CONSULT : 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 H/H STABLE PT IS WELL KNOWN TO OUR RENAL SERVICE ..WITH MMP AND FREQUENT ADMISSIONS WS ADMITTED FOR SEPSIS AND HYPOGLYCEMIA ALL EMR REVIEWED .. LABS REVIEWED THOUROUGHLY This 89-year-old chronically ill female who has had multiple hospitalizations at this institution over the last 5-6 months was brought to the emergency room with low BP and lethargy. 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 She has severe pulmonary hypertension as a consequence off chronic obstructive sleep apnea and chronic hypoxia. 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 She has atrial fibrillation for which she takes warfarin. She has never been a smoker and has known history of coronary artery disease or myocardial infarction. She was recently discharged from [facility] Past Patient History - Infectious Disease Hx of Infectious Diseases: None - Tetanus Immunizations Tetanus Immunization: Unknown - Past Medical History & Family History Past Medical History?: Yes - Past Social History Smoking Status: Never Smoked - CARDIAC Hx Cardiac Disorders: Yes Hx Atrial Fibrillation: Yes (on coumadin) Hx Cardia Arrhythmia: Yes Hx Congestive Heart Failure: Yes Hx Hypertension: Yes - PULMONARY Hx Respiratory Disorders: Yes Hx Pneumonia: Yes Hx Sleep Apnea: Yes (on CPAP) - NEUROLOGICAL Hx Neurological Disorder: No - HEENT Hx HEENT Problems: No - RENAL Hx Chronic Kidney Disease: Yes (Dialysis MWF) Hx Kidney Stones: No - ENDOCRINE/METABOLIC Hx Endocrine Disorders: Yes Hx Hypothyroidism: Yes - HEMATOLOGICAL/ONCOLOGICAL Hx Blood Disorders: Yes Hx AIDS: No Hx Anemia: Yes Hx Human Immunodeficiency Virus (HIV): No - INTEGUMENTARY Hx Dermatological Problems: Yes (Pruritic eruptions) - MUSCULOSKELETAL/RHEUMATOLOGICAL Hx Musculoskeletal Disorders: No Hx Falls: No - GASTROINTESTINAL Hx Gastrointestinal Disorders: Yes Other/Comment: ASCITES - GENITOURINARY/GYNECOLOGICAL Hx Genitourinary Disorders: No - PSYCHIATRIC Hx Psychophysiologic Disorder: Yes Hx Depression: Yes Hx Substance Use: No - SURGICAL HISTORY Hx Surgeries: Yes Hx Cholecystectomy: Yes Hx Coronary Artery Bypass Graft: Yes Hx Herniorrhaphy: Yes - ANESTHESIA Hx Anesthesia: Yes Hx Anesthesia Reactions: No Hx Malignant Hyperthermia: No Meds Allergies/Adverse Reactions: Allergies Allergy/AdvReac Type Severity Reaction Status Date / Time iodine Allergy RASH Verified 01/29/17 13:29 iron Allergy ITCHING Verified 01/29/17 13:29 - Medications Medications: Current Medications Acetaminophen (Tylenol 325mg Tab) 650 mg PO Q6 PRN PRN Reason: Pain, moderate (4-7) Last Admin: 03/12/17 16:37 Dose: 650 mg Alprazolam (Xanax) 0.25 mg PO Q12 PRN PRN Reason: Anxiety Stop: 03/18/17 22:45 Piperacillin Sod/Tazobactam (Sod 2.25 gm/ Sodium Chloride) 100 mls @ 100 mls/ hr IVPB Q12 [facility] Last Admin: 03/12/17 21:43 Dose: 100 mls/hr Levothyroxine Sodium (Synthroid) 50 mcg PO DAILY@0630 [facility] Last Admin: 03/12/17 09:28 Dose: 50 mcg Pantoprazole Sodium (Protonix Ec Tab) 40 mg PO DAILY [facility] Last Admin: 03/12/17 09:28 Dose: 40 mg Sevelamer HCl (Renagel) 800 mg PO BIDWM [facility] Last Admin: 03/12/17 16:39 Dose: 800 mg Warfarin Sodium (Coumadin) 2 mg PO HS [facility] PRN Reason: Protocol Last Admin: 03/12/17 21:46 Dose: 2 mg Results - Vital Signs Recent Vital Signs: Last Vital Signs Temp 98.1 F 03/12/17 18:48 Pulse 114 H 03/12/17 18:48 Resp 18 03/12/17 18:48 BP 97/60 L 03/12/17 18:48 Pulse Ox 97 03/12/17 18:48 - Labs Result Diagrams: 03/12/17 05:50 03/12/17 06:30 Labs: Laboratory Results - last 24 hr 03/12/17 03/12/17 03/12/17 05:50 05:50 06:30 WBC 10.1 RBC 2.98 L Hgb 9.9 L Hct 31.4 L MCV 105.4 H MCH 33.3 H MCHC 31.6 L RDW 16.1 H Plt Count 99 L PT 21.7 H INR 2.1 H Sodium 138 Potassium 4.1 Chloride 101 Carbon Dioxide 26 Anion Gap 15 BUN 28 H Creatinine 3.6 H Est GFR ( Amer) 14 Est GFR (Non-Af Amer) 12 Random Glucose 86 Calcium 9.3 Assessment & Plan - Assessment and Plan (Free Text) Assessment: ESRD ON HD .. WILL GIVE HD IN AM ANEMIA OF CKD .. ON EPO ON HD MULTIPLE CO MORBIDITIES C/O CURRENT CARE - Date & Time Date: 03/12/17 Time: 14:00
[2017-03-13 06:31] LABS: MEAN CELL VOLUME 103.4 fl (81.0-99.0); MEAN CORPUSCULAR HEMOGLOBIN 33.6 pg (27.0-31.0); MEAN CORPUSCULAR HGB CONC 32.5 g/dL (33.0-37.0); RED CELL DISTRIBUTION WIDTH 15.7 % (11.5-14.5)
[2017-03-13 06:46] LABS: CALCIUM 9.7 mg/dL (8.4-10.2); POTASSIUM 4.3 MMOL/L (3.6-5.0)
--- NOTE | 2017-03-13 06:46 | PQF CHF ---
This form is a permanent part of the medical record 03/13/17 Dr. Grande, Documentation of a history of CHF and R ventricular dysfunction. Please specify the type and acuity of heart failure. Clarification of your documentation is requested to better reflect the severity of illness and intensity of treatment of your patient. Not my patient Indicators present [x] Diagnosis of CHF and/or history of CHF [x] BNP > 200: results: 182,000 [x] Imaging Finding of Pulmonary Edema /Pleural Effusions: Possible small effusions. Generalized interstitisl infiltrate nonspecific. This may reflect interstitial pulmonary edema. [] Fluid/Volume Overload [] Pitting edema [] Ejection Fraction < 40% (Indicative of Systolic Heart Failure) [] Ejection Fraction > 40% (Indicative of Diastolic Heart Failure) [] Dyspnea / Orthopenea / Paroxysmal Nocturnal Dyspnea [] Other: Location in the medical record that reflects the above clinical findings: [] Treatment Provided: [] PHYSICIAN'S RESPONSE Based on your medical judgment of the clinical indicators outlined above, are you treating this patient for a known or suspected: [] Acute CHF [] Systolic [] Diastolic [] Combined [] Chronic CHF [] Systolic [] Diastolic [] Combined [] Acute on Chronic CHF []Systolic [] Diastolic [] Combined [] CHF due hypertension [] Acute systolic []Chronic systolic [] Acute/ chronic systolic [] Other, please indicate: [] [] If Unable to Determine, please check the box, sign and date. Present On Admission (POA) Indicator: [] Present at the time of admission [] Not present at the time of admission [] Clinically Undetermined In responding to this query, please exercise your independent professional judgment. The fact that a question is asked does not imply that any particular answer is desired or expected. Thank you for your clarification on this documentation. If you have any questions please call:ext [phone] * Thank you, Maria Teresa Sigala RN CDMP MTDD
[2017-03-13] MEDS: Levothyroxine 50 MCG TAB PO SCH (06:47)
--- NOTE | 2017-03-13 07:00 | PQF GENQUE ---
This form is a permanent part of the medical record 03/13/17 Dr. Grande, NOT MY PATIENT AFTER STUDY please clarify the possible etiology of the Hypotension if known. Presents with generalized weakness and lethargy. Had partial hemodialysis treatment yesterday because of low BP. Temp 100.9 in the ER. HR 118, 120, 115, 105 in the ER. BP 85/49- 108/52. WBC 9.6 with a L shift. Currently on Zosyn. H&P: Hypotension, Heart failure acute, Noninfected skin tear of LLE, AFib chronic, ESRD, HTN Podiatry impression: Multiple Right LE ulcerations and diffuse RLE cellulitis/ superficial weeping wound. Renal impression: Admitted for Sepsis and Hypoglycemia. ESRD, Anemia of CKD. Clarification of your documentation is requested to better reflect the severity of illness and intensity of treatment of your patient. Indicators present [] Specify: [] [] Specify: [] [] Specify: [] [] Specify: [] Location in the medical record that reflects the above clinical findings: [] Treatment Provided: [] PHYSICIAN'S RESPONSE Based on your medical judgment of the clinical indicators outlined above please clarify the following: [] Practitioner response [] If unable to determine, please check the box, sign and date. Present On Admission (POA) Indicator: [] Present at the time of admission [] Not present at the time of admission [] Clinically Undetermined In responding to this query, please exercise your independent professional judgment. The fact that a question is asked does not imply that any particular answer is desired or expected. Thank you for your clarification on this documentation. If you have any questions please call:ext [phone] * Thank you, Maria Teresa Sigala RN CDMP MTDD
--- NOTE | 2017-03-13 08:18 | CP.PCM.PN ---
Subjective - Date & Time of Evaluation Date of Evaluation: 03/13/17 Time of Evaluation: 08:13 - Subjective Subjective: Podiatry- Dr. Gates Patient is an 89 year old female familiar to our service who is being seen for multiple ulcerations to right leg and cellulitic changes to right leg. Patient states that her right leg pain is greatly improved from when she originally came into the ED two days ago but is still present at this time. She denies any acute overnight events. She denies any further pedal complaints at this time. Denies N/V/F/C/CP/SOB Objective - Vital Signs/Intake and Output Vital Signs (last 24 hours): Temp Pulse Resp BP Pulse Ox 97.5 F L 117 H 18 93/62 L 95 03/13/17 04:43 03/13/17 04:43 03/13/17 04:43 03/13/17 04:43 03/13/17 04:43 - Medications Medications: Current Medications Acetaminophen (Tylenol 325mg Tab) 650 mg PO Q6 PRN PRN Reason: Pain, moderate (4-7) Last Admin: 03/12/17 16:37 Dose: 650 mg Alprazolam (Xanax) 0.25 mg PO Q12 PRN PRN Reason: Anxiety Stop: 03/18/17 22:45 Piperacillin Sod/Tazobactam (Sod 2.25 gm/ Sodium Chloride) 100 mls @ 100 mls/ hr IVPB Q12 [facility] Last Admin: 03/12/17 21:43 Dose: 100 mls/hr Levothyroxine Sodium (Synthroid) 50 mcg PO DAILY@0630 [facility] Last Admin: 03/13/17 06:47 Dose: 50 mcg Pantoprazole Sodium (Protonix Ec Tab) 40 mg PO DAILY [facility] Last Admin: 03/12/17 09:28 Dose: 40 mg Sevelamer HCl (Renagel) 800 mg PO BIDWM [facility] Last Admin: 03/12/17 16:39 Dose: 800 mg Warfarin Sodium (Coumadin) 2 mg PO HS [facility] PRN Reason: Protocol Last Admin: 03/12/17 21:46 Dose: 2 mg - Labs Labs: 03/13/17 05:00 03/13/17 05:00 PT 21.7 Seconds (9.8-13.1) H 03/12/17 05:50 INR 2.1 (0.9-1.2) H 03/12/17 05:50 APTT 40.2 Seconds (25.6-37.1) H 03/11/17 16:45 - Constitutional Appears: Well, Non-toxic, No Acute Distress - Extremities Exam Additional comments: B/l LE focused exam Vasc: DP/PT pulses very weakly palpable 1/4 b/l. CFT to all digits > 3 seconds. Skin temperature noted to be significantly warmer to right leg than left. Minimal pitting edema noted to right leg at this time Neuro: Epicritic and protective sensation grossly intact b/l Derm: Blisters and weeping wounds that were present on ED admission are no longer present. Great improvement since yesterday. Multiple, stable ulcerations noted to b/l LE. Lateral right leg ulceration with mostly fibrotic base measuring roughly 1.0 cm x 3.0 cm x 0.4 cm. Right plantar, posterior heel ulceration with fibronecrotic base measuring roughly 1.0 cm x 1.0 cm x 0.1 cm. All ulcerations continue to show no periwound erythema, no drainage, no expression of purulence, no malodor and no other clinical signs of infection. No probe to bone, No tracking, undermining or tunneling. Maceration of interdigital spaces noted to have cleared up with evidence of Gentian denise still present at this time. MSK: Diffuse POP to both legs R>L. Marked weakness in all major muscle groups b /l - Neurological Exam Neurological Exam: Alert, Awake, Oriented x3 - Psychiatric Exam Psychiatric exam: Normal Affect, Normal Mood Assessment and Plan - Assessment and Plan (Free Text) Assessment: 89 year old female seen at bedside for multiple right LE ulcerations and cellulitic changes Plan: Patient seen and evaluated at bedside Charts, labs and vitals reviewed; afebrile Plan discussed with Dr. Gates Patient right leg dressed with xeroform to ulceration sites and DSD Gentian denise to be applied to interdigital maceration as needed Podiatry will continue to follow while patient in house
[2017-03-13] MEDS: Pantoprazole 40 mg EC Tab PO SCH (09:23)
--- NOTE | 2017-03-13 12:17 | CP.PCM.PN ---
Subjective - Date & Time of Evaluation Date of Evaluation: 03/13/17 Time of Evaluation: 10:00 - Subjective Subjective: Feels well only c/o fatigue Spoke with Son he expressed concern about reaccumulation of ascites will revaluate / if need be will need to stop coumadin for 4-5 days Objective - Vital Signs/Intake and Output Vital Signs (last 24 hours): Temp Pulse Resp BP Pulse Ox 97.5 F L 114 H 20 90/50 L 97 03/13/17 08:32 03/13/17 08:32 03/13/17 08:32 03/13/17 08:32 03/13/17 10:42 - Medications Medications: Current Medications Acetaminophen (Tylenol 325mg Tab) 650 mg PO Q6 PRN PRN Reason: Pain, moderate (4-7) Last Admin: 03/12/17 16:37 Dose: 650 mg Alprazolam (Xanax) 0.25 mg PO Q12 PRN PRN Reason: Anxiety Stop: 03/18/17 22:45 Piperacillin Sod/Tazobactam (Sod 2.25 gm/ Sodium Chloride) 100 mls @ 100 mls/ hr IVPB Q12 [facility] Last Admin: 03/13/17 09:23 Dose: 100 mls/hr Levothyroxine Sodium (Synthroid) 50 mcg PO DAILY@0630 [facility] Last Admin: 03/13/17 06:47 Dose: 50 mcg Pantoprazole Sodium (Protonix Ec Tab) 40 mg PO DAILY [facility] Last Admin: 03/13/17 09:23 Dose: 40 mg Sevelamer HCl (Renagel) 800 mg PO BIDWM [facility] Last Admin: 03/13/17 09:23 Dose: 800 mg Warfarin Sodium (Coumadin) 2 mg PO HS [facility] PRN Reason: Protocol Last Admin: 03/12/17 21:46 Dose: 2 mg - Labs Labs: 03/13/17 05:00 03/13/17 05:00 PT 21.7 Seconds (9.8-13.1) H 03/12/17 05:50 INR 2.1 (0.9-1.2) H 03/12/17 05:50 APTT 40.2 Seconds (25.6-37.1) H 03/11/17 16:45 Assessment and Plan (1) Hypotension Status: Acute (2) Heart failure Status: Acute (3) Noninfected skin tear of left lower extremity Status: Acute (4) Afib Status: Chronic (5) ESRD (end stage renal disease) Status: Chronic (6) HTN (hypertension) Status: Chronic
--- NOTE | 2017-03-13 18:59 | CP.PCM.PN ---
Subjective - Date & Time of Evaluation Date of Evaluation: 03/13/17 Time of Evaluation: 15:00 - Subjective Subjective: SEEN ON RENAL F/U HD TO START SHORTLY C/O L ARM REDDNESS AND SWELING .. ALSO JACKSON FEET INFECTION Objective - Vital Signs/Intake and Output Vital Signs (last 24 hours): Temp Pulse Resp BP Pulse Ox 98.4 F 109 H 18 91/50 L 95 03/13/17 17:00 03/13/17 17:00 03/13/17 17:00 03/13/17 17:00 03/13/17 17:00 - Medications Medications: Current Medications Acetaminophen (Tylenol 325mg Tab) 650 mg PO Q6 PRN PRN Reason: Pain, moderate (4-7) Last Admin: 03/13/17 13:46 Dose: 650 mg Alprazolam (Xanax) 0.25 mg PO Q12 PRN PRN Reason: Anxiety Stop: 03/18/17 22:45 Piperacillin Sod/Tazobactam (Sod 2.25 gm/ Sodium Chloride) 100 mls @ 100 mls/ hr IVPB Q12 [facility] Last Admin: 03/13/17 09:23 Dose: 100 mls/hr Levothyroxine Sodium (Synthroid) 50 mcg PO DAILY@0630 [facility] Last Admin: 03/13/17 06:47 Dose: 50 mcg Pantoprazole Sodium (Protonix Ec Tab) 40 mg PO DAILY [facility] Last Admin: 03/13/17 09:23 Dose: 40 mg Sevelamer HCl (Renagel) 800 mg PO BIDWM [facility] Last Admin: 03/13/17 18:01 Dose: 800 mg Warfarin Sodium (Coumadin) 2 mg PO HS [facility] PRN Reason: Protocol Last Admin: 03/12/17 21:46 Dose: 2 mg - Labs Labs: 03/13/17 05:00 03/13/17 05:00 PT 21.7 Seconds (9.8-13.1) H 03/12/17 05:50 INR 2.1 (0.9-1.2) H 03/12/17 05:50 APTT 40.2 Seconds (25.6-37.1) H 03/11/17 16:45
--- NOTE | 2017-03-13 23:29 | PCM.RRTMUL ---
<Chas An - Last Filed: 03/13/17 23:27> COAT FITTER Nurse Assessment - Situation COAT FITTER Responder Arrival Time:: 10:55 Location:: 4th floor Room Number:: [id number] COAT FITTER Reason for Call: Tachycardia COAT FITTER Called By: RN - IV IV Inserted during COAT FITTER?: No - Respiratory Oxygen Delivery Method:: Room Air Received Nebulizer Treatments:: No Was the Patient Ventilated with Bag/Mask 100% O2?: No Secretions Suctioned?: No Was the Patient Intubated?: No Was the Patient Placed on a Ventilator?: No - Vital Signs Blood Pressure:: 90/56 Pulse Rate:: 166 Respiratory Rate:: 12 - [place] Coma Scale Coma Scale Eye Opening:: Spontaneous Coma Scale Motor:: Obeys Commands Movement Coma Scale Verbal:: Oriented Coma Scale Total:: 15 I.Reason for COAT FITTER - A) Acute Change in Patient: Subjective: COAT FITTER was called by RN for 89 y/o F at 10:56pm b/c of HR of 160s and A-fib. Upon arrival, pt was stable, awake, verbally responsive, pt denied chest pain, palpitations or SOB. Pt was given initial dose of Cardizem 10mg IVP, after a dose BP 95/65 and [id number]. pt was started on Cardizem 30mg QID. pt remains stable , COAT FITTER was ended after 10 mins. Case discussed with Dr. Nunes PGY-3 and Adrien Champion --- Chas An, PGY-1 - A) Initial Vital Signs: Pulse Rate: 160 - B) Neurological Status (Select all that apply): Alert, Responsive, Oriented - Constitutional Appears: Well, Non-toxic, No Acute Distress - Respiratory Exam Respiratory Exam: Clear to Ausculation Bilateral, NORMAL BREATHING PATTERN. absent: Accessory Muscle Use, Chest Wall Tenderness - Cardiovascular Exam Cardiovascular Exam: Irregular Rhythm - GI/Abdominal Exam GI & Abdominal Exam: Soft, Normal Bowel Sounds - Neurological Exam Neurological Exam: Alert, Awake, Oriented x3 - Extremities Exam Extremities Exam: absent: Calf Tenderness Plan - A. End of COAT FITTER Vital Signs: Blood Pressure: 95/65 Pulse Rate: 120 <Adrien Hyman - Last Filed: 03/15/17 09:42> Attending/Attestation - Attestation I have personally seen and examined this patient.: Yes I have fully participated in the care of the patient.: Yes I have reviewed all pertinent clinical information, including history, physical exam and plan: Yes Notes (Text): 03/15/17 09:38 I saw and examined this patienbt shoulder to shoulder with Dr an. The assessment and plan represent my direct input. A&P A Fib with Rapid response - Cardizem 10mg IV push followed by Oral Cardizem DANE Hyman MD
[2017-03-14] MEDS: Levothyroxine 50 MCG TAB PO SCH (06:42)
[2017-03-14] MEDS: Pantoprazole 40 mg EC Tab PO SCH (08:09)
--- NOTE | 2017-03-14 09:21 | CP.PCM.PN ---
Subjective - Date & Time of Evaluation Date of Evaluation: 03/14/17 Time of Evaluation: 06:19 - Subjective Subjective: Podiatry- Dr. Gates Patient is an 89 year old female familiar to our service who is being seen for multiple ulcerations to right leg and cellulitic changes to right leg. Patient states that her right leg pain is improved but still present. She denies any acute overnight events. She denies any further pedal complaints at this time. Denies N/V/F/C/CP/SOB Objective - Vital Signs/Intake and Output Vital Signs (last 24 hours): Temp Pulse Resp BP Pulse Ox 97.3 F L 120 H 18 80/51 L 100 03/14/17 05:17 03/14/17 08:22 03/14/17 08:22 03/14/17 08:22 03/14/17 08:22 - Medications Medications: Current Medications Acetaminophen (Tylenol 325mg Tab) 650 mg PO Q6 PRN PRN Reason: Pain, moderate (4-7) Last Admin: 03/14/17 06:41 Dose: 650 mg Alprazolam (Xanax) 0.25 mg PO Q12 PRN PRN Reason: Anxiety Stop: 03/18/17 22:45 Last Admin: 03/13/17 21:57 Dose: 0.25 mg Diltiazem HCl (Cardizem) 30 mg PO QID [facility] Last Admin: 03/14/17 08:22 Dose: 30 mg Piperacillin Sod/Tazobactam (Sod 2.25 gm/ Sodium Chloride) 100 mls @ 100 mls/ hr IVPB Q12 [facility] Last Admin: 03/13/17 22:00 Dose: 100 mls/hr Levothyroxine Sodium (Synthroid) 50 mcg PO DAILY@0630 [facility] Last Admin: 03/14/17 06:42 Dose: 50 mcg Pantoprazole Sodium (Protonix Ec Tab) 40 mg PO DAILY [facility] Last Admin: 03/14/17 08:09 Dose: 40 mg Sevelamer HCl (Renagel) 800 mg PO BIDWM [facility] Last Admin: 03/14/17 08:09 Dose: 800 mg - Labs Labs: 03/13/17 05:00 03/13/17 05:00 PT 26.0 Seconds (9.8-13.1) H 03/13/17 21:28 INR 2.5 (0.9-1.2) H 03/13/17 21:28 APTT 40.2 Seconds (25.6-37.1) H 03/11/17 16:45 - Constitutional Appears: Well, Non-toxic, No Acute Distress - Extremities Exam Additional comments: B/l LE focused exam Multipodus boots applied to both feet Vasc: DP/PT pulses very weakly palpable 1/4 b/l. CFT to all digits > 3 seconds. Skin temperature noted to be significantly warmer to right leg than left. Minimal pitting edema noted to right leg at this time Neuro: Epicritic and protective sensation grossly intact b/l Derm: Non-fluctuant bullae noted to anterior hamm. Multiple, stable ulcerations noted to b/l LE. Lateral right leg ulceration with mostly fibrotic base measuring roughly 1.0 cm x 3.0 cm x 0.4 cm. Right plantar, posterior heel ulceration with fibronecrotic base measuring roughly 1.0 cm x 1.0 cm x 0.1 cm. All ulcerations continue to show no periwound erythema, no drainage, no expression of purulence, no malodor and no other clinical signs of infection. No probe to bone, No tracking, undermining or tunneling. Maceration of interdigital spaces noted to have cleared up with evidence of Gentian denise still present at this time with exception of right third interdigital space MSK: Diffuse POP to both legs R>L. Marked weakness in all major muscle groups b /l - Neurological Exam Neurological Exam: Alert, Awake, Oriented x3 - Psychiatric Exam Psychiatric exam: Normal Affect, Normal Mood Assessment and Plan - Assessment and Plan (Free Text) Assessment: 89 year old female seen at bedside for multiple right LE ulcerations and cellulitic changes Plan: Patient seen and evaluated at bedside Charts, labs and vitals reviewed; afebrile Plan discussed with Dr. Gates Patient right leg dressed with xeroform to ulceration sites and DSD Gentian denise applied to third interdigital space maceration Podiatry will continue to follow while patient in house
--- NOTE | 2017-03-14 11:22 | CP.PCM.PN ---
Subjective - Date & Time of Evaluation Date of Evaluation: 03/14/17 Time of Evaluation: 10:00 - Subjective Subjective: as noted REPORT ANALYST called last night for tachycardia pt was never in any distress Feels well wants to go home will get US of abdomen to evaluate Ascites Objective - Vital Signs/Intake and Output Vital Signs (last 24 hours): Temp Pulse Resp BP Pulse Ox 97.3 F L 90 18 80/51 L 100 03/14/17 05:17 03/14/17 09:00 03/14/17 08:22 03/14/17 08:22 03/14/17 08:22 - Medications Medications: Current Medications Acetaminophen (Tylenol 325mg Tab) 650 mg PO Q6 PRN PRN Reason: Pain, moderate (4-7) Last Admin: 03/14/17 06:41 Dose: 650 mg Alprazolam (Xanax) 0.25 mg PO Q12 PRN PRN Reason: Anxiety Stop: 03/18/17 22:45 Last Admin: 03/13/17 21:57 Dose: 0.25 mg Diltiazem HCl (Cardizem) 30 mg PO QID [facility] Last Admin: 03/14/17 08:22 Dose: 30 mg Piperacillin Sod/Tazobactam (Sod 2.25 gm/ Sodium Chloride) 100 mls @ 100 mls/ hr IVPB Q12 [facility] Last Admin: 03/13/17 22:00 Dose: 100 mls/hr Levothyroxine Sodium (Synthroid) 50 mcg PO DAILY@0630 [facility] Last Admin: 03/14/17 06:42 Dose: 50 mcg Pantoprazole Sodium (Protonix Ec Tab) 40 mg PO DAILY [facility] Last Admin: 03/14/17 08:09 Dose: 40 mg Sevelamer HCl (Renagel) 800 mg PO BIDWM [facility] Last Admin: 03/14/17 08:09 Dose: 800 mg - Labs Labs: 03/13/17 05:00 03/13/17 05:00 PT 29.3 Seconds (9.8-13.1) H 03/14/17 08:55 INR 2.8 (0.9-1.2) H 03/14/17 08:55 APTT 40.2 Seconds (25.6-37.1) H 03/11/17 16:45 Assessment and Plan (1) Hypotension Status: Acute (2) Heart failure Status: Acute (3) Noninfected skin tear of left lower extremity Status: Acute (4) Afib Status: Chronic (5) ESRD (end stage renal disease) Status: Chronic (6) HTN (hypertension) Status: Chronic
--- NOTE | 2017-03-14 14:02 | US ---
HISTORY: ? ascites COMPARISON: None. TECHNIQUE: Sonographic evaluation of the right upper quadrant of the abdomen. FINDINGS: LIVER: Measuring approximately 19 point liver is mildly enlarged measuring approximately 19.2 cm in CC dimension. Liver exhibits a somewhat nodular contour and heterogeneous increased echotexture ; rule out underlying cirrhosis. Significant amount of ascites. Right-sided effusion. GALLBLADDER: Gallbladder has been removed. COMMON BILE DUCT: Common bile duct measures approximately 4.3 mm. No stones. No dilatation. PANCREAS: The pancreas is not well delineated due to body habitus bowel gas and ascites. RIGHT KIDNEY: Measures approximately 7.7 x 3.7 x 4.8 cm. The renal parenchyma atrophic and echogenic suggesting sequela of medical renal disease. There are 2 adjacent foci 1 hypoechoic any other hyperechoic midpole region the former measuring approximately 1 cm in greatest dimension and the latter measuring approximately 0.9 cm in greatest dimension. Both foci could represent cysts, the latter of which may be a hyperdense cyst however solid lesion should be excluded. AORTA: No aneurysmal dilatation. IVC: Unremarkable. OTHER FINDINGS: None . IMPRESSION: The liver is enlarged with slightly nodular surface contour and a large amount of ascites. Rule out cirrhosis. Right-sided pleural effusion. Status post cholecystectomy. The right kidney is small with diminutive cortex consistent with underlying medical renal disease. Questionable hyperdense cyst right kidney. Solid lesion should be excluded. Followup studies recommended.
[2017-03-15] MEDS: Levothyroxine 50 MCG TAB PO SCH (06:15)
[2017-03-15] MEDS: Pantoprazole 40 mg EC Tab PO SCH (09:00)
--- NOTE | 2017-03-15 09:58 | CP.PCM.PN ---
Subjective - Date & Time of Evaluation Date of Evaluation: 03/15/17 Time of Evaluation: 09:00 - Subjective Subjective: Awake resting in bed AAO x 3 no complaints except fatigue for Paracentesis on Friday Coumadin has been held since yesterday Objective - Vital Signs/Intake and Output Vital Signs (last 24 hours): Temp Pulse Resp BP Pulse Ox 98.2 F 91 H 18 92/46 L 95 03/15/17 08:09 03/15/17 08:09 03/15/17 08:09 03/15/17 08:09 03/15/17 08:09 - Medications Medications: Current Medications Acetaminophen (Tylenol 325mg Tab) 650 mg PO Q6 PRN PRN Reason: Pain, moderate (4-7) Last Admin: 03/14/17 18:20 Dose: 650 mg Alprazolam (Xanax) 0.25 mg PO Q12 PRN PRN Reason: Anxiety Stop: 03/18/17 22:45 Last Admin: 03/14/17 22:29 Dose: 0.25 mg Diltiazem HCl (Cardizem) 30 mg PO QID [facility] Last Admin: 03/14/17 22:29 Dose: 30 mg Piperacillin Sod/Tazobactam (Sod 2.25 gm/ Sodium Chloride) 100 mls @ 100 mls/ hr IVPB Q12 [facility] Last Admin: 03/14/17 21:09 Dose: 100 mls/hr Levothyroxine Sodium (Synthroid) 50 mcg PO DAILY@0630 [facility] Last Admin: 03/15/17 06:15 Dose: 50 mcg Pantoprazole Sodium (Protonix Ec Tab) 40 mg PO DAILY [facility] Last Admin: 03/14/17 08:09 Dose: 40 mg Sevelamer HCl (Renagel) 800 mg PO BIDWM [facility] Last Admin: 03/14/17 18:17 Dose: 800 mg - Labs Labs: 03/13/17 05:00 03/13/17 05:00 PT 27.0 Seconds (9.8-13.1) H 03/15/17 08:49 INR 2.6 (0.9-1.2) H 03/15/17 08:49 APTT 40.2 Seconds (25.6-37.1) H 03/11/17 16:45 Assessment and Plan (1) Hypotension Status: Acute (2) Heart failure Status: Acute (3) Noninfected skin tear of left lower extremity Status: Acute (4) Afib Status: Chronic (5) ESRD (end stage renal disease) Status: Chronic (6) HTN (hypertension) Status: Chronic
[2017-03-16] MEDS: Levothyroxine 50 MCG TAB PO SCH (05:42)
[2017-03-16] MEDS: Pantoprazole 40 mg EC Tab PO SCH (08:51)
--- NOTE | 2017-03-16 09:49 | CP.PCM.PN ---
Subjective - Date & Time of Evaluation Date of Evaluation: 03/16/17 Time of Evaluation: 09:00 - Subjective Subjective: Pt reports she feels well HR: 90 - 106 afebrile for possible paracentesis for ascites tomorrow Objective - Vital Signs/Intake and Output Vital Signs (last 24 hours): Temp Pulse Resp BP Pulse Ox 98 F 94 H 18 89/52 L 97 03/16/17 08:16 03/16/17 08:50 03/16/17 08:50 03/16/17 08:50 03/16/17 08:50 - Medications Medications: Current Medications Acetaminophen (Tylenol 325mg Tab) 650 mg PO Q6 PRN PRN Reason: Pain, moderate (4-7) Last Admin: 03/15/17 17:45 Dose: 650 mg Alprazolam (Xanax) 0.25 mg PO Q12 PRN PRN Reason: Anxiety Stop: 03/18/17 22:45 Last Admin: 03/16/17 03:14 Dose: 0.25 mg Diltiazem HCl (Cardizem) 30 mg PO QID [facility] Last Admin: 03/16/17 08:50 Dose: Not Given Piperacillin Sod/Tazobactam (Sod 2.25 gm/ Sodium Chloride) 100 mls @ 100 mls/ hr IVPB Q12 [facility] Last Admin: 03/16/17 08:51 Dose: 100 mls/hr Levothyroxine Sodium (Synthroid) 50 mcg PO DAILY@0630 [facility] Last Admin: 03/16/17 05:42 Dose: 50 mcg Pantoprazole Sodium (Protonix Ec Tab) 40 mg PO DAILY [facility] Last Admin: 03/16/17 08:51 Dose: 40 mg Sevelamer HCl (Renagel) 800 mg PO BIDWM [facility] Last Admin: 03/16/17 08:51 Dose: 800 mg - Labs Labs: 03/13/17 05:00 03/13/17 05:00 PT 26.6 Seconds (9.8-13.1) H 03/16/17 08:15 INR 2.5 (0.9-1.2) H 03/16/17 08:15 APTT 40.2 Seconds (25.6-37.1) H 03/11/17 16:45 Assessment and Plan (1) Hypotension Status: Acute (2) Heart failure Status: Acute (3) Noninfected skin tear of left lower extremity Status: Acute (4) Afib Status: Chronic (5) ESRD (end stage renal disease) Status: Chronic (6) HTN (hypertension) Status: Chronic
--- NOTE | 2017-03-16 14:30 | CP.PCM.PN ---
Subjective - Date & Time of Evaluation Date of Evaluation: 03/16/17 Time of Evaluation: 12:00 - Subjective Subjective: Progress note for Dr. Gates 89 year old female familiar to our service who is being seen for multiple ulcerations to right leg and cellulitic changes to right leg. Patient states that her pain in the right leg is improved but still present. She denies any acute overnight events. She denies any further pedal complaints at this time. Denies N/V/F/C/CP/SOB Objective - Vital Signs/Intake and Output Vital Signs (last 24 hours): Temp Pulse Resp BP Pulse Ox 97 F L 125 H 18 95/59 L 96 03/16/17 12:21 03/16/17 13:48 03/16/17 13:48 03/16/17 13:48 03/16/17 13:48 - Medications Medications: Current Medications Acetaminophen (Tylenol 325mg Tab) 650 mg PO Q6 PRN PRN Reason: Pain, moderate (4-7) Last Admin: 03/15/17 17:45 Dose: 650 mg Alprazolam (Xanax) 0.25 mg PO Q12 PRN PRN Reason: Anxiety Stop: 03/18/17 22:45 Last Admin: 03/16/17 03:14 Dose: 0.25 mg Diltiazem HCl (Cardizem) 30 mg PO QID [facility] Last Admin: 03/16/17 13:48 Dose: 30 mg Piperacillin Sod/Tazobactam (Sod 2.25 gm/ Sodium Chloride) 100 mls @ 100 mls/ hr IVPB Q12 [facility] Last Admin: 03/16/17 08:51 Dose: 100 mls/hr Levothyroxine Sodium (Synthroid) 50 mcg PO DAILY@0630 [facility] Last Admin: 03/16/17 05:42 Dose: 50 mcg Pantoprazole Sodium (Protonix Ec Tab) 40 mg PO DAILY [facility] Last Admin: 03/16/17 08:51 Dose: 40 mg Sevelamer HCl (Renagel) 800 mg PO BIDWM [facility] Last Admin: 03/16/17 08:51 Dose: 800 mg - Labs Labs: 03/13/17 05:00 03/13/17 05:00 PT 26.6 Seconds (9.8-13.1) H 03/16/17 08:15 INR 2.5 (0.9-1.2) H 03/16/17 08:15 APTT 40.2 Seconds (25.6-37.1) H 03/11/17 16:45 - Constitutional Appears: Well, Non-toxic, No Acute Distress - Extremities Exam Additional comments: B/l LE focused exam Multipodus boots applied to both feet VASC: DP/PT pulses very weakly palpable 1/4 b/l. CFT to all digits > 3 seconds. Skin temperature noted to be significantly warmer to right leg than left. Minimal pitting edema noted to right leg at this time DERM: Non-fluctuant bullae noted to anterior hamm. Multiple, stable ulcerations noted to b/l LE. Lateral right leg ulceration with mostly fibrotic base measuring roughly 1.0 cm x 3.0 cm x 0.4 cm. Right plantar, posterior heel ulceration with fibronecrotic base measuring roughly 1.0 cm x 1.0 cm x 0.1 cm. All ulcerations continue to show no periwound erythema, no drainage, no expression of purulence, no malodor and no other clinical signs of infection. No probe to bone, No tracking, undermining or tunneling. Maceration of interdigital spaces noted to have cleared up with evidence of Gentian denise still present at this time with exception of right third interdigital space NEURO: Epicritic and protective sensation grossly intact b/l MSK: Diffuse POP to both legs R>L. Marked weakness in all major muscle groups b /l - Neurological Exam Neurological Exam: Alert, Awake, Oriented x3 - Psychiatric Exam Psychiatric exam: Normal Affect, Normal Mood Assessment and Plan - Assessment and Plan (Free Text) Assessment: 89 year old female seen at bedside for multiple right LE ulcerations and cellulitic changes Plan: Patient seen and evaluated at bedside Patient discussed in details with attending Dr. Gates Charts, labs and vitals reviewed; afebrile WBC @ 9.0 as of 03/13 Patient right leg dressed with xeroform to ulceration sites and DSD Gentian denise applied to all interdigital space maceration Podiatry will continue to follow while patient in house
--- NOTE | 2017-03-16 21:57 | CP.PCM.PN ---
Subjective - Date & Time of Evaluation Date of Evaluation: 03/16/17 Time of Evaluation: 16:00 - Subjective Subjective: SEEN ON RENAL F/U FEELS IMPROVED HAD HD EARLY TODAY FOR POSSIBLE PARACENTHESIS IN AM C/O CURRENT CARE Objective - Vital Signs/Intake and Output Vital Signs (last 24 hours): Temp Pulse Resp BP Pulse Ox 98.1 F 118 H 16 97/60 L 98 03/16/17 19:56 03/16/17 19:56 03/16/17 19:56 03/16/17 21:22 03/16/17 19:56 - Medications Medications: Current Medications Acetaminophen (Tylenol 325mg Tab) 650 mg PO Q6 PRN PRN Reason: Pain, moderate (4-7) Last Admin: 03/16/17 16:54 Dose: 650 mg Alprazolam (Xanax) 0.25 mg PO Q12 PRN PRN Reason: Anxiety Stop: 03/18/17 22:45 Last Admin: 03/16/17 03:14 Dose: 0.25 mg Diltiazem HCl (Cardizem) 30 mg PO QID [facility] Last Admin: 03/16/17 21:22 Dose: Not Given Piperacillin Sod/Tazobactam (Sod 2.25 gm/ Sodium Chloride) 100 mls @ 100 mls/ hr IVPB Q12 [facility] Last Admin: 03/16/17 21:16 Dose: 100 mls/hr Levothyroxine Sodium (Synthroid) 50 mcg PO DAILY@0630 [facility] Last Admin: 03/16/17 05:42 Dose: 50 mcg Pantoprazole Sodium (Protonix Ec Tab) 40 mg PO DAILY [facility] Last Admin: 03/16/17 08:51 Dose: 40 mg Sevelamer HCl (Renagel) 800 mg PO BIDWM [facility] Last Admin: 03/16/17 16:57 Dose: 800 mg - Labs Labs: 03/13/17 05:00 03/13/17 05:00 PT 26.6 Seconds (9.8-13.1) H 03/16/17 08:15 INR 2.5 (0.9-1.2) H 03/16/17 08:15 APTT 40.2 Seconds (25.6-37.1) H 03/11/17 16:45
[2017-03-17] MEDS: Levothyroxine 50 MCG TAB PO SCH (06:16)
[2017-03-17] MEDS ORDERED: Phytonadione 10 mg/ml Inj (Adult) SC ONE (08:56)
[2017-03-17] MEDS ORDERED: Phytonadione 5 MG in Sodium Chloride 0.9% 50 ML IV ONE (09:30)
[2017-03-17] MEDS: Pantoprazole 40 mg EC Tab PO SCH (09:32)
[2017-03-17 17:51] LABS: HEMATOCRIT 30.6 % (34.0-47.0); MEAN CELL VOLUME 103.3 fl (81.0-99.0); MEAN CORPUSCULAR HEMOGLOBIN 33.2 pg (27.0-31.0); MEAN CORPUSCULAR HGB CONC 32.1 g/dL (33.0-37.0); WHITE BLOOD COUNT 10.1 K/uL (4.8-10.8)
[2017-03-17 18:01] LABS: CALCIUM 9.6 mg/dL (8.4-10.2); POTASSIUM 4.2 MMOL/L (3.6-5.0)
--- NOTE | 2017-03-17 20:00 | CP.PCM.PN ---
Subjective - Date & Time of Evaluation Date of Evaluation: 03/05/17 Time of Evaluation: 16:00 - Subjective Subjective: SEEN ON RENAL F/U OOB ON CHAIR C/O JACKSON LE EDEMA WELL ASCITIS C/O PAIN ON L HAND AND WRIST WELL BOTH FEET Objective - Vital Signs/Intake and Output Vital Signs (last 24 hours): Temp Pulse Resp BP Pulse Ox 97.9 F 85 18 96/45 L 95 03/17/17 19:16 03/17/17 19:16 03/17/17 19:16 03/17/17 19:16 03/17/17 19:16 Intake and Output: 03/17/17 03/18/17 18:59 06:59 Intake Total 800 Output Total 0 Balance 800 - Medications Medications: Current Medications Acetaminophen (Tylenol 325mg Tab) 650 mg PO Q6 PRN PRN Reason: Pain, moderate (4-7) Last Admin: 03/17/17 14:47 Dose: 650 mg Piperacillin Sod/Tazobactam (Sod 2.25 gm/ Sodium Chloride) 100 mls @ 100 mls/ hr IVPB Q12 [facility] Last Admin: 03/17/17 09:30 Dose: 100 mls/hr Levothyroxine Sodium (Synthroid) 50 mcg PO DAILY@0630 [facility] Last Admin: 03/17/17 06:16 Dose: 50 mcg Metoprolol Tartrate (Lopressor) 50 mg PO Q12 [facility] Last Admin: 03/17/17 11:34 Dose: 50 mg Pantoprazole Sodium (Protonix Ec Tab) 40 mg PO DAILY [facility] Last Admin: 03/17/17 09:32 Dose: 40 mg Sevelamer HCl (Renagel) 800 mg PO BIDWM [facility] Last Admin: 03/17/17 18:50 Dose: 800 mg - Labs Labs: 03/17/17 17:40 03/17/17 17:40 PT 26.6 Seconds (9.8-13.1) H 03/16/17 08:15 INR 2.5 (0.9-1.2) H 03/16/17 08:15 APTT 40.2 Seconds (25.6-37.1) H 03/11/17 16:45 Assessment and Plan - Assessment and Plan (Free Text) Assessment: ESRD ON HD M W F .. WILL GIVE HD TODAY TO UF 3 L GEN ANASARCA .. WILL UF 3 L ON EACH HD FOR LOW BP WILL GIVE MIDODRIN 10 MG PO PRIOR TO HD
[2017-03-18] MEDS: Levothyroxine 50 MCG TAB PO SCH (06:10)
--- NOTE | 2017-03-18 08:57 | CP.PCM.PN ---
Subjective - Date & Time of Evaluation Date of Evaluation: 03/18/17 Time of Evaluation: 08:40 - Subjective Subjective: Has had recurring leg pains (they appear to be ?? Neuropathic in character) No tenderness, can move her toes without any pain No localised, redness or swelling No calf tenderness Pain has an abrupt at times "shooting" character A fib at 76 BPM BP 96/70 mm Hg Ascites++ Today's INR 1.6 (!) Spoke with IR, if INR is appropriate plan abd paracentasis tomorrow. Objective - Vital Signs/Intake and Output Vital Signs (last 24 hours): Temp Pulse Resp BP Pulse Ox 98.2 F 102 H 18 99/59 L 98 03/18/17 08:16 03/18/17 08:16 03/18/17 08:16 03/18/17 08:16 03/18/17 08:16 Intake and Output: 03/18/17 03/18/17 06:59 18:59 Intake Total 800 Output Total 0 Balance 800 - Medications Medications: Current Medications Acetaminophen (Tylenol 325mg Tab) 650 mg PO Q4 PRN PRN Reason: Pain, moderate (4-7) Gabapentin (Neurontin) 200 mg PO BID [facility] Levothyroxine Sodium (Synthroid) 50 mcg PO DAILY@0630 [facility] Last Admin: 03/18/17 06:10 Dose: 50 mcg Metoprolol Tartrate (Lopressor) 50 mg PO Q12 [facility] Last Admin: 03/17/17 21:45 Dose: Not Given Pantoprazole Sodium (Protonix Ec Tab) 40 mg PO DAILY [facility] Last Admin: 03/17/17 09:32 Dose: 40 mg Sevelamer HCl (Renagel) 800 mg PO BIDWM [facility] Last Admin: 03/17/17 18:50 Dose: 800 mg - Labs Labs: 03/17/17 17:40 03/17/17 17:40 PT 16.4 Seconds (9.8-13.1) H D 03/18/17 05:40 INR 1.6 (0.9-1.2) H D 03/18/17 05:40 APTT 40.2 Seconds (25.6-37.1) H 03/11/17 16:45
[2017-03-18] MEDS: Pantoprazole 40 mg EC Tab PO SCH (09:01)
--- NOTE | 2017-03-18 17:46 | CP.PCM.PN ---
Subjective - Date & Time of Evaluation Date of Evaluation: 03/18/17 Time of Evaluation: 15:00 - Subjective Subjective: SEEN ON RENAL F/U ON HD M W F INSTRUCTED ALONG WITH THE FAMILY ABOUT FLUID RESTRICTION Objective - Vital Signs/Intake and Output Vital Signs (last 24 hours): Temp Pulse Resp BP Pulse Ox 98.4 F 98 H 18 90/44 L 97 03/18/17 16:00 03/18/17 16:00 03/18/17 16:00 03/18/17 16:00 03/18/17 16:00 Intake and Output: 03/18/17 03/18/17 06:59 18:59 Intake Total 800 Output Total 0 Balance 800 - Medications Medications: Current Medications Acetaminophen (Tylenol 325mg Tab) 650 mg PO Q4 PRN PRN Reason: Pain, moderate (4-7) Last Admin: 03/18/17 09:00 Dose: 650 mg Ascorbic Acid (Vitamin C 500 Mg Tab) 500 mg PO DAILY [facility] Cholecalciferol (Vitamin D) 2,000 iu PO DAILY [facility] Gabapentin (Neurontin) 200 mg PO BID [facility] Last Admin: 03/18/17 16:36 Dose: 200 mg Piperacillin Sod/Tazobactam (Sod 2.25 gm/ Sodium Chloride) 100 mls @ 100 mls/ hr IVPB Q12 [facility] Last Admin: 03/18/17 14:49 Dose: 100 mls/hr Levothyroxine Sodium (Synthroid) 50 mcg PO DAILY@0630 [facility] Last Admin: 03/18/17 06:10 Dose: 50 mcg Metoprolol Tartrate (Lopressor) 50 mg PO Q12 [facility] Last Admin: 03/18/17 09:01 Dose: 50 mg Pantoprazole Sodium (Protonix Ec Tab) 40 mg PO DAILY [facility] Last Admin: 03/18/17 09:01 Dose: 40 mg Sevelamer HCl (Renagel) 800 mg PO BIDWM [facility] Last Admin: 03/18/17 16:36 Dose: 800 mg Vitamin B Complex/Vit C/Folic Acid (Nephro-Goran) 1 tab PO DAILY [facility] - Labs Labs: 03/17/17 17:40 03/17/17 17:40 PT 16.4 Seconds (9.8-13.1) H D 03/18/17 05:40 INR 1.6 (0.9-1.2) H D 03/18/17 05:40 APTT 40.2 Seconds (25.6-37.1) H 03/11/17 16:45
[2017-03-19] MEDS: Levothyroxine 50 MCG TAB PO SCH ×2 (06:09→06:11)
--- NOTE | 2017-03-19 08:59 | CP.PCM.PN ---
Subjective - Date & Time of Evaluation Date of Evaluation: 03/19/17 Time of Evaluation: 07:57 - Subjective Subjective: Progress note for Dr. Gates 89 year old female familiar to our service who is being seen for multiple ulcerations to right leg and cellulitic changes to right leg. Patient seen at bedside resting comfortably, receiving dialysis. Patient states that her pain in the right leg is improved but still present. She denies any acute overnight events. She denies any further pedal complaints at this time. Denies N/V/F/C/CP/ SOB Objective - Vital Signs/Intake and Output Vital Signs (last 24 hours): Temp Pulse Resp BP Pulse Ox 98.5 F 75 18 87/40 L 95 03/19/17 08:00 03/19/17 08:00 03/19/17 08:00 03/19/17 08:00 03/19/17 08:00 Intake and Output: 03/19/17 03/19/17 06:59 18:59 Intake Total 500 Balance 500 - Medications Medications: Current Medications Acetaminophen (Tylenol 325mg Tab) 650 mg PO Q4 PRN PRN Reason: Pain, moderate (4-7) Last Admin: 03/18/17 09:00 Dose: 650 mg Ascorbic Acid (Vitamin C 500 Mg Tab) 500 mg PO DAILY [facility] Cholecalciferol (Vitamin D) 2,000 iu PO DAILY [facility] Gabapentin (Neurontin) 200 mg PO BID [facility] Last Admin: 03/18/17 16:36 Dose: 200 mg Piperacillin Sod/Tazobactam (Sod 2.25 gm/ Sodium Chloride) 100 mls @ 100 mls/ hr IVPB Q12 [facility] Last Admin: 03/18/17 21:02 Dose: 100 mls/hr Levothyroxine Sodium (Synthroid) 50 mcg PO DAILY@0630 [facility] Last Admin: 03/19/17 06:11 Dose: Not Given Metoprolol Tartrate (Lopressor) 50 mg PO Q12 [facility] Last Admin: 03/18/17 21:04 Dose: 50 mg Pantoprazole Sodium (Protonix Ec Tab) 40 mg PO DAILY [facility] Last Admin: 03/18/17 09:01 Dose: 40 mg Sevelamer HCl (Renagel) 800 mg PO BIDWM [facility] Last Admin: 03/18/17 16:36 Dose: 800 mg Vitamin B Complex/Vit C/Folic Acid (Nephro-Goran) 1 tab PO DAILY [facility] - Labs Labs: 03/17/17 17:40 03/17/17 17:40 PT 14.7 Seconds (9.8-13.1) H 03/19/17 05:30 INR 1.4 (0.9-1.2) H 03/19/17 05:30 APTT 40.2 Seconds (25.6-37.1) H 03/11/17 16:45 - Constitutional Appears: Well, Non-toxic, No Acute Distress - Extremities Exam Additional comments: B/l LE focused exam Multipodus boots applied to both feet VASC: DP/PT pulses very weakly palpable / b/l. CFT to all digits > 3 seconds. Skin temperature noted to be significantly warmer to right leg than left. Minimal pitting edema previously noted to right leg resolved at this time DERM: Multiple, stable ulcerations noted to b/l LE. Lateral right leg ulceration with mostly fibrotic base measuring roughly 1.0 cm x 3.0 cm x 0.4 cm. Right plantar, posterior heel ulceration with fibronecrotic base measuring roughly 1.0 cm x 1.0 cm x 0.1 cm. All ulcerations continue to show no periwound erythema, no drainage, no expression of purulence, no malodor and no other clinical signs of infection. No probe to bone, No tracking, undermining or tunneling. Maceration of interdigital spaces noted to have cleared up with evidence of Gentian denise still present at this time. No weeping wounds or bullae noted b/l at this time NEURO: Epicritic and protective sensation grossly intact b/l MSK: Diffuse POP to both legs R>L. Marked weakness in all major muscle groups b /l - Neurological Exam Neurological Exam: Alert, Awake, Oriented x3 - Psychiatric Exam Psychiatric exam: Normal Affect, Normal Mood Assessment and Plan - Assessment and Plan (Free Text) Assessment: 89 year old female seen at bedside for multiple right LE ulcerations and cellulitic changes Plan: Patient seen and evaluated at bedside Patient discussed in details with attending Dr. Gates Charts, labs and vitals reviewed Patient right leg dressed with DSD Podiatry will continue to follow while patient in house
--- NOTE | 2017-03-19 10:06 | CP.PCM.PN ---
Subjective - Date & Time of Evaluation Date of Evaluation: 03/19/17 Time of Evaluation: 09:30 - Subjective Subjective: Fairly free of leg pains (has been on Gabapentine) Getting dialysed A Fib at 84 BPM, irreg BP 88/60 mm HG INR 1.4 today Scheduled for Abd Paracentasis Objective - Vital Signs/Intake and Output Vital Signs (last 24 hours): Temp Pulse Resp BP Pulse Ox 98.5 F 75 18 87/40 L 95 03/19/17 08:00 03/19/17 08:00 03/19/17 08:00 03/19/17 08:00 03/19/17 08:00 Intake and Output: 03/19/17 03/19/17 06:59 18:59 Intake Total 500 Balance 500 - Medications Medications: Current Medications Acetaminophen (Tylenol 325mg Tab) 650 mg PO Q4 PRN PRN Reason: Pain, moderate (4-7) Last Admin: 03/18/17 09:00 Dose: 650 mg Ascorbic Acid (Vitamin C 500 Mg Tab) 500 mg PO DAILY [facility] Cholecalciferol (Vitamin D) 2,000 iu PO DAILY [facility] Gabapentin (Neurontin) 200 mg PO BID [facility] Last Admin: 03/18/17 16:36 Dose: 200 mg Piperacillin Sod/Tazobactam (Sod 2.25 gm/ Sodium Chloride) 100 mls @ 100 mls/ hr IVPB Q12 [facility] Last Admin: 03/18/17 21:02 Dose: 100 mls/hr Levothyroxine Sodium (Synthroid) 50 mcg PO DAILY@0630 [facility] Last Admin: 03/19/17 06:11 Dose: Not Given Metoprolol Tartrate (Lopressor) 50 mg PO Q12 [facility] Last Admin: 03/18/17 21:04 Dose: 50 mg Pantoprazole Sodium (Protonix Ec Tab) 40 mg PO DAILY [facility] Last Admin: 03/18/17 09:01 Dose: 40 mg Sevelamer HCl (Renagel) 800 mg PO BIDWM [facility] Last Admin: 03/18/17 16:36 Dose: 800 mg Vitamin B Complex/Vit C/Folic Acid (Nephro-Goran) 1 tab PO DAILY [facility] - Labs Labs: 03/17/17 17:40 03/17/17 17:40 PT 14.7 Seconds (9.8-13.1) H 03/19/17 05:30 INR 1.4 (0.9-1.2) H 03/19/17 05:30 APTT 40.2 Seconds (25.6-37.1) H 03/11/17 16:45
[2017-03-19] MEDS: Pantoprazole 40 mg EC Tab PO SCH (12:04)
[2017-03-19] MEDS: Multivitamin Vitamin B Complex (Nephro-Vite) Tab PO SCH (12:05)
--- NOTE | 2017-03-20 00:06 | CP.PCM.PN ---
Subjective - Date & Time of Evaluation Date of Evaluation: 03/19/17 Time of Evaluation: 15:00 - Subjective Subjective: SEEN ON RENAL F/U FEELS WEAK .. UNABLE TO AMBULATE WITH PT COMPLETED HER HD WITH UF OF 2.7 L .. TOLERATED HD WELL WITH LOW BP ALL PREVIOUS EMR REVIEWED Objective - Vital Signs/Intake and Output Vital Signs (last 24 hours): Temp Pulse Resp BP Pulse Ox 99.5 F 94 H 18 89/52 L 94 L 03/20/17 00:02 03/20/17 00:02 03/20/17 00:02 03/20/17 00:02 03/20/17 00:02 Intake and Output: 03/19/17 03/20/17 18:59 06:59 Intake Total 600 Output Total 2700 Balance -2100 - Medications Medications: Current Medications Acetaminophen (Tylenol 325mg Tab) 650 mg PO Q4 PRN PRN Reason: Pain, moderate (4-7) Last Admin: 03/19/17 21:01 Dose: 650 mg Ascorbic Acid (Vitamin C 500 Mg Tab) 500 mg PO DAILY [facility] Last Admin: 03/19/17 08:40 Dose: 500 mg Cholecalciferol (Vitamin D) 2,000 iu PO DAILY [facility] Last Admin: 03/19/17 12:02 Dose: 2,000 iu Gabapentin (Neurontin) 200 mg PO BID [facility] Last Admin: 03/19/17 17:18 Dose: 200 mg Piperacillin Sod/Tazobactam (Sod 2.25 gm/ Sodium Chloride) 100 mls @ 100 mls/ hr IVPB Q12 [facility] Last Admin: 03/19/17 20:54 Dose: 100 mls/hr Levothyroxine Sodium (Synthroid) 50 mcg PO DAILY@0630 [facility] Last Admin: 03/19/17 06:11 Dose: Not Given Metoprolol Tartrate (Lopressor) 50 mg PO Q12 [facility] Last Admin: 03/19/17 20:49 Dose: Not Given Pantoprazole Sodium (Protonix Ec Tab) 40 mg PO DAILY [facility] Last Admin: 03/19/17 12:04 Dose: 40 mg Sevelamer HCl (Renagel) 800 mg PO BIDWM [facility] Last Admin: 03/19/17 17:18 Dose: 800 mg Vitamin B Complex/Vit C/Folic Acid (Nephro-Goran) 1 tab PO DAILY [facility] Last Admin: 03/19/17 12:05 Dose: 1 tab - Labs Labs: 03/17/17 17:40 03/17/17 17:40 PT 14.7 Seconds (9.8-13.1) H 03/19/17 05:30 INR 1.4 (0.9-1.2) H 03/19/17 05:30 APTT 40.2 Seconds (25.6-37.1) H 03/11/17 16:45 Assessment and Plan - Assessment and Plan (Free Text) Assessment: ESRD ON HD M W F .. WILL REMOVE FLUID MUCH WE CAN . PT NEEDS TO BE ON FLUID RESTRICTION DIETWRY COUNSELLIND WAS DONE WHILE I WAS VISITING ND BY DIETITION P: C/O CURRENT CARE C/O PRESENT MANAGEMENT
[2017-03-20] MEDS: Levothyroxine 50 MCG TAB PO SCH (06:06)
[2017-03-20] MEDS: Multivitamin Vitamin B Complex (Nephro-Vite) Tab PO SCH (09:19)
[2017-03-20] MEDS: Pantoprazole 40 mg EC Tab PO SCH (09:20)
--- NOTE | 2017-03-20 11:38 | CP.PCM.PN ---
Subjective - Date & Time of Evaluation Date of Evaluation: 03/20/17 Time of Evaluation: 10:00 - Subjective Subjective: Declined to have abd paracentasis yesterday Feel better today, agrees to have it done A Fib at 96 BPM BP 88/60 mm Hg (in rt. arm) No evidence of hypoperfusion (mentation clear, her base line) Ascites ++ INR 1.5 today Will have abdominal tap Objective - Vital Signs/Intake and Output Vital Signs (last 24 hours): Temp Pulse Resp BP Pulse Ox 97.5 F L 93 H 18 96/60 L 97 03/20/17 08:13 03/20/17 09:23 03/20/17 08:13 03/20/17 09:23 03/20/17 08:13 Intake and Output: 03/20/17 03/20/17 06:59 18:59 Intake Total 600 Output Total 2700 Balance -2100 - Medications Medications: Current Medications Acetaminophen (Tylenol 325mg Tab) 650 mg PO Q4 PRN PRN Reason: Pain, moderate (4-7) Last Admin: 03/19/17 21:01 Dose: 650 mg Ascorbic Acid (Vitamin C 500 Mg Tab) 500 mg PO DAILY [facility] Last Admin: 03/20/17 10:20 Dose: 500 mg Cholecalciferol (Vitamin D) 2,000 iu PO DAILY [facility] Last Admin: 03/20/17 10:20 Dose: 2,000 iu Gabapentin (Neurontin) 200 mg PO BID [facility] Last Admin: 03/20/17 09:21 Dose: 200 mg Piperacillin Sod/Tazobactam (Sod 2.25 gm/ Sodium Chloride) 100 mls @ 100 mls/ hr IVPB Q12 [facility] Last Admin: 03/20/17 09:18 Dose: 100 mls/hr Levothyroxine Sodium (Synthroid) 50 mcg PO DAILY@0630 [facility] Last Admin: 03/20/17 06:06 Dose: 50 mcg Metoprolol Tartrate (Lopressor) 50 mg PO Q12 [facility] Last Admin: 03/20/17 09:23 Dose: Not Given Pantoprazole Sodium (Protonix Ec Tab) 40 mg PO DAILY [facility] Last Admin: 03/20/17 09:20 Dose: 40 mg Sevelamer HCl (Renagel) 800 mg PO BIDWM [facility] Last Admin: 03/20/17 08:21 Dose: 800 mg Vitamin B Complex/Vit C/Folic Acid (Nephro-Goran) 1 tab PO DAILY [facility] Last Admin: 03/20/17 09:19 Dose: 1 tab - Labs Labs: 03/17/17 17:40 03/17/17 17:40 PT 15.0 Seconds (9.8-13.1) H 03/20/17 07:10 INR 1.5 (0.9-1.2) H 03/20/17 07:10 APTT 40.2 Seconds (25.6-37.1) H 03/11/17 16:45
[2017-03-20] MEDS ORDERED: Lidocaine 1% Inj (20ml) ONE (14:03)
--- NOTE | 2017-03-20 14:34 | PCM.SURG1 ---
Surgeon's Initial Post Op Note - Surgeon's Notes Surgeon: Sohail Cruz MD Central Supply Technician Supervisor: NONE Type of Anesthesia: Local Pre-Operative Diagnosis: Ascites Operative Findings: US showed moderate ascites Post-Operative Diagnosis: Ascites Operation Performed: US guided paracentesis. Specimen/Specimens Removed: 4 l of straw colored fluid Estimated Blood Loss: EBL {In ML}: 0 Blood Products Given: N/A Drains Used: No Drains Post-Op Condition: Fair Date of Surgery/Procedure: 03/20/17 Time of Surgery/Procedure: 14:30
[2017-03-21] MEDS: Levothyroxine 50 MCG TAB PO SCH (06:20)
[2017-03-21] MEDS: Pantoprazole 40 mg EC Tab PO SCH (10:35)
[2017-03-21] MEDS: Multivitamin Vitamin B Complex (Nephro-Vite) Tab PO SCH (10:36)
--- NOTE | 2017-03-21 10:51 | CP.PCM.PN ---
Subjective - Date & Time of Evaluation Date of Evaluation: 03/21/17 Time of Evaluation: 09:00 - Subjective Subjective: Resting comfortably but exhausted Had peritoneal tap yesterday and much relieved A Fib at 80-100 BPM BP in Rt arm 90/64 mm Hg Abd soft, less distended Syst murmur of TR+ Will start pt on Warfarin Getting PT will send to reg floor Objective - Vital Signs/Intake and Output Vital Signs (last 24 hours): Temp Pulse Resp BP Pulse Ox 98 F 111 H 18 92/51 L 98 03/21/17 08:06 03/21/17 10:29 03/21/17 08:06 03/21/17 10:29 03/21/17 08:06 Intake and Output: 03/21/17 03/21/17 06:59 18:59 Intake Total 220 Balance 220 - Medications Medications: Current Medications Acetaminophen (Tylenol 325mg Tab) 650 mg PO Q4 PRN PRN Reason: Pain, moderate (4-7) Last Admin: 03/20/17 14:58 Dose: 650 mg Ascorbic Acid (Vitamin C 500 Mg Tab) 500 mg PO DAILY [facility] Last Admin: 03/21/17 10:33 Dose: 500 mg Cholecalciferol (Vitamin D) 2,000 iu PO DAILY [facility] Last Admin: 03/21/17 10:35 Dose: 2,000 iu Gabapentin (Neurontin) 200 mg PO BID [facility] Last Admin: 03/21/17 10:35 Dose: 200 mg Piperacillin Sod/Tazobactam (Sod 2.25 gm/ Sodium Chloride) 100 mls @ 100 mls/ hr IVPB Q12 [facility] Last Admin: 03/21/17 10:31 Dose: 100 mls/hr Levothyroxine Sodium (Synthroid) 50 mcg PO DAILY@0630 [facility] Last Admin: 03/21/17 06:20 Dose: 50 mcg Metoprolol Tartrate (Lopressor) 50 mg PO Q12 [facility] Last Admin: 03/21/17 10:29 Dose: Not Given Pantoprazole Sodium (Protonix Ec Tab) 40 mg PO DAILY [facility] Last Admin: 03/21/17 10:35 Dose: 40 mg Sevelamer HCl (Renagel) 800 mg PO BIDWM [facility] Last Admin: 03/21/17 10:33 Dose: 800 mg Vitamin B Complex/Vit C/Folic Acid (Nephro-Goran) 1 tab PO DAILY [facility] Last Admin: 03/21/17 10:36 Dose: 1 tab Warfarin Sodium (Coumadin) 10 mg PO QD5 [facility] PRN Reason: Protocol Stop: 03/21/17 17:01 - Labs Labs: 03/17/17 17:40 03/17/17 17:40 PT 14.6 Seconds (9.8-13.1) H 03/21/17 04:50 INR 1.4 (0.9-1.2) H 03/21/17 04:50 APTT 40.2 Seconds (25.6-37.1) H 03/11/17 16:45
--- NOTE | 2017-03-21 11:53 | US ---
Date of Procedure: 03/20/2017 PROCEDURE: Ultrasound-guided paracentesis, CPT 28015 Medications: 7 cc 1% Lidocaine HISTORY: Ascites, abdominal pain TECHNIQUE: Following informed consent , the patient was placed supine on the stretcher and the site was marked. A limited abdominal ultrasound was performed that showed a large amount of intra-abdominal fluid. Procedural time out was called and the Pt's abdomen was marked and prepped and draped in the usual sterile fashion. Ultrasound-guided large volume paracentesis performed. A total of 4 liters of straw colored fluid was removed without complication. Fluid specimen was sent for culture, sensitivity, cytology and chemistries. IMPRESSION: Ultrasound-guided large volume paracentesis.
[2017-03-22] MEDS: Levothyroxine 50 MCG TAB PO SCH (05:35)
[2017-03-22] MEDS: Pantoprazole 40 mg EC Tab PO SCH (08:29)
[2017-03-22] MEDS: Multivitamin Vitamin B Complex (Nephro-Vite) Tab PO SCH (08:29)
[2017-03-22 12:39] LABS: HEMATOCRIT 28.3 % (34.0-47.0); MEAN CELL VOLUME 104.4 fl (81.0-99.0); MEAN CORPUSCULAR HEMOGLOBIN 33.9 pg (27.0-31.0); MEAN CORPUSCULAR HGB CONC 32.4 g/dL (33.0-37.0); RED CELL DISTRIBUTION WIDTH 16.4 % (11.5-14.5); WHITE BLOOD COUNT 8.7 K/uL (4.8-10.8)
--- NOTE | 2017-03-22 12:41 | CP.PCM.PN ---
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 Objective - Vital Signs/Intake and Output Vital Signs (last 24 hours): Temp Pulse Resp BP Pulse Ox 98.6 F 100 H 18 91/52 L 94 L 03/22/17 12:16 03/22/17 12:16 03/22/17 12:16 03/22/17 12:16 03/22/17 12:16 - Medications Medications: Current Medications Acetaminophen (Tylenol 325mg Tab) 650 mg PO Q4 PRN PRN Reason: Pain, moderate (4-7) Last Admin: 03/20/17 14:58 Dose: 650 mg Ascorbic Acid (Vitamin C 500 Mg Tab) 500 mg PO DAILY [facility] Last Admin: 03/22/17 08:29 Dose: 500 mg Cholecalciferol (Vitamin D) 2,000 iu PO DAILY [facility] Last Admin: 03/22/17 08:30 Dose: 2,000 iu Gabapentin (Neurontin) 200 mg PO BID [facility] Last Admin: 03/22/17 08:29 Dose: 200 mg Piperacillin Sod/Tazobactam (Sod 2.25 gm/ Sodium Chloride) 100 mls @ 100 mls/ hr IVPB Q12 [facility] Last Admin: 03/22/17 08:28 Dose: 100 mls/hr Levothyroxine Sodium (Synthroid) 50 mcg PO DAILY@0630 [facility] Last Admin: 03/22/17 05:35 Dose: 50 mcg Metoprolol Tartrate (Lopressor) 50 mg PO Q12 [facility] Last Admin: 03/22/17 08:27 Dose: Not Given Pantoprazole Sodium (Protonix Ec Tab) 40 mg PO DAILY [facility] Last Admin: 03/22/17 08:29 Dose: 40 mg Sevelamer HCl (Renagel) 800 mg PO BIDWM [facility] Last Admin: 03/22/17 08:29 Dose: 800 mg Vitamin B Complex/Vit C/Folic Acid (Nephro-Goran) 1 tab PO DAILY [facility] Last Admin: 03/22/17 08:29 Dose: 1 tab Warfarin Sodium (Coumadin) 10 mg PO QD5 [facility] PRN Reason: Protocol Stop: 03/22/17 17:01 - Labs Labs: 03/17/17 17:40 03/17/17 17:40 PT 14.7 Seconds (9.8-13.1) H 03/22/17 06:00 INR 1.4 (0.9-1.2) H 03/22/17 06:00 APTT 40.2 Seconds (25.6-37.1) H 03/11/17 16:45
[2017-03-22 12:54] LABS: CALCIUM 10.4 mg/dL (8.4-10.2); POTASSIUM 4.7 MMOL/L (3.6-5.0)
--- NOTE | 2017-03-22 15:37 | CP.PCM.PN ---
Subjective - Date & Time of Evaluation Date of Evaluation: 03/22/17 Time of Evaluation: 16:00 - Subjective Subjective: SEEN ON RENAL F/U SEEN ON HD BP IS LOW .. WAS GIVEN MIDPDRIN 10 MG PRIOR TO HD ALERT AND ORIANTED .. FEELS THE SAME WE R TRYING TO UF 1.5 L ON HD Objective - Vital Signs/Intake and Output Vital Signs (last 24 hours): Temp Pulse Resp BP Pulse Ox 98.6 F 100 H 18 91/52 L 94 L 03/22/17 12:16 03/22/17 12:16 03/22/17 12:16 03/22/17 12:16 03/22/17 12:16 - Medications Medications: Current Medications Acetaminophen (Tylenol 325mg Tab) 650 mg PO Q4 PRN PRN Reason: Pain, moderate (4-7) Last Admin: 03/20/17 14:58 Dose: 650 mg Ascorbic Acid (Vitamin C 500 Mg Tab) 500 mg PO DAILY [facility] Last Admin: 03/22/17 08:29 Dose: 500 mg Cholecalciferol (Vitamin D) 2,000 iu PO DAILY [facility] Last Admin: 03/22/17 08:30 Dose: 2,000 iu Gabapentin (Neurontin) 200 mg PO BID [facility] Last Admin: 03/22/17 08:29 Dose: 200 mg Piperacillin Sod/Tazobactam (Sod 2.25 gm/ Sodium Chloride) 100 mls @ 100 mls/ hr IVPB Q12 [facility] Last Admin: 03/22/17 08:28 Dose: 100 mls/hr Levothyroxine Sodium (Synthroid) 50 mcg PO DAILY@0630 [facility] Last Admin: 03/22/17 05:35 Dose: 50 mcg Metoprolol Tartrate (Lopressor) 50 mg PO Q12 [facility] Last Admin: 03/22/17 08:27 Dose: Not Given Pantoprazole Sodium (Protonix Ec Tab) 40 mg PO DAILY [facility] Last Admin: 03/22/17 08:29 Dose: 40 mg Sevelamer HCl (Renagel) 800 mg PO BIDWM [facility] Last Admin: 03/22/17 08:29 Dose: 800 mg Vitamin B Complex/Vit C/Folic Acid (Nephro-Goran) 1 tab PO DAILY [facility] Last Admin: 03/22/17 08:29 Dose: 1 tab Warfarin Sodium (Coumadin) 10 mg PO QD5 [facility] PRN Reason: Protocol Stop: 03/22/17 17:01 - Labs Labs: 03/22/17 12:00 03/22/17 12:00 PT 14.7 Seconds (9.8-13.1) H 03/22/17 06:00 INR 1.4 (0.9-1.2) H 03/22/17 06:00 APTT 40.2 Seconds (25.6-37.1) H 03/11/17 16:45 Assessment and Plan - Assessment and Plan (Free Text) Assessment: ESRD ON HD M W F .. NOW GWTTING HD SHE COULD NOPT TOLERATE HER HD LAST NIGHT C/O CURRENT CARE SHE NEEDS FLUID RESTRICTION WELL RENAL DIET TRY OOB AND ON CHAIR .. TRY SOME PT FOR POSSIBLE AMBULATION
[2017-03-23] MEDS: Levothyroxine 50 MCG TAB PO SCH (06:27)
[2017-03-23] MEDS: Multivitamin Vitamin B Complex (Nephro-Vite) Tab PO SCH (09:08)
[2017-03-23] MEDS: Pantoprazole 40 mg EC Tab PO SCH (09:09)
--- NOTE | 2017-03-23 10:51 | CP.PCM.PN ---
Subjective - Date & Time of Evaluation Date of Evaluation: 03/23/17 Time of Evaluation: 09:50 - Subjective Subjective: Resting comfortably Had HD yesterday without difficulty A Fib at 80-90 BPM BP 90/60 mm Hg in Rt arm No rales Syst murmur of TR+ INR 1.4 (had received Vit K to resolve persistent elevated INR to arrange peritonial tap) Warfarin ordered. Objective - Vital Signs/Intake and Output Vital Signs (last 24 hours): Temp Pulse Resp BP Pulse Ox 96.7 F L 92 H 18 74/43 L 94 L 03/23/17 10:25 03/23/17 10:25 03/23/17 10:25 03/23/17 10:25 03/23/17 10:25 - Medications Medications: Current Medications Acetaminophen (Tylenol 325mg Tab) 650 mg PO Q4 PRN PRN Reason: Pain, moderate (4-7) Last Admin: 03/22/17 18:04 Dose: 650 mg Ascorbic Acid (Vitamin C 500 Mg Tab) 500 mg PO DAILY [facility] Last Admin: 03/23/17 09:09 Dose: 500 mg Cholecalciferol (Vitamin D) 2,000 iu PO DAILY [facility] Last Admin: 03/23/17 09:09 Dose: 2,000 iu Gabapentin (Neurontin) 200 mg PO BID [facility] Last Admin: 03/23/17 09:09 Dose: 200 mg Piperacillin Sod/Tazobactam (Sod 2.25 gm/ Sodium Chloride) 100 mls @ 100 mls/ hr IVPB Q12 [facility] Last Admin: 03/23/17 09:11 Dose: 100 mls/hr Levothyroxine Sodium (Synthroid) 50 mcg PO DAILY@0630 [facility] Last Admin: 03/23/17 06:27 Dose: 50 mcg Pantoprazole Sodium (Protonix Ec Tab) 40 mg PO DAILY [facility] Last Admin: 03/23/17 09:09 Dose: 40 mg Sevelamer HCl (Renagel) 800 mg PO BIDWM [facility] Last Admin: 03/23/17 09:00 Dose: 800 mg Vitamin B Complex/Vit C/Folic Acid (Nephro-Goran) 1 tab PO DAILY [facility] Last Admin: 03/23/17 09:08 Dose: 1 tab Warfarin Sodium (Coumadin) 10 mg PO QD5 [facility] PRN Reason: Protocol Stop: 09/03/17 17:01 - Labs Labs: 03/22/17 12:00 03/22/17 12:00 PT 14.3 Seconds (9.8-13.1) H 03/23/17 06:00 INR 1.4 (0.9-1.2) H 03/23/17 06:00 APTT 40.2 Seconds (25.6-37.1) H 03/11/17 16:45
--- NOTE | 2017-03-23 15:15 | CP.PCM.PN ---
Subjective - Date & Time of Evaluation Date of Evaluation: 03/23/17 Time of Evaluation: 12:00 - Subjective Subjective: Progress note for Dr. Gates 89 year old female familiar to our service who is being seen for multiple ulcerations to right leg and cellulitic changes to right leg. Patient seen at bedside sleeping, drowsy and unable to stay awake to properly assess HPI. Patient is accompanied by her quill fixer at time of visit. Patient reports continued pain to her right leg. Patient states she has been wearing offloading boots at all times. She denies any acute overnight events. She denies any further pedal complaints at this time. Denies N/V/F/C/CP/SOB Objective - Vital Signs/Intake and Output Vital Signs (last 24 hours): Temp Pulse Resp BP Pulse Ox 97.5 F L 80 18 86/48 L 94 L 03/23/17 12:26 03/23/17 12:26 03/23/17 12:26 03/23/17 12:26 03/23/17 12:26 - Medications Medications: Current Medications Acetaminophen (Tylenol 325mg Tab) 650 mg PO Q4 PRN PRN Reason: Pain, moderate (4-7) Last Admin: 03/22/17 18:04 Dose: 650 mg Ascorbic Acid (Vitamin C 500 Mg Tab) 500 mg PO DAILY [facility] Last Admin: 03/23/17 09:09 Dose: 500 mg Cholecalciferol (Vitamin D) 2,000 iu PO DAILY [facility] Last Admin: 03/23/17 09:09 Dose: 2,000 iu Gabapentin (Neurontin) 200 mg PO BID [facility] Last Admin: 03/23/17 09:09 Dose: 200 mg Levothyroxine Sodium (Synthroid) 50 mcg PO DAILY@0630 [facility] Last Admin: 03/23/17 06:27 Dose: 50 mcg Pantoprazole Sodium (Protonix Ec Tab) 40 mg PO DAILY [facility] Last Admin: 03/23/17 09:09 Dose: 40 mg Sevelamer HCl (Renagel) 800 mg PO BIDWM [facility] Last Admin: 03/23/17 09:00 Dose: 800 mg Vitamin B Complex/Vit C/Folic Acid (Nephro-Goran) 1 tab PO DAILY [facility] Last Admin: 03/23/17 09:08 Dose: 1 tab Warfarin Sodium (Coumadin) 10 mg PO QD5 [facility] PRN Reason: Protocol Stop: 03/23/17 17:01 - Labs Labs: 03/22/17 12:00 03/22/17 12:00 PT 14.3 Seconds (9.8-13.1) H 03/23/17 06:00 INR 1.4 (0.9-1.2) H 03/23/17 06:00 APTT 40.2 Seconds (25.6-37.1) H 03/11/17 16:45 - Constitutional Appears: Well, Non-toxic, No Acute Distress - Extremities Exam Additional comments: B/l LE focused exam VASC: DP/PT pulses very weakly palpable 1/4 b/l. CFT to all digits > 3 seconds. TG cool to cool. Edema noted to b/l leg, R>L. DERM: Multiple, stable ulcerations noted to b/l LE. Lateral right leg ulceration with mostly fibrotic base measuring roughly 1.0 cm x 3.0 cm x 0.4 cm. Right plantar, posterior heel ulceration with fibronecrotic base measuring roughly 1.0 cm x 1.0 cm x 0.1 cm. Superficial ulcerations x2 to medial right leg appear to have necrotic base with scaling skin periwound. All ulcerations continue to show no periwound erythema, no drainage, no expression of purulence , no malodor and no other clinical signs of infection. No probe to bone, No tracking, undermining or tunneling. Maceration of interdigital spaces noted to have cleared up with evidence of Gentian denise still present at this time. No weeping wounds or bullae noted b/l at this time. RLE appears to have deep, dark , red discoloration as compared to LLE. NEURO: Epicritic and protective sensation grossly intact b/l MSK: Diffuse POP to both legs R>L. Marked weakness in all major muscle groups b /l - Neurological Exam Neurological Exam: Alert, Awake, Oriented x3 - Psychiatric Exam Psychiatric exam: Normal Affect, Normal Mood Assessment and Plan - Assessment and Plan (Free Text) Assessment: 89 year old female seen at bedside for multiple right LE ulcerations and cellulitic changes Plan: Patient seen and evaluated at bedside Patient discussed in details with attending Dr. Gates Charts, labs and vitals reviewed = afebrile, WBC WNL @ 8.7 Patient right leg dressed with xeroform and DSD Vascular consult placed to evaluate for critical limb ischemia to RLE Podiatry will continue to follow while patient in house
[2017-03-24] MEDS: Levothyroxine 50 MCG TAB PO SCH (05:53)
[2017-03-24] MEDS: Multivitamin Vitamin B Complex (Nephro-Vite) Tab PO SCH (08:39)
[2017-03-24] MEDS: Pantoprazole 40 mg EC Tab PO SCH (08:40)
--- NOTE | 2017-03-24 13:28 | CP.PCM.CON ---
History of Present Illness - History of Present Illness History of Present Illness: I was asked to provide endovascular evaluation. Patient is a 89 year old female wit a PMH HTN, hypercholesterolemia, atrial fibrillation maintained on coumadin hospitalized for last 2 weeks with multiple medical problems. The patient is s/p paracentesis. She has been noted to have pain of the right lower extremity. She has recurrent cellulitis. The patient had ultrasound of right lower extremity which was negative for DVT. Review of Systems - Review of Systems Systems not reviewed;Unavailable: Dementia Past Patient History - Infectious Disease Hx of Infectious Diseases: None - Tetanus Immunizations Tetanus Immunization: Unknown - Past Medical History & Family History Past Medical History?: Yes - Past Social History Smoking Status: Never Smoked - CARDIAC Hx Cardiac Disorders: Yes Hx Atrial Fibrillation: Yes (on coumadin) Hx Cardia Arrhythmia: Yes Hx Congestive Heart Failure: Yes Hx Hypertension: Yes - PULMONARY Hx Respiratory Disorders: Yes Hx Pneumonia: Yes Hx Sleep Apnea: Yes (on CPAP) - NEUROLOGICAL Hx Neurological Disorder: No - HEENT Hx HEENT Problems: No - RENAL Hx Chronic Kidney Disease: Yes (Dialysis MWF) Hx Kidney Stones: No - ENDOCRINE/METABOLIC Hx Endocrine Disorders: Yes Hx Hypothyroidism: Yes - HEMATOLOGICAL/ONCOLOGICAL Hx Blood Disorders: Yes Hx AIDS: No Hx Anemia: Yes Hx Human Immunodeficiency Virus (HIV): No - INTEGUMENTARY Hx Dermatological Problems: Yes (Pruritic eruptions) - MUSCULOSKELETAL/RHEUMATOLOGICAL Hx Musculoskeletal Disorders: No Hx Falls: No - GASTROINTESTINAL Hx Gastrointestinal Disorders: Yes Other/Comment: ASCITES - GENITOURINARY/GYNECOLOGICAL Hx Genitourinary Disorders: No - PSYCHIATRIC Hx Psychophysiologic Disorder: Yes Hx Depression: Yes Hx Substance Use: No - SURGICAL HISTORY Hx Surgeries: Yes Hx Cholecystectomy: Yes Hx Coronary Artery Bypass Graft: Yes Hx Herniorrhaphy: Yes - ANESTHESIA Hx Anesthesia: Yes Hx Anesthesia Reactions: No Hx Malignant Hyperthermia: No Meds Allergies/Adverse Reactions: Allergies Allergy/AdvReac Type Severity Reaction Status Date / Time iodine Allergy RASH Verified 01/29/17 13:29 iron Allergy ITCHING Verified 01/29/17 13:29 - Medications Medications: Current Medications Acetaminophen (Tylenol 325mg Tab) 650 mg PO Q4 PRN PRN Reason: Pain, moderate (4-7) Last Admin: 03/23/17 16:31 Dose: 650 mg Ascorbic Acid (Vitamin C 500 Mg Tab) 500 mg PO DAILY [facility] Last Admin: 03/24/17 08:40 Dose: 500 mg Cholecalciferol (Vitamin D) 2,000 iu PO DAILY [facility] Last Admin: 03/24/17 08:41 Dose: 2,000 iu Gabapentin (Neurontin) 200 mg PO BID [facility] Last Admin: 03/24/17 08:39 Dose: 200 mg Levothyroxine Sodium (Synthroid) 50 mcg PO DAILY@0630 [facility] Last Admin: 03/24/17 05:53 Dose: 50 mcg Pantoprazole Sodium (Protonix Ec Tab) 40 mg PO DAILY [facility] Last Admin: 03/24/17 08:40 Dose: 40 mg Sevelamer HCl (Renagel) 800 mg PO BIDWM [facility] Last Admin: 03/24/17 08:39 Dose: 800 mg Vitamin B Complex/Vit C/Folic Acid (Nephro-Goran) 1 tab PO DAILY [facility] Last Admin: 03/24/17 08:39 Dose: 1 tab Physical Exam - Constitutional Appears: Non-toxic - Head Exam Head Exam: NORMAL INSPECTION - Eye Exam Eye Exam: Normal appearance - ENT Exam ENT Exam: Mucous Membranes Moist - Neck Exam Neck exam: Positive for: Full Rom - Respiratory Exam Respiratory Exam: NORMAL BREATHING PATTERN - Cardiovascular Exam Cardiovascular Exam: Irregular Rhythm - GI/Abdominal Exam GI & Abdominal Exam: Normal Bowel Sounds - Rectal Exam Rectal Exam: Deferred - Extremities Exam Extremities exam: Negative for: pedal edema Additional comments: warm - Back Exam Back exam: NORMAL INSPECTION - Neurological Exam Neurological exam: Alert - Psychiatric Exam Psychiatric exam: Normal Affect - Skin Skin Exam: Normal Color Results - Vital Signs Recent Vital Signs: Last Vital Signs Temp 97.4 F L 03/24/17 12:39 Pulse 134 H 03/24/17 12:39 Resp 18 03/24/17 12:39 BP 99/61 L 03/24/17 12:39 Pulse Ox 94 L 03/24/17 12:39 - Labs Result Diagrams: 03/22/17 12:00 03/22/17 12:00 Labs: Laboratory Results - last 24 hr 03/24/17 10:20 PT 31.9 H D INR 3.0 H D - EKG Data EKG Interpreted by: Myself Assessment & Plan (1) Peripheral vascular disease Assessment and Plan: appears perfused on physical examination. recommend arterial duplex for further evaluation. will recommend continuation of cardiac mgmt per Dr. Alvares Status: Acute
--- NOTE | 2017-03-24 21:21 | CP.PCM.PN ---
Subjective - Date & Time of Evaluation Date of Evaluation: 03/24/17 Time of Evaluation: 16:00 - Subjective Subjective: SEEN ON RENAL F/U SEEN ON HD FEELS IMPROVED ALL PREVIOUS EMR REVIEWED Objective - Vital Signs/Intake and Output Vital Signs (last 24 hours): Temp Pulse Resp BP Pulse Ox 98.3 F 125 H 18 94/55 L 96 03/24/17 19:07 03/24/17 19:07 03/24/17 19:07 03/24/17 19:07 03/24/17 19:07 Intake and Output: 03/24/17 03/25/17 18:59 06:59 Intake Total 720 Balance 720 - Medications Medications: Current Medications Acetaminophen (Tylenol 325mg Tab) 650 mg PO Q4 PRN PRN Reason: Pain, moderate (4-7) Last Admin: 03/23/17 16:31 Dose: 650 mg Ascorbic Acid (Vitamin C 500 Mg Tab) 500 mg PO DAILY [facility] Last Admin: 03/24/17 08:40 Dose: 500 mg Cholecalciferol (Vitamin D) 2,000 iu PO DAILY [facility] Last Admin: 03/24/17 08:41 Dose: 2,000 iu Gabapentin (Neurontin) 200 mg PO BID [facility] Last Admin: 03/24/17 16:27 Dose: 200 mg Levothyroxine Sodium (Synthroid) 50 mcg PO DAILY@0630 [facility] Last Admin: 03/24/17 05:53 Dose: 50 mcg Pantoprazole Sodium (Protonix Ec Tab) 40 mg PO DAILY [facility] Last Admin: 03/24/17 08:40 Dose: 40 mg Sevelamer HCl (Renagel) 800 mg PO BIDWM [facility] Last Admin: 03/24/17 16:27 Dose: 800 mg Vitamin B Complex/Vit C/Folic Acid (Nephro-Goran) 1 tab PO DAILY [facility] Last Admin: 03/24/17 08:39 Dose: 1 tab - Labs Labs: 03/22/17 12:00 03/22/17 12:00 PT 31.9 Seconds (9.8-13.1) H D 03/24/17 10:20 INR 3.0 (0.9-1.2) H D 03/24/17 10:20 APTT 40.2 Seconds (25.6-37.1) H 03/11/17 16:45 Assessment and Plan - Assessment and Plan (Free Text) Assessment: 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 ON EPO HYPOTENSION .. ON MIDODRIN C/O CURRENT CARE
[2017-03-25] MEDS: Levothyroxine 50 MCG TAB PO SCH (06:06)
[2017-03-25] MEDS: Multivitamin Vitamin B Complex (Nephro-Vite) Tab PO SCH (08:16)
[2017-03-25] MEDS: Pantoprazole 40 mg EC Tab PO SCH (08:16)
--- NOTE | 2017-03-25 08:36 | CP.PCM.PN ---
Subjective - Date & Time of Evaluation Date of Evaluation: 03/25/17 Time of Evaluation: 08:31 - Subjective Subjective: Podiatry progress note for Dr. Gates 89 y/o female seen at bedside for multiple ulcerations to right leg and cellulitic changes to right leg. Patient seen at bedside sleeping, drowsy and unable to stay awake to properly assess HPI. Patient states she is having pain in the right leg as well as throughout her body. She denies any acute overnight events. She denies any further pedal complaints at this time. Denies F/C/N/V/CP/ SOB Objective - Vital Signs/Intake and Output Vital Signs (last 24 hours): Temp Pulse Resp BP Pulse Ox 98.2 F 114 H 20 96/47 L 93 L 03/25/17 08:00 03/25/17 08:00 03/25/17 08:00 03/25/17 08:00 03/25/17 08:00 - Medications Medications: Current Medications Acetaminophen (Tylenol 325mg Tab) 650 mg PO Q4 PRN PRN Reason: Pain, moderate (4-7) Last Admin: 03/23/17 16:31 Dose: 650 mg Ascorbic Acid (Vitamin C 500 Mg Tab) 500 mg PO DAILY [facility] Last Admin: 03/25/17 08:17 Dose: 500 mg Cholecalciferol (Vitamin D) 2,000 iu PO DAILY [facility] Last Admin: 03/25/17 08:17 Dose: 2,000 iu Gabapentin (Neurontin) 200 mg PO BID [facility] Last Admin: 03/25/17 08:16 Dose: 200 mg Levothyroxine Sodium (Synthroid) 50 mcg PO DAILY@0630 [facility] Last Admin: 03/25/17 06:06 Dose: 50 mcg Pantoprazole Sodium (Protonix Ec Tab) 40 mg PO DAILY [facility] Last Admin: 03/25/17 08:16 Dose: 40 mg Sevelamer HCl (Renagel) 800 mg PO BIDWM [facility] Last Admin: 03/25/17 08:17 Dose: 800 mg Vitamin B Complex/Vit C/Folic Acid (Nephro-Goran) 1 tab PO DAILY [facility] Last Admin: 03/25/17 08:16 Dose: 1 tab - Labs Labs: 03/22/17 12:00 03/22/17 12:00 PT 36.5 Seconds (9.8-13.1) H 03/25/17 04:30 INR 3.5 (0.9-1.2) H 03/25/17 04:30 APTT 40.2 Seconds (25.6-37.1) H 03/11/17 16:45 - Constitutional Appears: Well, Non-toxic, No Acute Distress - Extremities Exam Additional comments: B/l LE focused exam VASC: DP/PT pulses very weakly palpable 1/4 B/L. CFT to all digits > 3 seconds. TG cool to cool. Mild pitting edema noted to bilateral legs, R>L. DERM: Multiple, stable ulcerations noted to bilateral LE. Lateral right leg ulceration with mostly fibrotic base measuring roughly 1.0 cm x 2.5 cm x 0.4 cm. Right plantar, posterior heel ulceration with fibronecrotic base measuring roughly 1.0 cm x 1.0 cm x 0.1 cm. Superficial ulcerations x2 to medial right leg appear to have necrotic base with scaling skin in the periwound area. All ulcerations continue to show no periwound erythema, no drainage, no purulence, no malodor and no other clinical signs of infection. No probe to bone, no tracking, undermining or tunneling. Maceration of interdigital spaces noted to have cleared up with evidence of Gentian denise still present at this time. RLE appears to have deep, dark, red discoloration as compared to LLE. NEURO: Epicritic and protective sensation grossly intact B/L MSK: Tenderness upon palpation noted to R leg. Marked weakness in all major muscle groups B/L - Neurological Exam Neurological Exam: Alert, Awake, Oriented x3 - Psychiatric Exam Psychiatric exam: Normal Affect, Normal Mood Assessment and Plan - Assessment and Plan (Free Text) Assessment: 89 year old female seen at bedside for multiple right LE ulcerations and cellulitic changes Plan: Patient seen and evaluated at bedside Discussed plan in detail with attending Dr. Gates Charts, labs and vitals reviewed = afebrile, WBC WNL @ 8.7 as of 03/22 Patient's right leg ulcerations dressed with xeroform and RLE dressed with DSD Arterial duplex pending per vascular Podiatry will continue to follow while patient in house
--- NOTE | 2017-03-25 09:12 | CP.PCM.PN ---
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 Objective - Vital Signs/Intake and Output Vital Signs (last 24 hours): Temp Pulse Resp BP Pulse Ox 98.2 F 114 H 20 96/47 L 93 L 03/25/17 08:00 03/25/17 08:00 03/25/17 08:00 03/25/17 08:00 03/25/17 08:00 - Medications Medications: Current Medications Acetaminophen (Tylenol 325mg Tab) 650 mg PO Q4 PRN PRN Reason: Pain, moderate (4-7) Last Admin: 03/23/17 16:31 Dose: 650 mg Ascorbic Acid (Vitamin C 500 Mg Tab) 500 mg PO DAILY [facility] Last Admin: 03/25/17 08:17 Dose: 500 mg Cholecalciferol (Vitamin D) 2,000 iu PO DAILY [facility] Last Admin: 03/25/17 08:17 Dose: 2,000 iu Gabapentin (Neurontin) 200 mg PO BID [facility] Last Admin: 03/25/17 08:16 Dose: 200 mg Levothyroxine Sodium (Synthroid) 50 mcg PO DAILY@0630 [facility] Last Admin: 03/25/17 06:06 Dose: 50 mcg Pantoprazole Sodium (Protonix Ec Tab) 40 mg PO DAILY [facility] Last Admin: 03/25/17 08:16 Dose: 40 mg Sevelamer HCl (Renagel) 800 mg PO BIDWM [facility] Last Admin: 03/25/17 08:17 Dose: 800 mg Vitamin B Complex/Vit C/Folic Acid (Nephro-Goran) 1 tab PO DAILY [facility] Last Admin: 03/25/17 08:16 Dose: 1 tab - Labs Labs: 03/22/17 12:00 03/22/17 12:00 PT 36.5 Seconds (9.8-13.1) H 03/25/17 04:30 INR 3.5 (0.9-1.2) H 03/25/17 04:30 APTT 40.2 Seconds (25.6-37.1) H 03/11/17 16:45
[2017-03-25 12:00] VITALS: RESP 18
[2017-03-25 15:58] VITALS: BP 106/63; PULSE 122; TEMP 98.4; O2SAT 90
--- NOTE | 2017-03-25 23:20 | CP.PCM.PN ---
Subjective - Date & Time of Evaluation Date of Evaluation: 03/25/17 Time of Evaluation: 13:00 - Subjective Subjective: SEEN ON RENAL F/U BEING FED BY HER DAUGHTER FEELS ( NOT GOOD ) BP ON THE LOW SIDE WILL BE TRANSFERED TO [facility] Objective - Vital Signs/Intake and Output Vital Signs (last 24 hours): Temp Pulse Resp BP Pulse Ox 98.4 F 122 H 18 106/63 90 L 03/25/17 15:58 03/25/17 15:58 03/25/17 15:58 03/25/17 15:58 03/25/17 15:58 - Labs Labs: 03/22/17 12:00 03/22/17 12:00 PT 36.5 Seconds (9.8-13.1) H 03/25/17 04:30 INR 3.5 (0.9-1.2) H 03/25/17 04:30 APTT 40.2 Seconds (25.6-37.1) H 03/11/17 16:45 Assessment and Plan - Assessment and Plan (Free Text) Assessment: 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 H/H STABLE FOR D/C TO [facility]
--- NOTE | 2017-03-26 07:43 | CP.PCM.DIS ---
Provider - Provider Date of Admission: 03/11/17 18:39 Attending physician: Jose Cruz Grande MD Time Spent in preparation of Discharge (in minutes): 30 Hospital Course - Lab Results Lab Results: Micro Results 03/11/17 20:00 Blood Blood Culture - Final NO GROWTH AFTER 5 DAYS 03/11/17 20:00 Blood Gram Stain - Final TEST NOT PERFORMED Most Recent Lab Values WBC 8.7 K/uL (4.8-10.8) 03/22/17 12:00 RBC 2.71 Mil/uL (3.80-5.20) L 03/22/17 12:00 Hgb 9.2 g/dL (12.0-16.0) L 03/22/17 12:00 Hct 28.3 % (34.0-47.0) L 03/22/17 12:00 MCV 104.4 fl (81.0-99.0) H 03/22/17 12:00 MCH 33.9 pg (27.0-31.0) H 03/22/17 12:00 MCHC 32.4 g/dL (33.0-37.0) L 03/22/17 12:00 RDW 16.4 % (11.5-14.5) H 03/22/17 12:00 Plt Count 169 K/uL (130-400) 03/22/17 12:00 MPV 8.2 fl (7.2-11.7) 03/11/17 16:45 Neut % (Auto) 80.8 % (50.0-75.0) H 03/11/17 16:45 Lymph % (Auto) 3.3 % (20.0-40.0) L 03/11/17 16:45 Cannon % (Auto) 15.6 % (0.0-10.0) H 03/11/17 16:45 Eos % (Auto) 0.1 % (0.0-4.0) 03/11/17 16:45 Baso % (Auto) 0.2 % (0.0-2.0) 03/11/17 16:45 Neut # 7.8 K/uL (1.8-7.0) H 03/11/17 16:45 Lymph # 0.3 K/uL (1.0-4.3) L 03/11/17 16:45 Cannon # 1.5 K/uL (0.0-0.8) H 03/11/17 16:45 Eos # 0.0 K/uL (0.0-0.7) 03/11/17 16:45 Baso # 0.0 K/uL (0.0-0.2) 03/11/17 16:45 Neutrophils % (Manual) 75 % (42-75) 03/11/17 16:45 Band Neutrophils % 2 % (0-2) 03/11/17 16:45 Lymphocytes % (Manual) 10 % (20-50) L 03/11/17 16:45 Monocytes % (Manual) 13 % (0-10) H 03/11/17 16:45 Platelet Estimate Normal (NORMAL) 03/11/17 16:45 Anisocytosis (manual) Moderate 03/11/17 16:45 Microcytosis (manual) Moderate 03/11/17 16:45 PT 36.5 Seconds (9.8-13.1) H 03/25/17 04:30 INR 3.5 (0.9-1.2) H 03/25/17 04:30 APTT 40.2 Seconds (25.6-37.1) H 03/11/17 16:45 pO2 23 mm/Hg (30-55) L 03/11/17 18:05 VBG pH 7.38 (7.32-7.43) 03/11/17 18:05 VBG pCO2 51 mmHg (40-60) 03/11/17 18:05 VBG HCO3 26.4 mmol/L 03/11/17 18:05 VBG Total CO2 31.8 mmol/L (22-28) H 03/11/17 18:05 VBG O2 Sat (Calc) 43.7 % (40-65) 03/11/17 18:05 VBG Base Excess 3.9 mmol/L (0.0-2.0) H 03/11/17 18:05 VBG Potassium 4.1 mmol/L (3.6-5.2) 03/11/17 18:05 Sodium 136.0 mmol/L (132-148) 03/11/17 18:05 Chloride 101.0 mmol/L (98-107) 03/11/17 18:05 Glucose 124 mg/dL (65-105) H 03/11/17 18:05 Lactate 1.3 mmol/L (0.7-2.1) 03/11/17 18:05 FiO2 21.0 % 03/11/17 18:05 Sodium 135 mmol/l (132-148) 03/22/17 12:00 Potassium 4.7 MMOL/L (3.6-5.0) 03/22/17 12:00 Chloride 101 mmol/L (98-107) 03/22/17 12:00 Carbon Dioxide 26 mmol/L (22-30) 03/22/17 12:00 Anion Gap 12 (10-20) 03/22/17 12:00 BUN 33 mg/dl (7-17) H 03/22/17 12:00 Creatinine 4.5 mg/dL (0.7-1.2) H 03/22/17 12:00 Est GFR ( Amer) 11 03/22/17 12:00 Est GFR (Non-Af Amer) 9 03/22/17 12:00 POC Glucose (mg/dL) 149 mg/dL (65-110) H 03/11/17 15:25 Random Glucose 120 mg/dL (65-105) H 03/22/17 12:00 Calcium 10.4 mg/dL (8.4-10.2) H 03/22/17 12:00 Phosphorus 2.6 mg/dl (2.5-4.5) 03/11/17 16:45 Magnesium 1.7 MG/DL (1.6-2.3) 03/11/17 16:45 Total Bilirubin 2.7 mg/dl (0.2-1.3) H 03/11/17 16:45 AST 18 U/L (14-36) 03/11/17 16:45 ALT 31 U/L (9-52) 03/11/17 16:45 Alkaline Phosphatase 97 U/L (38-126) 03/11/17 16:45 Troponin I 0.0200 ng/mL (0.00-0.120) 03/11/17 16:45 NT-Pro-B Natriuret Pep 214347 pg/ml (0-900) H 03/22/17 12:00 Total Protein 5.5 G/DL (6.3-8.2) L 03/11/17 16:45 Albumin 2.8 g/dL (3.5-5.0) L 03/11/17 16:45 Globulin 2.8 gm/dL (2.2-3.9) 03/11/17 16:45 Albumin/Globulin Ratio 1.0 (1.0-2.1) 03/11/17 16:45 TSH 3rd Generation 5.16 mIU/ML (0.46-4.68) H 03/11/17 16:45 Venous Blood Potassium 4.1 mmol/L (3.6-5.2) 03/11/17 18:05 - Hospital Course Hospital Course: This 89-year-old female was brought to the emergency room by her family because of extreme weakness and inability to get in and out of bed. The patient has had multiple hospitalizations at this institution over the last 10-15 years but, over last 6 months or so she has had repeated hospitalizations. She has a long history of hypertension and diabetes and has end-stage renal disease requiring hemodialysis for number of years. She has severe pulmonary hypertension with right ventricular failure and chronic atrial fibrillation requiring oral anticoagulation as well. Patient has obstructive sleep apnea and significant hypoxia hypoventilation syndrome requiring use of BiPAP machine at night. She has gradually developed dementia and confusion over last few months. Patient has had severe ascites as a consequence of right ventricular failure requiring repeated paracentesis of ascites fluid. The patient was found in the emergency room to have atrial fibrillation and a blood pressure that ranged between 80 and 90 mmHg systolic in the right upper extremity with a dialysis AV shunt in the left upper extremity. She had mild pedal edema and are raised jugular venous pressure up to angle of jaw. Her extremities were cool to touch because of low cardiac output syndrome. The patient had been on warfarin and her INR was elevated appropriately. The patient had hemodialysis on Wednesdays and Fridays during her hospital stay. She had significant ascites and again on 19 of March she had 4 L of ascites fluid drained after her INR was normalized by giving IV vitamin K and with holding her warfarin. Subsequent to abdominal paracentesis her warfarin was restarted. The patient grew gradually infirm and confused. She was not able to get in and out of bed independently. The family had requested (during her loss hospitalization )that no resuscitative measures be taken in case of cardiorespiratory arrest. Seeing her gradual deterioration and her inability to be managed at home and to make a trip 3 times a week to the dialysis center it was felt that subacute rehabilitation/chronic institutionalization be considered. Patient's daughter agreed with this assessment and the patient was sent to subacute rehabilitation Center. Her final diagnosis was hypertension, diabetes mellitus and chronic renal failure requiring chronic hemodialysis. 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 Recurrent ascites. Obstructive sleep apnea with chronic hypoxia hypoventilation syndrome. Dementia. General debility. Discharge Exam - Head Exam Head Exam: NORMAL INSPECTION Discharge Plan - Follow Up Plan Condition: FAIR Disposition: REHAB FACILITY/REHAB UNIT Instructions: Sepsis (GEN), Hypotension (DC)
--- NOTE | 2017-03-26 10:19 | PQF SEPSIS ---
This form is a permanent part of the medical record DR. LUCILA VERMA: COULD YOU PLEASE CONFIRM IF SEPSIS WAS RULED IN OR OUT. Clarification of your documentation is requested to better reflect the severity of illness and intensity of treatment of your patient. Indicators present [] Temp < 96.8 or > 100.4 [] WBC count > 12,000/mm3 or <000/mm3 or 10% immature neutrophils [] Heart Rate > 90 [] Respiratory Rate > 20 [] Fever or hypothermia [] Chills [] Positive blood cultures [] Hypotension [] Metabolic acidosis (Elevated lactate level, anion gap or reduced blood pH) [] Acute confusion /Altered Mental Status [] Shock [] Other: [] Location in the medical record that reflects the above clinical findings: [] Treatment Provided: [] PHYSICIAN'S RESPONSE Based on your medical judgment of the clinical indicators outlined above, are you treating this patient for a known or suspected: [] Sepsis / Septicemia Please specify organism if known [] [] SIRS (Systemic Inflammatory Response Syndrome) [] Severe Sepsis (Sepsis with Associated Organ Dysfunction) [] Fever of Unknown Origin [] Other, please indicate: [] [] If Unable to Determine, please check the box, sign and date. Present On Admission (POA) Indicator: [] Present at the time of admission [] Not present at the time of admission [] Clinically Undetermined In responding to this query, please exercise your independent professional judgment. The fact that a question is asked does not imply that any particular answer is desired or expected. Thank you for your clarification on this documentation. If you have any questions please call:[ ] * Thank you, * SANTIAGO JOHNSON [ [phone] optical goods drilling machine operator MADDY
--- NOTE | 2017-03-26 10:26 | PQF GENQUE ---
This form is a permanent part of the medical record DR. LUCILA VERMA: COULD YOU PLEASE CONFIRM THE PRINCIPAL DIAGNOSIS. Clarification of your documentation is requested to better reflect the severity of illness and intensity of treatment of your patient. Indicators present [] Specify: [] [] Specify: [] [] Specify: [] [] Specify: [] Location in the medical record that reflects the above clinical findings: [] Treatment Provided: [] PHYSICIAN'S RESPONSE Based on your medical judgment of the clinical indicators outlined above please clarify the following: [] Practitioner response [] If unable to determine, please check the box, sign and date. Present On Admission (POA) Indicator: [] Present at the time of admission [] Not present at the time of admission [] Clinically Undetermined In responding to this query, please exercise your independent professional judgment. The fact that a question is asked does not imply that any particular answer is desired or expected. Thank you for your clarification on this documentation. If you have any questions please call:[ ] * Thank you, * SANTIAGO JOHNSON [ [phone] detention deputy MADDY
== END 2017-03-25 18:40 | DRG 314 ==
LOC: H.ER 15:05 → H.ERHOLD 18:39 → H.TEL 21:55
PROVIDERS: ADMIT Internal Medicine Cardiovascular Disease; ATTEND Internal Medicine Cardiovascular Disease
PROC: 5A1D60Z (ICD-10-PCS; 2017-03-19)
PROC: 0W9G3ZZ Drainage of Peritoneal Cavity, Percutaneous Approach (ICD-10-PCS; principal; 2017-03-20)
DX: I95.9 Hypotension, unspecified (principal); N18.6 End stage renal disease; I13.2 Hypertensive heart and chronic kidney disease with heart failure and with stage 5 chronic kidney disease, or end stage renal disease; R18.8 Other ascites; E11.22 Type 2 diabetes mellitus with diabetic chronic kidney disease; I27.2 Other secondary pulmonary hypertension; F03.90 Unspecified dementia, unspecified severity, without behavioral disturbance, psychotic disturbance, mood disturbance, and anxiety; E11.622 Type 2 diabetes mellitus with other skin ulcer; L97.919 Non-pressure chronic ulcer of unspecified part of right lower leg with unspecified severity; L03.115 Cellulitis of right lower limb; I50.22 Chronic systolic (congestive) heart failure; D63.1 Anemia in chronic kidney disease; E03.9 Hypothyroidism, unspecified; E11.649 Type 2 diabetes mellitus with hypoglycemia without coma; E78.00 Pure hypercholesterolemia, unspecified; G47.33 Obstructive sleep apnea (adult) (pediatric); R09.02 Hypoxemia; I25.10 Atherosclerotic heart disease of native coronary artery without angina pectoris; I25.2 Old myocardial infarction; I48.2 Chronic atrial fibrillation; Z79.01 Long term (current) use of anticoagulants; Z79.899 Other long term (current) drug therapy; Z87.01 Personal history of pneumonia (recurrent); Z87.891 Personal history of nicotine dependence; Z90.49 Acquired absence of other specified parts of digestive tract; Z95.1 Presence of aortocoronary bypass graft; Z99.2 Dependence on renal dialysis

== ENCOUNTER 2017-04-18 13:52 | Inpatient (IN) | payer MEDICARE, OTHER ==
[2017-04-18 13:52] VITALS: PULSE 125; BMI 26.1
[2017-04-18] MEDS ORDERED: Sodium Chloride 0.9% 1,000 ML IV STA (14:32)
--- NOTE | 2017-04-18 14:55 | RAD ---
HISTORY: Hypotension COMPARISON: 03/11/2017 FINDINGS: LUNGS: Examination limited due to oblique positioning. No definite infiltrate. PLEURA: Possible small bilateral pleural effusion. No pneumothorax. CARDIOVASCULAR: Normal. OSSEOUS STRUCTURES: No significant abnormalities. VISUALIZED UPPER ABDOMEN: Normal. OTHER FINDINGS: None. IMPRESSION: Possible small bilateral pleural effusion. Otherwise unremarkable.
--- NOTE | 2017-04-18 14:58 | ED PDOC ---
HPI: General Adult Time Seen by Provider: 04/18/17 14:11 Chief Complaint (Nursing): Weakness/Neurological Deficit Chief Complaint (Provider): Low Blood Pressure History Per: Family (daughter) History/Exam Limitations: clinical condition Additional Complaint(s): Shasha Martinez, an 89 year old female, is brought into the ED by her daughter from rehab with low blood pressure. patient history is limited due to patients demented state. The daughter reports that she refused for the patient to go to dialysis today She states that the patient has been more lethargic over the past two days. Of Note: Patient is has do not intubate and do not resuscitate orders in place. PMD: Dr. Jose Doshi Past Medical History Reviewed: Historical Data, Nursing Documentation, Vital Signs Vital Signs: Last Vital Signs Temp 96.9 F L 04/19/17 09:00 Pulse 115 H 04/19/17 09:00 Resp 18 04/19/17 09:00 BP 85/54 L 04/19/17 09:00 Pulse Ox 94 L 04/19/17 09:00 - Medical History PMH: Anemia, Atrial Fibrillation (on coumadin), CAD, Cardia Arrhythmia, CHF, Depression, Diabetes (Type II), HTN, Hypothyroidism, Pneumonia, End Stage Renal Disease, Chronic Kidney Disease (Dialysis MWF), Sleep Apnea (on CPAP) Denies: HIV, Kidney Stones - Surgical History Surgical History: Cholecystectomy, Hernia Repair (2005, ventral) Denies: CABG - Family History Family History: States: Unknown Family Hx - Home Medications Home Medications: Ambulatory Orders Medication Instructions Recorded ALPRAZolam [Xanax] 0.25 mg PO Q6H PRN 04/18/17 Acetaminophen [Tylenol 325mg tab] 650 mg PO Q4H PRN 04/18/17 Acetaminophen [Tylenol 325mg tab] 650 mg PO Q4H PRN 04/18/17 Ascorbic Acid [Vitamin C 500 mg 500 mg PO DAILY 04/18/17 Tab] Collagenase [Santyl] 1 appl TOP DAILY 04/18/17 DiphenhydrAMINE [Benadryl] 25 mg PO Q8H PRN 04/18/17 Ergocalciferol (Vitamin D2) 50,000 unit PO MO 04/18/17 [Vitamin D2] Levothyroxine [Synthroid] 50 mcg PO DAILY 04/18/17 Midodrine [Proamatine] 10 mg PO MWF 04/18/17 Pantoprazole Sodium [Protonix] 40 mg PO DAILY 04/18/17 Sevelamer [Renagel] 800 mg PO BID 04/18/17 Silver Sulfadiazine [Silvadene] 1 appl TOP DAILY 04/18/17 Vitamin A/D [Vitamin A&D] 1 appl TP QSHIFT 04/18/17 Vitamin B Complex/Vit C/Folic 1 tab PO DAILY 04/18/17 [Nephro-Goran] valACYclovir [Valtrex] 500 mg PO Q12H 04/18/17 - Allergies Allergies/Adverse Reactions: Allergies Allergy/AdvReac Type Severity Reaction Status Date / Time iodine Allergy RASH Verified 01/29/17 13:29 iron Allergy ITCHING Verified 01/29/17 13:29 Review of Systems Review Of Systems: ROS cannot be obtained secondary to pt's inabilty to answer questions. (Cannot be obtained due to patient's demented state.) Physical Exam - Reviewed Nursing Documentation Reviewed: Yes Vital Signs Reviewed: Yes - Physical Exam Appears: Positive for: Non-toxic, No Acute Distress Head Exam: Positive for: ATRAUMATIC, NORMAL INSPECTION, NORMOCEPHALIC Skin: Positive for: Normal Color, Warm, Dry. Negative for: Rash Eye Exam: Positive for: Other (Opens eyes to verbal stimuli) ENT: Positive for: Normal ENT Inspection Cardiovascular/Chest: Positive for: Chest Non Tender, Tachycardia, Irregularly Irregular. Negative for: Regular Rate, Rhythm Respiratory: Positive for: Normal Breath Sounds (Poor inspitory efforts.). Negative for: Wheezing (no audible wheezing) Gastrointestinal/Abdominal: Positive for: Normal Exam, Bowel Sounds, Soft. Negative for: Tenderness, Guarding, Rebound Back: Positive for: Other (Stage II sacral ulcer) Extremity: Positive for: Normal ROM, Other (+2 left pitting edema). Negative for: Tenderness, Deformity, Swelling Neurologic/Psych: Positive for: Alert, Oriented, Gait - Laboratory Results Result Diagrams: 04/18/17 15:00 04/18/17 14:32 - ECG O2 Sat by Pulse Oximetry: 100 (RA) Pulse Ox Interpretation: Normal Medical Decision Making Medical Decision Makin Initial Impression: 89 y/o female presenting with low blood pressure Initial Plan: * VBG * CT Head w/o Contrast * PROBNP * CMP * Troponin * Udip * CBC * Partial Thromboplastin * Prothrombin time * Chest x-ray * NS 1000ml IV 1000mls/hr * Blood Culture * Urine Culture * Accucheck * Reevaluation Scribe Attestation Documented by Love Bonilla acting as a scribe for Julita Gant MD. Provider Attestation All medical record entries made by the Scribe were at my direction and personally dictated by me. I have reviewed the chart and agree that the record accurately reflects my personal performance of the history, physical exam, medical decision making, and the department course for this patient. I have also personally directed, reviewed, and agree with the discharge instructions and disposition. Disposition - Clinical Impression Clinical Impression: Atrial fibrillation with rapid ventricular response, Altered mental status, ESRD (end stage renal disease) - Patient ED Disposition Is Patient to be Admitted: Transfer of Care - Disposition Disposition Time: 15:00 Condition: CRITICAL Patient Signed Over To: Michael Avilez III Present On Arrival: Pressure Ulcer
[2017-04-18 15:04] LABS: BASO % 0.3 % (0.0-2.0); EOS % 0.1 % (0.0-4.0); HEMATOCRIT 35.4 % (34.0-47.0); LYMPH # 0.5 K/uL (1.0-4.3); LYMPH % 7.5 % (20.0-40.0); MEAN CELL VOLUME 108.2 fl (81.0-99.0); MEAN CORPUSCULAR HEMOGLOBIN 34.5 pg (27.0-31.0); MEAN CORPUSCULAR HGB CONC 31.8 g/dL (33.0-37.0); MEAN PLATELET VOLUME 7.6 fl (7.2-11.7); MONO # 1.4 K/uL (0.0-0.8); MONO % 22.5 % (0.0-10.0); NEUT # 4.4 K/uL (1.8-7.0); NEUT % 69.6 % (50.0-75.0); NRBC % 0.3 % (0.0-0.0); PLATELET COUNT 122 K/uL (130-400); RED CELL DISTRIBUTION WIDTH 19.5 % (11.5-14.5); WHITE BLOOD COUNT 6.4 K/uL (4.8-10.8)
[2017-04-18 15:17] LABS: BILIRUBIN,TOTAL 1.5 mg/dl (0.2-1.3); CALCIUM 11.3 mg/dL (8.4-10.2); POTASSIUM 4.4 MMOL/L (3.6-5.0); TOTAL PROTEIN 6.1 G/DL (6.3-8.2)
[2017-04-18 15:25] LABS: PARTIAL THROMBOPLASTIN TIME 41.4 Seconds (25.6-37.1)
[2017-04-18 15:28] LABS: TROPONIN I 0.02 ng/mL (0.00-0.120)
[2017-04-18] MEDS ORDERED: Metoprolol 1 mg/ml Inj IVP ONE (16:31)
[2017-04-18 16:36] LABS: BASOPHIL 1 % (0-2); NEUTROPHIL 69 % (42-75); TOTAL CELLS COUNTED 100
[2017-04-18 16:37] LABS: LARGE PLATELETS PRESENT
--- NOTE | 2017-04-18 16:43 | ED PDOC ---
- Laboratory Results Result Diagrams: 04/18/17 15:00 04/18/17 14:32 - ECG O2 Sat by Pulse Oximetry: 100 Pulse Ox Interpretation: Normal - Radiology X-Ray: Read By Radiologist X-Ray Interpretation: Other (small pleural effusions) Medical Decision Making Medical Decision Making: Pt w Afib/ RVR Lactate 1.4 BUN/Director Medical Science c/w chronic renal disease although improved from prior Has missed 2 HD episodes but K+ normal INR 2.4 Hgb stable anemia compared to prior Clinically patient appears ill, agonal respirations on NRB. DNR/DNI to be maintained. 420p I had long discussion with family regarding their wishes and they likely want to proceed with comfort measures and possible hospice. They do not want to proceed with CT brain or dopplers of LE. Dr Jose Aldridge PMD paged and case discussed, recommended Metoprolol 2.5mg for rate control, possible digoxin if RVR persists. He will speak to family about definitive wishes for care. Critical care time 35minutes, patient required prolonged bedside attention due to tachyarrythmia and AMS Disposition Counseled Patient/Family Regarding: Studies Performed, Diagnosis - Clinical Impression Clinical Impression: Atrial fibrillation with rapid ventricular response, Altered mental status, ESRD (end stage renal disease) - POA Present On Arrival: Pressure Ulcer (foot) - Disposition Disposition: Admitted as In-Patient Disposition Time: 16:15 Condition: CRITICAL
[2017-04-18] MEDS ORDERED: Digoxin 500 mcg/2ml (0.5 mg/2ml) Inj ONE (16:56)
[2017-04-18] MEDS ORDERED: Digoxin 500 mcg/2ml (0.5 mg/2ml) Inj IVP STA (17:01)
--- NOTE | 2017-04-18 17:40 | CT ---
PROCEDURE: CT HEAD WITHOUT CONTRAST. HISTORY: Lethargy COMPARISON: Comparison made with CT scan brain 02/05/2017 TECHNIQUE: Axial computed tomography images were obtained through the head/brain without intravenous contrast. Radiation dose: Total exam DLP = 904.27 mGy-cm. This CT exam was performed using one or more of the following dose reduction techniques: Automated exposure control, adjustment of the mA and/or kV according to patient size, and/or use of iterative reconstruction technique. FINDINGS: HEMORRHAGE: No acute parenchymal, subarachnoid nor extra-axial hemorrhage. BRAIN: Re- demonstrated are moderate diffuse/confluent chronic white matter ischemic changes with more discrete chronic appearing bifrontal infarct changes. Additionally, there are chronic bilateral basal nuclei lacunar type infarcts. Moderate -significant volume loss. Partially empty sella. Vascular calcifications are present VENTRICLES: No obstructive hydrocephalus. CALVARIUM: No acute calvarial fractures. PARANASAL SINUSES: Unremarkable as visualized. No significant inflammatory changes. MASTOID AIR CELLS: Unremarkable as visualized. No inflammatory changes. OTHER FINDINGS: Changes of bilateral cataract surgery again noted IMPRESSION: No acute intracranial hemorrhage. Re- demonstrated are moderate diffuse/ confluent chronic white matter ischemic changes with more discrete chronic appearing bifrontal infarct changes. Additionally, there are chronic bilateral basal nuclei lacunar type infarcts. Moderate -significant volume loss
[2017-04-19] MEDS ORDERED: Levothyroxine 50 MCG TAB PO SCH (06:30)
[2017-04-19] MEDS: Santyl Collagenase OINTMENT TOP SCH (09:20)
[2017-04-19] MEDS: Silver Sulfadiazine 1% CREAM (50 gm) TOP SCH (09:20)
--- NOTE | 2017-04-19 12:42 | CP.PCM.HP ---
History of Present Illness - History of Present Illness History of Present Illness: this 89-year-old female was [facility] after she was found to be unable to undergo further hemodialysis and was found to be extremely weak and unresponsive. The patient has had multiple hospitalizations at this institution over last year. She has gradually become more and more frail and has been mostly bedbound at this point. She is a long-standing hypertensive and diabetic with chronic renal failure and has been on hemodialysis for more than 40 years. She has had chronic atrial fibrillation and severe pulmonary hypertension as a result off profound hypoxia due to hypoventilation syndrome related to obstructive sleep apnea. She had been using a BiPAP machine at night at home. The patient has had right ventricular failure resulting in recovering ascites which has required repeated paracentesis. Patient's son, a physician and his daughter have requested comfort care only and accordingly arrangements are being made to have a hospice rental sales representative evaluate her. Physical examination shows an elderly female who is quite unarousable but completely comfortable and at peace. She is afebrile and bleeds at 12-14 times a minute.her heart rate was 90 bpm irregularly irregular, atrial fibrillation. A dialysis shunt was present in the left upper extremity and her blood pressure recorded in the right upper extremity was 80/60 mmHg. Her jugular venous pressure was elevated to the angle of the jaw. Abdomen was soft liver and spleen were not palpable. There were ischemic changes evident on her toes. The extremities were cold to touch. There was mild cyanotic tinge to her toes. There was ascites present. Her labs were reviewed. 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 Hypertension as well as diabetes with chronic renal failure on chronic hemodialysis. Chronic atrial fibrillation. The patient's family have requested that no aggressive or invasive intervention be undertaken. There have requested comfort care only. Accordingly I have instructed the nurses to stop recording her vital signs and doing any x-rays or lab tests. I will have hospice nurse evaluate her on Friday. In the meantime I have recommended Ativan to be given for restlessness. Present on Admission - Present on Admission Any Indicators Present on Admission: No Past Patient History - Infectious Disease Hx of Infectious Diseases: None - Tetanus Immunizations Tetanus Immunization: Unknown - Past Medical History & Family History Past Medical History?: Yes - Past Social History Smoking Status: Former Smoker - CARDIAC Hx Cardiac Disorders: Yes Hx Atrial Fibrillation: Yes Hx Congestive Heart Failure: Yes Hx Hypertension: Yes Hx Peripheral Edema: Yes - PULMONARY Hx Respiratory Disorders: Yes - NEUROLOGICAL Hx Neurological Disorder: No - HEENT Hx HEENT Problems: No - RENAL Hx Chronic Kidney Disease: Yes (Dialysis MWF) Type of Dialysis Access: LAV SHUNT Date of Last Dialysis Treatment: 04/16/17 Hx Renal Failure: Yes - ENDOCRINE/METABOLIC Hx Endocrine Disorders: Yes Hx Diabetes Mellitus Type 2: Yes - HEMATOLOGICAL/ONCOLOGICAL Hx Blood Disorders: Yes Hx Anemia: Yes Hx Human Immunodeficiency Virus (HIV): No - INTEGUMENTARY Hx Dermatological Problems: No - MUSCULOSKELETAL/RHEUMATOLOGICAL Hx Musculoskeletal Disorders: No Hx Falls: Yes - GASTROINTESTINAL Hx Gastrointestinal Disorders: Yes Other/Comment: ASCITES - GENITOURINARY/GYNECOLOGICAL Hx Genitourinary Disorders: No - PSYCHIATRIC Hx Psychophysiologic Disorder: Yes Hx Depression: Yes Hx Substance Use: No - SURGICAL HISTORY Hx Surgeries: Yes Hx Cholecystectomy: Yes Hx Coronary Artery Bypass Graft: No - ANESTHESIA Hx Anesthesia: Yes Hx Anesthesia Reactions: No Hx Malignant Hyperthermia: No Meds Allergies/Adverse Reactions: Allergies Allergy/AdvReac Type Severity Reaction Status Date / Time iodine Allergy RASH Verified 01/29/17 13:29 iron Allergy ITCHING Verified 01/29/17 13:29 Results - Vital Signs Recent Vital Signs: Last Vital Signs Temp 96.9 F L 04/19/17 09:00 Pulse 115 H 04/19/17 09:00 Resp 18 04/19/17 09:00 BP 85/54 L 04/19/17 09:00 Pulse Ox 94 L 04/19/17 09:00 - Labs Result Diagrams: 04/18/17 15:00 04/18/17 14:32 Labs: Laboratory Results - last 24 hr 04/18/17 04/18/17 04/18/17 14:32 15:00 15:00 WBC 6.4 RBC 3.27 L Hgb 11.3 L D Hct 35.4 MCV 108.2 H D MCH 34.5 H MCHC 31.8 L RDW 19.5 H Plt Count 122 L D MPV 7.6 Neut % (Auto) 69.6 Lymph % (Auto) 7.5 L Morrow % (Auto) 22.5 H Eos % (Auto) 0.1 Baso % (Auto) 0.3 Neut # 4.4 Lymph # 0.5 L Morrow # 1.4 H Eos # 0.0 Baso # 0.0 Neutrophils % (Manual) 69 Lymphocytes % (Manual) 9 L Monocytes % (Manual) 21 H Basophils % (Manual) 1 Platelet Estimate Normal Large Platelets Present Poikilocytosis (manual Moderate Anisocytosis (manual) Moderate Macrocytosis (manual) Moderate Tear Drop Cells Slight Ovalocytes Slight Patterson Cells Slight PT 25.2 H INR 2.4 H APTT 41.4 H pO2 VBG pH VBG pCO2 VBG HCO3 VBG Total CO2 VBG O2 Sat (Calc) VBG Base Excess VBG Potassium Glucose Lactate FiO2 Crit Value Called To Crit Value Called By Crit Value Read Back Blood Gas Notified Time Sodium 140 Potassium 4.4 Chloride 96 L Carbon Dioxide 25 Anion Gap 23 H BUN 30 H Creatinine 2.7 H Est GFR ( Amer) 20 Est GFR (Non-Af Amer) 17 Random Glucose 152 H Calcium 11.3 H Total Bilirubin 1.5 H AST 31 ALT 18 Alkaline Phosphatase 121 Troponin I 0.0200 NT-Pro-B Natriuret Pep 599567 H Total Protein 6.1 L Albumin 3.0 L Globulin 3.0 Albumin/Globulin Ratio 1.0 Venous Blood Potassium 04/18/17 16:00 WBC RBC Hgb Hct MCV MCH MCHC RDW Plt Count MPV Neut % (Auto) Lymph % (Auto) Morrow % (Auto) Eos % (Auto) Baso % (Auto) Neut # Lymph # Morrow # Eos # Baso # Neutrophils % (Manual) Lymphocytes % (Manual) Monocytes % (Manual) Basophils % (Manual) Platelet Estimate Large Platelets Poikilocytosis (manual Anisocytosis (manual) Macrocytosis (manual) Tear Drop Cells Ovalocytes Dorita Cells PT INR APTT pO2 50 VBG pH 7.22 L VBG pCO2 80 H* VBG HCO3 26.2 VBG Total CO2 35.2 H VBG O2 Sat (Calc) 83.2 H VBG Base Excess 2.4 H VBG Potassium 4.3 Glucose 158 H Lactate 1.4 FiO2 21.0 Crit Value Called To Dr ishan tovar Crit Value Called By Rt Crit Value Read Back Y Blood Gas Notified Time 1608 Sodium 133.0 Potassium Chloride 98.0 Carbon Dioxide Anion Gap BUN Creatinine Est GFR ( Amer) Est GFR (Non-Af Amer) Random Glucose Calcium Total Bilirubin AST ALT Alkaline Phosphatase Troponin I NT-Pro-B Natriuret Pep Total Protein Albumin Globulin Albumin/Globulin Ratio Venous Blood Potassium 4.3
--- NOTE | 2017-04-19 15:16 | CP.PCM.PN ---
Subjective - Date & Time of Evaluation Date of Evaluation: 04/19/17 Time of Evaluation: 15:14 - Subjective Subjective: pt well known to me agree with Dr Aldridge comfort care appropriate in this 89 yo will follow if needed. Objective - Vital Signs/Intake and Output Vital Signs (last 24 hours): Temp Pulse Resp BP Pulse Ox 96.9 F L 115 H 18 85/54 L 94 L 04/19/17 09:00 04/19/17 09:00 04/19/17 09:00 04/19/17 09:00 04/19/17 09:00 - Medications Medications: Current Medications Collagenase (Santyl) 1 applic TOP DAILY MEGHAN Last Admin: 04/19/17 09:20 Dose: 1 appl Lorazepam (Ativan) 0.5 mg IVP Q6 PRN PRN Reason: Restlessness Silver Sulfadiazine (Silvadene 1% 50 Gm) 1 applic TOP DAILY MEGHAN Last Admin: 04/19/17 09:20 Dose: 1 applic - Labs Labs: 04/18/17 15:00 04/18/17 14:32 PT 25.2 Seconds (9.8-13.1) H 04/18/17 15:00 INR 2.4 (0.9-1.2) H 04/18/17 15:00 APTT 41.4 Seconds (25.6-37.1) H 04/18/17 15:00
[2017-04-20] MEDS: Santyl Collagenase OINTMENT TOP SCH (09:51)
[2017-04-20] MEDS: Silver Sulfadiazine 1% CREAM (50 gm) TOP SCH (09:51)
[2017-04-20 11:53] VITALS: O2SAT 100
--- NOTE | 2017-04-20 13:42 | CP.PCM.PN ---
Subjective - Date & Time of Evaluation Date of Evaluation: 04/20/17 Time of Evaluation: 13:25 - Subjective Subjective: Was given IV Ativan twice in the last 24 hrs with prompt reliefe A Fib at 100-130 BPM Breathes at 12 BPM In no discomfort Family at bedside Pt has a DN with comfort care requested by family. Objective - Vital Signs/Intake and Output Vital Signs (last 24 hours): Temp Pulse Resp BP Pulse Ox 96.9 F L 115 H 18 85/54 L 100 04/19/17 09:00 04/19/17 09:00 04/19/17 09:00 04/19/17 09:00 04/20/17 11:53 - Medications Medications: Current Medications Collagenase (Santyl) 1 applic TOP DAILY MEGHAN Last Admin: 04/20/17 09:51 Dose: 1 appl Lorazepam (Ativan) 0.5 mg IVP Q6 PRN PRN Reason: Restlessness Last Admin: 04/20/17 11:22 Dose: 0.5 mg Silver Sulfadiazine (Silvadene 1% 50 Gm) 1 applic TOP DAILY MEGHAN Last Admin: 04/20/17 09:51 Dose: 1 applic - Labs Labs: 04/18/17 15:00 04/18/17 14:32 PT 25.2 Seconds (9.8-13.1) H 04/18/17 15:00 INR 2.4 (0.9-1.2) H 04/18/17 15:00 APTT 41.4 Seconds (25.6-37.1) H 04/18/17 15:00
[2017-04-21 00:08] VITALS: BP 104/67; PULSE 111; RESP 24; TEMP 97.5
--- NOTE | 2017-04-21 03:40 | CP.PCM.PRO ---
Pronouncement of Note - Clinical Findings Physical Exam: No Response Verbal/Painful Stimuli, Absent Peripheral Pulses{ Carotid & Femoral}, Absent Heart & Breath Sounds, No Pupillary Light Reflex, No Corneal Reflex, Pupils Fixed & Dilated, Absence of Vital Signs - Pronouncement Time Time of Pronouncement of : 03:12 - Notifications Pronouncement Notifications: Family Notified, Atending Notified Leaf Blender Notified: No - Autopsy Autopsy Requested: No [place] [id number] Additional Comments: The patient was DNR
--- NOTE | 2017-04-21 09:30 | CP.PCM.DIS ---
Provider - Provider Date of Admission: 04/18/17 16:32 Attending physician: Ariel Aldridge MD Time Spent in preparation of Discharge (in minutes): 30 Hospital Course - Lab Results Lab Results: Micro Results 04/18/17 14:50 Blood Blood Culture - Preliminary NO GROWTH AFTER 48 HOURS Most Recent Lab Values WBC 6.4 K/uL (4.8-10.8) 04/18/17 15:00 RBC 3.27 Mil/uL (3.80-5.20) L 04/18/17 15:00 Hgb 11.3 g/dL (12.0-16.0) L D 04/18/17 15:00 Hct 35.4 % (34.0-47.0) 04/18/17 15:00 MCV 108.2 fl (81.0-99.0) H D 04/18/17 15:00 MCH 34.5 pg (27.0-31.0) H 04/18/17 15:00 MCHC 31.8 g/dL (33.0-37.0) L 04/18/17 15:00 RDW 19.5 % (11.5-14.5) H 04/18/17 15:00 Plt Count 122 K/uL (130-400) L D 04/18/17 15:00 MPV 7.6 fl (7.2-11.7) 04/18/17 15:00 Neut % (Auto) 69.6 % (50.0-75.0) 04/18/17 15:00 Lymph % (Auto) 7.5 % (20.0-40.0) L 04/18/17 15:00 [place] % (Auto) 22.5 % (0.0-10.0) H 04/18/17 15:00 Eos % (Auto) 0.1 % (0.0-4.0) 04/18/17 15:00 Baso % (Auto) 0.3 % (0.0-2.0) 04/18/17 15:00 Neut # 4.4 K/uL (1.8-7.0) 04/18/17 15:00 Lymph # 0.5 K/uL (1.0-4.3) L 04/18/17 15:00 [place] # 1.4 K/uL (0.0-0.8) H 04/18/17 15:00 Eos # 0.0 K/uL (0.0-0.7) 04/18/17 15:00 Baso # 0.0 K/uL (0.0-0.2) 04/18/17 15:00 Neutrophils % (Manual) 69 % (42-75) 04/18/17 15:00 Lymphocytes % (Manual) 9 % (20-50) L 04/18/17 15:00 Monocytes % (Manual) 21 % (0-10) H 04/18/17 15:00 Basophils % (Manual) 1 % (0-2) 04/18/17 15:00 Platelet Estimate Normal (NORMAL) 04/18/17 15:00 Large Platelets Present 04/18/17 15:00 Poikilocytosis (manual Moderate 04/18/17 15:00 Anisocytosis (manual) Moderate 04/18/17 15:00 Macrocytosis (manual) Moderate 04/18/17 15:00 Tear Drop Cells Slight 04/18/17 15:00 Ovalocytes Slight 04/18/17 15:00 [place] Cells Slight 04/18/17 15:00 PT 25.2 Seconds (9.8-13.1) H 04/18/17 15:00 INR 2.4 (0.9-1.2) H 04/18/17 15:00 APTT 41.4 Seconds (25.6-37.1) H 04/18/17 15:00 pO2 50 mm/Hg (30-55) 04/18/17 16:00 VBG pH 7.22 (7.32-7.43) L 04/18/17 16:00 VBG pCO2 80 mmHg (40-60) H* 04/18/17 16:00 VBG HCO3 26.2 mmol/L 04/18/17 16:00 VBG Total CO2 35.2 mmol/L (22-28) H 04/18/17 16:00 VBG O2 Sat (Calc) 83.2 % (40-65) H 04/18/17 16:00 VBG Base Excess 2.4 mmol/L (0.0-2.0) H 04/18/17 16:00 VBG Potassium 4.3 mmol/L (3.6-5.2) 04/18/17 16:00 Sodium 133.0 mmol/L (132-148) 04/18/17 16:00 Chloride 98.0 mmol/L (98-107) 04/18/17 16:00 Glucose 158 mg/dL (65-105) H 04/18/17 16:00 Lactate 1.4 mmol/L (0.7-2.1) 04/18/17 16:00 FiO2 21.0 % 04/18/17 16:00 Crit Value Called To Dr ishan tovar 04/18/17 16:00 Crit Value Called By Rt 04/18/17 16:00 Crit Value Read Back Y 04/18/17 16:00 Blood Gas Notified Time 1608 04/18/17 16:00 Sodium 140 mmol/l (132-148) 04/18/17 14:32 Potassium 4.4 MMOL/L (3.6-5.0) 04/18/17 14:32 Chloride 96 mmol/L (98-107) L 04/18/17 14:32 Carbon Dioxide 25 mmol/L (22-30) 04/18/17 14:32 Anion Gap 23 (10-20) H 04/18/17 14:32 BUN 30 mg/dl (7-17) H 04/18/17 14:32 Creatinine 2.7 mg/dL (0.7-1.2) H 04/18/17 14:32 Est GFR ( Amer) 20 04/18/17 14:32 Est GFR (Non-Af Amer) 17 04/18/17 14:32 Random Glucose 152 mg/dL (65-105) H 04/18/17 14:32 Calcium 11.3 mg/dL (8.4-10.2) H 04/18/17 14:32 Total Bilirubin 1.5 mg/dl (0.2-1.3) H 04/18/17 14:32 AST 31 U/L (14-36) 04/18/17 14:32 ALT 18 U/L (9-52) 04/18/17 14:32 Alkaline Phosphatase 121 U/L (38-126) 04/18/17 14:32 Troponin I 0.0200 ng/mL (0.00-0.120) 04/18/17 14:32 NT-Pro-B Natriuret Pep 233557 pg/ml (0-900) H 04/18/17 14:32 Total Protein 6.1 G/DL (6.3-8.2) L 04/18/17 14:32 Albumin 3.0 g/dL (3.5-5.0) L 04/18/17 14:32 Globulin 3.0 gm/dL (2.2-3.9) 04/18/17 14:32 Albumin/Globulin Ratio 1.0 (1.0-2.1) 04/18/17 14:32 Venous Blood Potassium 4.3 mmol/L (3.6-5.2) 04/18/17 16:00 - Hospital Course Hospital Course: This 89-year-old female was brought to the emergency room when she was found to be poorly responsive and hypotensive in the rehabilitation institution where she was sent approximately 10 days back. The patient has had long medical history consisting off hypertension and diabetes eventually leading to chronic renal failure requiring hemodialysis for last 4-5 years. She had severe right ventricular failure as a consequence of severe pulmonary hypertension which was the result of hypoxia induced by obstructive sleep apnea and hypoxia hyperventilation syndrome. The patient also had chronic atrial fibrillation. Over the last year and a half the patient had steadily declined in her general medical condition as well as grown more frail and was mostly bed and chair bound for the last couple of months. She had gradually developed cognitive impairment as well. When the patient was brought into the emergency room her family requested that she be given only comfort care. Accordingly most of her medications which were meant for long-term well-being were discontinued and hemodialysis was discontinued as well. Specifically comfort care measures were instituted. The patient gradually continued to go down. And finally at 3:12 AM on . Her final diagnosis was chronic renal failure stage V with severe right ventricular failure which was chronic and systolic and atrial fibrillation. Discharge Exam - Head Exam Head Exam: ATRAUMATIC, NORMAL INSPECTION, NORMOCEPHALIC Discharge Plan - Follow Up Plan Condition: CRITICAL Disposition: WITH WITHOUT AUTOPSY
[2017-04-21 09:58] LABS: VENOUS BLOOD GAS BASE EXCESS 5.7 mmol/L (0.0-2.0); VENOUS BLOOD GAS PCO2 65 mmHg (40-60); VENOUS BLOOD PH 7.32 (7.32-7.43)
== END 2017-04-21 03:12 | DRG 291 ==
LOC: H.ER 13:52 → H.ERHOLD 16:32 → H.TEL 17:59
PROVIDERS: ADMIT Internal Medicine Cardiovascular Disease; ATTEND Internal Medicine Cardiovascular Disease
DX: I13.2 Hypertensive heart and chronic kidney disease with heart failure and with stage 5 chronic kidney disease, or end stage renal disease (principal); N18.6 End stage renal disease; L89.152 Pressure ulcer of sacral region, stage 2; R18.8 Other ascites; E11.22 Type 2 diabetes mellitus with diabetic chronic kidney disease; F03.90 Unspecified dementia, unspecified severity, without behavioral disturbance, psychotic disturbance, mood disturbance, and anxiety; I27.29 Other secondary pulmonary hypertension; G47.36 Sleep related hypoventilation in conditions classified elsewhere; I95.9 Hypotension, unspecified; I48.2 Chronic atrial fibrillation; D64.9 Anemia, unspecified; E03.9 Hypothyroidism, unspecified; I25.10 Atherosclerotic heart disease of native coronary artery without angina pectoris; Z79.01 Long term (current) use of anticoagulants; Z87.01 Personal history of pneumonia (recurrent); G47.33 Obstructive sleep apnea (adult) (pediatric); R09.02 Hypoxemia; I50.810 Right heart failure, unspecified; Z51.5 Encounter for palliative care; Z66 Do not resuscitate; Z87.891 Personal history of nicotine dependence; Z90.49 Acquired absence of other specified parts of digestive tract; Z99.2 Dependence on renal dialysis; F32.9 Major depressive disorder, single episode, unspecified; L89.899 Pressure ulcer of other site, unspecified stage